=== PATIENT | female | born 1945 | race Caucasian/White ===

== ENCOUNTER 2016-10-21 15:24 | Inpatient (IN) | payer MEDICARE, OTHER ==
[2016-10-21] VITALS (8 sets, daily range): BP systolic 132–158; BP diastolic 58–76; PULSE 69–78; RESP 14–20; TEMP 98.4; O2SAT 96–100
[~2016-10-21] VITALS: Ht 160 cm; Wt 77.3 kg
[~2016-10-21 15:24] MED LIST: ASPI81TA82 PO; ATEN-100 PO; CENTTAB9 PO; CITA20TA4 PO; HYDR-2768 PO; HYDR-3533 PO; LACT20SO4 PO; LEVO50TA4 PO; OMEP20TA39 PO; ROPI.25 PO
--- NOTE | 2016-10-21 15:55 | PD ---
HPI Chief Complaint: Chest Pain Time Seen by Provider: 15:49 Travel History International Travel<30 days: No Contact w/Intl Traveler<30days: No Traveled to known affect area: No History of Present Illness HPI This 71-year-old female is complaining of abdominal pain and vomiting. She says that she felt well yesterday. She went out to dinner and had prime rib. She thought it might have been bad. She went home early not feeling well and then started vomiting around 4:00 this morning. The last few times she vomited a lot of yellow material. She has had a hysterectomy and appendectomy in the past. She has been diagnosed with cirrhosis in the past he still drinks. The pain she is having is primarily in the epigastric area. She is not aware of any history of gallbladder disease. He sees Dr. Rodney. She has not had pain like this before. She says the pain is quite severe. She feels like her abdomen is distended. She has had a small amount of diarrhea PFSH Past Medical History Depression: Yes Cancer: No Cardiovascular Problems: Yes Diabetes: No Diminished Hearing: No Endocrine: No GERD: Yes Hepatitis: No Hiatal Hernia: No Hypertension: Yes Immune Disorder: No Musculoskeletal: No Neurologic: No Psychiatric: No Reproductive: No Respiratory: Yes (HX ASTHMA, COPD, SLEEP APNEA) Thyroid Disease: Yes Past Surgical History Abdominal Surgery: Yes (APPY) AICD: No Cardiac Surgery: No Ear Surgery: No Endocrine Surgery: No Eye Surgery: Yes (CATARACT) Genitourinary Surgery: No Gynecologic Surgery: Yes (HYSTERECTOMY) Joint Replacement: No Oral Surgery: No Pacemaker: No Thoracic Surgery: No Other Surgery: Yes (TONSILLECTOMY; APPY) Social History Alcohol Use: Yes (couple drinks daily) Tobacco Use: No Substance Use: No Allergies-Medications (Allergen,Severity, Reaction): Coded Allergies: No Known Allergies (Unverified , 10/21/16) Reported Meds & Prescriptions Reported Meds & Active Scripts Active Lortab 5 mg/325 mg (Hydrocodone/Acetaminophen 5 mg/325 mg) 1 Tab 1-2 Tab PO Q6H PRN Reported Centrum (Multivitamins) Tab 1 Tab PO DAILY Aspir-81 (Aspirin) 81 Mg Tab 81 Mg PO DAILY Hm Omeprazole (Omeprazole) 20 Mg Tab 40 Mg PO DAILY Citalopram Hydrobromide 20 Mg Tab 20 Mg PO DAILY Atenolol 25 Mg Tab 25 Mg PO DAILY Hctz (Hydrochlorothiazide) 25 Mg Tab 25 Mg PO DAILY Levothyroxine 50 mcg (Levothyroxine Sodium) 50 Mcg Tab 50 Mcg PO DAILY Requip (Ropinirole HCl) 0.25 Mg Tab 0.25 Mg PO DAILY Lactulose 30 Ml Syrp 15 Ml PO TID Review of Systems General / Constitutional: No: Fever, Chills Eyes: No: Diploplia, Blurred Vision HENT: No: Headaches, Vertigo Cardiovascular: No: Chest Pain or Discomfort Respiratory: No: Shortness of Breath Gastrointestinal: Positive: Nausea, Vomiting, Diarrhea, Abdominal Pain Genitourinary: No: Urgency Physical Exam Narrative GENERAL: Well-developed female SKIN: Warm and dry. HEAD: Atraumatic. Normocephalic. EYES: Pupils equal and round. No scleral icterus. No injection or drainage. ENT: No nasal bleeding or discharge. Mucous membranes pink and moist. NECK: Trachea midline. No JVD. CARDIOVASCULAR: Regular rate and rhythm. No murmur appreciated. RESPIRATORY: No accessory muscle use. Clear to auscultation. Breath sounds equal bilaterally. GASTROINTESTINAL: Abdomen soft, there is epigastric tenderness without guarding or rigidity. The abdomen does appear distended. Hepatic and splenic margins not palpable. MUSCULOSKELETAL: No obvious deformities. No clubbing. No cyanosis. No edema. NEUROLOGICAL: Awake and alert. No obvious cranial nerve deficits. Motor grossly within normal limits. Normal speech. PSYCHIATRIC: Appropriate mood and affect; insight and judgment normal. Data Data Last Documented VS Vital Signs Date Time Temp Pulse Resp B/P Pulse Ox O2 Delivery O2 Flow Rate FiO2 10/21/16 15:29 98.4 78 20 134/58 100 Orders Complete Blood Count With Diff (10/21/16 15:49) Comprehensive Metabolic Panel (10/21/16 15:49) Lipase (10/21/16 15:49) Lactic Acid (10/21/16 15:49) Prothrombin Time / Inr (Pt) (10/21/16 15:49) Act Partial Throm Time (Ptt) (10/21/16 15:49) Urinalysis - C+S If Indicated (10/21/16 15:49) Ct Abd/Pel W Iv Contrast(Rout) (10/21/16 15:49) Iv Access Insert/Monitor (10/21/16 15:49) Ecg Monitoring (10/21/16 15:49) Oximetry (10/21/16 15:49) Ondansetron Inj (Zofran Inj) (10/21/16 16:00) Sodium Chlor 0.9% 1000 Ml Inj (Ns 1000 M (10/21/16 15:49) Sodium Chloride 0.9% Flush (Ns Flush) (10/21/16 16:00) Electrocardiogram (10/21/16 15:49) Hydromorphone Pf Inj (Dilaudid Pf Inj) (10/21/16 16:00) MDM Medical Decision Making Medical Screen Exam Complete: Yes Emergency Medical Condition: Yes Medical Record Reviewed: Yes Differential Diagnosis Differential includes bowel obstruction, cholecystitis, gastroenteritis Narrative Course IV fluids have been initiated. Lab work and CT scan of the abdomen and pelvis have been ordered. Diagnosis Primary Impression: Abdominal pain Jc Hui MD Oct 21, 2016 15:55
[2016-10-21] MEDS ORDERED: HYDROmorphone HCL PF 1 MG/ML VIAL IV PUSH ONE (16:00)
[2016-10-21] MEDS ORDERED: SODIUM CHLORIDE 0.9% FLUSH 5 ML FLUSH IVF PRN (16:00)
[2016-10-21] MEDS ORDERED: ONDANSETRON HCL 4 MG/2 ML VIAL IVP ONE (16:00)
[2016-10-21] MEDS: SODIUM CHLOR 0.9% 1000 ML INJ 1,000 ML IV SCH ×2 (16:07→21:00)
[2016-10-21 16:17] LABS: AUTOMATED NEUTROPHIL # 10.3 TH/MM3 (1.8-7.7); BASOPHIL # 0.3 TH/MM3 (0-0.2); CHLORIDE 100 MEQ/L (98-107); EOSINOPHIL % 0.3 % (0.0-4.0); HEMATOCRIT 35.8 % (35.0-46.0); LYMPH % 11.8 % (9.0-44.0); LYMPHOCYTE # 1.5 TH/MM3 (1.0-4.8); MEAN CELL VOLUME 96.9 FL (80.0-100.0); MEAN CORPUSCULAR HEMOGLOBIN 32.7 PG (27.0-34.0); MEAN CORPUSCULAR HGB CONC 33.8 % (32.0-36.0); MONO % 6.7 % (0.0-8.0); NEUT % 79.2 % (16.0-70.0); PLATELET COUNT 215 TH/MM3 (150-450); POTASSIUM 3.6 MEQ/L (3.5-5.1); RED CELL DISTRIBUTION WIDTH 15.4 % (11.6-17.2); SODIUM (NA) 138 MEQ/L (136-145)
[2016-10-21 16:18] LABS: HEMO FLAGS DIFF FINAL
[2016-10-21 16:21] LABS: ANION GAP 11 MEQ/L (5-15); BICARBONATE 27.2 MEQ/L (21.0-32.0); BLOOD UREA NITROGEN 7 MG/DL (7-18)
[2016-10-21 16:23] LABS: APTT (PATIENT) 29.1 SEC (24.3-30.1); INTERNATIONAL NORMALIZED RATIO 1.2 RATIO; PROTHROMBIN TIME - PATIENT 13.1 SEC (9.8-11.6)
[2016-10-21 16:24] LABS: ALT (GPT) 35 U/L (10-53); AST (GOT) 119 U/L (15-37); GLOMERULAR FILTRATION RATE 90 ML/MIN (>89)
[2016-10-21 16:26] LABS: TOTAL BILIRUBIN ADULT 4.1 MG/DL (0.2-1.0)
[2016-10-21 16:27] LABS: ALKALINE PHOSPHATASE 253 U/L (45-117)
[2016-10-21 16:28] LABS: CREATINE KINASE 86 U/L (26-192)
[2016-10-21] MEDS ORDERED: LEVO50TA4 PO (16:35)
[2016-10-21] MEDS ORDERED: ASPI1TAB69 PO (16:35)
[2016-10-21] MEDS ORDERED: ROPI0.25 PO (16:35)
[2016-10-21] MEDS ORDERED: SPIR50TA PO (16:35)
[2016-10-21] MEDS ORDERED: OMEP20TA PO (16:35)
[2016-10-21] MEDS ORDERED: MULT-6 PO (16:35)
[2016-10-21] MEDS ORDERED: CITA20TA4 PO (16:35)
[2016-10-21] MEDS ORDERED: LACT10SO PO (16:35)
[2016-10-21] MEDS ORDERED: FURO20TA PO (16:35)
[2016-10-21] MEDS ORDERED: VITA500T49 PO (16:35)
[2016-10-21] MEDS ORDERED: XIFA550T4 PO (16:35)
[2016-10-21] MEDS ORDERED: IOHEXOL 350 MG/ML 10 ML VIAL (for RAD DIAG) IV ONE (17:05)
--- NOTE | 2016-10-21 17:11 | RADHPO ---
EXAM DATE/TIME: 10/21/2016 16:32 [facility] COMPARISON: No previous studies available for comparison. INDICATIONS : Abdominal pain. MEDICAL HISTORY : None. SURGICAL HISTORY : Hysterectomy. Appendectomy. ENCOUNTER: Initial ACUITY: 1 day PAIN SCORE: 7/10 LOCATION: Bilateral abdomen. FINDINGS: Supine and upright views of the abdomen were performed. The abdominal bowel gas pattern is normal. No air fluid levels are seen. No abnormal masses, calcifications, or organomegaly is seen. The visu alized lower lungs are clear. No evidence of free intraperitoneal gas. The osseous structures are u nremarkable. CONCLUSION: Nonobstructive bowel gas pattern. No free air seen. Fidel Perez MD on October 21, 2016 at 17:10 Board Certified Radiologist. This report was verified electronically.
--- NOTE | 2016-10-21 17:20 | RADHPO ---
EXAM DATE/TIME: 10/21/2016 16:52 [facility] COMPARISON: No previous studies available for comparison. INDICATIONS : Epigastric pain. IV CONTRAST: 95 cc Omnipaque 350 (iohexol) IV ORAL CONTRAST: No oral contrast ingested. RADIATION DOSE: 16.92 CTDIvol (mGy) MEDICAL HISTORY : Hypertension. Chronic obstructive pulmonary disease. Gastroesophageal reflux disease. SURGICAL HISTORY : Appendectomy. Hysterectomy. ENCOUNTER: Initial ACUITY: 1 day PAIN SCALE: 3/10 LOCATION: upper quadrant TECHNIQUE: Volumetric scanning of the abdomen and pelvis was performed. Using automated exposure control and ad justment of the mA and/or kV according to patient size, radiation dose was kept as low as reasonably achievable to obtain optimal diagnostic quality images. FINDINGS: Liver is smaller than before and now appears frankly nodular. Innumerable 5 mm or less low density sp aces are seen scattered throughout the liver. A vague low attenuation area of the anterior segment of the right hepatic lobe measuring 2.7 x 4.3 cm as seen on series 2 image 29. There is small moderate ascites, new. Mild splenomegaly again seen, measures about 13.3 cm craniocaudal. No significant diste ntion seen in the portal vein. Portal vein appears patent. Pancreas, adrenal glands and kidneys are within normal limits. No obstruction or acute inflammatory c hanges are seen of the gastrointestinal tract. There is mild sigmoid colon diverticulosis without div erticulitis. Moderate hiatal hernia is seen, larger than before. CONCLUSION: 1. Liver now appears frankly cirrhotic. There is a area of tiny low density lesions versus cystic spa ramiro scattered throughout the liver, etiology uncertain potentially related to cirrhosis and/or haley us regenerating nodules. Superimposed acute hepatocellular disease would be conceivable. Diffuse met astatic disease not excludable. Study also suggests potential vague, more dominant lesion of the righ t hepatic lobe. Nonemergent liver MRI with dynamic postcontrast imaging recommended for attempted fur ther characterization. 2. Small to moderate ascites has developed. 3. Mild splenomegaly is not significantly changed. 4. Increased size of a moderate hiatal hernia. 5. No obstruction or focal inflammatory changes are demonstrated. Fidel ePrez MD on October 21, 2016 at 17:12 Board Certified Radiologist. This report was verified electronically.
--- NOTE | 2016-10-21 17:37 | PD ---
Data Data Last Documented VS Vital Signs Date Time Temp Pulse Resp B/P Pulse Ox O2 Delivery O2 Flow Rate FiO2 10/21/16 17:16 77 16 147/61 99 Room Air 10/21/16 15:29 98.4 Orders Complete Blood Count With Diff (10/21/16 15:49) Comprehensive Metabolic Panel (10/21/16 15:49) Lipase (10/21/16 15:49) Lactic Acid (10/21/16 15:49) Prothrombin Time / Inr (Pt) (10/21/16 15:49) Act Partial Throm Time (Ptt) (10/21/16 15:49) Urinalysis - C+S If Indicated (10/21/16 15:49) Ct Abd/Pel W Iv Contrast(Rout) (10/21/16 15:49) Iv Access Insert/Monitor (10/21/16 15:49) Ecg Monitoring (10/21/16 15:49) Oximetry (10/21/16 15:49) Ondansetron Inj (Zofran Inj) (10/21/16 16:00) Sodium Chlor 0.9% 1000 Ml Inj (Ns 1000 M (10/21/16 15:49) Sodium Chloride 0.9% Flush (Ns Flush) (10/21/16 16:00) Electrocardiogram (10/21/16 15:49) Hydromorphone Pf Inj (Dilaudid Pf Inj) (10/21/16 16:00) Abdomen, Flat & Upright (10/21/16 ) Ckmb (Isoenzyme) Profile (10/21/16 15:43) Troponin I (10/21/16 15:43) Iohexol 350 Inj (Omnipaque 350 Inj) (10/21/16 17:05) Aspirin Chew (Aspirin Chew) (10/21/16 17:45) Labs Laboratory Tests Test 10/21/16 15:43 White Blood Count 13.0 TH/MM3 Red Blood Count 3.70 MIL/MM3 Hemoglobin 12.1 GM/DL Hematocrit 35.8 % Mean Corpuscular Volume 96.9 FL Mean Corpuscular Hemoglobin 32.7 PG Mean Corpuscular Hemoglobin 33.8 % Concent Red Cell Distribution Width 15.4 % Platelet Count 215 TH/MM3 Mean Platelet Volume 9.0 FL Neutrophils (%) (Auto) 79.2 % Lymphocytes (%) (Auto) 11.8 % Monocytes (%) (Auto) 6.7 % Eosinophils (%) (Auto) 0.3 % Basophils (%) (Auto) 2.0 % Neutrophils # (Auto) 10.3 TH/MM3 Lymphocytes # (Auto) 1.5 TH/MM3 Monocytes # (Auto) 0.9 TH/MM3 Eosinophils # (Auto) 0.0 TH/MM3 Basophils # (Auto) 0.3 TH/MM3 CBC Comment DIFF FINAL Differential Comment Prothrombin Time 13.1 SEC Prothromb Time International 1.2 RATIO Ratio Activated Partial 29.1 SEC Thromboplast Time Sodium Level 138 MEQ/L Potassium Level 3.6 MEQ/L Chloride Level 100 MEQ/L Carbon Dioxide Level 27.2 MEQ/L Anion Gap 11 MEQ/L Blood Urea Nitrogen 7 MG/DL Creatinine 0.65 MG/DL Estimat Glomerular Filtration 90 ML/MIN Rate Random Glucose 140 MG/DL Lactic Acid Level 2.5 mmol/L Calcium Level 9.0 MG/DL Total Bilirubin 4.1 MG/DL Aspartate Amino Transf 119 U/L (AST/SGOT) Alanine Aminotransferase 35 U/L (ALT/SGPT) Alkaline Phosphatase 253 U/L Total Creatine Kinase 86 U/L Troponin I LESS THAN 0.02 NG/ML Total Protein 7.6 GM/DL Albumin 2.6 GM/DL Lipase 211 U/L [facility] Supervised Visit with KATHY: No Narrative Course The patient was initially evaluated by the previous provider and signed out to me at the beginning of my shift pending labs, CT abdomen pelvis, and disposition. See his note for further details. Briefly this is a 71-year-old female with history of cirrhosis secondary to alcohol abuse, hysterectomy, here for evaluation of epigastric abdominal pain, abdominal distention, nausea, and vomiting. Symptoms started today. Patient also complained of substernal heaviness. Her EKG shows no signs of ischemia. Vital signs show heart rate 78, blood pressure 134/58, pulse ox 100% on room air , oral temp of 98.4F. CBC is remarkable for WBC 13 with 79% neutrophils. CMP is remarkable for TB bili 4.1, AST 119, alkaline phosphatase 253. Lactic acid is 2.5. Cardiac enzymes are negative. Lipase is 211. CT abdomen pelvis: CONCLUSION: 1. Liver now appears frankly cirrhotic. There is a area of tiny low density lesions versus cystic spaces scattered throughout the liver, etiology uncertain potentially related to cirrhosis and/or numerous regenerating nodules. Superimposed acute hepatocellular disease would be conceivable. Diffuse metastatic disease not excludable. Study also suggests potential vague, more dominant lesion of the right hepatic lobe. Nonemergent liver MRI with dynamic postcontrast imaging recommended for attempted further characterization. 2. Small to moderate ascites has developed. 3. Mild splenomegaly is not significantly changed. 4. Increased size of a moderate hiatal hernia. 5. No obstruction or focal inflammatory changes are demonstrated. Upon my assessment of the patient, the patient reports improvement in pain after receiving pain medication, however she states the pain seems to be returning. She has mild tenderness in her abdomen. No rebound or guarding. The ascites seen on CAT scan is very small and I do not believe that paracentesis could be performed safely given the small amount of fluid present. SBP is a possibility, however I think this is less likely in this patient. Patient reports that she was having some substernal chest pressure earlier today. She will be admitted for further treatment and evaluation of the intractable abdominal pain, chest pain, hyperbilirubinemia. Case discussed with hospitalist Dr. Cortez who will admit the patient to his service. Diagnosis Primary Impression: Chest pain Qualified Code: R07.9 - Chest pain, unspecified type Additional Impressions: Abdominal pain Qualified Code: R10.13 - Epigastric pain Hyperbilirubinemia Admitting Information Admitting Physician Requests: Isael Banuelos MD Oct 21, 2016 17:37
[2016-10-21 17:39] LABS: BLOOD, URINE TRACE (NEG); GLUCOSE,URINE NEG (NEG); KETONE, URINE NEG (NEG); NITRITE,URINE NEG (NEG); PH, URINE 8.5 (5.0-8.5)
[2016-10-21] MEDS ORDERED: NALOXONE HCL 0.4 MG/ML AMP IV PRN (17:45)
[2016-10-21] MEDS ORDERED: ACETAMINOPHEN/HYDROcodone 325 MG/5 MG TAB PO PRN (17:45)
[2016-10-21] MEDS ORDERED: SODIUM CHLORIDE 0.9% FLUSH 5 ML FLUSH FLUSH PRN (17:45)
[2016-10-21] MEDS ORDERED: ONDANSETRON HCL 4 MG/2 ML VIAL IVP PRN (17:45)
[2016-10-21] MEDS ORDERED: ACETAMINOPHEN/HYDROcodone 325 MG/7.5 MG TAB PO PRN (17:45)
[2016-10-21] MEDS ORDERED: ASPIRIN 81 MG CHEW TAB PO ONE (17:45)
[2016-10-21] MEDS ORDERED: MAGNESIUM HYDROXIDE SUSP 30 ML CUP PO PRN (17:45)
[2016-10-21] MEDS ORDERED: ACETAMINOPHEN 325 MG TAB PO PRN ×2 (17:45)
[2016-10-21 17:49] LABS: COMMENT (UR) CULT NOT INDICATED; CULTURE IF INDICATED CULT NOT INDICATED; METHOD OF COLLECTION CLEAN CATCH; SQUAMOUS EPITHELIAL CELL URINE 0-5 /hpf (0-5); URINE COLOR YELLOW (YELLW/STRAW)
--- NOTE | 2016-10-21 18:53 | PD.CONS ---
GI Consult GI Consult please also see GI consultation dictated today ([id number]) ASSESSMENT/PLAN: 1. Diffuse abdominal pain associated with nausea, vomiting and diarrhea-? foodborne process ? viral gastroenteritis ?SBP 2. alcohol-induced cirrhosis. 3. gallstones 4. increased LFTs 5. ascites 6. abnormal CT scan? liver lesion-see report PLAN: 1. stool pathogens including enterohemorrhagic Escherichia coli 2. bowel rest 3. Cipro and Flagyl 4. alpha-fetoprotein 5. MRI of abdomen It was a pleasure seeing Brenda Smiley . Thank you for this consult. Entered by: Slava Beckham MD Oct 21, 2016 18:53
[2016-10-21] MEDS: metroNIDAZOLE 500 MG INJ 100 ML IV SCH (19:52)
[2016-10-21] MEDS: SODIUM CHLORIDE 0.9% FLUSH 5 ML FLUSH FLUSH SCH (21:00)
[2016-10-21] MEDS: CIPROFLOXACIN 400 MG PREMIX 200 ML IV SCH (21:00)
[2016-10-21 23:00] LABS: CREATINE KINASE 93 U/L (26-192)
[2016-10-22] VITALS (12 sets, daily range): BP systolic 121–146; BP diastolic 49–78; PULSE 72–85; RESP 16–20; TEMP 98.5–101.2; O2SAT 92–100
[2016-10-22] MEDS: metroNIDAZOLE 500 MG INJ 100 ML IV SCH ×3 (04:02→21:24)
[2016-10-22 05:33] LABS: CREATINE KINASE 50 U/L (26-192)
[2016-10-22 06:03] LABS: AUTOMATED NEUTROPHIL # 17.2 TH/MM3 (1.8-7.7); BASOPHIL # 0.9 TH/MM3 (0-0.2); BASOPHIL % 4.3 % (0.0-2.0); EOSINOPHIL # 0.1 TH/MM3 (0-0.4); EOSINOPHIL % 0.6 % (0.0-4.0); HEMATOCRIT 31.2 % (35.0-46.0); LYMPH % 9.3 % (9.0-44.0); MEAN CELL VOLUME 97.5 FL (80.0-100.0); MEAN CORPUSCULAR HEMOGLOBIN 32.9 PG (27.0-34.0); MEAN CORPUSCULAR HGB CONC 33.7 % (32.0-36.0); NEUT % 77.8 % (16.0-70.0); PLATELET COUNT 192 TH/MM3 (150-450)
[2016-10-22 06:05] LABS: HEMO FLAGS AUTO DIFF
[2016-10-22 06:14] LABS: CHLORIDE 103 MEQ/L (98-107); POTASSIUM 3.4 MEQ/L (3.5-5.1); SODIUM (NA) 139 MEQ/L (136-145)
[2016-10-22 06:42] LABS: ALKALINE PHOSPHATASE 166 U/L (45-117); ALT (GPT) 24 U/L (10-53); ANION GAP 10 MEQ/L (5-15); AST (GOT) 87 U/L (15-37); BICARBONATE 26.5 MEQ/L (21.0-32.0); BLOOD UREA NITROGEN 9 MG/DL (7-18); GLOMERULAR FILTRATION RATE 96 ML/MIN (>89); TOTAL BILIRUBIN ADULT 5.2 MG/DL (0.2-1.0)
[2016-10-22 06:56] LABS: SCAN/DIFF AUTO DIFF CONFIRMED
--- NOTE | 2016-10-22 08:16 | MB ---
cc: HERRERA MENDIETA M.D., MATTHEW DATE OF CONSULTATION: 10/21/2016 DATE OF : 1945 REASON FOR CONSULTATION I have been asked to see the patient by Dr. Cortez for evaluation of nausea, vomiting, abdominal pain and diarrhea. HISTORY OF PRESENT ILLNESS The patient is a pleasant 71-year-old white female with a history of alcohol-induced cirrhosis. She also has a history of ascites and small gallstones seen on ultrasound done earlier this year. She has had previous paracentesis. Apparently she went out to eat with her at the [facility] home last night and she thought the prime rib was not cooked appropriately and looked kind of rare. She put it in her mouth and swallowed and it did not taste very good and she stopped eating. She also had three vodkas. About a half hour later she started having diffuse abdominal pain, colicky and sharp without any provocative or palliative features and non-radiating. She went home and the pain continued and about 4 o'clock this morning she woke up with multiple episodes of vomiting, basically what she ate and bile, but no blood. She did vomit quite forcefully and had some blood from her nose but this stopped. She also had a couple episodes of loose to watery stools which also resolved without any blood (no melena or hematochezia). The patient has not been on any recent antibiotics, nor has she taken any NSAIDs. She does take aspirin. No one else has been ill and she denies any fever or chills, dysphagia or odynophagia. She does have heartburn at times. No melena or hematochezia. No unexplained weight loss. In the emergency room a CAT scan was done which did not show any etiology of the situation, although it showed a lot of chronic changes (? liver lesion). She was given antiemetics and pain medication and improved somewhat, but pain is coming back again. She is currently being admitted. ALLERGIES No known drug allergies. MEDICATIONS Outpatient medications are: 1. Lortab. 2. Aspirin. 3. Omeprazole. 4. Citalopram. 5. Atenolol 6. Hydrochlorothiazide. 7. Levothyroxine. 8. Requip. 9. Lactulose. Medications as an inpatient current are: 1. Tylenol. 2. Zofran. 3. Milk of Magnesia. 4. Calypso. 5. Narcan. PAST MEDICAL HISTORY 1. Cirrhosis related to alcohol. 2. Depression. 3. GERD. 4. Hypertension. 5. Sleep apnea. 6. COPD. 7. Possible asthma. 8. She also has gallstones. 9. Ascites which has been tapped in the past. 10. Hypothyroidism. 11. History of hepatic encephalopathy, but is doing well with lactulose. At one time she was on rifaximin but she says she is not taking it now. PAST SURGICAL HISTORY 1. Appendectomy. 2. Cataract. 3. Hysterectomy. 4. Tonsillectomy. 5. Upper endoscopy in April 2015 which revealed portal hypertension and gastropathy, no varices. SOCIAL HISTORY She drinks alcohol several times a day; last night she had three. She does not smoke. FAMILY HISTORY Noncontributory for this admission. REVIEW OF SYSTEMS CONSTITUTIONAL: No weight loss, fever or chills. CARDIOPULMONARY: No palpitations or wheezing. She reportedly had chest pain but denied it to me. GASTROINTESTINAL: Please see above. Otherwise an unremarkable 10-point review of systems. Her last labs on 04/20/2016 revealed total bilirubin of 2.2, alkaline phosphatase 204, SGOT 37, SGPT 110. PHYSICAL EXAMINATION VITAL SIGNS: Blood pressure is 147/61, pulse 72, respirations 16, temperature 98.4. GENERAL: She is an overweight female, mildly uncomfortable with abdominal pain. She is no acute GI distress. HEENT: Pupils equal, round and reactive to light. There is a touch of scleral icterus. Oropharyngeal cavity has dental caries. No tongue deviation or candidal lesion. Hearing is intact. NECK: Supple. No thyromegaly or lymphadenopathy. LUNGS: Clear to auscultation and percussion. HEART: Regular rate and rhythm. No obvious murmurs are heard. ABDOMEN: Soft. She has diffuse tenderness throughout the abdomen but no rebound tenderness, organomegaly or masses. I really could not tell if she had any ascites clinically. Bowel sounds are positive in all four quadrants. EXTREMITIES: No clubbing, cyanosis or edema. NEUROLOGIC: Cranial nerves II through XII are grossly intact. I did not assess her gait. RECTAL: Exam was not done. SKIN: Warm and moist. LABORATORY DATA BUN 7, creatinine 0.65, potassium 3.6, sodium 138. Total bilirubin 4.1, elevated; SGOT 119, SGPT 35 normal; alkaline phos 253; albumin low at 2.6; total protein normal at 7.4; lipase normal at 211. Troponins have been negative so far. CPK 86, which is normal. Prothrombin time 13.1--elevated; INR 1.2 normal; PTT 29.1 normal. Hemoglobin 12.1, hematocrit 35.8, MCV 96.9, platelet count 215,000, white blood cell count elevated at 13,400. Urinalysis was unremarkable. IMAGING DATA Flat and upright abdomen was unremarkable. CT scan of the abdomen and pelvis done with contrast showed cirrhosis of the liver. There appears to be tiny low density lesions versus cystic spaces throughout the liver, thought to be regenerative nodules. They could not exclude diffuse metastatic disease. Appears to also be a dominant lesion in the right hepatic lobe. They suggest MRI in the future. There was also mild to moderate ascites and mild splenomegaly. There was a mild hiatal hernia. No obstruction or focal inflammatory changes seen. IMPRESSION 1. Diffuse abdominal pain associated with nausea, vomiting and diarrhea. This occurred several hours after eating poorly cooked red meat. She understands this could be a food borne process, could also be a viral gastroenteritis. Whether it is related to spontaneous bacterial peritonitis is unclear. Her gallstones are small and I do not think the gallbladder is playing a role in this situation as the pain is too diffuse. The CAT scan did not show any obstructing lesions or any other inflammatory process. 2. Alcohol-induced cirrhosis. 3. Gallstones. 4. Increased LFTs; appear to be slightly worse than before but not inconsistent with her LFTs in the office. 5. Ascites. Again, whether this is related to spontaneous bacterial peritonitis is unclear. 6. Abnormal CAT scan. There is a possibility of a vague lesion in the liver, significance unclear. However, in the face of cirrhosis we need to evaluate this in more detail. RECOMMENDATIONS 1. Stool pathogens including work-up for enterohemorrhagic E. Coli. 2. Bowel rest 3. Empiric Cipro and Flagyl to cover for any type of bacterial pathogens as well as spontaneous bacterial peritonitis. 4. Alpha-fetoprotein. 5. MRI of the abdomen to further evaluate this lesion in the liver for any malignancy. 6. Further recommendations depending on how she does. MD PETER Wheat /6:57 PM /7:25 AM [email or web address]
[2016-10-22] MEDS: CIPROFLOXACIN 400 MG PREMIX 200 ML IV SCH ×2 (09:25→22:57)
[2016-10-22] MEDS: SODIUM CHLORIDE 0.9% FLUSH 5 ML FLUSH FLUSH SCH ×2 (09:25→21:00)
[2016-10-22] MEDS ORDERED: IBUPROFEN 400 MG TAB PO PRN (10:00)
[2016-10-22] MEDS ORDERED: NALOXONE HCL 0.4 MG/ML AMP IV PRN (10:00)
[2016-10-22] MEDS ORDERED: traMADol HCL 50 MG TAB PO PRN (10:00)
[2016-10-22] MEDS ORDERED: LORazepam 1 MG TAB PO PRN (11:00)
[2016-10-22] MEDS ORDERED: LORazepam 2 MG/ML VIAL IV PUSH PRN ×4 (11:00)
[2016-10-22] MEDS ORDERED: HALOPERIDOL LACTATE 5 MG/ML AMP IM PRN (11:00)
[2016-10-22] MEDS ORDERED: LORazepam 2 MG TAB PO PRN (11:00)
[2016-10-22] MEDS: NS + KCL 20 MEQ INJ 1,000 ML IV SCH (11:33)
[2016-10-22 13:39] LABS: LACTIC ACID GHOST NOT REPORTABLE
--- NOTE | 2016-10-22 15:26 | HHI.GIFU ---
GI Follow-up Note Consult Follow-up Subjective: Patient laying in bed comfortably. She states her nausea is better and vomiting has resolved. able to eat today. abd pain better. no diarrhea today Objective: PHYSICAL EXAMINATION: 146/61-83-20 100.3 HEENT: + jaundice. Throat is clear. NECK: Neck is supple, no JVD, no lymphadenopathy. CHEST: Chest is clear to auscultation and percussion. CARDIAC: Regular rate and rhythm with no murmur gallop or rubs. ABDOMEN: minimal distension but soft. mildly tender; no hepatosplenomegaly; bowel sounds are present in all four quadrants.no rebound EXTREMITIES: No clubbing, cyanosis, or edema. SAMPLE SELECTOR: alert and oriented times three. Available Data (labs, X- Rays, Procedues) : WBC 22,000. Hbg 10.5. Total bili 5.2. other LFT elevated also but better ASSESSMENT/PLAN: 1. Diffuse abdominal pain associated with nausea, vomiting and diarrhea-? foodborne process ? viral gastroenteritis ?SBP--pt has improved 2. alcohol-induced cirrhosis. 3. gallstones-no Mcbride's sign 4. increased LFTs--bili worse but other LFT improving. 5. ascites 6. abnormal CT scan? liver lesion-see report-MRI pending PLAN: 1. awaiting stool pathogens including enterohemorrhagic Escherichia coli 2. Pt tolerating diet 3. Cont Cipro and Flagyl especially with elevated WBC 4. [id number] 5. MRI of abdomen It was a pleasure seeing Brenda Smiley. Thank you for this consult. Entered by: Slava Beckham MD Oct 22, 2016 15:25
--- NOTE | 2016-10-22 17:50 | EKG ---
Date Performed: 10/21/2016 Time Performed: 15:31:28 PTAGE: 71 years EKG: Sinus rhythm . Septal T wave changes are nonspecific Since previous tracing, no significant change noted Borderlin e ECG PREVIOUS TRACING : 12/31/2015 19.21 DOCTOR: Ruby Kitchen Interpretating Date/Time 10/22/2016 17:49:55
--- NOTE | 2016-10-22 17:52 | EKG ---
Date Performed: 10/21/2016 Time Performed: 22:00:28 PTAGE: 71 years EKG: Sinus rhythm . Poor R wave progression - probable normal variant Inferior and anterior T wave changes are nonspeci fic Since previous tracing, no significant change noted Borderline ECG PREVIOUS TRACING : 10/21/2016 15.31.28 DOCTOR: Ruby Kitchen Interpretating Date/Time 10/22/2016 17:50:31
--- NOTE | 2016-10-22 17:53 | EKG ---
Date Performed: 10/22/2016 Time Performed: 03:40:04 PTAGE: 71 years EKG: Sinus rhythm Since previous tracing, no significant change noted Normal ECG PREVIOUS TRACING : 10/21/2016 22.00 DOCTOR: Ruby Kitchen Interpretating Date/Time 10/22/2016 17:50:44
--- NOTE | 2016-10-22 18:23 | HHI.HP ---
[facility] Service [facility] Primary Care Physician Parmjit Davidson MD Admission Diagnosis chest pain, abdominal pain, hyperbilirubinemia Diagnoses: Travel History International Travel<30 Days: No Contact w/Intl Traveler <30 Da: No Traveled to Known Affected Are: No History of Present Illness This is a pleasant 71-year-old female with past medical history of alcoholic cirrhosis of the liver who yesterday went out to dinner and had prime rib. Yesterday afternoon she started to develop generalized abdominal pain associated with vomiting in the afternoon. She also had a small amount of diarrhea. The pain was quite severe. She presented to the emergency department. Abdominal CT showed a cirrhotic liver with low density lesions scattered throughout the liver and small to moderate ascites however there was no obstruction or focal inflammatory changes seen. Overnight the patient has tolerated a regular diet. She's had no further nausea or vomiting. She did have several more loose stools yesterday as well as one today. The patient does not have any further abdominal pain. The patient has been seen by GI who has ordered an MRI and stool studies for further evaluation. Review of Systems Constitutional: COMPLAINS OF: Fever, Chills Ears, nose, mouth, throat: DENIES: Throat pain, Hoarseness Cardiovascular: DENIES: Chest pain, Palpitations Gastrointestinal: COMPLAINS OF: Abdominal pain, Diarrhea, Nausea, Vomiting Genitourinary: DENIES: Urinary frequency, Dysuria Musculoskeletal: DENIES: Stiffness, Neck pain Integumentary: DENIES: Pruritus, Rash Hematologic/lymphatic: DENIES: Lymphadenopathy Neurologic: DENIES: Abnormal gait, Headache Psychiatric: DENIES: Anxiety, Confusion Past Family Social History Past Medical History Cirrhosis Hypertension Hypothyroidism GERD Depression Allergies: Coded Allergies: No Known Allergies (Unverified , 10/21/16) Family History Reviewed and noncontributory Social History Does have a history of heavy alcohol use. Physical Exam Vital Signs Vital Signs Date Time Temp Pulse Resp B/P Pulse Ox O2 Delivery O2 Flow Rate FiO2 10/22/16 16:00 101.2 85 18 124/57 94 10/22/16 12:00 100.3 83 20 146/61 95 10/22/16 09:33 85 10/22/16 08:00 100.0 84 18 132/58 94 10/22/16 07:15 95 Nasal Cannula 2.00 10/22/16 06:13 77 16 130/49 99 Nasal Cannula 2 10/22/16 04:05 72 16 134/56 100 Nasal Cannula 2 10/22/16 02:54 78 18 136/78 Room Air 10/22/16 01:59 77 16 135/56 98 2 10/21/16 22:46 74 16 132/76 98 10/21/16 20:45 77 16 138/72 98 Nasal Cannula 2 10/21/16 20:00 98 Nasal Cannula 2.00 10/21/16 19:30 18 Physical Exam GENERAL: Well-nourished, well-developed patient. SKIN: Warm and dry. HEAD: Normocephalic. EYES: No scleral icterus. No injection or drainage. NECK: Supple, trachea midline. No JVD or lymphadenopathy. CARDIOVASCULAR: Regular rate and rhythm without murmurs, gallops, or rubs. RESPIRATORY: Breath sounds equal bilaterally. No accessory muscle use. GASTROINTESTINAL: Abdomen soft, non-tender, nondistended. EXTREMITIES: No cyanosis, or edema. NEUROLOGICAL: Awake, alert, and oriented x 3. Non-focal. Laboratory Laboratory Tests Test 10/21/16 10/22/16 10/22/16 10/22/16 22:10 03:45 05:50 11:25 Total Creatine Kinase 93 50 Troponin I LESS THAN 0.02 LESS THAN 0.02 White Blood Count 22.0 Red Blood Count 3.20 Hemoglobin 10.5 Hematocrit 31.2 Mean Corpuscular Volume 97.5 Mean Corpuscular Hemoglobin 32.9 Mean Corpuscular Hemoglobin 33.7 Concent Red Cell Distribution Width 16.0 Platelet Count 192 Mean Platelet Volume 8.6 Neutrophils (%) (Auto) 77.8 Lymphocytes (%) (Auto) 9.3 Monocytes (%) (Auto) 8.0 Eosinophils (%) (Auto) 0.6 Basophils (%) (Auto) 4.3 Neutrophils # (Auto) 17.2 Lymphocytes # (Auto) 2.0 Monocytes # (Auto) 1.8 Eosinophils # (Auto) 0.1 Basophils # (Auto) 0.9 CBC Comment AUTO DIFF Differential Comment AUTO DIFF CONFIRMED Sodium Level 139 Potassium Level 3.4 Chloride Level 103 Carbon Dioxide Level 26.5 Anion Gap 10 Blood Urea Nitrogen 9 Creatinine 0.61 Estimat Glomerular Filtration 96 Rate Random Glucose 114 Calcium Level 7.9 Total Bilirubin 5.2 Aspartate Amino Transf 87 (AST/SGOT) Alanine Aminotransferase 24 (ALT/SGPT) Alkaline Phosphatase 166 Total Protein 5.9 Albumin 2.1 Lactic Acid Level 3.1 Test 10/22/16 10/22/16 13:43 13:52 Tumor Marker Alpha Fetoprotein 6.3 Lactic Acid Level 2.0 Date/Time Procedure Status Source Growth 10/22/16 11:32 Aerobic Blood Culture Received Blood Peripheral Pending 10/22/16 11:32 Anaerobic Blood Culture Received Blood Peripheral Pending Result Diagram: 10/22/16 0550 10/22/16 0550 Imaging Last Impressions Abdomen/Pelvis CT 10/21/16 1549 Signed Impressions: Service Date/Time: Friday, October 21, 2016 16:52 - CONCLUSION: 1. Liver now appears frankly cirrhotic. There is a area of tiny low density lesions versus cystic spaces scattered throughout the liver, etiology uncertain potentially related to cirrhosis and/or numerous regenerating nodules. Superimposed acute hepatocellular disease would be conceivable. Diffuse metastatic disease not excludable. Study also suggests potential vague, more dominant lesion of the right hepatic lobe. Nonemergent liver MRI with dynamic postcontrast imaging recommended for attempted further characterization. 2. Small to moderate ascites has developed. 3. Mild splenomegaly is not significantly changed. 4. Increased size of a moderate hiatal hernia. 5. No obstruction or focal inflammatory changes are demonstrated. Fidel Perez MD Abdomen X-Ray 10/21/16 0000 Signed Impressions: Service Date/Time: Friday, October 21, 2016 16:32 - CONCLUSION: Nonobstructive bowel gas pattern. No free air seen. Fidel Perez MD Assessment and Plan Assessment and Plan -Abdominal pain, nausea vomiting, diarrhea with leukocytosis. Rule out gastroenteritis, rule out C. difficile colitis. Enteric pathogen stool cultures have been sent as well. Continue Flagyl and Cipro especially with her rising leukocytosis today and fever. Spontaneous bacterial peritonitis could be an additional possibility. -Multiple liver low density lesions rule out metastatic disease. Alpha- fetoprotein level is pending. MRI is been ordered by gastroenterology. -Cirrhosis of the liver. Continue rifaximin, spironolactone Lasix and lactulose. -Depression. Continue Celexa. -History of coronary artery disease. Continue aspirin. -Hypothyroidism. Continue Synthroid. -DVT prophylaxis with SCDs. Barb Carrington MD Oct 22, 2016 18:23
[2016-10-23] VITALS: BP 100/48; PULSE 84; RESP 16; TEMP 97.9; O2SAT 93
[2016-10-23] MEDS: NS + KCL 20 MEQ INJ 1,000 ML IV SCH (00:51)
[2016-10-23] MEDS: metroNIDAZOLE 500 MG INJ 100 ML IV SCH ×2 (03:47→12:00)
[2016-10-23 04:00] VITALS: BP 124/48; PULSE 83; RESP 16; TEMP 98.6; O2SAT 90
[2016-10-23 06:17] LABS: AUTOMATED NEUTROPHIL # 13.4 TH/MM3 (1.8-7.7); BASOPHIL # 0.1 TH/MM3 (0-0.2); BASOPHIL % 0.8 % (0.0-2.0); EOSINOPHIL # 0.3 TH/MM3 (0-0.4); EOSINOPHIL % 1.8 % (0.0-4.0); HEMATOCRIT 29.6 % (35.0-46.0); LYMPH % 12.2 % (9.0-44.0); LYMPHOCYTE # 2.1 TH/MM3 (1.0-4.8); MEAN CELL VOLUME 97.9 FL (80.0-100.0); MEAN CORPUSCULAR HEMOGLOBIN 31.5 PG (27.0-34.0); MEAN CORPUSCULAR HGB CONC 32.1 % (32.0-36.0); MONO % 8.1 % (0.0-8.0); NEUT % 77.1 % (16.0-70.0); PLATELET COUNT 193 TH/MM3 (150-450); RED BLOOD COUNT 3.03 MIL/MM3 (4.00-5.30); RED CELL DISTRIBUTION WIDTH 14.9 % (11.6-17.2); WHITE BLOOD COUNT 17.3 TH/MM3 (4.0-11.0)
[2016-10-23 06:20] LABS: HEMO FLAGS DIFF FINAL
[2016-10-23 06:26] LABS: CHLORIDE 105 MEQ/L (98-107); POTASSIUM 3.8 MEQ/L (3.5-5.1); SODIUM (NA) 141 MEQ/L (136-145)
[2016-10-23 06:30] LABS: ANION GAP 8 MEQ/L (5-15); BICARBONATE 28.4 MEQ/L (21.0-32.0); BLOOD UREA NITROGEN 10 MG/DL (7-18)
[2016-10-23 06:33] LABS: ALT (GPT) 22 U/L (10-53); AST (GOT) 60 U/L (15-37); GLOMERULAR FILTRATION RATE 95 ML/MIN (>89)
[2016-10-23 06:35] LABS: TOTAL BILIRUBIN ADULT 5.2 MG/DL (0.2-1.0)
[2016-10-23 06:36] LABS: ALKALINE PHOSPHATASE 144 U/L (45-117)
[2016-10-23 08:00] VITALS: BP 119/63; PULSE 86; RESP 20; TEMP 99.1; O2SAT 92
[2016-10-23 08:14] VITALS: O2SAT 92
[2016-10-23] MEDS: SODIUM CHLORIDE 0.9% FLUSH 5 ML FLUSH FLUSH SCH (09:23)
[2016-10-23] MEDS: CIPROFLOXACIN 400 MG PREMIX 200 ML IV SCH (09:23)
[2016-10-23] MEDS ORDERED: INFLUENZA VIRUS VACCINE (QUADRIVALENT) 0.5 ML SYR IM ONE (10:00)
[2016-10-23 11:56] VITALS: BP 123/61; PULSE 78; RESP 19; TEMP 99.1; O2SAT 93
[2016-10-23] MEDS ORDERED: GADODIAMIDE PF 287 MG/ML 5 ML VIAL (for RAD MRI) IV ONE (12:35)
[2016-10-23] MEDS ORDERED: CIPR500T2 PO (14:35)
[2016-10-23] MEDS ORDERED: METR-1 PO (14:35)
--- NOTE | 2016-10-23 14:36 | HHI.DS ---
Discharge Summary Admission Date Oct 22, 2016 at 11:14 Discharge Date: Oct 23, 2016 Admitting Diagnosis chest pain, abdominal pain, hyperbilirubinemia (1) Chest pain ICD Code: R07.9 (2) Abdominal pain ICD Code: R10.9 (3) Hyperbilirubinemia ICD Code: E80.6 (4) Ascites ICD Code: R18.8 (5) Fever ICD Code: R50.9 (6) Gastroenteritis ICD Code: K52.9 (7) Alcoholic cirrhosis of liver ICD Code: K70.30 (8) Liver mass, right lobe ICD Code: R16.0 Procedures None Brief History - From Admission This is a pleasant 71-year-old female with past medical history of alcoholic cirrhosis of the liver who yesterday went out to dinner and had prime rib. Yesterday afternoon she started to develop generalized abdominal pain associated with vomiting in the afternoon. She also had a small amount of diarrhea. The pain was quite severe. She presented to the emergency department. Abdominal CT showed a cirrhotic liver with low density lesions scattered throughout the liver and small to moderate ascites however there was no obstruction or focal inflammatory changes seen. Overnight the patient has tolerated a regular diet. She's had no further nausea or vomiting. She did have several more loose stools yesterday as well as one today. The patient does not have any further abdominal pain. The patient has been seen by GI who has ordered an MRI and stool studies for further evaluation. CBC/BMP: 10/23/16 0533 10/23/16 0533 Significant Findings Laboratory Tests Test 10/21/16 10/21/16 10/21/16 10/22/16 15:43 17:20 22:10 03:45 White Blood Count 13.0 TH/MM3 (4.0-11.0) Red Blood Count 3.70 MIL/MM3 (4.00-5.30) Neutrophils (%) (Auto) 79.2 % (16.0-70.0) Neutrophils # (Auto) 10.3 TH/MM3 (1.8-7.7) Basophils # (Auto) 0.3 TH/MM3 (0-0.2) Prothrombin Time 13.1 SEC (9.8-11.6) Random Glucose 140 MG/DL (74-106) Lactic Acid Level 2.5 mmol/L (0.4-2.0) Total Bilirubin 4.1 MG/DL (0.2-1.0) Aspartate Amino Transf 119 U/L (15-37) (AST/SGOT) Alkaline Phosphatase 253 U/L (45-117) Troponin I LESS THAN 0.02 LESS THAN 0.02 LESS THAN 0.02 NG/ML NG/ML NG/ML (0.02-0.05) (0.02-0.05) (0.02-0.05) Albumin 2.6 GM/DL (3.4-5.0) Urine Occult Blood TRACE (NEG) Test 10/22/16 10/22/16 10/23/16 05:50 11:25 05:33 White Blood Count 22.0 TH/MM3 17.3 TH/MM3 (4.0-11.0) (4.0-11.0) Red Blood Count 3.20 MIL/MM3 3.03 MIL/MM3 (4.00-5.30) (4.00-5.30) Hemoglobin 10.5 GM/DL 9.5 GM/DL (11.6-15.3) (11.6-15.3) Hematocrit 31.2 % 29.6 % (35.0-46.0) (35.0-46.0) Neutrophils (%) (Auto) 77.8 % 77.1 % (16.0-70.0) (16.0-70.0) Basophils (%) (Auto) 4.3 % (0.0-2.0) Neutrophils # (Auto) 17.2 TH/MM3 13.4 TH/MM3 (1.8-7.7) (1.8-7.7) Monocytes # (Auto) 1.8 TH/MM3 1.4 TH/MM3 (0-0.9) (0-0.9) Basophils # (Auto) 0.9 TH/MM3 (0-0.2) Potassium Level 3.4 MEQ/L (3.5-5.1) Random Glucose 114 MG/DL (74-106) Calcium Level 7.9 MG/DL 8.0 MG/DL (8.5-10.1) (8.5-10.1) Total Bilirubin 5.2 MG/DL 5.2 MG/DL (0.2-1.0) (0.2-1.0) Aspartate Amino Transf 87 U/L (15-37) 60 U/L (15-37) (AST/SGOT) Alkaline Phosphatase 166 U/L 144 U/L (45-117) (45-117) Total Protein 5.9 GM/DL 5.8 GM/DL (6.4-8.2) (6.4-8.2) Albumin 2.1 GM/DL 2.0 GM/DL (3.4-5.0) (3.4-5.0) Lactic Acid Level 3.1 mmol/L (0.4-2.0) Monocytes (%) (Auto) 8.1 % (0.0-8.0) Imaging Last Impressions Abdomen MRI 10/23/16 0000 Signed Impressions: Service Date/Time: Sunday, October 23, 2016 12:16 - CONCLUSION: 1. Subtle 3.5 cm heterogeneous area peripheral aspect right lobe of liver, possibly an early hepatic neoplasm. Recommend further evaluation with PET/CT. Biopsy recommendation should be based on PET CT findings. There is diffuse liver cirrhosis. Borderline splenomegaly. Vikas Davis MD Abdomen/Pelvis CT 10/21/16 1549 Signed Impressions: Service Date/Time: Friday, October 21, 2016 16:52 - CONCLUSION: 1. Liver now appears frankly cirrhotic. There is a area of tiny low density lesions versus cystic spaces scattered throughout the liver, etiology uncertain potentially related to cirrhosis and/or numerous regenerating nodules. Superimposed acute hepatocellular disease would be conceivable. Diffuse metastatic disease not excludable. Study also suggests potential vague, more dominant lesion of the right hepatic lobe. Nonemergent liver MRI with dynamic postcontrast imaging recommended for attempted further characterization. 2. Small to moderate ascites has developed. 3. Mild splenomegaly is not significantly changed. 4. Increased size of a moderate hiatal hernia. 5. No obstruction or focal inflammatory changes are demonstrated. Fidel Perez MD Abdomen X-Ray 10/21/16 0000 Signed Impressions: Service Date/Time: Friday, October 21, 2016 16:32 - CONCLUSION: Nonobstructive bowel gas pattern. No free air seen. Fidel Perez MD PE at Discharge GENERAL: Well-nourished, well-developed female patient. SKIN: Warm and dry. HEAD: Normocephalic. EYES: No scleral icterus. No injection or drainage. NECK: Supple, trachea midline. No JVD or lymphadenopathy. CARDIOVASCULAR: Regular rate and rhythm without murmurs, gallops, or rubs. RESPIRATORY: Breath sounds equal bilaterally. No accessory muscle use. GASTROINTESTINAL: Abdomen soft, non-tender, nondistended. EXTREMITIES: No cyanosis, or edema. NEUROLOGICAL: Awake, alert, and oriented x 3. Non-focal. Hospital Course The patient was admitted to the hospital and treated with Cipro and Flagyl IV. Her symptoms resolved as above. However she then developed fevers next day and her white blood cell count increase. Blood cultures however were negative. Her symptoms have completely resolved and she is tolerating her diet. She's not had a bowel movement since coming into the hospital so we cannot collect stool samples at this time. I think it is most likely that she had a vital gastroenteritis. MRI of the abdomen does show a 3.5 cm heterogenic mass in the right lobe of the liver and an outpatient PET scan is recommended. The patient will follow-up with Dr. Doe for this. Alpha-fetoprotein marker is not elevated which is reassuring. As the patient's symptoms have completely resolved she'll be discharged home today on by mouth Flagyl and Cipro. She understands to return to the ER should the abdominal pain nausea vomiting return. She agrees to follow-up with Dr. Rodney next week. Discharge plans were discussed in detail with the patient and her as well as patient's nurse. Pt Condition on Discharge: Stable Discharge Disposition: Discharge Home Discharge Time: > 30 minutes Discharge Instructions DIET: Follow Instructions for: As Tolerated, No Restrictions Activities you can perform: Regular-No Restrictions Follow up Referrals: Gastroenterology - 1 Week with Steven Doe MD New Medications: Ciprofloxacin (Ciprofloxacin) 500 Mg Tab 500 MG PO BID Infection #14 Ref 0 TAB Metronidazole (Flagyl) 500 Mg Tab 500 MG PO TID Infection #21 Ref 0 TAB Continued Medications: Aspirin (Aspirin) 81 Mg Tabdr 81 MG PO DAILY TAB Citalopram (Citalopram) 20 Mg Tab 0.5 TAB PO DAILY Control Depression #30 Ref 0 TAB Cyanocobalamin (Vitamin B12) 500 Mcg Tab Unknown Dose PO DAILY #1 BOTTLE Furosemide (Furosemide) 20 Mg Tab 20 MG PO BID #60 Ref 0 TAB Lactulose Liq (Lactulose Liq) 10 Gm/15 Ml Soln 30 ML PO TID Ref 0 ML Levothyroxine (Levothyroxine) 50 Mcg Tab 50 MCG PO DAILY Thyroid #30 Ref 0 TAB Multiple Vitamins W/ Minerals (Centrum) 1 Tab 1 TAB PO DAILY Nutritional Supplement Ref 0 TAB Omeprazole (Omeprazole) 20 Mg Tab 20 MG PO BID #30 Ref 0 TAB Rifaximin (Xifaxan) 550 Mg Tab 550 MG PO BID Hepatic encephalopathy #60 Ref 0 TAB Ropinirole (Ropinirole) 0.25 Mg Tab 0.25 MG PO DAILY #1 Ref 0 TAB Spironolactone (Spironolactone) 50 Mg Tab 50 MG PO BIDPC #60 Ref 0 TAB Barb Carrington MD Oct 23, 2016 14:36
[2016-10-23 16:00] VITALS: BP 112/52; PULSE 85; RESP 18; TEMP 99.9; O2SAT 95
--- NOTE | 2016-10-23 16:02 | RADHPO ---
EXAM DATE/TIME: 10/23/2016 12:16 [facility] COMPARISON: No previous studies available for comparison. INDICATIONS : Abnormal CT scan. Abdominal pain. CONTRAST: 15 cc Omniscan (gadodiamide) IV MEDICAL HISTORY : Hypertension. Chronic obstructive pulmonary disease. Cirrhosis. Ascites. SURGICAL HISTORY : Tonsillectomy. Appendectomy. Hysterectomy. Left shoulder. ENCOUNTER: Subsequent ACUITY: 2 day PAIN SCORE: 0/10 LOCATION: abdomen. TECHNIQUE: Multiplanar, multisequence magnetic resonance imaging of the abdomen was performed without and with i ntravenous contrast. FINDINGS: The liver is diffusely cirrhotic. There is a subtle masslike area measuring about 3.5 cm in the perip heral aspect of the right lobe. Differential diagnosis includes regenerating nodule or early hepatic neoplasm. Would recommend further evaluation with outpatient PET CT to assess for metabolic activity. If PET CT is positive would recommend biopsy otherwise followup recommended in next 3-6 months. There is mild ascites. No adenopathy. Spleen upper limits normal for size. No acute findings in the r emainder of the upper abdomen. CONCLUSION: 1. Subtle 3.5 cm heterogeneous area peripheral aspect right lobe of liver, possibly an early hepatic neoplasm. Recommend further evaluation with PET/CT. Biopsy recommendation should be based on PET CT f indings. There is diffuse liver cirrhosis. Borderline splenomegaly. Vikas Davis MD on October 23, 2016 at 15:57 Board Certified Radiologist. This report was verified electronically.
== END 2016-10-23 17:10 | disposition home or self-care (01) | DRG 392 ==
LOC: PHED 15:24 → PHEDA 17:40 → PHEDH 20:39 → PH3A 10-22 07:29 → OBSVTOIN 10-22 11:14
PROVIDERS: ADMIT Family Medicine; ATTEND Family Medicine
DX: R10.9 Unspecified abdominal pain (principal); K70.31 Alcoholic cirrhosis of liver with ascites; K76.6 Portal hypertension; J44.9 Chronic obstructive pulmonary disease, unspecified; R16.0 Hepatomegaly, not elsewhere classified; R50.9 Fever, unspecified; E80.6 Other disorders of bilirubin metabolism; R07.9 Chest pain, unspecified; E03.9 Hypothyroidism, unspecified; G47.30 Sleep apnea, unspecified; I10 Essential (primary) hypertension; I25.10 Atherosclerotic heart disease of native coronary artery without angina pectoris; J45.909 Unspecified asthma, uncomplicated; K21.9 Gastro-esophageal reflux disease without esophagitis; K44.9 Diaphragmatic hernia without obstruction or gangrene; K80.20 Calculus of gallbladder without cholecystitis without obstruction; F32.9 Major depressive disorder, single episode, unspecified
CPT/HCPCS: 74020; 74177; 74183; 80053; 81001; 82105; 82550; 82948; 83605; 83690; 84484; 85025; 85610; 85730; 87040; 90471; 90686; 93005; 96361; 96374; 96375; A9579; G0008; G0378; J0744; J1170; J2405; J3480; J7030; Q2038; Q9967

== ENCOUNTER 2016-11-08 16:55 | Emergency (ER) | payer MEDICARE, OTHER ==
[~2016-11-08] VITALS: Ht 162.6 cm; Wt 74.0 kg
[~2016-11-08 16:55] MED LIST changes: +ASPI1TAB69 PO; -ASPI81TA82 PO; -ATEN-100 PO; -CENTTAB9 PO; +CIPR500T2 PO; +FURO20TA PO; -HYDR-2768 PO; -HYDR-3533 PO; +LACT10SO PO; -LACT20SO4 PO; +METR-1 PO; +MULT-6 PO; +OMEP20TA PO; -OMEP20TA39 PO; -ROPI.25 PO; +ROPI0.25 PO; +SPIR50TA PO; +VITA500T49 PO; +XIFA550T4 PO
[2016-11-08 17:30] VITALS: BP 104/44; PULSE 66; RESP 16; TEMP 98.3; O2SAT 98
[2016-11-08 18:10] VITALS: BP 121/56; PULSE 56; RESP 16; O2SAT 97
--- NOTE | 2016-11-08 18:29 | PD ---
HPI Chief Complaint: Abnormal Results Time Seen by Provider: 18:20 Travel History International Travel<30 days: No Contact w/Intl Traveler<30days: No Traveled to known affect area: No History of Present Illness HPI 71-year-old female is complaining of abdominal distention. SHe was recently diagnosed with ascites. It is thought to be secondary to alcoholic cirrhosis of the liver. She also had an abnormal MRI of the liver concerning for possible neoplasm. She says her last alcohol was 4 days ago. She had paracentesis done in July 05, 2016. She has had increasing abdominal girth. She has not had fever or chills. PFSH Past Medical History Hx Anticoagulant Therapy: Yes (ASA) Asthma: Yes Anxiety: Yes Depression: Yes (Manic depression) Cancer: No Cardiovascular Problems: Yes Chest Pain: Yes Cirrhosis: Yes COPD: Yes Diabetes: Yes (Borderline ) Patient Takes Glucophage: No Diminished Hearing: No Endocrine: Yes GERD: Yes Genitourinary: No Hepatitis: No Hiatal Hernia: No Hypertension: Yes Immune Disorder: No Musculoskeletal: Yes Neurologic: Yes Psychiatric: Yes Reproductive: No Respiratory: Yes Immunizations Current: Yes Sleep Apnea: Yes Thyroid Disease: Yes (Hypo-) Tetanus Vaccination: Unknown Influenza Vaccination: Yes ?: Not Menopausal: Yes Past Surgical History Abdominal Surgery: Yes (APPY) AICD: No Appendectomy: Yes Cardiac Surgery: No Ear Surgery: No Endocrine Surgery: No Eye Surgery: Yes (CATARACT BOTH EYES) Genitourinary Surgery: No Gynecologic Surgery: Yes (HYSTERECTOMY) Hysterectomy: Yes Joint Replacement: No Oral Surgery: Yes (TONSILLECTOMY) Pacemaker: No Thoracic Surgery: No Tonsillectomy: Yes Other Surgery: Yes (BX throat, breast, neck ) Social History Alcohol Use: Yes (Hasn't drank in 3-4 days ) Tobacco Use: No Substance Use: No Allergies-Medications (Allergen,Severity, Reaction): Coded Allergies: No Known Allergies (Unverified , 11/08/16) Reported Meds & Prescriptions Reported Meds & Active Scripts Active Reported Xifaxan (Rifaximin) 550 Mg Tab 550 Mg PO BID Spironolactone 50 Mg Tab 50 Mg PO BIDPC Furosemide 20 Mg Tab 20 Mg PO BID Ropinirole 0.25 Mg Tab 0.25 Mg PO DAILY Citalopram (Citalopram Hydrobromide) 20 Mg Tab 0.5 Tab PO DAILY Omeprazole 20 Mg Tab 20 Mg PO BID Levothyroxine (Levothyroxine Sodium) 50 Mcg Tab 50 Mcg PO DAILY Lactulose Liq (Lactulose) 10 Gm/15 Ml Soln 30 Ml PO TID Aspirin 81 Mg Tabdr 81 Mg PO DAILY Review of Systems General / Constitutional: No: Fever, Chills Eyes: No: Diploplia HENT: No: Headaches, Vertigo Cardiovascular: No: Chest Pain or Discomfort Respiratory: Positive: Shortness of Breath, No: Cough Gastrointestinal: Positive: Abdominal Pain Genitourinary: No: Frequency Musculoskeletal: No: Myalgias Skin: No Rash Neurologic: No: Weakness Physical Exam Narrative GENERAL: Well-developed female SKIN: Warm and dry. HEAD: Atraumatic. Normocephalic. EYES: Pupils equal and round. No scleral icterus. No injection or drainage. ENT: No nasal bleeding or discharge. Mucous membranes pink and moist. NECK: Trachea midline. No JVD. CARDIOVASCULAR: Regular rate and rhythm. No murmur appreciated. RESPIRATORY: No accessory muscle use. Clear to auscultation. Breath sounds equal bilaterally. GASTROINTESTINAL: Abdomen distended with ascites. MUSCULOSKELETAL: No obvious deformities. No clubbing. No cyanosis. No edema. NEUROLOGICAL: Awake and alert. No obvious cranial nerve deficits. Motor grossly within normal limits. Normal speech. PSYCHIATRIC: Appropriate mood and affect; insight and judgment normal. Data Data Last Documented VS Vital Signs Date Time Temp Pulse Resp B/P Pulse Ox O2 Delivery O2 Flow Rate FiO2 11/08/16 18:10 56 16 121/56 97 Room Air 11/08/16 17:30 98.3 Orders Complete Blood Count With Diff (11/08/16 18:26) Comprehensive Metabolic Panel (11/08/16 18:26) Prothrombin Time / Inr (Pt) (11/08/16 18:26) Act Partial Throm Time (Ptt) (11/08/16 18:26) Lipase (11/08/16 18:26) Urinalysis - C+S If Indicated (11/08/16 18:26) Magnesium (Mg) (11/08/16 18:26) Chest, Pa & Lat (11/08/16 18:26) Ammonia (11/08/16 18:30) Labs Laboratory Tests Test 11/08/16 19:00 White Blood Count 16.1 TH/MM3 Red Blood Count 2.60 MIL/MM3 Hemoglobin 9.1 GM/DL Hematocrit 26.5 % Mean Corpuscular Volume 101.9 FL Mean Corpuscular Hemoglobin 35.0 PG Mean Corpuscular Hemoglobin 34.3 % Concent Red Cell Distribution Width 16.9 % Platelet Count 324 TH/MM3 Mean Platelet Volume 9.0 FL Neutrophils (%) (Auto) % Lymphocytes (%) (Auto) % Monocytes (%) (Auto) % Eosinophils (%) (Auto) % Basophils (%) (Auto) % Neutrophils # (Auto) TH/MM3 Lymphocytes # (Auto) TH/MM3 Monocytes # (Auto) TH/MM3 Eosinophils # (Auto) TH/MM3 Basophils # (Auto) TH/MM3 CBC Comment AUTO DIFF Differential Total Cells 100 Counted Neutrophils % (Manual) 75 % Band Neutrophils % 1 % Lymphocytes % 20 % Monocytes % 4 % Neutrophils # (Manual) 12.2 TH/MM3 Differential Comment FINAL DIFF MANUAL Platelet Estimate NORMAL Platelet Morphology Comment NORMAL Target Cells 1+ Prothrombin Time 15.4 SEC Prothromb Time International 1.4 RATIO Ratio Activated Partial 32.7 SEC Thromboplast Time Urine Color PAULETTE Urine Turbidity CLEAR Urine pH 5.5 Urine Specific [place] 1.015 Urine Protein NEG mg/dL Urine Glucose (UA) NEG mg/dL Urine Ketones NEG mg/dL Urine Occult Blood TRACE Urine Nitrite NEG Urine Bilirubin SMALL Urine Leukocyte Esterase NEG Urine RBC 0-3 /hpf Urine WBC 0-2 /hpf Urine Squamous Epithelial 6-8 /hpf Cells Urine Bacteria NONE /hpf Microscopic Urinalysis Comment CULT NOT INDICATED Sodium Level 140 MEQ/L Potassium Level 3.6 MEQ/L Chloride Level 100 MEQ/L Carbon Dioxide Level 31.6 MEQ/L Anion Gap 8 MEQ/L Blood Urea Nitrogen 12 MG/DL Creatinine 0.84 MG/DL Estimat Glomerular Filtration 67 ML/MIN Rate Random Glucose 94 MG/DL Calcium Level 8.3 MG/DL Magnesium Level 1.8 MG/DL Total Bilirubin 4.8 MG/DL Aspartate Amino Transf 125 U/L (AST/SGOT) Alanine Aminotransferase 28 U/L (ALT/SGPT) Alkaline Phosphatase 172 U/L Ammonia 29 MCMOL/L Total Protein 6.6 GM/DL Albumin 2.0 GM/DL Lipase 283 U/L [facility] Medical Decision Making Medical Screen Exam Complete: Yes Emergency Medical Condition: Yes Medical Record Reviewed: Yes Differential Diagnosis Differential includes ascites Narrative Course Lab work was done and is similar to previous values. Patient is symptomatic from her abdominal distention. She is not in acute distress at this time. I think she does need therapeutic paracentesis. I have made arrangements for her to go to [facility] in the morning for therapeutic paracentesis Diagnosis Primary Impression: Ascites Additional Instructions: CALL [phone] AT 8 AM TO SCHEDULE PARACENTESIS Disposition: 01 DISCHARGE HOME Condition: Stable Jc Hui MD Nov 08, 2016 18:29
--- NOTE | 2016-11-08 19:06 | RADHPO ---
EXAM DATE/TIME: 11/08/2016 18:46 [facility] COMPARISON: No previous studies available for comparison. INDICATIONS : Shortness of breath. MEDICAL HISTORY : Hypertension. Chronic obstructive pulmonary disease. Gastroesophageal reflux disease. SURGICAL HISTORY : Hysterectomy. Appendectomy. ENCOUNTER: Initial ACUITY: 1 week PAIN SCORE: 0/10 LOCATION: Bilateral chest FINDINGS: PA and lateral views of the chest demonstrate the lungs to be symmetrically aerated without evidence of mass, infiltrate or effusion. The cardiomediastinal contours are unremarkable. Osseous structure s are intact. CONCLUSION: No evidence of acute cardiopulmonary disease. Fidel Perez MD on November 08, 2016 at 19:05 Board Certified Radiologist. This report was verified electronically.
[2016-11-08 19:11] LABS: BLOOD, URINE TRACE (NEG); GLUCOSE,URINE NEG (NEG); KETONE, URINE NEG (NEG); NITRITE,URINE NEG (NEG); PH, URINE 5.5 (5.0-8.5)
[2016-11-08 19:17] LABS: HEMATOCRIT 26.5 % (35.0-46.0); MEAN CELL VOLUME 101.9 FL (80.0-100.0); MEAN CORPUSCULAR HGB CONC 34.3 % (32.0-36.0); PLATELET COUNT 324 TH/MM3 (150-450); RED CELL DISTRIBUTION WIDTH 16.9 % (11.6-17.2); WHITE BLOOD COUNT 16.1 TH/MM3 (4.0-11.0)
[2016-11-08 19:19] LABS: HEMO FLAGS AUTO DIFF
[2016-11-08 19:22] LABS: URINE COLOR AMBER (YELLW/STRAW)
[2016-11-08 19:24] LABS: COMMENT (UR) CULT NOT INDICATED; CULTURE IF INDICATED CULT NOT INDICATED; RBC, URINE 0-3 /hpf (0-3); WBC, URINE 0-2 /hpf (0-5)
[2016-11-08 19:27] LABS: CHLORIDE 100 MEQ/L (98-107); POTASSIUM 3.6 MEQ/L (3.5-5.1); SODIUM (NA) 140 MEQ/L (136-145)
[2016-11-08 19:32] LABS: ANION GAP 8 MEQ/L (5-15); APTT (PATIENT) 32.7 SEC (24.3-30.1); BANDS 1 % (0-6); BICARBONATE 31.6 MEQ/L (21.0-32.0); INTERNATIONAL NORMALIZED RATIO 1.4 RATIO; MAGNESIUM 1.8 MG/DL (1.5-2.5); NEUTROPHIL # MANUAL DIFF 12.2 TH/MM3 (1.8-7.7); POLYS (SEG NEUTROPHILS) 75 % (16-70); PROTHROMBIN TIME - PATIENT 15.4 SEC (9.8-11.6); WBC DIFF SAMPLE 100
[2016-11-08 19:33] LABS: BLOOD UREA NITROGEN 12 MG/DL (7-18); PLATELET ESTIMATE SMEAR NORMAL (NORMAL); PLATELET MORPHOLOGY NORMAL (NORMAL); SCAN/DIFF FINAL DIFF MANUAL; TARGET CELLS 1+ (NORMAL)
[2016-11-08 19:35] LABS: ALT (GPT) 28 U/L (10-53); AST (GOT) 125 U/L (15-37); GLOMERULAR FILTRATION RATE 67 ML/MIN (>89)
[2016-11-08 19:37] LABS: TOTAL BILIRUBIN ADULT 4.8 MG/DL (0.2-1.0)
[2016-11-08 19:38] LABS: ALKALINE PHOSPHATASE 172 U/L (45-117)
[2016-11-08 20:35] VITALS: BP 114/54; PULSE 66; RESP 18; O2SAT 94; O2SAT 95
== END 2016-11-08 20:40 | disposition home or self-care (01) ==
LOC: PHED 16:55
DX: R18.8 Other ascites (principal); J45.909 Unspecified asthma, uncomplicated; I10 Essential (primary) hypertension; J44.9 Chronic obstructive pulmonary disease, unspecified; Z79.01 Long term (current) use of anticoagulants
CPT/HCPCS: 71020; 80053; 81001; 82140; 83690; 83735; 85007; 85027; 85610; 85730; 99284

== ENCOUNTER 2016-11-14 07:57 | Day surgery (SDC) | payer MEDICARE, OTHER ==
[~2016-11-14 07:57] MED LIST changes: -CIPR500T2 PO; -METR-1 PO; -MULT-6 PO; -VITA500T49 PO
[2016-11-14 08:37] VITALS: BP 123/55; PULSE 77; RESP 14; TEMP 97.5; O2SAT 100
[2016-11-14 09:29] VITALS: BP 106/49; PULSE 80; RESP 18; O2SAT 97
[2016-11-14 09:40] VITALS: BP 109/54; PULSE 84; RESP 18; O2SAT 97
--- NOTE | 2016-11-14 12:03 | RADRPT ---
EXAM DATE/TIME: 11/14/2016 08:14 [facility] COMPARISON: EXTERNAL COMPARISON: US GUIDED ABD PARACENTESIS, July 05, 2016, 15:20. [facility], PET/CT TUMOR COMPLETE, Ja n 2016, [facility], US ABDOMEN LIVER, May 11, 2016, CT ABDOMEN W/CONTRAST, May 03, 2015 . INDICATIONS : Ascites. MEDICAL HISTORY : Cirrhosis. Chronic obstructive pulmonary disease. Hypertension. Hepatic encephalopathy. Asthma. Thyro id disease. GERD. SURGICAL HISTORY : Hysterectomy. Appendectomy. Tonsillectomy. Right shoulder and elbow surgery. Paracentesis. ENCOUNTER: Subsequent ACUITY: 4 - 6 months PAIN SCORE: 6/10 LOCATION: Left lower quadrant FLUID: Total volume of 3,900 cc of clear, yellow fluid was removed. Fluid was discarded. Paracentesis was therapeutic only. Post procedure scanning reveals no hematoma or other complication. TECHNIQUE: 1. Ultrasound guidance for abdominal paracentesis. 2. Paracentesis. The risks, benefits, and alternatives to ultrasound guided paracentesis were explained to the patient in detail including the risk of bleeding and infection. Written and verbal informed consent was obt ained. With the patient on the ultrasound table, ultrasound imaging was used to select the most appropriate approach for paracentesis. Overlying skin was prepped and draped in the usual sterile fashion and wi th a local anesthetic, a dermatotomy was made with an 11 blade scalpel. A 6 [place] Kje-I-msmxpnjy ca theter was introduced into the peritoneal cavity and fluid was collected. The patient tolerated the procedure well and left the ultrasound suite in stable condition. CONCLUSION: Uncomplicated ultrasound guided paracentesis. Huan Tompkins MD FACR on November 14, 2016 at 12:01 Board Certified Radiologist. This report was verified electronically.
== END 2016-11-14 09:55 | disposition home or self-care (01) ==
LOC: HRAD 07:57 → HRIP 07:57 → HRAD 09:55
DX: R18.8 Other ascites (principal); I10 Essential (primary) hypertension; J44.9 Chronic obstructive pulmonary disease, unspecified; J45.909 Unspecified asthma, uncomplicated; E07.9 Disorder of thyroid, unspecified; K21.9 Gastro-esophageal reflux disease without esophagitis
CPT/HCPCS: 49083; C1729

== ENCOUNTER → 2017-05-28 | Outpatient (CLI) | payer MEDICARE, OTHER ==
[2017-05-28 11:08] LABS: INTERNATIONAL NORMALIZED RATIO 1.1 RATIO; PROTHROMBIN TIME - PATIENT 12.2 SEC (9.8-11.6)
[2017-05-28 12:34] LABS: AUTOMATED NEUTROPHIL # 3.9 TH/MM3 (1.8-7.7); BASOPHIL # 0.1 TH/MM3 (0-0.2); EOSINOPHIL # 0.2 TH/MM3 (0-0.4); EOSINOPHIL % 2.8 % (0.0-4.0); HEMATOCRIT 35.3 % (35.0-46.0); HEMO FLAGS DIFF FINAL; LYMPH % 23.6 % (9.0-44.0); LYMPHOCYTE # 1.4 TH/MM3 (1.0-4.8); MEAN CELL VOLUME 99.8 FL (80.0-100.0); MEAN CORPUSCULAR HEMOGLOBIN 33.6 PG (27.0-34.0); MEAN CORPUSCULAR HGB CONC 33.7 % (32.0-36.0); MONO % 7.9 % (0.0-8.0); NEUT % 64.7 % (16.0-70.0); PLATELET COUNT 134 TH/MM3 (150-450); RED BLOOD COUNT 3.54 MIL/MM3 (4.00-5.30); RED CELL DISTRIBUTION WIDTH 16.4 % (11.6-17.2)
[2017-05-28 13:05] LABS: ANION GAP 9 MEQ/L (5-15); AST (GOT) 47 U/L (15-37); BICARBONATE 30.8 MEQ/L (21.0-32.0); BLOOD UREA NITROGEN 10 MG/DL (7-18); CHLORIDE 100 MEQ/L (98-107); GLOMERULAR FILTRATION RATE 70 ML/MIN (>89); GLUCOSE,FASTING 85 MG/DL (74-99); POTASSIUM 3.9 MEQ/L (3.5-5.1); SODIUM (NA) 140 MEQ/L (136-145)
[2017-05-28 13:28] LABS: ALKALINE PHOSPHATASE 180 U/L (45-117); ALT (GPT) 28 U/L (10-53); TOTAL BILIRUBIN ADULT 1.7 MG/DL (0.2-1.0)
[2017-05-28 16:40] LABS: HEMOGLOBIN A1a 0.8 %; HEMOGLOBIN A1b 0.6 %; HEMOGLOBIN Ao 88.1 %; HEMOGLOBIN F 0.7 %; HEMOGLOBIN LA1C 1.7 %; HEMOGLOBIN P3 3.1 %
== END ==
LOC: PLAB 09:01
DX: E03.9 Hypothyroidism, unspecified (principal); I10 Essential (primary) hypertension; K74.60 Unspecified cirrhosis of liver; E66.9 Obesity, unspecified
CPT/HCPCS: 36415; 80053; 82140; 83036; 84443; 85025; 85610

== ENCOUNTER 2017-08-15 22:46 | Emergency (ER) | payer MEDICARE, OTHER ==
[~2017-08-15 22:46] MED LIST changes: -OMEP20TA PO; +OMEP20TA93 PO
[2017-08-15 22:55] VITALS: BP 114/64; PULSE 63; RESP 20; TEMP 98.5
--- NOTE | 2017-08-15 23:42 | PD ---
HPI Chief Complaint: Laceration/Skin Injury Time Seen by Provider: 00:14 Travel History International Travel<30 days: No Contact w/Intl Traveler<30days: No Traveled to known affect area: No History of Present Illness HPI 72-year-old female presents to the emergency department by private transportation for evaluation of laceration to the right forehead. Patient had a non-syncopal slip and fall on a wet floor in her home in the kitchen just prior to arrival to the emergency department. Patient states the floor was wet and front of her refrigerator and on the tile she lost her balance and fell forward. Patient sustained a laceration over the right eyebrow. Patient complains of headache and facial pain and neck pain. Patient has chronic neck pain. Patient denies any upper extremity or lower extremity numbness tingling or weakness. Patient also complains of right-sided rib pain. Patient takes aspirin daily but no other blood thinning agents. Patient does have chronic liver disease with ascites. The patient rates her overall pain 8/10 in intensity. PFSH Past Medical History Hx Anticoagulant Therapy: Yes (ASA) Asthma: Yes Anxiety: Yes Depression: Yes (Manic depression) Cancer: No Cardiovascular Problems: Yes Chest Pain: Yes Cirrhosis: Yes COPD: Yes Diabetes: Yes (Borderline ) Diminished Hearing: No Endocrine: Yes GERD: Yes Genitourinary: No Hepatitis: No Hiatal Hernia: No Hypertension: Yes Immune Disorder: No Musculoskeletal: Yes Neurologic: Yes Psychiatric: Yes Reproductive: No Respiratory: Yes Immunizations Current: Yes Sleep Apnea: Yes Thyroid Disease: Yes (Hypo-) Menopausal: Yes Past Surgical History Abdominal Surgery: Yes (APPY) AICD: No Appendectomy: Yes Cardiac Surgery: No Ear Surgery: No Endocrine Surgery: No Eye Surgery: Yes (CATARACT BOTH EYES) Genitourinary Surgery: No Gynecologic Surgery: Yes (HYSTERECTOMY) Hysterectomy: Yes Joint Replacement: No Oral Surgery: Yes (TONSILLECTOMY) Pacemaker: No Thoracic Surgery: No Tonsillectomy: Yes Other Surgery: Yes (BX throat, breast, neck ) Social History Alcohol Use: Yes (Hasn't drank in 3-4 days ) Tobacco Use: No Substance Use: No Allergies-Medications (Allergen,Severity, Reaction): Coded Allergies: No Known Allergies (Unverified , 08/16/17) Reported Meds & Prescriptions Reported Meds & Active Scripts Active Reported Multiple Vitamin 1 Tab 1 Tab PO DAILY Xifaxan (Rifaximin) 550 Mg Tab 550 Mg PO BID Spironolactone 50 Mg Tab 50 Mg PO BIDPC Furosemide 20 Mg Tab 20 Mg PO BID Ropinirole 0.25 Mg Tab 0.25 Mg PO DAILY Citalopram (Citalopram Hydrobromide) 20 Mg Tab 0.5 Tab PO DAILY Omeprazole 20 Mg Tab 20 Mg PO BID Levothyroxine (Levothyroxine Sodium) 50 Mcg Tab 50 Mcg PO DAILY Lactulose Liq (Lactulose) 10 Gm/15 Ml Soln 30 Ml PO TID Aspirin 81 Mg Tabdr 81 Mg PO DAILY Physical Exam Narrative GENERAL: Well-developed well-nourished female in no acute distress no respiratory distress; GCS 15 SKIN: Warm and dry. HEAD: Atraumatic. Normocephalic. Scalp no scalp soft tissue swelling point tenderness bony step-off abrasion or laceration EYES: Pupils equal and round reactive to light. Extra ocular muscles intact. No scleral icterus. No injection or drainage. Periorbital rim on the left no tenderness to bony step-off on the right soft tissue swelling over the right eyebrow and right eyelid. No infraorbital ecchymosis or bony step-off. ENT: No nasal bleeding or discharge. Mucous membranes pink and moist. Airway is patent. NECK: Trachea midline. No JVD. No bony step-off to direct palpation along the cervical spine. Cervical collar applied CARDIOVASCULAR: Regular rate and rhythm. Chest wall: No ecchymosis no abrasion no laceration rib tenderness to palpation along the right lower anterior mid axillary ribs with no bony step-off. RESPIRATORY: No accessory muscle use. Clear to auscultation. Breath sounds equal bilaterally. GASTROINTESTINAL: Abdomen soft, non-tender, nondistended. Hepatic and splenic margins not palpable. No ecchymosis no abrasion no abdominal tenderness no guarding or rebound. MUSCULOSKELETAL: Extremities without clubbing, cyanosis, or edema. No obvious deformities. NEUROLOGICAL: Awake and alert. No obvious cranial nerve deficits. Motor grossly within normal limits. Five out of 5 muscle strength in the arms and legs. Normal speech. PSYCHIATRIC: Appropriate mood and affect; insight and judgment normal. Data Data Last Documented VS Vital Signs Date Time Temp Pulse Resp B/P (MAP) Pulse Ox O2 Delivery O2 Flow Rate FiO2 08/16/17 01:35 81 20 125/57 (79) 93 08/15/17 22:55 98.5 Orders Orders Apply Cervical Collar (08/15/17 23:37) Ct Brain W/O Iv Contrast(Rout) (08/15/17 ) Ct Facial Bones W/O Iv Cont (08/15/17 ) Ct Cerv Spine W/O Contrast (08/15/17 ) Ribs, Uni (W/Exp Cxr-Min 3vw) (08/15/17 ) Lidocaine Pf 1% Inj (Xylocaine-Mpf 1% In (08/15/17 23:45) ^ Saline Lock (08/15/17 23:42) Ammonia (08/15/17 23:42) Alcohol (Ethanol) (08/15/17 23:42) Complete Blood Count With Diff (08/15/17 23:42) Basic Metabolic Panel (Bmp) (08/15/17 23:42) Urinalysis - C+S If Indicated (08/15/17 23:42) Ice/Cold Pack (08/15/17 23:42) Tetanus/Diphtheria Tox Adult (Tetanus/Di (08/16/17 00:15) Wound Care (08/16/17 01:35) Lactulose Liq (Lactulose Liq) (08/16/17 01:45) Ondansetron Inj (Zofran Inj) (08/16/17 02:00) Morphine Inj (Morphine Inj) (08/16/17 02:00) Ed Discharge Order (08/16/17 02:22) Labs Laboratory Tests Test 08/16/17 00:35 08/16/17 02:09 White Blood Count 11.1 TH/MM3 Red Blood Count 3.61 MIL/MM3 Hemoglobin 13.0 GM/DL Hematocrit 37.3 % Mean Corpuscular Volume 103.2 FL Mean Corpuscular Hemoglobin 36.0 PG Mean Corpuscular Hemoglobin Concent 34.9 % Red Cell Distribution Width 14.4 % Platelet Count 118 TH/MM3 Mean Platelet Volume 9.0 FL Neutrophils (%) (Auto) 73.2 % Lymphocytes (%) (Auto) 13.5 % Monocytes (%) (Auto) 7.6 % Eosinophils (%) (Auto) 2.4 % Basophils (%) (Auto) 3.3 % Neutrophils # (Auto) 8.1 TH/MM3 Lymphocytes # (Auto) 1.5 TH/MM3 Monocytes # (Auto) 0.8 TH/MM3 Eosinophils # (Auto) 0.3 TH/MM3 Basophils # (Auto) 0.4 TH/MM3 CBC Comment DIFF FINAL Differential Comment Blood Urea Nitrogen 12 MG/DL Creatinine 0.78 MG/DL Random Glucose 130 MG/DL Calcium Level 8.1 MG/DL Sodium Level 135 MEQ/L Potassium Level 3.8 MEQ/L Chloride Level 100 MEQ/L Carbon Dioxide Level 26.1 MEQ/L Anion Gap 9 MEQ/L Estimat Glomerular Filtration Rate 72 ML/MIN Ammonia 49 MCMOL/L Ethyl Alcohol Level 17 MG/DL Urine Color YELLOW Urine Turbidity CLEAR Urine pH 5.5 Urine Specific [place] 1.016 Urine Protein NEG mg/dL Urine Glucose (UA) NEG mg/dL Urine Ketones TRACE mg/dL Urine Occult Blood NEG Urine Nitrite NEG Urine Bilirubin NEG Urine Leukocyte Esterase NEG Urine RBC 0-2 /hpf Urine WBC 0-2 /hpf Urine Squamous Epithelial Cells 0-5 /hpf Urine Bacteria NONE /hpf Microscopic Urinalysis Comment CULT NOT INDICATED MDM Medical Decision Making Medical Screen Exam Complete: Yes Emergency Medical Condition: Yes Medical Record Reviewed: Yes Interpretation(s) Last Impressions Ribs X-Ray 08/15/17 0000 Signed Impressions: Service Date/Time: Wednesday, August 16, 2017 00:09 - CONCLUSION: No perceptible rib fracture. No pneumothorax or other acute cardiopulmonary disease demonstrated. Fidel Perez MD Maxillofacial CT 08/15/17 0000 Signed Impressions: Service Date/Time: Wednesday, August 16, 2017 00:17 - CONCLUSION: 1. Intact facial bones. 2. Right periorbital preseptal soft tissue contusion. 3. 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 Fidel Perez MD Cervical Spine CT 08/15/17 0000 Signed Impressions: Service Date/Time: Wednesday, August 16, 2017 00:17 - CONCLUSION: Intact cervical spine. Degenerative changes as above. Fidel Perez MD Vital Signs Date Time Temp Pulse Resp B/P (MAP) Pulse Ox O2 Delivery O2 Flow Rate FiO2 08/16/17 01:35 81 20 125/57 (79) 93 08/16/17 00:09 20 08/15/17 22:55 98.5 63 20 114/64 (81) alcohol: 17, elevated ammonia: 49, elevated; hasn't taken PM lactulose CT BRAIN W/O: FINDINGS: CEREBRUM: The ventricles are normal for age. No evidence of midline shift, mass lesion, hemorrhage or acute infarction. No extra-axial fluid collections are seen. POSTERIOR FOSSA: The cerebellum and brainstem are intact. The 4th ventricle is midline. The cerebellopontine angle is unremarkable. EXTRACRANIAL: The visualized portion of the orbits is intact. SKULL: The calvaria is intact. No evidence of skull fracture. CONCLUSION: No bleed or other acute intracranial abnormality. Fidel Perez MD on August 16, 2017 at 0:35 Board Certified Radiologist. This report was verified electronically. Differential Diagnosis Minor closed head injury, ICH, skull fracture, laceration, periorbital fracture , tripod fracture, rib fracture, rib contusion, pneumothorax, alcohol intoxication Narrative Course Cervical collar applied to patient upon arrival to the exam room; imaging CT brain noncontrast CT facial bones noncontrast CT cervical spine noncontrast imaging studies ordered as well as right-sided rib series to evaluate for rib fracture and pneumothorax in view of marked tenderness of ribs to palpation without ecchymosis or abrasion. IV access obtained specimens collected and sent for resulting; laceration repaired. Tetanus status updated. Right rib x-rays revealed no obvious displaced rib fracture effusion or pneumothorax CT brain noncontrast no acute inter cranial process bleed or skull fracture per reading radiologist CT facial bones no facial fracture or arthritis of the right TMJ per reading radiologist soft tissue swelling is noted CT cervical spine reveals no fracture or malalignment performed CBC is automated differential values grossly within normal range except for thrombocytopenia 118,000; again basic metabolic panel remarkable for random glucose of 130. @ 1:30 AM c-collar removed by me; lactulose x 1 dose administered for serum ammonia 49; serum alcohol elevated 17. Patient able to ambulate to bathroom Urinalysis no blood no RBCs Patient stable for outpatient management and follow-up with her primary care provider and encouraged to return to the emergency department for any concerns or change in condition. Procedures Procedure Narrative LACERATION LOCATION: Right forehead LENGTH: 2.5 cm NUMBER OF STITCHES/EDGAR: 5 REPAIR: The area of the laceration was prepped with Betadine and sterilely draped. The laceration was infiltrated with 1% lidocaine plain. The wound was copiously irrigated and explored without evidence of foreign body, tendon injury or neurovascular injury. The wound was closed using 5-0 nylon. This was a single layer repair. A sterile dressing was applied. The patient was advised to keep the dressing clean and dry. Patient tolerated the procedure well. Tetanus status updated. Diagnosis Primary Impression: Minor closed head injury Additional Impressions: Facial contusion Qualified Codes: S00.83XA - Contusion of other part of head, initial encounter Laceration of eyebrow and forehead Qualified Codes: S01.81XA - Laceration without foreign body of other part of head, initial encounter; S01.111A - Laceration without foreign body of right eyelid and periocular area, initial encounter Thrombocytopenia Hyperammonemia Alcoholic cirrhosis of liver Qualified Codes: K70.31 - Alcoholic cirrhosis of liver with ascites Alcohol use Referrals: Primary Care Physician 1 day Patient Instructions: General Instructions Additional Instructions: Follow head injury precautions 24 hours Apply ice intermittently to areas of soft tissue swelling return immediately to the emergency department for increased pain or shortness of breath after forceful cough sneeze or movement Wound check for laceration at 2 days suture removal at 5-7 days Follow wound care instructions Increase fluid hydration Do not drink alcoholic beverages Take chronic medications as chronically prescribed Disposition: 01 DISCHARGE HOME Condition: Stable Stefanie Joel MD Aug 15, 2017 23:42
[2017-08-15] MEDS ORDERED: LIDOCAINE HCL 1% PF 30 ML VIAL INFIL ONE (23:45)
[2017-08-15] MEDS ORDERED: MULTTAB67 PO (23:46)
[2017-08-16] MEDS ORDERED: TETANUS/DIPHTHERIA TOXOID ADULT 0.5 ML VIAL IM ONE (00:15)
--- NOTE | 2017-08-16 00:31 | RADRPT ---
EXAM DATE/TIME: 08/16/2017 00:09 [facility] COMPARISON: CHEST PA & LAT, November 08, 2016, 18:46. INDICATIONS : Right anterior rib pain post fall today MEDICAL HISTORY : None. SURGICAL HISTORY : None. ENCOUNTER: Initial ACUITY: 1 day PAIN SCORE: 8/10 LOCATION: Right anterior ribs FINDINGS: Multiple views of the right ribs were performed. There is no evidence of displaced fracture. No cherry tructive lesions or areas of periosteal thickening are seen. Expiratory view of the chest is negativ e for pneumothorax. The mediastinal structures are midline. CONCLUSION: No perceptible rib fracture. No pneumothorax or other acute cardiopulmonary disease demonstrated. Fidel Perez MD on August 16, 2017 at 0:30 Board Certified Radiologist. This report was verified electronically.
--- NOTE | 2017-08-16 00:37 | RADRPT ---
EXAM DATE/TIME: 08/16/2017 00:17 [facility] COMPARISON: No previous studies available for comparison. INDICATIONS : Trauma, fall. Laceration to right forehead. Head, neck and facial pain. RADIATION DOSE: 60.7 CTDIvol (mGy) MEDICAL HISTORY : Hypothyroidism. Hypertension. Chronic obstructive pulmonary disease. SURGICAL HISTORY : Tonsillectomy. Hysterectomy. ENCOUNTER: Initial ACUITY: 1 day PAIN SCALE: 8/10 LOCATION: Bilateral head TECHNIQUE: Multiple contiguous axial images were obtained of the head. Using automated exposure control and adj ustment of the mA and/or kV according to patient size, radiation dose was kept as low as reasonably a chievable to obtain optimal diagnostic quality images. DICOM format image data is available electro nically for review and comparison. FINDINGS: CEREBRUM: The ventricles are normal for age. No evidence of midline shift, mass lesion, hemorrhage or acute in farction. No extra-axial fluid collections are seen. POSTERIOR FOSSA: The cerebellum and brainstem are intact. The 4th ventricle is midline. The cerebellopontine angle i s unremarkable. EXTRACRANIAL: The visualized portion of the orbits is intact. SKULL: The calvaria is intact. No evidence of skull fracture. CONCLUSION: No bleed or other acute intracranial abnormality. Fidel Perez MD on August 16, 2017 at 0:35 Board Certified Radiologist. This report was verified electronically.
--- NOTE | 2017-08-16 00:49 | RADRPT ---
EXAM DATE/TIME: 08/16/2017 00:17 [facility] COMPARISON: No previous studies available for comparison. INDICATIONS : Trauma, fall. Laceration to right forehead. Head, neck and facial pain. RADIATION DOSE: 25.93 CTDIvol (mGy) MEDICAL HISTORY : Hypertension. Hypothyroidism. Chronic obstructive pulmonary disease. SURGICAL HISTORY : Hysterectomy. Tonsillectomy. ENCOUNTER: Initial ACUITY: 1 day PAIN SCALE: 8/10 LOCATION: Bilateral neck TECHNIQUE: Volumetric scanning of the cervical spine was performed. Multiplanar reconstructions in the sagittal, coronal and oblique axial planes were performed. Using automated exposure control and adjustment o f the mA and/or kV according to patient size, radiation dose was kept as low as reasonably achievable to obtain optimal diagnostic quality images. DICOM format image data is available electronically f or review and comparison. FINDINGS: Cervical spine alignment is normal. No cortical break or trabecular destruction. Vertebral bodies hav e normal height. Congenital appearing disc space narrowing seen at C2/C3 without foraminal or spinal stenosis. There is disc space narrowing with uncovertebral and facet osteoarthritis and a small, broad/diffuse disc osteophyte complex at C6-C7. Associated mild foraminal stenosis, mostly on the left. There is facet osteoarthritis at C7/T1, mild on the right and moderate on the left. Prevertebral soft tissues are within normal limits. CONCLUSION: Intact cervical spine. Degenerative changes as above. Fidel Perez MD on August 16, 2017 at 0:45 Board Certified Radiologist. This report was verified electronically.
--- NOTE | 2017-08-16 00:51 | RADRPT ---
EXAM DATE/TIME: 08/16/2017 00:17 [facility] COMPARISON: No previous studies available for comparison. INDICATIONS : Trauma, fall. Laceration to right forehead. Head, neck and facial pain. RADIATION DOSE: 25.38 CTDIvol (mGy) MEDICAL HISTORY : Hypertension. Hypothyroidism. Chronic obstructive pulmonary disease. SURGICAL HISTORY : Tonsillectomy. Hysterectomy. ENCOUNTER: Initial ACUITY: 1 day PAIN SCORE: 8/10 LOCATION: Bilateral face TECHNIQUE: Volumetric scanning of the facial bones was performed. Using automated exposure control and adjustme nt of the mA and/or kV according to patient size, radiation dose was kept as low as reasonably achiev able to obtain optimal diagnostic quality images. DICOM format image data is available electronicSaatchi Art y for review and comparison. FINDINGS: ORBITS: The orbital and infraorbital osseous structures are intact. The retroconal structures have a normal configuration. No radiopaque foreign bodies are seen. NASAL BONE: The nasal bone and maxillary spine are intact ZYGOMATIC ARCHES: Symmetric without evidence of fracture. SINUSES: The maxillary, ethmoid and frontal sinuses are intact. No air-fluid levels seen. NASAL CAVITY: The nasal septum is intact and midline. The lacrimal ducts are intact. SOFT TISSUES: There is pre-septal periorbital soft tissue swelling/contusion on the right. The globe is grossly int act. Postseptal soft tissues are normal. INTRACRANIAL: No intracranial air seen. CRIBIFORM PLATE: Grossly intact. Incidentally seen severe osteoarthritis of the right temporomandibular joint. CONCLUSION: 1. Intact facial bones. 2. Right periorbital preseptal soft tissue contusion. 3. 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 Fidel Perez MD on August 16, 2017 at 0:48 Board Certified Radiologist. This report was verified electronically.
[2017-08-16 00:58] LABS: AUTOMATED NEUTROPHIL # 8.1 TH/MM3 (1.8-7.7); BASOPHIL # 0.4 TH/MM3 (0-0.2); BASOPHIL % 3.3 % (0.0-2.0); EOSINOPHIL # 0.3 TH/MM3 (0-0.4); EOSINOPHIL % 2.4 % (0.0-4.0); HEMATOCRIT 37.3 % (35.0-46.0); LYMPH % 13.5 % (9.0-44.0); LYMPHOCYTE # 1.5 TH/MM3 (1.0-4.8); MEAN CELL VOLUME 103.2 FL (80.0-100.0); MEAN CORPUSCULAR HGB CONC 34.9 % (32.0-36.0); MONO % 7.6 % (0.0-8.0); MONOCYTE # 0.8 TH/MM3 (0-0.9); NEUT % 73.2 % (16.0-70.0); PLATELET COUNT 118 TH/MM3 (150-450); RED BLOOD COUNT 3.61 MIL/MM3 (4.00-5.30); RED CELL DISTRIBUTION WIDTH 14.4 % (11.6-17.2); WHITE BLOOD COUNT 11.1 TH/MM3 (4.0-11.0)
[2017-08-16 01:06] LABS: CALCIUM 8.1 MG/DL (8.5-10.1)
[2017-08-16 01:07] LABS: BICARBONATE 26.1 MEQ/L (21.0-32.0)
[2017-08-16 01:10] LABS: CREATININE 0.78 MG/DL (0.50-1.00)
[2017-08-16 01:35] VITALS: BP 125/57; PULSE 81; RESP 20; O2SAT 93
[2017-08-16] MEDS ORDERED: LACTULOSE SYRUP 20 GM/30 ML CUP PO ONE (01:45)
[2017-08-16] MEDS ORDERED: ONDANSETRON HCL 4 MG/2 ML VIAL IV PUSH ONE (02:00)
[2017-08-16] MEDS ORDERED: MORPHINE SULFATE 2 MG/ML INJ IV PUSH ONE (02:00)
[2017-08-16 02:16] LABS: BILIRUBIN, URINE NEG (NEG); BLOOD, URINE NEG (NEG); GLUCOSE,URINE NEG (NEG); KETONE, URINE TRACE mg/dL (NEG); NITRITE,URINE NEG (NEG); PH, URINE 5.5 (5.0-8.5); URINE LEUKOCYTE ESTERASE NEG (NEG)
[2017-08-16 02:17] LABS: URINE COLOR YELLOW (YELLW/STRAW)
[2017-08-16 02:21] LABS: RBC, URINE 0-2 /hpf (0-3); SQUAMOUS EPITHELIAL CELL URINE 0-5 /hpf (0-5); WBC, URINE 0-2 /hpf (0-5)
[2017-08-16 02:44] VITALS: RESP 20
[2017-08-16 02:54] VITALS: BP 104/50
== END 2017-08-16 03:04 | disposition home or self-care (01) ==
LOC: PHED 22:46
DX: S01.81XA Laceration without foreign body of other part of head, initial encounter (principal); S01.111A Laceration without foreign body of right eyelid and periocular area, initial encounter; D69.6 Thrombocytopenia, unspecified; E72.20 Disorder of urea cycle metabolism, unspecified; K70.31 Alcoholic cirrhosis of liver with ascites; I10 Essential (primary) hypertension; W01.0XXA Fall on same level from slipping, tripping and stumbling without subsequent striking against object, initial encounter; Y92.000 Kitchen of unspecified non-institutional (private) residence as the place of occurrence of the external cause; Z23 Encounter for immunization; Z79.899 Other long term (current) drug therapy
CPT/HCPCS: 12011; 70450; 70486; 71101; 72125; 80048; 80307; 81001; 82140; 85025; 90471; 90714; 96374; 96375; 99285; J2270; J2405

== ENCOUNTER 2017-10-09 09:49 | Day surgery (SDC) | payer MEDICARE, OTHER ==
[~2017-10-09 09:49] MED LIST changes: +MULTTAB67 PO
--- NOTE | 2017-10-09 13:23 | RADRPT ---
EXAM DATE/TIME: 10/09/2017 10:29 [facility] COMPARISON: No previous studies available for comparison. EXTERNAL COMPARISON : [facility], PET/CT TUMOR COMPLETE, November 13, 2016, [facility], US ABDOMEN LIVER, J wendy 2015, CT ABDOMEN W/CONTRAST, May 03, 2015. INDICATIONS : Ascites. MEDICAL HISTORY : Cirrhosis. Chronic obstructive pulmonary disease. Hypertension. Head trauma. Chest pain. Hepatic ence phalopathy. Asthma. Thyroid disease. GERD. Sleep apnea. Borderline diabetes. Ascites. Anticoagulant t herapy, Aspirin. SURGICAL HISTORY : Hysterectomy. Appendectomy. Tonsillectomy. Right shoulder and elbow surgery. Throat/neck biopsy. [address] biopsy. Paracentesis. ENCOUNTER: Subsequent ACUITY: 4-6 months PAIN SCORE: 2/10 LOCATION: Abdomen. AREA EVALUATED: Abdominal quadrants. FINDINGS: Imaging of the abdomen and pelvis was performed to evaluate for ascites for possible paracentesis. Th ere is only a very small amount of ascites fluid. CONCLUSION: 1. Very small ascites with insufficient volume for therapeutic paracentesis. Leo Piper MD on October 09, 2017 at 13:18 Board Certified Radiologist. This report was verified electronically.
== END 2017-10-09 11:00 | disposition home or self-care (01) ==
LOC: HROP 09:49 → HRAD 09:49 → HROP 09:50 → HRAD 09:50 → HRIP 09:50 → HROP 11:00 → HRIP 12:12
DX: R18.8 Other ascites (principal); K74.60 Unspecified cirrhosis of liver; J44.9 Chronic obstructive pulmonary disease, unspecified; I10 Essential (primary) hypertension; E07.9 Disorder of thyroid, unspecified
CPT/HCPCS: 76705

== ENCOUNTER 2017-11-11 07:46 | Day surgery (SDC) | payer MEDICARE, OTHER ==
[2017-11-11 08:20] VITALS: BP 146/57; PULSE 61; RESP 14; TEMP 97.6; O2SAT 95
[2017-11-11 09:20] VITALS: BP 119/65; PULSE 66; RESP 20; TEMP 98.1; O2SAT 97
[2017-11-11] MEDS ORDERED: LIDOCAINE HCL 1% 20 ML VIAL ONE (09:33)
[2017-11-11 09:35] VITALS: BP 115/49; PULSE 68; RESP 20; O2SAT 98
--- NOTE | 2017-11-11 10:29 | RADRPT ---
EXAM DATE/TIME: 11/11/2017 08:17 [facility] COMPARISON: EXTERNAL COMPARISON: US GUIDED ABD PARACENTESIS, November 14, 2016, 8:14. [facility], US ABDOMEN LIVER , Oct 04 017, May 11, 2016, MR ABDOMEN W/ & W/O CONTRAST, April 24, 2017, CT ABDOMEN W/CONTRAST, May 03, 2015 , [facility], PET/CT TUMOR COMPLETE, November 13, 2016. INDICATIONS : Ascites. MEDICAL HISTORY : Cirrhosis. Chronic obstructive pulmonary disease. Hypertension. Head trauma. Chest pain. Hepatic ence phalopathy. Asthma. Thyroid disease. GERD. Sleep apnea. Borderline diabetes. Ascites. Anticoagulant t herapy, Aspirin. SURGICAL HISTORY : Hysterectomy. Appendectomy. Tonsillectomy. Right shoulder and elbow surgery. Throat/neck biopsy. [place] st biopsy. Paracentesis. ENCOUNTER: Subsequent ACUITY: > 1 yr PAIN SCORE: 2/10 LOCATION: Left lower quadrant FLUID: Total volume of 4,100 cc of clear, yellow fluid was removed. Fluid was discarded. Paracentesis was therapeutic only. Post procedure scanning reveals no hematoma or other complication. TECHNIQUE: 1. Ultrasound guidance for abdominal paracentesis. 2. Paracentesis. The risks, benefits, and alternatives to ultrasound guided paracentesis were explained to the patient in detail including the risk of bleeding and infection. Written and verbal informed consent was obt ained. With the patient on the ultrasound table, ultrasound imaging was used to select the most appropriate approach for paracentesis. Overlying skin was prepped and draped in the usual sterile fashion and wi th a local anesthetic, a dermatotomy was made with an 11 blade scalpel. A 6 [place] Wns-S-ucvswcel ca theter was introduced into the peritoneal cavity and fluid was collected. The patient tolerated the procedure well and left the ultrasound suite in stable condition. CONCLUSION: Uncomplicated ultrasound guided paracentesis. Bassem Bañuelos Jr., MD on November 11, 2017 at 10:26 Board Certified Radiologist. This report was verified electronically.
== END 2017-11-11 09:40 | disposition home or self-care (01) ==
LOC: HRAD 07:46 → HRIP 07:50 → HRAD 09:40
DX: K70.31 Alcoholic cirrhosis of liver with ascites (principal); I10 Essential (primary) hypertension; K72.90 Hepatic failure, unspecified without coma; J44.9 Chronic obstructive pulmonary disease, unspecified; E07.9 Disorder of thyroid, unspecified; G47.30 Sleep apnea, unspecified; K21.9 Gastro-esophageal reflux disease without esophagitis; R73.03 Prediabetes
CPT/HCPCS: 49083; C1729

== ENCOUNTER 2017-11-29 08:05 | Day surgery (SDC) | payer MEDICARE, OTHER ==
[2017-11-29 08:45] VITALS: BP 124/61; PULSE 57; RESP 14; TEMP 97.1; O2SAT 99
[2017-11-29] MEDS ORDERED: ALBUMIN 25% INJ 0 ML IV ONE (09:45)
[2017-11-29 09:50] VITALS: BP 126/56; PULSE 61; RESP 18; TEMP 98; O2SAT 94
[2017-11-29 10:05] VITALS: BP_SYST 117; BP_SYST 123; BP_DIAS 51; BP_DIAS 52; PULSE 60; RESP 14; RESP 18; TEMP 98; O2SAT 94; O2SAT 99
[2017-11-29] MEDS ORDERED: LIDOCAINE HCL 1% 20 ML VIAL ONE (10:11)
[2017-11-29 10:20] VITALS: BP_SYST 117; BP_SYST 123; BP_DIAS 51; BP_DIAS 52; PULSE 60; PULSE 61; RESP 16; RESP 18; O2SAT 94; O2SAT 97
--- NOTE | 2017-11-29 12:47 | RADRPT ---
EXAM DATE/TIME: 11/29/2017 08:29 [facility] COMPARISON: EXTERNAL COMPARISON: US GUIDED ABD PARACENTESIS, November 11, 2017, 8:17. [facility], US ABDOMEN LIVER, Oct 04, May 11, 2016, MR ABDOMEN W/ & W/O CONTRAST, April 24, 2017, CT ABDOMEN W/CONTRAST, May 03, 2015, [facility], PET/CT TUMOR COMPLETE, November 13, 2016. INDICATIONS : Ascites. MEDICAL HISTORY : Cirrhosis. Chronic obstructive pulmonary disease. Hypertension. Chest pain. Head trauma. Hepatic ence phalopathy. Asthma. Thyroid disease. GERD. Sleep apnea. Borderline diabetes. Ascites. Anticoagulant t herapy, Aspirin. SURGICAL HISTORY : Hysterectomy. Appendectomy. Tonsillectomy. Right shoulder and elbow surgery. Throat/neck biopsy. [address] st biopsy. Paracentesis. ENCOUNTER: Subsequent ACUITY: 2 weeks PAIN SCORE: 3/10 LOCATION: Left lower quadrant FLUID: Total volume of 3,600 cc of clear, yellow fluid was removed. Fluid was discarded. Paracentesis was therapeutic only. Post procedure scanning reveals no hematoma or other complication. TECHNIQUE: 1. Ultrasound guidance for abdominal paracentesis. 2. Paracentesis. The risks, benefits, and alternatives to ultrasound guided paracentesis were explained to the patient in detail including the risk of bleeding and infection. Written and verbal informed consent was obt ained. With the patient on the ultrasound table, ultrasound imaging was used to select the most appropriate approach for paracentesis. Overlying skin was prepped and draped in the usual sterile fashion and wi th a local anesthetic, a dermatotomy was made with an 11 blade scalpel. A 6 Ukrainian [id number] ca theter was introduced into the peritoneal cavity and fluid was collected. The patient tolerated the procedure well and left the ultrasound suite in stable condition. CONCLUSION: Uncomplicated ultrasound guided paracentesis. Amos Skelton MD on November 29, 2017 at 12:44 Board Certified Radiologist. This report was verified electronically.
== END 2017-11-29 10:20 | disposition home or self-care (01) ==
LOC: HRAD 08:05 → HRIP 08:09 → HRAD 10:20
PROVIDERS: ATTEND Physician Assistant Medical
DX: R18.8 Other ascites (principal); J44.9 Chronic obstructive pulmonary disease, unspecified; K74.60 Unspecified cirrhosis of liver; I10 Essential (primary) hypertension; E07.9 Disorder of thyroid, unspecified; K21.9 Gastro-esophageal reflux disease without esophagitis; G47.30 Sleep apnea, unspecified; R73.03 Prediabetes; Z79.82 Long term (current) use of aspirin
CPT/HCPCS: 49083; C1729

== ENCOUNTER 2017-12-19 08:03 | Day surgery (SDC) | payer MEDICARE, OTHER ==
[2017-12-19 08:35] VITALS: BP 121/55; PULSE 55; RESP 14; TEMP 97.1; O2SAT 96
[2017-12-19 09:50] VITALS: BP 117/49; PULSE 55; RESP 20; TEMP 97.4; O2SAT 98
[2017-12-19] MEDS ORDERED: ALBUMIN HUMAN 25% 25GM-W/12.5GM FOR 37.5GM IV ONE (10:00)
[2017-12-19] MEDS ORDERED: ALBUMIN HUMAN 25% 12.5GM-W/25GM FOR 37.5GM IV ONE (10:00)
[2017-12-19 10:05] VITALS: BP 114/48; PULSE 60; RESP 20; O2SAT 98
[2017-12-19] MEDS ORDERED: LIDOCAINE HCL 1% 20 ML VIAL ONE (11:24)
--- NOTE | 2017-12-19 16:30 | RADRPT ---
EXAM DATE/TIME: 12/19/2017 08:36 [facility] COMPARISON: No previous studies available for comparison. INDICATIONS : Ascites. MEDICAL HISTORY : Cirrhosis. Chronic obstructive pulmonary disease. Hypertension. Chest pain. Head trauma. Hepatic ence phalopathy. Asthma. Thyroid disease. GERD. Sleep apnea. Borderline diabetes. Ascites. Anticoagulant t herapy, Aspirin. SURGICAL HISTORY : Hysterectomy. Appendectomy. Tonsillectomy. Right shoulder and elbow surgery. Throat/neck biopsy. [place] biopsy. Paracentesis. ENCOUNTER: Initial ACUITY: 3 weeks PAIN SCORE: 0/10 LOCATION: Left lower quadrant FLUID: Total volume of 5,800 cc of clear, yellow fluid was removed. Fluid was discarded. Paracentesis was therapeutic only. Post procedure scanning reveals no hematoma or other complication. TECHNIQUE: 1. Ultrasound guidance for abdominal paracentesis. 2. Paracentesis. The risks, benefits, and alternatives to ultrasound guided paracentesis were explained to the patient in detail including the risk of bleeding and infection. Written and verbal informed consent was obt ained. With the patient on the ultrasound table, ultrasound imaging was used to select the most appropriate approach for paracentesis. Overlying skin was prepped and draped in the usual sterile fashion and wi th a local anesthetic, a dermatotomy was made with an 11 blade scalpel. A 6 Hungarian [id number] ca theter was introduced into the peritoneal cavity and fluid was collected. The patient tolerated the procedure well and left the ultrasound suite in stable condition. CONCLUSION: Uncomplicated ultrasound guided paracentesis. Simon Fernandez MD on December 19, 2017 at 16:29 Board Certified Radiologist. This report was verified electronically.
== END 2017-12-19 10:30 | disposition home or self-care (01) ==
LOC: HRAD 08:03 → HRIP 08:06 → HRAD 10:30
PROVIDERS: ATTEND Physician Assistant Medical
DX: K70.31 Alcoholic cirrhosis of liver with ascites (principal)
CPT/HCPCS: 49083; 96365; C1729

== ENCOUNTER 2017-12-28 17:09 | Inpatient (IN) | payer MEDICARE, OTHER ==
[2017-12-28] VITALS (8 sets, daily range): BP systolic 112–132; BP diastolic 52–68; PULSE 69–86; RESP 16–20; TEMP 98.4–98.9; O2SAT 96–100
[~2017-12-28] VITALS: Ht 162.6 cm; Wt 72.3 kg
--- NOTE | 2017-12-28 18:28 | PD ---
HPI Chief Complaint: GI Complaint Time Seen by Provider: 18:11 Travel History International Travel<30 days: No Contact w/Intl Traveler<30days: No Traveled to known affect area: No History of Present Illness HPI 72-year-old female with history of cirrhosis, ascites, followed by GI Dr. Doe , here for evaluation of black stools as well as bright red blood per rectum. Patient reports having black stools about 3 weeks ago and reports that she underwent upper endoscopy by Dr. Doe at that time. Lastly not only was she having black stools, which she also noted blood in her stool. Last paracentesis was about 3 weeks ago. She does have some shortness of breath. No fevers. She has occasional abdominal cramping. No rectal pain. No hematemesis. PFSH Past Medical History Hx Anticoagulant Therapy: Yes (ASA) Asthma: Yes Anxiety: Yes Depression: Yes (BIPOLAR) Cancer: No Cardiovascular Problems: Yes Chest Pain: Yes Cirrhosis: Yes COPD: Yes Diabetes: Yes (Borderline ) Diminished Hearing: No Endocrine: Yes Gastrointestinal Disorders: Yes GERD: Yes Genitourinary: No Hepatitis: No Hiatal Hernia: No Hypertension: Yes Immune Disorder: No Musculoskeletal: Yes Neurologic: Yes Psychiatric: Yes Reproductive: No Respiratory: Yes Immunizations Current: Yes Sleep Apnea: Yes Thyroid Disease: Yes Menopausal: Yes Past Surgical History Abdominal Surgery: Yes AICD: No Appendectomy: Yes Cardiac Surgery: No Ear Surgery: No Endocrine Surgery: No Eye Surgery: Yes Genitourinary Surgery: No Gynecologic Surgery: Yes Hysterectomy: Yes Joint Replacement: No Oral Surgery: Yes (TONSILLECTOMY) Pacemaker: No Thoracic Surgery: No Tonsillectomy: Yes Other Surgery: Yes (BX THOAT, NECK, BREAST) Social History Alcohol Use: Yes (SOCIALLY) Tobacco Use: No Substance Use: No Allergies-Medications (Allergen,Severity, Reaction): Coded Allergies: No Known Allergies (Unverified Allergy, Unknown, 12/28/17) Reported Meds & Prescriptions Reported Meds & Active Scripts Active Reported Vitamin B-6 (Pyridoxine HCl) 100 Mg Tab 100 Mg PO DAILY Vitamin C (Ascorbic Acid) 250 Mg Chew 250 Mg CHEW BID Aspirin EC (Aspirin) 81 Mg Tabdr 81 Mg PO EVERY OTHER DAY K-Tab (Potassium Chloride) 20 Meq Tab 20 Meq PO DAILY Multiple Vitamin 1 Tab 1 Tab PO DAILY Xifaxan (Rifaximin) 550 Mg Tab 550 Mg PO BID Spironolactone 50 Mg Tab 50 Mg PO BIDPC Furosemide 20 Mg Tab 20 Mg PO BID Ropinirole 0.25 Mg Tab 0.25 Mg PO DAILY Citalopram (Citalopram Hydrobromide) 20 Mg Tab 0.5 Tab PO DAILY Omeprazole 20 Mg Tab 20 Mg PO BID Levothyroxine (Levothyroxine Sodium) 50 Mcg Tab 50 Mcg PO DAILY Lactulose Liq (Lactulose) 10 Gm/15 Ml Soln 30 Ml PO TID Review of Systems Except as stated in HPI: all other systems reviewed are Neg Physical Exam Narrative GENERAL: Well-developed, protuberant abdomen, comfortable, no apparent distress. SKIN: Focused skin assessment warm/dry. Diffuse jaundice. HEAD: Atraumatic. Normocephalic. EYES: Pupils equal and round. Scleral icterus. No injection or drainage. ENT: No nasal bleeding or discharge. Mucous membranes pink and moist. NECK: Trachea midline. No JVD. CARDIOVASCULAR: Regular rate and rhythm. RESPIRATORY: No accessory muscle use. Clear to auscultation. Breath sounds equal bilaterally. GASTROINTESTINAL: Protuberant abdomen without peritoneal signs or tenderness. Positive fluid wave. RECTUM: Exam performed in the presence of a female nurse. No masses, no fissures, no hemorrhoids, heme positive black stool. MUSCULOSKELETAL: No obvious deformities. No clubbing. No cyanosis. No edema. NEUROLOGICAL: Awake and alert. No obvious cranial nerve deficits. Motor grossly within normal limits. Normal speech. PSYCHIATRIC: Appropriate mood and affect; insight and judgment normal. Data Data Last Documented VS Vital Signs Date Time Temp Pulse Resp B/P (MAP) Pulse Ox O2 Delivery O2 Flow Rate FiO2 12/28/17 18:50 69 16 112/58 (76) 100 Room Air 12/28/17 17:15 98.4 Orders Orders Complete Blood Count With Diff (12/28/17 18:24) Comprehensive Metabolic Panel (12/28/17 18:24) Prothrombin Time / Inr (Pt) (12/28/17 18:24) Act Partial Throm Time (Ptt) (12/28/17 18:24) Urinalysis - C+S If Indicated (12/28/17 18:24) Iv Access Insert/Monitor (12/28/17 18:24) Ecg Monitoring (12/28/17 18:24) Oximetry (12/28/17 18:24) Sodium Chloride 0.9% Flush (Ns Flush) (12/28/17 18:30) Type And Screen (12/28/17 18:24) Ropinirole Hcl (Requip) (12/28/17 19:45) Phytonadione (Mephyton) (12/28/17 19:45) Ropinirole Hcl (Requip) (12/28/17 20:00) Place In Observation (12/28/17 ) Vital Signs (Adult) Q4H (12/28/17 19:51) Activity Oob With Assistance (12/28/17 19:51) Intake + Output PAWEL.QSHIFT (12/28/17 19:51) Diet Heart Healthy (12/29/17 Breakfast) Sodium Chloride 0.9% Flush (Ns Flush) (12/28/17 20:00) Sodium Chloride 0.9% Flush (Ns Flush) (12/28/17 21:00) Ondansetron Inj (Zofran Inj) (12/28/17 20:00) Comprehensive Metabolic Panel (12/29/17 06:00) Complete Blood Count With Diff (12/29/17 06:00) Pharmacologic Contraindication (12/28/17 19:51) Acetaminophen (Tylenol) (12/28/17 20:00) Oxycodone (Roxicodone) (12/28/17 20:00) Oxycodone (Roxicodone) (12/28/17 20:00) Docusate Sodium-Senna (Amrita-Colace) (12/28/17 21:00) Magnesium Hydroxide Liq (Milk Of Magnesi (12/28/17 20:00) Sennosides (Senokot) (12/28/17 20:00) Bisacodyl Supp (Dulcolax Supp) (12/28/17 20:00) Lactulose Liq (Lactulose Liq) (12/28/17 20:00) Hgb & Hct (12/29/17 00:00) Labs Laboratory Tests Test 12/28/17 18:35 White Blood Count 15.7 TH/MM3 Red Blood Count 2.48 MIL/MM3 Hemoglobin 9.1 GM/DL Hematocrit 26.4 % Mean Corpuscular Volume 106.1 FL Mean Corpuscular Hemoglobin 36.7 PG Mean Corpuscular Hemoglobin Concent 34.6 % Red Cell Distribution Width 14.1 % Platelet Count 210 TH/MM3 Mean Platelet Volume 8.1 FL Neutrophils (%) (Auto) 68.1 % Lymphocytes (%) (Auto) 17.5 % Monocytes (%) (Auto) 9.6 % Eosinophils (%) (Auto) 2.8 % Basophils (%) (Auto) 2.0 % Neutrophils # (Auto) 10.8 TH/MM3 Lymphocytes # (Auto) 2.7 TH/MM3 Monocytes # (Auto) 1.5 TH/MM3 Eosinophils # (Auto) 0.4 TH/MM3 Basophils # (Auto) 0.3 TH/MM3 CBC Comment DIFF FINAL Differential Comment Prothrombin Time 14.0 SEC Prothromb Time International Ratio 1.4 RATIO Activated Partial Thromboplast Time 28.7 SEC Blood Urea Nitrogen 22 MG/DL Creatinine 0.90 MG/DL Random Glucose 117 MG/DL Total Protein 5.7 GM/DL Albumin 2.4 GM/DL Calcium Level 8.2 MG/DL Alkaline Phosphatase 140 U/L Aspartate Amino Transf (AST/SGOT) 41 U/L Alanine Aminotransferase (ALT/SGPT) 20 U/L Total Bilirubin 3.4 MG/DL Sodium Level 137 MEQ/L Potassium Level 4.0 MEQ/L Chloride Level 100 MEQ/L Carbon Dioxide Level 29.8 MEQ/L Anion Gap 7 MEQ/L Estimat Glomerular Filtration Rate 61 ML/MIN MDM Medical Decision Making Medical Screen Exam Complete: Yes Emergency Medical Condition: Yes Medical Record Reviewed: Yes Differential Diagnosis GI bleed, variceal bleed, coagulopathy, end-stage liver disease Narrative Course Initial vital signs show heart rate 83, blood pressure 121/54, pulse ox 96% on room air, oral temperature 98.4F. CBC: WBC 15.7, hemoglobin 9.1, hematocrit 26.4, platelets 210. CMP is remarkable for T bili 3.4, albumin 2.4, total protein 5.7. INR is 1.4. Patient has heme positive and black stool and reports having bright red blood per rectum today. Her hemoglobin in July 2017 was 13. There is no abdominal tenderness on exam or clinical exam findings to suggest SBP, however she does have pretty large ascites. Patient is not in any respiratory distress. She does not require emergent paracentesis. The patient will be admitted for further treatment and evaluation of GI bleed, anemia. She was given a dose of vitamin K orally here in the emergency department. Case discussed with hospitalist Dr. Lott who will admit the patient to the hospitalist service. Diagnosis Primary Impression: GI bleed Qualified Codes: K92.2 - Gastrointestinal hemorrhage, unspecified Additional Impression: Anemia Qualified Codes: D64.9 - Anemia, unspecified Admitting Information Admitting Physician Requests: Isael Banuelos MD Dec 28, 2017 18:27
[2017-12-28] MEDS ORDERED: SODIUM CHLORIDE 0.9% FLUSH 10 ML FLUSH IV FLUSH PRN ×2 (18:30→20:00)
[2017-12-28 19:13] LABS: CHLORIDE 100 MEQ/L (98-107); SODIUM (NA) 137 MEQ/L (136-145)
[2017-12-28 19:16] LABS: ALBUMIN 2.4 GM/DL (3.4-5.0); BICARBONATE 29.8 MEQ/L (21.0-32.0); CALCIUM 8.2 MG/DL (8.5-10.1); GLUCOSE,RANDOM 117 MG/DL (74-106)
[2017-12-28 19:17] LABS: BLOOD UREA NITROGEN 22 MG/DL (7-18)
[2017-12-28] MEDS ORDERED: VITA250C3 CHEW (19:18)
[2017-12-28] MEDS ORDERED: ASPI81TA23 PO (19:18)
[2017-12-28] MEDS ORDERED: POTA1TAB4 PO (19:18)
[2017-12-28] MEDS ORDERED: PYRI100T PO (19:18)
[2017-12-28 19:19] LABS: ALT (GPT) 20 U/L (10-53)
[2017-12-28 19:20] LABS: AST (GOT) 41 U/L (15-37); GLOMERULAR FILTRATION RATE 61 ML/MIN (>89)
[2017-12-28 19:21] LABS: INTERNATIONAL NORMALIZED RATIO 1.4 RATIO; TOTAL BILIRUBIN ADULT 3.4 MG/DL (0.2-1.0); TOTAL PROTEIN 5.7 GM/DL (6.4-8.2)
[2017-12-28 19:22] LABS: ALKALINE PHOSPHATASE 140 U/L (45-117)
[2017-12-28 19:23] LABS: AUTOMATED NEUTROPHIL # 10.8 TH/MM3 (1.8-7.7); BASOPHIL # 0.3 TH/MM3 (0-0.2); EOSINOPHIL # 0.4 TH/MM3 (0-0.4); EOSINOPHIL % 2.8 % (0.0-4.0); HEMATOCRIT 26.4 % (35.0-46.0); HEMOGLOBIN 9.1 GM/DL (11.6-15.3); LYMPH % 17.5 % (9.0-44.0); LYMPHOCYTE # 2.7 TH/MM3 (1.0-4.8); MEAN CELL VOLUME 106.1 FL (80.0-100.0); MEAN CORPUSCULAR HEMOGLOBIN 36.7 PG (27.0-34.0); MEAN CORPUSCULAR HGB CONC 34.6 % (32.0-36.0); MEAN PLATELET VOLUME 8.1 FL (7.0-11.0); MONO % 9.6 % (0.0-8.0); MONOCYTE # 1.5 TH/MM3 (0-0.9); NEUT % 68.1 % (16.0-70.0); PLATELET COUNT 210 TH/MM3 (150-450); RED BLOOD COUNT 2.48 MIL/MM3 (4.00-5.30); RED CELL DISTRIBUTION WIDTH 14.1 % (11.6-17.2); WHITE BLOOD COUNT 15.7 TH/MM3 (4.0-11.0)
[2017-12-28] MEDS ORDERED: PHYTONADIONE 5 MG TAB PO ONE (19:45)
[2017-12-28] MEDS ORDERED: LACTULOSE SYRUP 20 GM/30 ML CUP PO PRN (20:00)
[2017-12-28] MEDS ORDERED: ONDANSETRON HCL 4 MG/2 ML VIAL IVP PRN (20:00)
[2017-12-28] MEDS ORDERED: SENNOSIDES 8.6 MG TAB PO PRN (20:00)
[2017-12-28] MEDS ORDERED: BISACODYL 10 MG SUPP RECTAL PRN (20:00)
[2017-12-28] MEDS ORDERED: MAGNESIUM HYDROXIDE SUSP 30 ML CUP PO PRN (20:00)
[2017-12-28] MEDS ORDERED: ACETAMINOPHEN 325 MG TAB PO PRN (20:00)
[2017-12-28] MEDS ORDERED: PILL SPLITTER OTHER PRN (20:15)
[2017-12-28] MEDS: FUROSEMIDE 20 MG TAB PO SCH (20:28)
[2017-12-28] MEDS: RIFAXIMIN 550 MG TAB PO SCH (20:53)
[2017-12-28] MEDS: SODIUM CHLORIDE 0.9% FLUSH 10 ML FLUSH IV FLUSH SCH (21:00)
[2017-12-28] MEDS: DOCUSATE SODIUM 50 MG/SENNA 8.6 MG TAB PO SCH (21:00)
[2017-12-28] MEDS ORDERED: FLUMAZENIL 0.5 MG/5 ML VIAL IV PUSH PRN (22:45)
[2017-12-28] MEDS ORDERED: LORazepam 2 MG TAB PO PRN (22:45)
[2017-12-28] MEDS ORDERED: LORazepam 2 MG/ML VIAL IV PUSH PRN ×4 (22:45)
[2017-12-29] VITALS (8 sets, daily range): BP systolic 97–185; BP diastolic 45–95; PULSE 69–89; RESP 16–20; TEMP 95.6–98.8; O2SAT 95–98
[2017-12-29 04:53] LABS: AUTOMATED NEUTROPHIL # 9.9 TH/MM3 (1.8-7.7); BASOPHIL # 0.3 TH/MM3 (0-0.2); BASOPHIL % 2.5 % (0.0-2.0); EOSINOPHIL # 0.4 TH/MM3 (0-0.4); EOSINOPHIL % 2.7 % (0.0-4.0); HEMATOCRIT 23.3 % (35.0-46.0); HEMOGLOBIN 8.2 GM/DL (11.6-15.3); LYMPH % 15.5 % (9.0-44.0); LYMPHOCYTE # 2.1 TH/MM3 (1.0-4.8); MEAN CORPUSCULAR HEMOGLOBIN 37.3 PG (27.0-34.0); MEAN CORPUSCULAR HGB CONC 35.2 % (32.0-36.0); MEAN PLATELET VOLUME 7.9 FL (7.0-11.0); MONO % 8.2 % (0.0-8.0); MONOCYTE # 1.1 TH/MM3 (0-0.9); NEUT % 71.1 % (16.0-70.0); PLATELET COUNT 178 TH/MM3 (150-450); RED CELL DISTRIBUTION WIDTH 14.8 % (11.6-17.2); WHITE BLOOD COUNT 13.8 TH/MM3 (4.0-11.0)
[2017-12-29 05:05] LABS: CHLORIDE 98 MEQ/L (98-107); SODIUM (NA) 136 MEQ/L (136-145)
[2017-12-29 05:08] LABS: CALCIUM 7.9 MG/DL (8.5-10.1)
[2017-12-29 05:09] LABS: ALBUMIN 2.2 GM/DL (3.4-5.0); BICARBONATE 30.4 MEQ/L (21.0-32.0); BLOOD UREA NITROGEN 22 MG/DL (7-18); GLUCOSE,RANDOM 112 MG/DL (74-106)
[2017-12-29 05:12] LABS: ALT (GPT) 18 U/L (10-53); AST (GOT) 44 U/L (15-37); CREATININE 0.79 MG/DL (0.50-1.00); GLOMERULAR FILTRATION RATE 71 ML/MIN (>89)
[2017-12-29 05:14] LABS: TOTAL BILIRUBIN ADULT 4.2 MG/DL (0.2-1.0); TOTAL PROTEIN 5.2 GM/DL (6.4-8.2)
[2017-12-29 05:15] LABS: ALKALINE PHOSPHATASE 117 U/L (45-117)
[2017-12-29] MEDS: LEVOTHYROXINE SODIUM 50 MCG TAB PO SCH (05:26)
[2017-12-29] MEDS: LACTULOSE SYRUP 20 GM/30 ML CUP PO SCH ×3 (08:29→17:33)
[2017-12-29] MEDS: CITALOPRAM HYDROBROMIDE 20 MG TAB PO SCH (08:30)
[2017-12-29] MEDS: RIFAXIMIN 550 MG TAB PO SCH ×2 (08:30→21:02)
[2017-12-29] MEDS: SPIRONOLACTONE 50 MG TAB PO SCH ×2 (08:30→17:33)
[2017-12-29] MEDS: DOCUSATE SODIUM 50 MG/SENNA 8.6 MG TAB PO SCH ×2 (08:30→20:44)
[2017-12-29] MEDS: PANTOPRAZOLE SOD 40 MG DELAYED RELEASE TAB PO SCH (08:30)
[2017-12-29] MEDS: MULTIVITAMIN TAB PO SCH (08:30)
[2017-12-29] MEDS: PHENAZOPYRIDINE HCL 100 MG TAB PO SCH (09:26)
[2017-12-29] MEDS: FUROSEMIDE 20 MG TAB PO SCH (09:26)
[2017-12-29] MEDS: SODIUM CHLORIDE 0.9% FLUSH 10 ML FLUSH IV FLUSH SCH ×2 (09:27→20:44)
[2017-12-29] MEDS: LORazepam 1 MG TAB PO PRN ×2 (12:59→22:53)
[2017-12-29] MEDS ORDERED: DEXTROSE 50% IN WATER 50 ML VIAL(D50) IV PUSH PRN (17:00)
[2017-12-29] MEDS ORDERED: GLUCAGON 1 MG/ML VIAL OTHER PRN (17:00)
--- NOTE | 2017-12-29 17:04 | HHI.HP ---
[facility] Service [place] [facility] Primary Care Physician Non-Staff Admission Diagnosis GI bleed, anemia Diagnoses: Travel History International Travel<30 Days: No Contact w/Intl Traveler <30 Da: No Traveled to Known Affected Are: No History of Present Illness Mrs. Smiley is a 72 year old female. She came in secondary to GI bleeding. She says he's been having dark stools and bright red blood in bowel movements off and on over the past 3 weeks to recently has been having episodes again. She has cirrhosis and ascites at baseline and also reports that her abdomen has become distended again. Her last paracentesis was 3 weeks ago. No fevers. CBC in the ER show she is anemic. Through time this anemia has progressed since she's been in our hospital. No other complaints are present. She has no chest pain. Review of Systems Constitutional: DENIES: Fever, Chills, Night Sweats Eyes: DENIES: Diplopia, Eye inflammation Ears, nose, mouth, throat: DENIES: Hearing loss, Vertigo, Nasal discharge Respiratory: DENIES: Cough, Wheezing, Shortness of breath Cardiovascular: DENIES: Chest pain, Palpitations, Syncope Gastrointestinal: COMPLAINS OF: Black stools, Bloody stools, DENIES: Abdominal pain Musculoskeletal: DENIES: Joint pain, Muscle aches, Stiffness, Joint Swelling Integumentary: DENIES: Abnormal pigmentation, Pruritus, Rash, Nail changes Hematologic/lymphatic: DENIES: Bruising, Lymphadenopathy Immunologic/allergic: DENIES: Eczema, Urticaria Neurologic: DENIES: Abnormal gait, Headache, Paresthesias Psychiatric: DENIES: Anxiety, Confusion, Hallucinations Past Family Social History Past Medical History Asthma Gen. anxiety disorder Bipolar depression Coronary artery disease Angina Cirrhosis COPD Diabetes mellitus type 2 Hypertension Gastroesophageal reflux disease Sleep apnea Hypothyroidism Past Surgical History Appendectomy Hysterectomy Tonsillectomy Reported Medications Reported Meds & Active Scripts Active Reported Vitamin B-6 (Pyridoxine HCl) 100 Mg Tab 100 Mg PO DAILY Vitamin C (Ascorbic Acid) 250 Mg Chew 250 Mg CHEW BID Aspirin EC (Aspirin) 81 Mg Tabdr 81 Mg PO EVERY OTHER DAY K-Tab (Potassium Chloride) 20 Meq Tab 20 Meq PO DAILY Multiple Vitamin 1 Tab 1 Tab PO DAILY Xifaxan (Rifaximin) 550 Mg Tab 550 Mg PO BID Spironolactone 50 Mg Tab 50 Mg PO BIDPC Furosemide 20 Mg Tab 20 Mg PO BID Ropinirole 0.25 Mg Tab 0.25 Mg PO DAILY Citalopram (Citalopram Hydrobromide) 20 Mg Tab 0.5 Tab PO DAILY Omeprazole 20 Mg Tab 20 Mg PO BID Levothyroxine (Levothyroxine Sodium) 50 Mcg Tab 50 Mcg PO DAILY Lactulose Liq (Lactulose) 10 Gm/15 Ml Soln 30 Ml PO TID Allergies: Coded Allergies: No Known Allergies (Unverified Allergy, Unknown, 12/28/17) Active Ordered Medications Administered Medications Medications (Trade) Dose Ordered Sig/Sarah Route PRN Reason Start Time Stop Time Status Last Admin Dose Admin Sodium Chloride (NS Flush) 2 ml BID IV FLUSH 12/28/17 21:00 12/29/17 09:27 Ondansetron HCl (Zofran Inj) 4 mg Q6H PRN IVP NAUSEA OR VOMITING 12/28/17 20:00 12/29/17 12:56 Oxycodone HCl (Roxicodone) 5 mg Q4H PRN PO PAIN SCALE 3 TO 5 12/28/17 20:00 12/28/17 20:21 Senna/Docusate Sodium (Amrita-Colace) 1 tab BID PO 12/28/17 21:00 12/29/17 08:30 Citalopram Hydrobromide (CeleXA) 10 mg DAILY PO 12/29/17 09:00 12/29/17 08:30 Furosemide (Lasix) 20 mg DAILY@0900,1800 PO 12/28/17 20:15 12/29/17 09:26 Lactulose (Lactulose Liq) 30 ml TID PO 12/29/17 09:00 12/29/17 12:07 Levothyroxine Sodium (Synthroid) 50 mcg DAILY@0600 PO 12/29/17 06:00 12/29/17 05:26 Phenazopyridine HCl (Pyridium) 100 mg DAILY PO 12/29/17 09:00 12/29/17 09:26 Rifaximin (Xifaxan) 550 mg BID PO 3/10/18 21:00 12/29/17 08:30 Ropinirole HCl (Requip) 0.25 mg DAILY PO 12/29/17 09:00 12/29/17 08:29 Spironolactone (Aldactone) 50 mg BIDPC PO 12/29/17 09:00 12/29/17 08:30 Multivitamins (Theragran) 1 tab DAILY PO 12/29/17 09:00 12/29/17 08:30 Pantoprazole Sodium (Protonix) 40 mg DAILY PO 12/29/17 09:00 12/29/17 08:30 Lorazepam (Ativan) 1 mg Q4H PRN PO CIWA 8-10 12/28/17 22:45 12/29/17 12:59 Family History Cancer and coronary artery disease in both parents Social History Social drinking, patient denies abuse No smoking No illicit drug abuse Physical Exam Vital Signs Vital Signs Date Time Temp Pulse Resp B/P (MAP) Pulse Ox O2 Delivery O2 Flow Rate FiO2 12/29/17 15:00 75 12/29/17 12:00 95.6 72 16 97/45 (62) 98 12/29/17 08:00 80 12/29/17 08:00 97.5 69 118/52 (74) 96 12/29/17 05:15 98.2 75 18 112/53 (72) 96 12/29/17 00:16 98.8 82 20 128/89 (102) 98 12/28/17 22:52 78 12/28/17 22:08 98.9 86 18 132/68 (89) 99 12/28/17 21:35 84 20 129/62 (84) 98 12/28/17 21:30 20 12/28/17 20:32 81 20 126/60 (82) 98 12/28/17 20:32 20 12/28/17 19:00 82 20 116/52 (73) 12/28/17 18:50 69 16 112/58 (76) 100 Room Air 12/28/17 18:00 97 Room Air 12/28/17 17:15 98.4 83 16 121/54 (76) 96 Physical Exam GENERAL: NAD, A&Ox3 HEAD: Normocephalic. NECK: Supple, trachea midline. No lymphadenopathy. EYES: No scleral icterus. No injection or drainage. CARDIOVASCULAR: Regular rate and rhythm without murmurs, gallops, or rubs. RESPIRATORY: Breath sounds equal bilaterally. No accessory muscle use. GASTROINTESTINAL: Abdomen soft, non-tender, distended abdomen MUSCULOSKELETAL: No cyanosis, or edema. SKIN: Warm and dry. NEURO: No focal neurological deficitis. Laboratory Laboratory Tests Test 12/28/17 18:35 12/29/17 04:39 12/29/17 14:30 White Blood Count 15.7 13.8 Red Blood Count 2.48 2.20 Hemoglobin 9.1 8.2 Hematocrit 26.4 23.3 Mean Corpuscular Volume 106.1 106.0 Mean Corpuscular Hemoglobin 36.7 37.3 Mean Corpuscular Hemoglobin Concent 34.6 35.2 Red Cell Distribution Width 14.1 14.8 Platelet Count 210 178 Mean Platelet Volume 8.1 7.9 Neutrophils (%) (Auto) 68.1 71.1 Lymphocytes (%) (Auto) 17.5 15.5 Monocytes (%) (Auto) 9.6 8.2 Eosinophils (%) (Auto) 2.8 2.7 Basophils (%) (Auto) 2.0 2.5 Neutrophils # (Auto) 10.8 9.9 Lymphocytes # (Auto) 2.7 2.1 Monocytes # (Auto) 1.5 1.1 Eosinophils # (Auto) 0.4 0.4 Basophils # (Auto) 0.3 0.3 CBC Comment DIFF FINAL DIFF FINAL Differential Comment Prothrombin Time 14.0 Prothromb Time International Ratio 1.4 Activated Partial Thromboplast Time 28.7 Blood Urea Nitrogen 22 22 Creatinine 0.90 0.79 Random Glucose 117 112 Total Protein 5.7 5.2 Albumin 2.4 2.2 Calcium Level 8.2 7.9 Alkaline Phosphatase 140 117 Aspartate Amino Transf (AST/SGOT) 41 44 Alanine Aminotransferase (ALT/SGPT) 20 18 Total Bilirubin 3.4 4.2 Sodium Level 137 136 Potassium Level 4.0 4.2 Chloride Level 100 98 Carbon Dioxide Level 29.8 30.4 Anion Gap 7 8 Estimat Glomerular Filtration Rate 61 71 Result Diagram: 12/29/1743812/29/17438 Caprini VTE Risk Assessment Caprini VTE Risk Assessment: No/Low Risk (score <= 1) Caprini Risk Assessment Model Point Value = 1 Point Value = 2 Point Value = 3 Point Value = 5 Age 41-60 Minor surgery BMI > 25 kg/m2 Swollen legs Varicose veins or History of unexplained or recurrent spontaneous Oral contraceptives or hormone replacement Sepsis (< 1 month) Serious lung disease, including pneumonia (< 1 month) Abnormal pulmonary function Acute myocardial infarction Congestive heart failure (< 1 month) History of inflammatory bowel disease Medical patient at bed rest Age 61-74 Arthroscopic surgery Major open surgery (> 45 min) Laparoscopic surgery (> 45 min) Malignancy Confined to bed (> 72 hours) Immobilizing plaster cast Central venous access Age >= 75 History of VTE Family history of VTE Factor V Leiden Prothrombin [id number] Lupus anticoagulant Anticardiolipin antibodies Elevated serum homocysteine Heparin-induced thrombocytopenia Other congenital or acquired thrombophilia Stroke (< 1 month) Elective arthroplasty Hip, pelvis, or leg fracture Acute spinal cord injury (< 1 month) Prophylaxis Regimen Total Risk Factor Score Risk Level Prophylaxis Regimen 0-1 Low Early ambulation 2 Moderate Order ONE of the following: *Sequential Compression Device (SCD) *Heparin 5000 units SQ BID 3-4 Higher Order ONE of the following medications: *Heparin 5000 units SQ TID *Enoxaparin/Lovenox 40 mg SQ daily (WT < 150 kg, CrCl > 30 mL/min) *Enoxaparin/Lovenox 30 mg SQ daily (WT < 150 kg, CrCl > 10-29 mL/min) *Enoxaparin/Lovenox 30 mg SQ BID (WT < 150 kg, CrCl > 30 mL/min) AND/OR *Sequential Compression Device (SCD) 5 or more Highest Order ONE of the following medications: *Heparin 5000 units SQ TID (Preferred with Epidurals) *Enoxaparin/Lovenox 40 mg SQ daily (WT < 150 kg, CrCl > 30 mL/min) *Enoxaparin/Lovenox 30 mg SQ daily (WT < 150 kg, CrCl > 10-29 mL/min) *Enoxaparin/Lovenox 30 mg SQ BID (WT < 150 kg, CrCl > 30 mL/min) AND *Sequential Compression Device (SCD) Assessment and Plan Problem List: (1) GI bleed ICD Code: K92.2 - Gastrointestinal hemorrhage, unspecified Status: Acute (2) Anemia ICD Code: D64.9 - Anemia, unspecified Status: Acute (3) Alcoholic cirrhosis of liver ICD Code: K70.30 - Alcoholic cirrhosis of liver without ascites Status: Acute (4) Ascites ICD Code: R18.8 - Other ascites Status: Acute Assessment and Plan 72-year-old female admitted secondary to GI bleed, anemia, and ascites GI bleed Follow CBC GI consulted May be related to ascites/cirrhosis Transfuse if needed Ascites Therapeutic paracentesis ordered Follow clinically Follow electrolytes Gen. anxiety disorder Bipolar depression No decompensation Continue baseline treatments Coronary artery disease Angina Currently asymptomatic Follow clinically No change to baseline treatment Asthma COPD No exacerbation Continue baseline treatments Follow clinically Diabetes mellitus type 2 Follow blood sugars Insulin sliding scale Diabetic diet Hypertension Continue baseline treatment Follow blood pressures Adjust treatments as needed Hypothyroidism Continue home treatment Follows in outpatient DVT Prophylaxis SCDs Avoid blood thinners given active bleed Problem Qualifiers (1) GI bleed: Qualified Codes: K92.2 - Gastrointestinal hemorrhage, unspecified (2) Anemia: Qualified Codes: D64.9 - Anemia, unspecified Colin Hamilton MD Dec 29, 2017 17:04
[2017-12-29] MEDS ORDERED: PHYTONADIONE 10 MG/ML VIAL SQ ONE ×2 (17:30→18:00)
--- NOTE | 2017-12-29 17:45 | MB ---
cc: Joaquin Reyes MD DATE OF CONSULT: REASON FOR CONSULTATION: Evaluation of ascites, rectal bleeding, history of cirrhosis. HISTORY OF PRESENT ILLNESS: This is a 72-year-old female known to our practice, [facility]. She is followed by Dr. Doe. She carries a diagnosis of alcohol-related cirrhosis. The patient, unfortunately, continues to consume alcohol despite recommendations to stop drinking. She has a history of chronic recurrent ascites with several paracentesis procedures being performed. The last one was approximately 3 or 4 weeks ago. She reports that she has been having increasing abdominal girth and discomfort and tense ascites. She is scheduled for paracentesis in the morning. In addition, she complains of black stools. She has had this complaint of black stools ever since October, according to the office records. She has been on oral iron supplements. In addition, she has noted some bright red blood per rectum. Her last colonoscopy, according to the records, was approximately 2012. She states the bright red blood is new over the last 3 weeks. Her hemoglobin is 8.2 at this time, down from 9.5. Earlier today, she did have some emesis of food, but no blood. She had recent endoscopy about a month ago by Dr. Doe, and this did not reveal any esophageal varices. She did have portal gastropathy changes. It was recommended that the patient be placed on beta-tricia therapy. She is not taking that at this time. She also has a prior history of encephalopathy. She is on lactulose and Xifaxan. She does have moments of forgetfulness. She had mildly elevated liver enzymes in the past with an elevated bilirubin in the 5 range. Her current bilirubin is 4.2. Her transaminases are minimally elevated. Once again, she does continue to consume alcohol daily, several cocktails per day. I was asked to evaluate her further. PAST MEDICAL HISTORY: She has had no prior history of hepatitis. She has a history of anxiety, asthma, bipolar disorder. She has history of COPD, early diabetes, sleep apnea and thyroid disease. PAST SURGICAL HISTORY: She has had a breast biopsy in the past. SOCIAL HISTORY: Alcohol use, she does continue to consume alcohol daily. She denies tobacco or other substance abuse. ALLERGIES: NO VERIFIED ALLERGIES ARE KNOWN. FAMILY HISTORY: Negative from a GI standpoint. No history of colon cancer. No history of cirrhosis. MEDICATIONS: Include potassium, Xifaxan, spironolactone, Lasix, ropinirole, citalopram, omeprazole, levothyroxine, lactulose, baby aspirin, vitamin C and B6. REVIEW OF SYSTEMS: Once again, 12-point review of systems as stated in the HPI. PHYSICAL EXAMINATION: GENERAL: Well-developed female, who is alert, oriented x 2, in no acute distress. She does have some abdominal cramping. VITAL SIGNS: Currently stable. Blood pressure is 110/58. She is afebrile. HEENT: Normocephalic. Sclerae are slightly icteric. Oral mucosa dry. NECK: Supple. CARDIAC: S1, S2, regular rhythm, no murmurs. CHEST: Decreased inspiratory effort, otherwise clear. ABDOMEN: Protuberant. Tense ascites is noted. There is no rebound tenderness. Bowel sounds are present. It is difficult to appreciate any organomegaly. RECTAL: She was heme-positive with black stools. NEUROLOGIC: She appears to be intact. She has very minimal tremor. LABORATORY DATA: Mentioned above. White count is 15,000, MCV 106, platelet count was 175. PT/INR 14/1.4. Creatinine is 0.9, albumin 2.4. IMPRESSION: 1. Alcohol-related cirrhosis. Patient continues to consume alcohol. 2. Recurrent ascites. 3. History of hepatic encephalopathy. 4. History of portal gastropathy without esophageal varices with recent endoscopy on 11/28. 5. Hyperbilirubinemia with slightly elevated liver enzymes secondary to noncompliance with continued alcohol use. 7. Patient has a slight tremor, ? early withdrawal symptoms. 8. Rectal bleeding. PLAN: Would agree with paracentesis as soon as possible, large volume, to allow for relief of discomfort and also, if we anticipate any endoscopic procedures, would be beneficial to perform paracentesis beforehand. The patient has had rectal bleeding, which apparently is new. I discussed with the patient the possibility of performing colonoscopy after her paracentesis has been completed. I discussed with her the need for preparation. Will discuss with Dr. Doe since he knows the patient quite well. He did perform upper endoscopy recently. I would continue to monitor H and H closely. We could consider octreotide, but it does not appear the patient has upper GI bleeding at this time, although she does have portal gastropathy changes noted on her endoscopy recently. I will be glad to follow the patient with you. Thank you kindly for this consultation. Continue IV diuretics for now. Continue supportive therapy MD KESHA Gaytan/PEPE , 05:14 PM , 05:44 PM
[2017-12-29] MEDS ORDERED: OCTREOTIDE INJ 100 MCG/ML VIAL IV ONE (18:00)
[2017-12-29] MEDS: INSULIN ASPART SUPPLEMENTAL SCALE SQ SCH ×2 (18:00→21:08)
[2017-12-29 18:36] LABS: BILIRUBIN, URINE NEG (NEG); BLOOD, URINE TRACE (NEG); GLUCOSE,URINE NEG (NEG); KETONE, URINE NEG (NEG); NITRITE,URINE NEG (NEG); PH, URINE 5.5 (5.0-8.5); URINE COLOR YELLOW (YELLW/STRAW); URINE LEUKOCYTE ESTERASE NEG (NEG)
[2017-12-29] MEDS: OCTREOTIDE INJ 500 MCG in SODIUM CHLORID 0.9% 500 ML INJ 499.5 ML IV SCH (18:48)
[2017-12-29 18:58] LABS: MUCUS URINE FEW /lpf (OCC); SQUAMOUS EPITHELIAL CELL URINE 0-5 /hpf (0-5); WBC, URINE 0-2 /hpf (0-5)
[2017-12-29 18:59] LABS: AMORPHOUS SEDIMENT, URINE SMALL
[2017-12-30] VITALS (13 sets, daily range): BP systolic 104–141; BP diastolic 44–80; PULSE 71–92; RESP 16–20; TEMP 96.1–98; O2SAT 93–97
[2017-12-30] MEDS: OCTREOTIDE INJ 500 MCG in SODIUM CHLORID 0.9% 500 ML INJ 499.5 ML IV SCH ×3 (04:00→20:50)
[2017-12-30] MEDS: LEVOTHYROXINE SODIUM 50 MCG TAB PO SCH (05:51)
[2017-12-30] MEDS ORDERED: FUROSEMIDE 40 MG/4 ML VIAL IV PUSH SCH (09:00)
[2017-12-30] MEDS: INSULIN ASPART SUPPLEMENTAL SCALE SQ SCH ×4 (10:54→21:00)
[2017-12-30] MEDS: RIFAXIMIN 550 MG TAB PO SCH ×2 (11:10→20:49)
[2017-12-30] MEDS: PANTOPRAZOLE SOD 40 MG DELAYED RELEASE TAB PO SCH (11:10)
[2017-12-30] MEDS: MULTIVITAMIN TAB PO SCH (11:10)
[2017-12-30] MEDS: FUROSEMIDE 40 MG/4 ML VIAL IV PUSH SCH (11:10)
[2017-12-30] MEDS: SPIRONOLACTONE 50 MG TAB PO SCH ×2 (11:10→19:52)
[2017-12-30] MEDS: CITALOPRAM HYDROBROMIDE 20 MG TAB PO SCH (11:11)
[2017-12-30] MEDS: LACTULOSE SYRUP 20 GM/30 ML CUP PO SCH ×3 (11:11→19:53)
[2017-12-30] MEDS: DOCUSATE SODIUM 50 MG/SENNA 8.6 MG TAB PO SCH ×2 (11:11→20:49)
[2017-12-30] MEDS: PHENAZOPYRIDINE HCL 100 MG TAB PO SCH (11:24)
[2017-12-30 11:28] LABS: AUTOMATED NEUTROPHIL # 10.8 TH/MM3 (1.8-7.7); BASOPHIL # 0.1 TH/MM3 (0-0.2); BASOPHIL % 0.5 % (0.0-2.0); EOSINOPHIL # 0.5 TH/MM3 (0-0.4); EOSINOPHIL % 3.4 % (0.0-4.0); LYMPH % 10.3 % (9.0-44.0); LYMPHOCYTE # 1.4 TH/MM3 (1.0-4.8); MEAN CELL VOLUME 108.1 FL (80.0-100.0); MEAN CORPUSCULAR HEMOGLOBIN 36.8 PG (27.0-34.0); MEAN CORPUSCULAR HGB CONC 34.1 % (32.0-36.0); MONO % 7.5 % (0.0-8.0); NEUT % 78.3 % (16.0-70.0); PLATELET COUNT 170 TH/MM3 (150-450); RED BLOOD COUNT 1.87 MIL/MM3 (4.00-5.30); RED CELL DISTRIBUTION WIDTH 14.6 % (11.6-17.2); WHITE BLOOD COUNT 13.8 TH/MM3 (4.0-11.0)
[2017-12-30 11:33] LABS: HEMOGLOBIN 6.9 GM/DL (11.6-15.3)
[2017-12-30 11:34] LABS: HEMATOCRIT 20.2 % (35.0-46.0)
[2017-12-30] MEDS ORDERED: PEG (High)/E-LYTE SOLN 4000 ML BTL PO ONE (14:00)
--- NOTE | 2017-12-30 14:28 | RADRPT ---
EXAM DATE/TIME: 12/29/2017 15:41 [place] COMPARISON: US GUIDED ABD PARACENTESIS, December 19, 2017, 8:36. INDICATIONS : Ascites. MEDICAL HISTORY : Cirrhosis. Chronic obstructive pulmonary disease. Hypertension. Chest pain.Head trauma. Hepatic encep halopathy. Asthma. Thyroid disease. GERD. Sleep apnea.Borderline diabetes. Ascites. Anticoagulant the rapy, Aspirin. SURGICAL HISTORY : Hysterectomy. Appendectomy. Tonsillectomy. Right shoulder and elbow surgery. Throat/neck biopsy. Shilpi st biopsy. Paracentesis. ENCOUNTER: Sequela ACUITY: 2 weeks PAIN SCORE: 0/10 LOCATION: Left lower quadrant FLUID: Total volume of 3,600 cc of clear, yellow fluid was removed. Fluid was discarded. Paracentesis was therapeutic only. Post procedure scanning reveals no hematoma or other complication. TECHNIQUE: 1. Ultrasound guidance for abdominal paracentesis. 2. Paracentesis. The risks, benefits, and alternatives to ultrasound guided paracentesis were explained to the patient in detail including the risk of bleeding and infection. Written and verbal informed consent was obt ained. With the patient on the ultrasound table, ultrasound imaging was used to select the most appropriate approach for paracentesis. Overlying skin was prepped and draped in the usual sterile fashion and wi th a local anesthetic, a dermatotomy was made with an 11 blade scalpel. A 6 Romansh [id number] ca theter was introduced into the peritoneal cavity and fluid was collected. The patient tolerated the procedure well and left the ultrasound suite in stable condition. CONCLUSION: Uncomplicated ultrasound guided paracentesis. Fidel Aldana MD on December 30, 2017 at 14:26 Board Certified Radiologist. This report was verified electronically.
[2017-12-30] MEDS ORDERED: SODIUM CHLOR 0.9% 250 ML INJ 250 ML IV ONE (14:30)
--- NOTE | 2017-12-30 14:30 | HHI.PR ---
Subjective Remarks No new complaints today. Abdomen still distended. Plan for paracentesis today. After paracentesis patient will have a bowel prep for possible colonoscopy tomorrow. Hemoglobin has trended downward. Plan for blood transfusion today. Objective Vital Signs Date Time Temp Pulse Resp B/P (MAP) Pulse Ox O2 Delivery O2 Flow Rate FiO2 12/30/17 12:00 97.7 92 18 118/54 (75) 93 12/30/17 08:00 96.8 84 18 141/80 (100) 93 12/30/17 04:48 97.6 83 16 117/52 (73) 97 12/30/17 00:08 98.0 88 18 125/55 (78) 93 12/30/17 00:00 71 12/29/17 20:23 98.7 83 16 126/75 (92) 95 12/29/17 16:00 97.0 81 18 116/67 (83) 97 12/29/17 15:00 75 I/O 12/29/17 12/29/17 12/29/17 12/30/17 12/30/17 12/30/17 07:00 15:00 23:00 07:00 15:00 23:00 Intake Total 120 ml Balance 120 ml Intake Oral 120 ml # Voids 2 1 2 4 2 # Bowel Movements 2 2 4 Result Diagram: 12/30/17 1100 12/29/17 0439 Objective Remarks GENERAL: NAD, A&Ox3 HEAD: Normocephalic. NECK: Supple, trachea midline. No lymphadenopathy. EYES: No scleral icterus. No injection or drainage. CARDIOVASCULAR: Regular rate and rhythm without murmurs, gallops, or rubs. RESPIRATORY: Breath sounds equal bilaterally. No accessory muscle use. GASTROINTESTINAL: Abdomen soft, non-tender, abdomen distended. MUSCULOSKELETAL: No cyanosis, or edema. SKIN: Warm and dry. Jaundice present. NEURO: No focal neurological deficitis. A/P Problem List: (1) Alcoholic cirrhosis of liver ICD Code: K70.30 - Alcoholic cirrhosis of liver without ascites Status: Acute (2) Ascites ICD Code: R18.8 - Other ascites Status: Acute (3) GI bleed ICD Code: K92.2 - Gastrointestinal hemorrhage, unspecified Status: Acute (4) Anemia ICD Code: D64.9 - Anemia, unspecified Status: Acute Assessment and Plan 72-year-old female admitted secondary to GI bleed, anemia, and ascites Labs reviewed. Downward trend and CBC. Continue to monitor labs. Labs ordered for further monitoring. 2 units packed red blood cells transfused today GI bleed Bleeding continues Follow CBC GI consulted May be related to ascites/cirrhosis Transfuse if needed Acute blood loss anemia Transfuse 2 units packed red blood cells on 12/30/17 Follow CBC Plan for GI procedure 12/31/17 Ascites Therapeutic paracentesis on 12/30/17 Follow clinically Follow electrolytes Gen. anxiety disorder Bipolar depression No decompensation Continue baseline treatments Coronary artery disease Angina Currently asymptomatic Follow clinically No change to baseline treatment Asthma COPD No exacerbation Continue baseline treatments Follow clinically Diabetes mellitus type 2 Follow blood sugars Insulin sliding scale Diabetic diet Hypertension Continue baseline treatment Follow blood pressures Adjust treatments as needed Hypothyroidism Continue home treatment Follows in outpatient DVT Prophylaxis SCDs Avoid blood thinners given active bleed Problem Qualifiers (1) GI bleed: Qualified Codes: K92.2 - Gastrointestinal hemorrhage, unspecified (2) Anemia: Qualified Codes: D64.9 - Anemia, unspecified Colin Hamilton MD Dec 30, 2017 14:30
[2017-12-30] MEDS: SODIUM CHLORIDE 0.9% FLUSH 10 ML FLUSH IV FLUSH SCH ×2 (15:50→20:49)
[2017-12-30] MEDS ORDERED: cefTRIAXone 1,000 MG/NS 100 ML IV ONE ×2 (21:00)
[2017-12-31] VITALS: BP 130/66; PULSE 68; RESP 20; TEMP 98.4; O2SAT 96
[2017-12-31 04:00] VITALS: BP 108/58; PULSE 77; RESP 20; TEMP 97.3; O2SAT 96
[2017-12-31] MEDS: LEVOTHYROXINE SODIUM 50 MCG TAB PO SCH (06:01)
[2017-12-31 06:54] LABS: AUTOMATED NEUTROPHIL # 8.8 TH/MM3 (1.8-7.7); BASOPHIL # 0.1 TH/MM3 (0-0.2); BASOPHIL % 0.5 % (0.0-2.0); EOSINOPHIL # 0.6 TH/MM3 (0-0.4); EOSINOPHIL % 4.8 % (0.0-4.0); HEMATOCRIT 28.6 % (35.0-46.0); HEMOGLOBIN 9.7 GM/DL (11.6-15.3); LYMPH % 14.3 % (9.0-44.0); LYMPHOCYTE # 1.8 TH/MM3 (1.0-4.8); MEAN CELL VOLUME 101.2 FL (80.0-100.0); MEAN CORPUSCULAR HEMOGLOBIN 34.3 PG (27.0-34.0); MEAN CORPUSCULAR HGB CONC 33.9 % (32.0-36.0); MEAN PLATELET VOLUME 7.9 FL (7.0-11.0); MONO % 8.5 % (0.0-8.0); NEUT % 71.9 % (16.0-70.0); PLATELET COUNT 152 TH/MM3 (150-450); RED BLOOD COUNT 2.83 MIL/MM3 (4.00-5.30); RED CELL DISTRIBUTION WIDTH 20.3 % (11.6-17.2); WHITE BLOOD COUNT 12.3 TH/MM3 (4.0-11.0)
[2017-12-31 07:01] LABS: CHLORIDE 99 MEQ/L (98-107); SODIUM (NA) 137 MEQ/L (136-145)
[2017-12-31 07:12] LABS: ALBUMIN 2.1 GM/DL (3.4-5.0); BICARBONATE 30.5 MEQ/L (21.0-32.0); CALCIUM 7.6 MG/DL (8.5-10.1)
[2017-12-31 07:13] LABS: BLOOD UREA NITROGEN 15 MG/DL (7-18); GLUCOSE,RANDOM 114 MG/DL (74-106)
[2017-12-31 07:16] LABS: ALT (GPT) 21 U/L (10-53); CREATININE 0.81 MG/DL (0.50-1.00); GLOMERULAR FILTRATION RATE 69 ML/MIN (>89)
[2017-12-31 07:17] LABS: TOTAL BILIRUBIN ADULT 5.9 MG/DL (0.2-1.0); TOTAL PROTEIN 4.9 GM/DL (6.4-8.2)
[2017-12-31 07:18] LABS: AST (GOT) 55 U/L (15-37)
[2017-12-31 07:19] LABS: ALKALINE PHOSPHATASE 100 U/L (45-117)
[2017-12-31 08:00] VITALS: BP 120/54; PULSE 80; RESP 18; TEMP 97.9; O2SAT 92
[2017-12-31] MEDS: INSULIN ASPART SUPPLEMENTAL SCALE SQ SCH ×4 (08:00→20:32)
[2017-12-31] MEDS: DOCUSATE SODIUM 50 MG/SENNA 8.6 MG TAB PO SCH ×2 (08:24→19:35)
[2017-12-31] MEDS: CITALOPRAM HYDROBROMIDE 20 MG TAB PO SCH (08:24)
[2017-12-31] MEDS: SPIRONOLACTONE 50 MG TAB PO SCH ×2 (08:24→17:36)
[2017-12-31] MEDS: FUROSEMIDE 40 MG/4 ML VIAL IV PUSH SCH (08:24)
[2017-12-31] MEDS: PANTOPRAZOLE SOD 40 MG DELAYED RELEASE TAB PO SCH (08:25)
[2017-12-31 08:46] LABS: ROULEAUX PRESENT (NORMAL)
[2017-12-31] MEDS: MULTIVITAMIN TAB PO SCH (09:00)
[2017-12-31] MEDS: RIFAXIMIN 550 MG TAB PO SCH ×2 (09:00→20:23)
[2017-12-31] MEDS: LACTULOSE SYRUP 20 GM/30 ML CUP PO SCH ×3 (09:00→17:36)
[2017-12-31] MEDS: OCTREOTIDE INJ 500 MCG in SODIUM CHLORID 0.9% 500 ML INJ 499.5 ML IV SCH (10:00)
[2017-12-31 12:19] VITALS: BP 122/60; PULSE 74; RESP 18; TEMP 97.6; O2SAT 90
[2017-12-31] MEDS ORDERED: SODIUM CHLORID 0.9% 500 ML IV PRN (15:00)
[2017-12-31] MEDS ORDERED: POVIDONE IODINE 5% (ANTISEPSIS KIT) 4 APPLICATIONS EACH NARE PRN (15:00)
[2017-12-31] MEDS ORDERED: LACTATED RINGER'S 1000 ML IV PRN (15:00)
[2017-12-31] MEDS ORDERED: CHLORHEXIDINE GLUCONATE 2 % 1 PACK (2 CLOTHS) TOPICAL PRN (15:00)
[2017-12-31] MEDS ORDERED: METOPROLOL TARTRATE 25 MG TAB PO PRN (15:00)
--- NOTE | 2017-12-31 15:52 | MR ---
cc: Joaquin Reyes MD 12/31/2017 PROCEDURE: Upper endoscopy and colonoscopy. INDICATION FOR PROCEDURE: Evaluation of anemia, drop in hemoglobin, heme-positive stools, blood per rectum. The patient is known cirrhotic with liver disease. Endoscopic workup is being performed to rule out acute GI bleeding source. Photographs were taken. PREMEDICATION: Administered by Anesthesiology. MONITORING: Accomplished with pulse oximetry, EKG and blood pressure monitor. PROCEDURE NOTE: After informed consent was obtained and procedure, risks and benefits were explained including the risks of bleeding, sepsis, perforation and risks of anesthesia, the patient was placed in the left lateral position. The video endoscope was inserted per the oral route into the esophagus. The esophagus was carefully inspected. No varices were seen. The EG junction was patent. The stomach was entered. Large gastric folds were noted but no gastric varices were seen. In the retroflex view the fundus appeared to be unremarkable. Small gastric polyps were scattered and noted, left intact. The scope was brought to the distal body. Mild portal gastropathy changes were noted. In the antrum there were multiple raised nodular areas with superficial ulcerations at the tip of these lesions. This may present as a possible GI bleeding source. Two of the smallest lesions were biopsied for sampling. There was a small amount of oozing of blood but this stopped spontaneously. The pylorus was patent. The duodenal bulb was unremarkable. The first, second and third portions of the duodenum were unremarkable. Two antral biopsies were taken as well for baseline evaluation. The scope was then gradually withdrawn. The patient was repositioned and colonoscopy was performed. The colonoscope was inserted in the rectum, passed in the cecum with moderate difficulty. There was residual thick, tenacious stool scattered throughout the colon especially in the ascending colon and cecum. Lavage of these areas was difficult. When visualizing the mucosa, it appeared to be normal except mostly in the ascending colon there were some scattered areas of erythema, most likely nonspecific. I did note some erosions in the ascending colon as well. One biopsy was taken of one of these areas. Care was then taken not to obtain multiple biopsies as the patient had the tendency to ooze post-biopsy. The cecum did contain residual stool and it was difficult to evaluate the cecum completely but when visualized the cecum did appear to be unremarkable. Smaller lesions could be missed. The scope was gradually withdrawn. There was occasional erythema scattered in the transverse colon as well. This was less of a degree than the ascending colon. The descending colon, the sigmoid colon and rectal area were unremarkable for any bleeding source. The patient tolerated these procedures well. No immediate complication was noted. IMPRESSION: 1. Upper endoscopy failed to reveal any gastric or esophageal varices. 2. Large gastric folds were noted in the proximal to mid-gastric body. 3. Multiple inflammatory nodules localized in the antrum, most likely benign with superficial ulcerations on most of these lesions. Two of the smaller lesions were biopsied for sampling. The pylorus was unremarkable. The duodenal bulb and small bowel were unremarkable as well. Colonoscopy failed to reveal any active GI bleeding source. The prep was not optimum as visualization was limited because of the thick, tenacious stool as mentioned above. There was some nonspecific erythema noted in the ascending-transverse colon region. Infrequent erosions were also noted. One biopsy was taken of the erosions. PLAN: We will add Carafate therapy to her regimen. Follow-up biopsies taken today. We will discontinue octreotide for now. Follow up the H and H's closely. Continue present therapy for her liver disease and ascites. Incidentally, the patient did receive Rocephin late yesterday for prophylaxis in lieu of her ascites and the procedure being performed today. MD KESHA Gaytan/PEPE , 03:26 PM , 03:51 PM
[2017-12-31 16:00] VITALS: BP 109/58; PULSE 69; RESP 18; TEMP 97.2; O2SAT 93
[2017-12-31] MEDS: SUCRALFATE 1 GM/10 ML CUP PO SCH ×2 (17:36→20:23)
[2017-12-31] MEDS: SODIUM CHLORIDE 0.9% FLUSH 10 ML FLUSH IV FLUSH SCH ×2 (17:39→20:23)
[2017-12-31] MEDS: PHENAZOPYRIDINE HCL 100 MG TAB PO SCH (17:41)
[2017-12-31] MEDS ORDERED: ALPRAZolam 0.25 MG TAB PO PRN (19:15)
[2017-12-31] MEDS ORDERED: ALPRAZolam 0.5 MG TAB PO PRN (19:15)
--- NOTE | 2017-12-31 19:15 | HHI.PR ---
Subjective Remarks Status post paracentesis and EGD at this point. EGD reveals gastritis with inflammatory nodules. 3.6 L removed with paracentesis. Objective Vital Signs Date Time Temp Pulse Resp B/P (MAP) Pulse Ox O2 Delivery O2 Flow Rate FiO2 12/31/17 16:00 97.2 69 18 109/58 (75) 93 12/31/17 15:38 97.8 65 16 100/46 (64) 100 12/31/17 15:23 97.8 68 16 99/46 (63) 100 12/31/17 13:56 97.6 71 18 122/60 (80) 98 12/31/17 13:56 12/31/17 13:56 Nasal Cannula 2 12/31/17 12:19 97.6 74 18 122/60 (80) 90 12/31/17 08:00 97.9 80 18 120/54 (76) 92 12/31/17 08:00 80 12/31/17 04:00 97.3 77 20 108/58 (75) 96 12/31/17 00:00 98.4 68 20 130/66 (87) 96 12/30/17 21:35 96.1 72 20 133/63 96 12/30/17 21:15 97.1 85 20 134/62 94 12/30/17 20:15 71 12/30/17 20:00 97.1 85 20 134/62 (86) 94 I/O 12/30/17 12/30/17 12/30/17 12/31/17 12/31/17 12/31/17 07:00 15:00 23:00 07:00 15:00 23:00 Intake Total 525 ml 1925 ml 0 ml Balance 525 ml 1925 ml 0 ml Intake Oral 1000 ml 0 ml IV Total 100 ml 515 ml Packed Cells 400 ml 400 ml Blood Product IV Normal Saline Flush 25 ml 10 ml # Voids 4 3 3 4 # Bowel Movements 4 2 1 Result Diagram: 12/31/17 0555 12/31/17 05 Objective Remarks GENERAL: NAD, A&Ox3 HEAD: Normocephalic. NECK: Supple, trachea midline. No lymphadenopathy. EYES: No scleral icterus. No injection or drainage. CARDIOVASCULAR: Regular rate and rhythm without murmurs, gallops, or rubs. RESPIRATORY: Breath sounds equal bilaterally. No accessory muscle use. GASTROINTESTINAL: Abdomen soft, non-tender, abdomen distended. MUSCULOSKELETAL: No cyanosis, or edema. SKIN: Warm and dry. Jaundice present. NEURO: No focal neurological deficitis. A/P Problem List: (1) Alcoholic cirrhosis of liver ICD Code: K70.30 - Alcoholic cirrhosis of liver without ascites Status: Acute (2) Ascites ICD Code: R18.8 - Other ascites Status: Acute (3) GI bleed ICD Code: K92.2 - Gastrointestinal hemorrhage, unspecified Status: Acute (4) Anemia ICD Code: D64.9 - Anemia, unspecified Status: Acute Assessment and Plan 72-year-old female admitted secondary to GI bleed, anemia, and ascites Continue to monitor electrolytes and CBC. If patient shows stability through tomorrow we'll consider discharge. Recheck labs in am. GI bleed Bleeding appears to have stopped. Follow CBC GI consulted May be related to ascites/cirrhosis Transfuse if needed Acute blood loss anemia Transfuse 2 units packed red blood cells on 12/30/17 Follow CBC Plan for GI procedure 12/31/17 Ascites Therapeutic paracentesis on 12/30/17 Follow clinically Follow electrolytes Gen. anxiety disorder Bipolar depression No decompensation Continue baseline treatments Coronary artery disease Angina Currently asymptomatic Follow clinically No change to baseline treatment Asthma COPD No exacerbation Continue baseline treatments Follow clinically Diabetes mellitus type 2 Follow blood sugars Insulin sliding scale Diabetic diet Hypertension Continue baseline treatment Follow blood pressures Adjust treatments as needed Hypothyroidism Continue home treatment Follows in outpatient DVT Prophylaxis SCDs Avoid blood thinners given active bleed Problem Qualifiers (1) GI bleed: Qualified Codes: K92.2 - Gastrointestinal hemorrhage, unspecified (2) Anemia: Qualified Codes: D64.9 - Anemia, unspecified Colin Hamilton MD Dec 31, 2017 19:15
--- NOTE | 2017-12-31 19:25 | EKG ---
Date Performed: 12/31/2017 Time Performed: 03:29:05 PTAGE: 72 years EKG: Sinus rhythm LOW QRS VOLTAGE IN PRECORDIAL LEADS NONSPECIFIC ST & T-WAVE ABNORMALITY BORDERLINE ECG PREVIOUS TRACING : 10/22/2016 03.40 Since the previous tracing NS ST-T changes present DOCTOR: Jossy Mcintyre Interpretating Date/Time 12/31/2017 19:23:47
[2017-12-31 20:00] VITALS: BP 124/62; PULSE 64; RESP 18; TEMP 97.8; O2SAT 94
[2018-01-01 00:05] VITALS: BP 107/51; PULSE 73; RESP 16; TEMP 97.3; O2SAT 96
[2018-01-01] MEDS: LEVOTHYROXINE SODIUM 50 MCG TAB PO SCH (06:38)
[2018-01-01 06:54] LABS: AUTOMATED NEUTROPHIL # 10.4 TH/MM3 (1.8-7.7); BASOPHIL # 0.1 TH/MM3 (0-0.2); BASOPHIL % 0.5 % (0.0-2.0); EOSINOPHIL # 0.7 TH/MM3 (0-0.4); EOSINOPHIL % 4.8 % (0.0-4.0); HEMATOCRIT 30.9 % (35.0-46.0); HEMOGLOBIN 10.9 GM/DL (11.6-15.3); LYMPH % 13.9 % (9.0-44.0); LYMPHOCYTE # 1.9 TH/MM3 (1.0-4.8); MEAN CELL VOLUME 103.4 FL (80.0-100.0); MEAN CORPUSCULAR HEMOGLOBIN 36.4 PG (27.0-34.0); MEAN CORPUSCULAR HGB CONC 35.2 % (32.0-36.0); MEAN PLATELET VOLUME 7.8 FL (7.0-11.0); MONO % 6.7 % (0.0-8.0); MONOCYTE # 0.9 TH/MM3 (0-0.9); NEUT % 74.1 % (16.0-70.0); PLATELET COUNT 161 TH/MM3 (150-450); RED BLOOD COUNT 2.99 MIL/MM3 (4.00-5.30); RED CELL DISTRIBUTION WIDTH 20.8 % (11.6-17.2)
[2018-01-01 07:04] LABS: CHLORIDE 98 MEQ/L (98-107); SODIUM (NA) 137 MEQ/L (136-145)
[2018-01-01 07:11] LABS: ALBUMIN 2.3 GM/DL (3.4-5.0)
[2018-01-01 07:12] LABS: BICARBONATE 30.6 MEQ/L (21.0-32.0); BLOOD UREA NITROGEN 11 MG/DL (7-18); GLUCOSE,RANDOM 82 MG/DL (74-106)
[2018-01-01 07:14] LABS: ALT (GPT) 30 U/L (10-53)
[2018-01-01 07:15] LABS: AST (GOT) 73 U/L (15-37); CREATININE 0.83 MG/DL (0.50-1.00); GLOMERULAR FILTRATION RATE 67 ML/MIN (>89)
[2018-01-01 07:16] LABS: TOTAL PROTEIN 5.5 GM/DL (6.4-8.2)
[2018-01-01 07:17] LABS: ALKALINE PHOSPHATASE 115 U/L (45-117)
[2018-01-01 07:50] VITALS: BP 125/62; PULSE 70; RESP 20; TEMP 96.6; O2SAT 96
[2018-01-01] MEDS: INSULIN ASPART SUPPLEMENTAL SCALE SQ SCH ×2 (08:00→12:00)
[2018-01-01 08:05] LABS: ROULEAUX PRESENT (NORMAL)
[2018-01-01] MEDS: SUCRALFATE 1 GM/10 ML CUP PO SCH ×2 (08:52→12:17)
[2018-01-01] MEDS: FUROSEMIDE 40 MG/4 ML VIAL IV PUSH SCH (08:52)
[2018-01-01] MEDS: RIFAXIMIN 550 MG TAB PO SCH (08:53)
[2018-01-01] MEDS: CITALOPRAM HYDROBROMIDE 20 MG TAB PO SCH (08:53)
[2018-01-01] MEDS: PHENAZOPYRIDINE HCL 100 MG TAB PO SCH (08:53)
[2018-01-01] MEDS: PANTOPRAZOLE SOD 40 MG DELAYED RELEASE TAB PO SCH (08:53)
[2018-01-01] MEDS: MULTIVITAMIN TAB PO SCH (08:53)
[2018-01-01] MEDS: LACTULOSE SYRUP 20 GM/30 ML CUP PO SCH ×2 (08:53→12:17)
[2018-01-01] MEDS: DOCUSATE SODIUM 50 MG/SENNA 8.6 MG TAB PO SCH (08:53)
[2018-01-01] MEDS: SPIRONOLACTONE 50 MG TAB PO SCH (08:53)
[2018-01-01] MEDS: SODIUM CHLORIDE 0.9% FLUSH 10 ML FLUSH IV FLUSH SCH (09:00)
[2018-01-01] MEDS ORDERED: BATH/SHOWER SEA1 MIS (11:27)
--- NOTE | 2018-01-01 11:29 | HHI.DS ---
Discharge Summary Admission Date Dec 31, 2017 at 10:42 Discharge Date: Jan 01, 2018 Admitting Diagnosis GI bleed, anemia (1) GI bleed ICD Code: K92.2 - Gastrointestinal hemorrhage, unspecified Diagnosis: Principal Status: Acute (2) Anemia ICD Code: D64.9 - Anemia, unspecified Diagnosis: Principal Status: Acute (3) Alcoholic cirrhosis of liver ICD Code: K70.30 - Alcoholic cirrhosis of liver without ascites Diagnosis: Principal Status: Acute (4) Ascites ICD Code: R18.8 - Other ascites Diagnosis: Principal Status: Acute Procedures Paracentesis Brief History - From Admission Mrs. Smiley is a 72 year old female. She came in secondary to GI bleeding. She says he's been having dark stools and bright red blood in bowel movements off and on over the past 3 weeks to recently has been having episodes again. She has cirrhosis and ascites at baseline and also reports that her abdomen has become distended again. Her last paracentesis was 3 weeks ago. No fevers. CBC in the ER show she is anemic. Through time this anemia has progressed since she's been in our hospital. No other complaints are present. She has no chest pain. CBC/BMP: 01/01/18 0610 01/01/18 0610 Significant Findings Laboratory Tests Test 12/29/17 14:30 12/29/17 18:23 12/30/17 11:00 12/31/17 05:55 Urine Mucus FEW /lpf (OCC) White Blood Count 13.8 TH/MM3 (4.0-11.0) 12.3 TH/MM3 (4.0-11.0) Red Blood Count 1.87 MIL/MM3 (4.00-5.30) 2.83 MIL/MM3 (4.00-5.30) Hemoglobin 6.9 GM/DL (11.6-15.3) 9.7 GM/DL (11.6-15.3) Hematocrit 20.2 % (35.0-46.0) 28.6 % (35.0-46.0) Mean Corpuscular Volume 108.1 FL (80.0-100.0) 101.2 FL (80.0-100.0) Mean Corpuscular Hemoglobin 36.8 PG (27.0-34.0) 34.3 PG (27.0-34.0) Neutrophils (%) (Auto) 78.3 % (16.0-70.0) 71.9 % (16.0-70.0) Neutrophils # (Auto) 10.8 TH/MM3 (1.8-7.7) 8.8 TH/MM3 (1.8-7.7) Monocytes # (Auto) 1.0 TH/MM3 (0-0.9) 1.0 TH/MM3 (0-0.9) Eosinophils # (Auto) 0.5 TH/MM3 (0-0.4) 0.6 TH/MM3 (0-0.4) Red Cell Distribution Width 20.3 % (11.6-17.2) Monocytes (%) (Auto) 8.5 % (0.0-8.0) Eosinophils (%) (Auto) 4.8 % (0.0-4.0) Polychromasia 2.0 % (0.0-1.9) Basophilic Stippling FAINT (NORMAL) Rouleau PRESENT (NORMAL) Random Glucose 114 MG/DL (74-106) Total Protein 4.9 GM/DL (6.4-8.2) Albumin 2.1 GM/DL (3.4-5.0) Calcium Level 7.6 MG/DL (8.5-10.1) Aspartate Amino Transf (AST/SGOT) 55 U/L (15-37) Total Bilirubin 5.9 MG/DL (0.2-1.0) Estimat Glomerular Filtration Rate 69 ML/MIN (>89) Test 01/01/18 06:10 White Blood Count 14.0 TH/MM3 (4.0-11.0) Red Blood Count 2.99 MIL/MM3 (4.00-5.30) Hemoglobin 10.9 GM/DL (11.6-15.3) Hematocrit 30.9 % (35.0-46.0) Mean Corpuscular Volume 103.4 FL (80.0-100.0) Mean Corpuscular Hemoglobin 36.4 PG (27.0-34.0) Red Cell Distribution Width 20.8 % (11.6-17.2) Neutrophils (%) (Auto) 74.1 % (16.0-70.0) Eosinophils (%) (Auto) 4.8 % (0.0-4.0) Neutrophils # (Auto) 10.4 TH/MM3 (1.8-7.7) Eosinophils # (Auto) 0.7 TH/MM3 (0-0.4) Basophilic Stippling FAINT (NORMAL) Rouleau PRESENT (NORMAL) Total Protein 5.5 GM/DL (6.4-8.2) Albumin 2.3 GM/DL (3.4-5.0) Calcium Level 8.0 MG/DL (8.5-10.1) Aspartate Amino Transf (AST/SGOT) 73 U/L (15-37) Total Bilirubin 5.0 MG/DL (0.2-1.0) Estimat Glomerular Filtration Rate 67 ML/MIN (>89) Hospital Course Mrs. Smiley 72-year-old female. She has problems with alcohol abuse baseline. Recently she has cirrhosis with ascites. She came in secondary to abdominal distention and GI bleed. Therapeutic paracentesis was performed and this resolved patient's ascites. She also appears to have had resolution of her GI bleed related to this. Imaging with gastroenterology showed no focus of bleed. Patient's hemoglobin has stabilized. Her hemoglobin is now spontaneously climbing. Medically stable for discharge to home. Aspirin is on hold at discharge. Other medications are resumed. Shower chair added to patient's home equipment. Discharge home today. Pt Condition on Discharge: Stable Discharge Disposition: Disch w/ Home Health Serv Discharge Time: <= 30 minutes Discharge Instructions DIET: Follow Instructions for: As Tolerated, No Restrictions Activities you can perform: Regular-No Restrictions Follow up Referrals: Gastroenterology - 2 Weeks PCP Follow-up - 2 Weeks New Medications: Bath/Shower Seat/Adjustab (Bath/Shower Seat/Adjustab) 1 Mis Mis EA .XX DIRECTED for Weakness, #1 Continued Medications: Ascorbic Acid (Vitamin C) 250 Mg Chew 250 MG CHEW BID for Nutritional Supplement, #60 TAB 0 Refills Citalopram (Citalopram) 20 Mg Tab 0.5 TAB PO DAILY for Control Depression, #30 TAB 0 Refills Furosemide (Furosemide) 20 Mg Tab 20 MG PO BID, #60 TAB 0 Refills Lactulose Liq (Lactulose Liq) 10 Gm/15 Ml Soln 30 ML PO TID, ML 0 Refills Levothyroxine (Levothyroxine) 50 Mcg Tab 50 MCG PO DAILY for Thyroid, #30 TAB 0 Refills Multiple Vitamin (Multiple Vitamin) 1 Tab 1 TAB PO DAILY for Nutritional Supplement, TAB 0 Refills Omeprazole (Omeprazole) 20 Mg Tab 20 MG PO BID, #30 TAB 0 Refills Potassium Chloride ER (K-Tab) 20 Meq Tab 20 MEQ PO DAILY for Electrolyte Replacement, #30 TAB 0 Refills Pyridoxine (Vitamin B-6) 100 Mg Tab 100 MG PO DAILY for Nutritional Supplement, #30 TAB 0 Refills Rifaximin (Xifaxan) 550 Mg Tab 550 MG PO BID for Hepatic encephalopathy, #60 TAB 0 Refills Ropinirole (Ropinirole) 0.25 Mg Tab 0.25 MG PO DAILY, #1 TAB 0 Refills Spironolactone (Spironolactone) 50 Mg Tab 50 MG PO BIDPC, #60 TAB 0 Refills Discontinued Medications: Aspirin DR (Aspirin EC) 81 Mg Tabdr 81 MG PO EVERY OTHER DAY, TAB 0 Refills Colin Hamilton MD Jan 01, 2018 11:29
[2018-01-01 11:50] VITALS: BP 120/58; PULSE 70; RESP 20; TEMP 96.7; O2SAT 92
[2018-01-01] MEDS ORDERED: ADJUSTABLE COMM1 MIS (13:34)
--- NOTE | 2018-01-01 13:36 | HHI.FF ---
Face to Face Verification Diagnosis: (1) Ascites (2) Alcoholic cirrhosis of liver Physical Therapy Order: Evaluate and Treat, Improve ambulation, Strength and gait training I have seen patient Brenda Smiley on 01/01/18. My clinical findings support the need for the requested home health care services because: Ltd mobility - disease progression Patient has SOB Deconditioned w/ increased weakness Limited ability to care for self High risk of falls I certify that my clinical findings support that this patient is homebound because: Unsteady gait/balance Unsafe to leave home unassisted Unable to use public transportation Colin Hamilton MD Jan 01, 2018 13:36
--- NOTE | 2018-01-01 14:10 | HHI.FF ---
Face to Face Verification Diagnosis: (1) Alcoholic cirrhosis of liver (2) Ascites Physical Therapy Order: Evaluate and Treat Occupational Therapy Order: Evaluate and Treat Home Health Nursing Order: Signs/symptoms of disease process Nursing assessment with vital signs I have seen patient Brenda Smiley on 01/01/18. My clinical findings support the need for the requested home health care services because: Ltd mobility - disease progression Patient has SOB Deconditioned w/ increased weakness Limited ability to care for self High risk of falls I certify that my clinical findings support that this patient is homebound because: Unsteady gait/balance Unsafe to leave home unassisted Unable to use public transportation Colin Hamilton MD Jan 01, 2018 14:10
[2018-01-01] MEDS ORDERED: PROPOFOL 200 MG/20 ML AMP IV PUSH ONE (14:16)
[2018-01-01] MEDS ORDERED: LIDOCAINE HCL 1% PF 5 ML SYRINGE INFIL ONE (14:16)
== END 2018-01-01 14:46 | disposition home health service (06) | DRG 378 ==
LOC: PHED 17:09 → PHEDA 19:58 → PH3B 21:46 → OBSVTOIN 12-31 10:42
PROVIDERS: ADMIT Hospitalist; ATTEND Hospitalist
PROC: 0W9G3ZZ Drainage of Peritoneal Cavity, Percutaneous Approach (ICD-10-PCS; principal; 2017-12-29)
PROC: 30233N1 Transfusion of Nonautologous Red Blood Cells into Peripheral Vein, Percutaneous Approach (ICD-10-PCS; 2017-12-30)
PROC: 0DBK8ZX Excision of Ascending Colon, Via Natural or Artificial Opening Endoscopic, Diagnostic (ICD-10-PCS; 2017-12-31)
PROC: 0D9E8ZX Drainage of Large Intestine, Via Natural or Artificial Opening Endoscopic, Diagnostic (ICD-10-PCS; 2017-12-31)
PROC: 0DB78ZX Excision of Stomach, Pylorus, Via Natural or Artificial Opening Endoscopic, Diagnostic (ICD-10-PCS; 2017-12-31 14:35)
DX: K25.4 Chronic or unspecified gastric ulcer with hemorrhage (principal); D62 Acute posthemorrhagic anemia; K63.3 Ulcer of intestine; K70.31 Alcoholic cirrhosis of liver with ascites; J44.9 Chronic obstructive pulmonary disease, unspecified; K21.9 Gastro-esophageal reflux disease without esophagitis; I10 Essential (primary) hypertension; E03.9 Hypothyroidism, unspecified; K31.89 Other diseases of stomach and duodenum; I25.10 Atherosclerotic heart disease of native coronary artery without angina pectoris; G47.30 Sleep apnea, unspecified; E11.9 Type 2 diabetes mellitus without complications; F10.10 Alcohol abuse, uncomplicated; F31.9 Bipolar disorder, unspecified; F41.9 Anxiety disorder, unspecified; Z91.19 Patient's noncompliance with other medical treatment and regimen
CPT/HCPCS: 36430; 49083; 80053; 81001; 82948; 85025; 85610; 85730; 86850; 86900; 86901; 86920; 87493; 88305; 88312; 93005; 96365; 96372; 96375; 99285; C1729; G0378; J0696; J1815; J1940; J2354; J2405; J3430; J7040; P9016

== ENCOUNTER 2018-01-16 17:11 | Emergency (ER) | payer MEDICARE, OTHER ==
[~2018-01-16] VITALS: Ht 162.6 cm; Wt 76.3 kg
[~2018-01-16 17:11] MED LIST changes: +ADJUSTABLE COMM1 MIS; -ASPI1TAB69 PO; +POTA1TAB4 PO; +PYRI100T PO; +VITA250C3 CHEW
[2018-01-16 17:14] VITALS: BP 110/54; PULSE 65; RESP 20; O2SAT 97
[2018-01-16] MEDS ORDERED: ATEN25TA PO (17:32)
[2018-01-16] MEDS ORDERED: ASPI81CH6 CHEW (17:32)
[2018-01-16] MEDS ORDERED: MELA1TAB18 PO (17:32)
--- NOTE | 2018-01-16 17:33 | PD ---
HPI Chief Complaint: Complaint Time Seen by Provider: 17:19 Travel History International Travel<30 days: No Contact w/Intl Traveler<30days: No Traveled to known affect area: No History of Present Illness HPI 72-year-old female complains of urinary retention. Patient states that she has not been able to urinate since yesterday. Patient states that she had a few drop in urine this morning. Patient denies any headache. Patient denies any chest pain shortness of breath. Patient has a history of liver cirrhosis with ascites. Patient denies any back pain. Patient denies any fever chills. Patient denies any nausea vomiting diarrhea. Patient was admitted to [facility] and discharged about 2 weeks ago for GI bleed, anemia, alcoholic liver cirrhosis and ascites. Therapeutic paracentesis was done at that time. Patient has been seen by Dr. Doe, home and school visitor as outpatient. Therapeutic paracentesis was scheduled soon. PFSH Past Medical History Hx Anticoagulant Therapy: Yes (ASA) Asthma: Yes Anxiety: Yes Depression: Yes (BIPOLAR) Cancer: No Cardiovascular Problems: Yes Chest Pain: Yes Cirrhosis: Yes COPD: Yes Diabetes: Yes (Borderline ) Patient Takes Glucophage: No Diminished Hearing: No Endocrine: Yes Gastrointestinal Disorders: Yes GERD: Yes Genitourinary: No Hepatitis: No Hiatal Hernia: No Hypertension: Yes Immune Disorder: No Musculoskeletal: Yes Neurologic: Yes Psychiatric: Yes Reproductive: No Respiratory: Yes Immunizations Current: Yes Sleep Apnea: Yes Thyroid Disease: Yes Influenza Vaccination: Yes ?: Not Menopausal: Yes Past Surgical History Abdominal Surgery: Yes AICD: No Appendectomy: Yes Cardiac Surgery: No Ear Surgery: No Endocrine Surgery: No Eye Surgery: Yes Genitourinary Surgery: No Gynecologic Surgery: Yes (HYSTERECOMY) Hysterectomy: Yes Joint Replacement: No Oral Surgery: Yes (TONSILLECTOMY) Pacemaker: No Thoracic Surgery: No Tonsillectomy: Yes Other Surgery: Yes (BX THOAT, NECK, BREAST) Social History Alcohol Use: No (FORMER) Tobacco Use: No Substance Use: No Allergies-Medications (Allergen,Severity, Reaction): Coded Allergies: No Known Allergies (Unverified Allergy, Unknown, 01/16/18) Reported Meds & Prescriptions Reported Meds & Active Scripts Active Adjustable Commode 3-in-1 (Device) 1 Mis Mis Ea .XX DIRECTED Reported Atenolol 25 Mg Tab 25 Mg PO DAILY Melatonin 10 Mg-1 Mg Tab 10 Mg PO HS PRN Aspirin Low Dose (Aspirin) 81 Mg Chew 81 Mg CHEW DAILY Vitamin C (Ascorbic Acid) 250 Mg Chew 250 Mg CHEW BID K-Tab (Potassium Chloride) 20 Meq Tab 20 Meq PO DAILY Multiple Vitamin 1 Tab 1 Tab PO DAILY Xifaxan (Rifaximin) 550 Mg Tab 550 Mg PO BID Spironolactone 50 Mg Tab 50 Mg PO BIDPC Furosemide 20 Mg Tab 20 Mg PO BID Ropinirole 0.25 Mg Tab 0.25 Mg PO DAILY Citalopram (Citalopram Hydrobromide) 20 Mg Tab 0.5 Tab PO DAILY Omeprazole 20 Mg Tab 20 Mg PO BID Levothyroxine (Levothyroxine Sodium) 50 Mcg Tab 50 Mcg PO DAILY Lactulose Liq (Lactulose) 10 Gm/15 Ml Soln 30 Ml PO TID Review of Systems General / Constitutional: No: Fever Eyes: No: Visual changes HENT: No: Headaches Cardiovascular: No: Chest Pain or Discomfort Respiratory: No: Shortness of Breath Gastrointestinal: No: Abdominal Pain Genitourinary: Positive: Decreased Urinary Output, No: Dysuria Musculoskeletal: No: Pain Skin: No Rash Neurologic: No: Weakness Psychiatric: No: Depression Endocrine: No: Polydipsia Hematologic/Lymphatic: No: Easy Bruising Physical Exam Narrative GENERAL: Well-nourished, well-developed patient. SKIN: Focused skin assessment warm/dry. HEAD: Normocephalic. EYES: No scleral icterus. No injection or drainage. NECK: Supple, trachea midline. No JVD or lymphadenopathy. CARDIOVASCULAR: Regular rate and rhythm without murmurs, gallops, or rubs. RESPIRATORY: Breath sounds equal bilaterally. No accessory muscle use. GASTROINTESTINAL: Abdomen distended. Nontender palpation abdomen. MUSCULOSKELETAL: No cyanosis, or edema. BACK: Nontender without obvious deformity. No CVA tenderness. Neurologic exam normal. Data Data Last Documented VS Vital Signs Date Time Temp Pulse Resp B/P (MAP) Pulse Ox O2 Delivery O2 Flow Rate FiO2 01/16/18 17:14 65 20 110/54 (72) 97 Orders Orders Urinary Catheter Insert/Apply (01/16/18 17:27) Urinalysis - C+S If Indicated (01/16/18 17:29) Lidocaine 2% Jelly (Xylocaine 2% Jelly) (01/16/18 18:00) Labs Laboratory Tests Test 01/16/18 18:38 Urine Color YELLOW Urine Turbidity CLEAR Urine pH 6.0 Urine Specific [place] 1.010 Urine Protein NEG mg/dL Urine Glucose (UA) NEG mg/dL Urine Ketones NEG mg/dL Urine Occult Blood NEG Urine Nitrite NEG Urine Bilirubin NEG Urine Urobilinogen 0.2 MG/DL Urine Leukocyte Esterase NEG Urine RBC 0-3 /hpf Urine WBC 0-2 /hpf Urine Squamous Epithelial Cells 0-5 /hpf Urine Amorphous Sediment FEW Urine Hyaline Casts 25-49 /lpf Microscopic Urinalysis Comment CATH-CULT NOT IND MDM Medical Decision Making Medical Screen Exam Complete: Yes Emergency Medical Condition: Yes Interpretation(s) 1904 p.m. UA is negative. Differential Diagnosis Differential diagnosis including urinary retention, UTI. Narrative Course 72-year-old female with urinary retention. History of liver cirrhosis with ascites. Alejandre cath inserted. Multiple attempts for Alejandre cath placement. Patient with urethral stricture. Size 10 [place]ian Alejandre cath successfully inserted. Patient produced about 500 cc of clear yellow urine. Alejandre cath was left in place. Diagnosis Primary Impression: Urinary retention Additional Impression: History of ascites Patient Instructions: General Instructions Additional Instructions: Follow-up with urologist. Med/Other Pt SpecificInfo: No Change to Meds Disposition: 01 DISCHARGE HOME Condition: Stable Madhav Newman MD Jan 16, 2018 17:33
[2018-01-16] MEDS ORDERED: LIDOCAINE 2% JELLY 30 ML TUBE TOPICAL ONE (18:00)
[2018-01-16 18:44] LABS: BILIRUBIN, URINE NEG (NEG); BLOOD, URINE NEG (NEG); GLUCOSE,URINE NEG (NEG); KETONE, URINE NEG (NEG); NITRITE,URINE NEG (NEG); URINE COLOR YELLOW (YELLW/STRAW); URINE LEUKOCYTE ESTERASE NEG (NEG)
[2018-01-16 18:51] LABS: AMORPHOUS SEDIMENT, URINE FEW; RBC, URINE 0-3 /hpf (0-3); SQUAMOUS EPITHELIAL CELL URINE 0-5 /hpf (0-5); WBC, URINE 0-2 /hpf (0-5)
[2018-01-16 20:00] VITALS: BP 122/64
== END 2018-01-17 00:54 | disposition home or self-care (01) ==
LOC: PHED 17:11
DX: R33.9 Retention of urine, unspecified (principal); E07.9 Disorder of thyroid, unspecified; I10 Essential (primary) hypertension
CPT/HCPCS: 51702; 81001

== ENCOUNTER 2018-01-21 09:49 | Day surgery (SDC) | payer MEDICARE, OTHER ==
[~2018-01-21 09:49] MED LIST changes: +ASPI81CH6 CHEW; +ATEN25TA PO; +MELA1TAB18 PO
[2018-01-21 10:10] VITALS: BP 109/63; PULSE 58; RESP 16; TEMP 98.5; O2SAT 96
[2018-01-21 11:50] VITALS: BP 106/51; PULSE 58; RESP 18; TEMP 98; O2SAT 95
[2018-01-21] MEDS ORDERED: LIDOCAINE HCL 1% PF 10 ML VIAL ONE (12:01)
[2018-01-21 12:05] VITALS: BP 107/53; PULSE 58; RESP 18; O2SAT 96
[2018-01-21] MEDS ORDERED: ALBUMIN HUMAN 25% 12.5GM-W/25GM FOR 37.5GM IV ONE (13:15)
[2018-01-21] MEDS ORDERED: ALBUMIN HUMAN 25% 25GM-W/12.5GM FOR 37.5GM IV ONE (13:15)
--- NOTE | 2018-01-21 16:56 | RADRPT ---
EXAM DATE/TIME: 01/21/2018 10:02 [facility] COMPARISON: US GUIDED ABD PARACENTESIS, December 29, 2017, 15:41. INDICATIONS : Ascites. MEDICAL HISTORY : Cirrhosis. Chronic obstructive pulmonary disease. Gastroesophageal reflux disease. Hypertension. Diab etes. SURGICAL HISTORY : Hysterectomy. Tonsillectomy. Appendectomy. Elbow/shoulder surgery. Throat/neck and breast biopsies. ENCOUNTER: [facility] ACUITY: 3 weeks PAIN SCORE: 6/10 LOCATION: Right lower quadrant FLUID: Total volume of 5900 cc of clear, yellow fluid was removed. Fluid was discarded. Paracentesis was therapeutic only. Post procedure scanning reveals no hematoma or other complication. TECHNIQUE: 1. Ultrasound guidance for abdominal paracentesis. 2. Paracentesis. The risks, benefits, and alternatives to ultrasound guided paracentesis were explained to the patient in detail including the risk of bleeding and infection. Written and verbal informed consent was obt ained. With the patient on the ultrasound table, ultrasound imaging was used to select the most appropriate approach for paracentesis. Overlying skin was prepped and draped in the usual sterile fashion and wi th a local anesthetic, a dermatotomy was made with an 11 blade scalpel. A 6 [place] [id number] ca theter was introduced into the peritoneal cavity and fluid was collected. The patient tolerated the procedure well and left the ultrasound suite in stable condition. CONCLUSION: Uncomplicated ultrasound guided paracentesis. Leo Piper MD on January 21, 2018 at 16:53 Board Certified Radiologist. This report was verified electronically.
== END 2018-01-21 14:20 | disposition home or self-care (01) ==
LOC: HRAD 09:49 → HRIP 09:52 → HRAD 14:20
DX: K70.31 Alcoholic cirrhosis of liver with ascites (principal); I10 Essential (primary) hypertension; J44.9 Chronic obstructive pulmonary disease, unspecified; K21.9 Gastro-esophageal reflux disease without esophagitis; E11.9 Type 2 diabetes mellitus without complications
CPT/HCPCS: 49083; 96365; C1729; P9047

== ENCOUNTER 2018-02-07 09:40 | Day surgery (SDC) | payer MEDICARE, OTHER ==
[~2018-02-07 09:40] MED LIST changes: -PYRI100T PO
[2018-02-07 10:09] VITALS: BP 113/49; PULSE 53; RESP 16; TEMP 97.3; O2SAT 99
[2018-02-07] MEDS ORDERED: LIDOCAINE HCL 1% 20 ML VIAL ONE (11:02)
[2018-02-07 11:43] VITALS: BP 121/51; PULSE 54; RESP 16; TEMP 97.8; O2SAT 99
[2018-02-07 11:58] VITALS: BP 121/51; PULSE 52; RESP 16; O2SAT 96
[2018-02-07] MEDS ORDERED: ALBUMIN 25% INJ 100 ML IV ONE (12:02)
[2018-02-07] MEDS ORDERED: ALBUMIN 25% INJ 50 ML IV ONE (12:02)
[2018-02-07 12:52] VITALS: BP 103/52; PULSE 55; RESP 16; O2SAT 98
--- NOTE | 2018-02-07 14:57 | RADRPT ---
EXAM DATE/TIME: 02/07/2018 10:10 [facility] COMPARISON: EXTERNAL COMPARISON: US GUIDED ABD PARACENTESIS, January 21, 2018, 10:02. [facility], MR ABDOMEN W/ & W/O , Apr 24 2017, US ABDOMEN LIVER, May 11, 2016, November 24, 2015, CT ABDOMEN W/CONTRAST, May 03, 2015, [facility], PET/CT TUMOR, November 13, 2016. INDICATIONS : Ascites. MEDICAL HISTORY : Cirrhosis. Chronic obstructive pulmonary disease. Gastroesophageal reflux disease. HTN. Diabetes. Asc ites. SURGICAL HISTORY : Hysterectomy. Tonsillectomy. Appendectomy. Elbow/shoulder surgery. Throat/neck and breast biopsies. P aracentesis. ENCOUNTER: [facility] ACUITY: 2 weeks PAIN SCORE: 5/10 LOCATION: Left lower quadrant FLUID: Total volume of 6,800 cc of clear, yellow fluid was removed. Fluid was discarded. Paracentesis was therapeutic only. Post procedure scanning reveals no hematoma or other complication. TECHNIQUE: 1. Ultrasound guidance for abdominal paracentesis. 2. Paracentesis. The risks, benefits, and alternatives to ultrasound guided paracentesis were explained to the patient in detail including the risk of bleeding and infection. Written and verbal informed consent was obt ained. With the patient on the ultrasound table, ultrasound imaging was used to select the most appropriate approach for paracentesis. Overlying skin was prepped and draped in the usual sterile fashion and wi th a local anesthetic, a dermatotomy was made with an 11 blade scalpel. A 6 [place] [id number] ca theter was introduced into the peritoneal cavity and fluid was collected. The patient tolerated the procedure well and left the ultrasound suite in stable condition. CONCLUSION: Uncomplicated ultrasound guided paracentesis. Simon Fernandez MD on February 07, 2018 at 14:55 Board Certified Radiologist. This report was verified electronically.
== END 2018-02-07 12:52 | disposition home or self-care (01) ==
LOC: HRAD 09:40 → HRIP 09:40 → HRAD 12:52
DX: R18.8 Other ascites (principal); J44.9 Chronic obstructive pulmonary disease, unspecified; K21.9 Gastro-esophageal reflux disease without esophagitis; I10 Essential (primary) hypertension; E11.9 Type 2 diabetes mellitus without complications; K74.60 Unspecified cirrhosis of liver
CPT/HCPCS: 49083; 96365; 96366; C1729; P9047

== ENCOUNTER 2018-02-17 14:06 | Inpatient (IN) | payer MEDICARE, OTHER ==
[~2018-02-17] VITALS: Ht 162.6 cm; Wt 68.4 kg
[2018-02-17] VITALS (7 sets, daily range): BP systolic 118–167; BP diastolic 56–69; PULSE 69–77; RESP 18–20; TEMP 97.6–98.1; O2SAT 93–98
[2018-02-17] MEDS ORDERED: IOHEXOL 350 MG/ML 10 ML VIAL (for RAD DIAG) IVCONTRAST ONE (14:07)
[2018-02-17] MEDS ORDERED: SODIUM CHLORIDE 0.9% FLUSH 10 ML FLUSH IV FLUSH PRN ×2 (14:30→18:15)
[2018-02-17] MEDS ORDERED: MORPHINE SULFATE 8 MG/ML INJ IV PUSH ONE (14:30)
--- NOTE | 2018-02-17 14:51 | PD ---
HPI Chief Complaint: Respiratory Symptoms Time Seen by Provider: 14:12 Travel History International Travel<30 days: No Contact w/Intl Traveler<30days: No Traveled to known affect area: No History of Present Illness HPI The patient 72. She has liver cirrhosis. Typically she undergoes paracentesis once every 3 weeks. Last paracentesis was 10 days ago. She reports severe abdominal fullness and generalized pain associated with shortness of breath. The pain radiates into the back. She has had no fever and no vomiting. She does report black diarrhea for the past few days. Location gastrointestinal. Severity severe. PFSH Past Medical History Hx Anticoagulant Therapy: Yes (ASA) Asthma: Yes Anxiety: Yes Depression: Yes (BIPOLAR) Cancer: No Cardiovascular Problems: Yes Chest Pain: Yes Cirrhosis: Yes COPD: Yes Diabetes: Yes (Borderline ) Patient Takes Glucophage: No Diminished Hearing: No Endocrine: Yes Gastrointestinal Disorders: Yes GERD: Yes Genitourinary: No Hepatitis: No Hiatal Hernia: No Hypertension: Yes Immune Disorder: No Musculoskeletal: Yes Neurologic: Yes Psychiatric: Yes Reproductive: No Respiratory: Yes Immunizations Current: Yes Sleep Apnea: Yes Thyroid Disease: Yes ?: Not Menopausal: Yes Past Surgical History Abdominal Surgery: Yes AICD: No Appendectomy: Yes Cardiac Surgery: No Ear Surgery: No Endocrine Surgery: No Eye Surgery: Yes Genitourinary Surgery: No Gynecologic Surgery: Yes (HYSTERECOMY) Hysterectomy: Yes Joint Replacement: No Oral Surgery: Yes (TONSILLECTOMY) Pacemaker: No Thoracic Surgery: No Tonsillectomy: Yes Other Surgery: Yes (BX THOAT, NECK, BREAST) Social History Alcohol Use: No (FORMER) Tobacco Use: No Substance Use: No Allergies-Medications (Allergen,Severity, Reaction): Coded Allergies: No Known Allergies (Verified Allergy, Unknown, 02/17/18) Reported Meds & Prescriptions Reported Meds & Active Scripts Active Reported Atenolol 25 Mg Tab 25 Mg PO DAILY Melatonin 10 Mg-1 Mg Tab 10 Mg PO HS PRN Vitamin C (Ascorbic Acid) 250 Mg Chew 250 Mg CHEW BID K-Tab (Potassium Chloride) 20 Meq Tab 20 Meq PO DAILY Multiple Vitamin 1 Tab 1 Tab PO DAILY Xifaxan (Rifaximin) 550 Mg Tab 550 Mg PO BID Spironolactone 50 Mg Tab 50 Mg PO BIDPC Furosemide 20 Mg Tab 20 Mg PO BID Ropinirole 0.25 Mg Tab 0.25 Mg PO DAILY Citalopram (Citalopram Hydrobromide) 20 Mg Tab 0.5 Tab PO DAILY Omeprazole 20 Mg Tab 20 Mg PO BID Levothyroxine (Levothyroxine Sodium) 50 Mcg Tab 50 Mcg PO DAILY Lactulose Liq (Lactulose) 10 Gm/15 Ml Soln 30 Ml PO TID Review of Systems Except as stated in HPI: all other systems reviewed are Neg General / Constitutional: No: Fever Physical Exam Narrative GENERAL: 72-year-old female pleasant well-nourished well-developed moderate distress secondary to pain Vital Signs Date Time Temp Pulse Resp B/P (MAP) Pulse Ox O2 Delivery O2 Flow Rate FiO2 02/17/18 14:32 20 97 Nasal Cannula 2.00 02/17/18 14:15 66 20 96 Nasal Cannula 2.00 02/17/18 14:13 98.1 69 20 118/56 (76) 95 RECTAL: There is black guaiac positive stool. SKIN: Warm and dry. HEAD: Atraumatic. Normocephalic. EYES: Pupils equal and round. No scleral icterus. No injection or drainage. ENT: No nasal bleeding or discharge. Mucous membranes pink and moist. NECK: Trachea midline. No JVD. CARDIOVASCULAR: Regular rate and rhythm. RESPIRATORY: No accessory muscle use. Clear to auscultation. Breath sounds equal bilaterally. GASTROINTESTINAL: Abdomen is distended. There is generalized tenderness. MUSCULOSKELETAL: Extremities without clubbing, cyanosis, or edema. No obvious deformities. NEUROLOGICAL: Awake and alert. No obvious cranial nerve deficits. Motor grossly within normal limits. Five out of 5 muscle strength in the arms and legs. Normal speech. PSYCHIATRIC: Appropriate mood and affect; insight and judgment normal. Data Data Last Documented VS Vital Signs Date Time Temp Pulse Resp B/P (MAP) Pulse Ox O2 Delivery O2 Flow Rate FiO2 02/17/18 17:29 97.9 71 20 142/63 (89) 97 Nasal Cannula 2.00 Orders Orders Complete Blood Count With Diff (02/17/18 14:30) Comprehensive Metabolic Panel (02/17/18 14:30) Lipase (02/17/18 14:30) Urinalysis - C+S If Indicated (02/17/18 14:30) Iv Access Insert/Monitor (02/17/18 14:30) Ecg Monitoring (02/17/18 14:30) Oximetry (02/17/18 14:30) Sodium Chloride 0.9% Flush (Ns Flush) (02/17/18 14:30) Chest, Single Ap (02/17/18 14:30) Morphine Inj (Morphine Inj) (02/17/18 14:30) Ct Abd/Pel W Iv Contrast(Rout) (02/17/18 14:38) Act Partial Throm Time (Ptt) (02/17/18 14:51) Prothrombin Time / Inr (Pt) (02/17/18 14:51) Iohexol 350 Inj (Omnipaque 350 Inj) (02/17/18 14:07) Us Guided Thoracentesis (02/17/18 ) Admit Order (Ed Use Only) (02/17/18 17:55) Labs Laboratory Tests Test 02/17/18 14:40 White Blood Count 10.3 TH/MM3 Red Blood Count 3.11 MIL/MM3 Hemoglobin 10.6 GM/DL Hematocrit 30.4 % Mean Corpuscular Volume 97.8 FL Mean Corpuscular Hemoglobin 33.9 PG Mean Corpuscular Hemoglobin Concent 34.7 % Red Cell Distribution Width 17.8 % Platelet Count 161 TH/MM3 Mean Platelet Volume 8.6 FL Neutrophils (%) (Auto) 66.0 % Lymphocytes (%) (Auto) 19.3 % Monocytes (%) (Auto) 10.2 % Eosinophils (%) (Auto) 3.6 % Basophils (%) (Auto) 0.9 % Neutrophils # (Auto) 6.8 TH/MM3 Lymphocytes # (Auto) 2.0 TH/MM3 Monocytes # (Auto) 1.1 TH/MM3 Eosinophils # (Auto) 0.4 TH/MM3 Basophils # (Auto) 0.1 TH/MM3 CBC Comment DIFF FINAL Differential Comment Prothrombin Time 13.5 SEC Prothromb Time International Ratio 1.3 RATIO Activated Partial Thromboplast Time 29.6 SEC Blood Urea Nitrogen 13 MG/DL Creatinine 1.13 MG/DL Random Glucose 85 MG/DL Total Protein 5.8 GM/DL Albumin 2.4 GM/DL Calcium Level 8.2 MG/DL Alkaline Phosphatase 131 U/L Aspartate Amino Transf (AST/SGOT) 34 U/L Alanine Aminotransferase (ALT/SGPT) 18 U/L Total Bilirubin 4.3 MG/DL Sodium Level 137 MEQ/L Potassium Level 3.3 MEQ/L Chloride Level 102 MEQ/L Carbon Dioxide Level 26.2 MEQ/L Anion Gap 9 MEQ/L Estimat Glomerular Filtration Rate 47 ML/MIN Lipase 152 U/L MDM Medical Decision Making Medical Screen Exam Complete: Yes Emergency Medical Condition: Yes Medical Record Reviewed: Yes Differential Diagnosis Constipation, Gastritis, Acute Cholecystitis, Biliary Colic, Pancreatitis, TRAN , Hepatitis, Bowel Obstruction, Cystitis, Mesenteric Ischemia, AAA, Appendicitis , Renal Stone/Hydronephrosis, GERD, perforated viscous Narrative Course CBC & BMP Diagram 02/17/18 14:40 Total Protein 5.8 L, Albumin 2.4 L, Calcium Level 8.2 L, Alkaline Phosphatase 131 H, Aspartate Amino Transf (AST/SGOT) 34, Alanine Aminotransferase (ALT/SGPT ) 18, Total Bilirubin 4.3 H Last 24 hours Impressions Abdomen/Pelvis CT 02/17/18 1438 Signed Impressions: Service Date/Time: Saturday, February 17, 2018 16:23 - CONCLUSION: 1. Significant increase in the amount of abdominal pelvic ascites when compared to October 2016. 2. Significant increase in size of right pleural effusion when compared to October 2016. The right pleural effusion does cause mediastinal shift towards the left. 3. Stable appearance to cirrhotic liver. No focal lesions. Bassem Hoffman MD Chest X-Ray 02/17/18 1430 Signed Impressions: Service Date/Time: Saturday, February 17, 2018 14:32 - CONCLUSION: Large right pleural effusion with associated compressive atelectasis of the right lung. Fidel Hathaway MD Chest X-Ray 02/17/18 0000 Signed Impressions: Service Date/Time: Saturday, February 17, 2018 18:27 - CONCLUSION: 1. Status post right-sided thoracentesis with right pneumothorax and about 2.2 cm of pleural separation. There is some residual pleural fluid on the right. Vikas Davis MD Case discussed with Dr. Wiley invasive radiology. He will perform ultrasound- guided thoracentesis. Case discussed with Dr. Martines for the hospitalist service and he will admit the patient. Diagnosis Primary Impression: Ascites Qualified Codes: K70.31 - Alcoholic cirrhosis of liver with ascites Additional Impressions: Alcoholic cirrhosis of liver Qualified Codes: K70.31 - Alcoholic cirrhosis of liver with ascites Abdominal pain Qualified Codes: R10.9 - Unspecified abdominal pain Hydrothorax Chest pain Qualified Codes: R07.9 - Chest pain, unspecified Admitting Information Admitting Physician Requests: Admit Colin Rosas MD Feb 17, 2018 14:51
--- NOTE | 2018-02-17 14:53 | RADRPT ---
EXAM DATE/TIME: 02/17/2018 14:32 [facility] COMPARISON: RIBS RIGHT(W PA CXR MIN 3VWS), August 16, 2017, 0:09. CHEST PA & LAT, November 08, 2016, 18:46. INDICATIONS : Shortness of breath. MEDICAL HISTORY : Cirrhosis. Chronic obstructive pulmonary disease. Hypertension. Hepatic encephalopathy. Asthma. T hyroid disease. GERD. Sleep apnea SURGICAL HISTORY : Appendectomy. Hysterectomy. Tonsillectomy. Throat/neck biopsy. Breast biopsy. Paracentesis ENCOUNTER: Initial ACUITY: 1 day PAIN SCORE: 10/10 LOCATION: Bilateral chest FINDINGS: Portable AP view of the chest demonstrates a normal-sized cardiac silhouette. Patient is rotated and underinflated. There is a large right pleural based opacity with associated compressive atelectasis o f the right lung. Left lung is clear with no pneumothorax. Bones demonstrate no acute finding. CONCLUSION: Large right pleural effusion with associated compressive atelectasis of the right lung. Fidel Hathaway MD on February 17, 2018 at 14:48 Board Certified Radiologist. This report was verified electronically.
[2018-02-17 15:11] LABS: AUTOMATED NEUTROPHIL # 6.8 TH/MM3 (1.8-7.7); BASOPHIL # 0.1 TH/MM3 (0-0.2); BASOPHIL % 0.9 % (0.0-2.0); EOSINOPHIL # 0.4 TH/MM3 (0-0.4); EOSINOPHIL % 3.6 % (0.0-4.0); HEMATOCRIT 30.4 % (35.0-46.0); HEMOGLOBIN 10.6 GM/DL (11.6-15.3); LYMPH % 19.3 % (9.0-44.0); MEAN CELL VOLUME 97.8 FL (80.0-100.0); MEAN CORPUSCULAR HEMOGLOBIN 33.9 PG (27.0-34.0); MEAN CORPUSCULAR HGB CONC 34.7 % (32.0-36.0); MEAN PLATELET VOLUME 8.6 FL (7.0-11.0); MONO % 10.2 % (0.0-8.0); MONOCYTE # 1.1 TH/MM3 (0-0.9); PLATELET COUNT 161 TH/MM3 (150-450); RED BLOOD COUNT 3.11 MIL/MM3 (4.00-5.30); RED CELL DISTRIBUTION WIDTH 17.8 % (11.6-17.2); WHITE BLOOD COUNT 10.3 TH/MM3 (4.0-11.0)
[2018-02-17 15:41] LABS: ALBUMIN 2.4 GM/DL (3.4-5.0); ALT (GPT) 18 U/L (10-53); AST (GOT) 34 U/L (15-37); BICARBONATE 26.2 MEQ/L (21.0-32.0); BLOOD UREA NITROGEN 13 MG/DL (7-18); CALCIUM 8.2 MG/DL (8.5-10.1); CHLORIDE 102 MEQ/L (98-107); CREATININE 1.13 MG/DL (0.50-1.00); GLOMERULAR FILTRATION RATE 47 ML/MIN (>89); GLUCOSE,RANDOM 85 MG/DL (74-106); SODIUM (NA) 137 MEQ/L (136-145)
[2018-02-17 15:42] LABS: ALKALINE PHOSPHATASE 131 U/L (45-117); TOTAL BILIRUBIN ADULT 4.3 MG/DL (0.2-1.0); TOTAL PROTEIN 5.8 GM/DL (6.4-8.2)
[2018-02-17 16:28] LABS: INTERNATIONAL NORMALIZED RATIO 1.3 RATIO; PROTHROMBIN TIME - PATIENT 13.5 SEC (9.8-11.6)
--- NOTE | 2018-02-17 17:35 | RADRPT ---
EXAM DATE/TIME: 02/17/2018 16:23 [facility] COMPARISON: CT ABDOMEN & PELVIS W CONTRAST, October 21, 2016, 16:52. INDICATIONS : Upper back pain,abdomen distention,dark stools. IV CONTRAST: 75 cc Omnipaque 350 (iohexol) IV ORAL CONTRAST: No oral contrast ingested. RADIATION DOSE: 8.97 CTDIvol (mGy) MEDICAL HISTORY : Cardiovascular disease. Chronic obstructive pulmonary disease. Cirrhosis.Hypertension SURGICAL HISTORY : Appendectomy. Hysterectomy. ENCOUNTER: Subsequent ACUITY: 1 day PAIN SCALE: 8/10 LOCATION: Abdomen TECHNIQUE: Volumetric scanning of the abdomen and pelvis was performed. Using automated exposure control and ad justment of the mA and/or kV according to patient size, radiation dose was kept as low as reasonably achievable to obtain optimal diagnostic quality images. DICOM format image data is available electro nically for review and comparison. FINDINGS: LOWER LUNGS: Interval development of a very large right pleural effusion and collapse of the right lower lung. Th ere is evidence of mediastinal shift towards the left. LIVER: Significant increase in the amount of ascites when compared to prior CT in October 2016. The ascites about the liver measures up to 4.7 cm (previously measured 1.4 cm. Atrophy of the right lobe of the liver and irregular contour margin characteristic of cirrhosis. No focal lesions within the liver. No calcified gallstones. Prominence of the common bile duct measuring up to 10 mm, stable from prio r. SPLEEN: Normal size without lesion. PANCREAS: Within normal limits. KIDNEYS: Normal in size and shape. There is no mass, stone or hydronephrosis. ADRENAL GLANDS: Within normal limits. VASCULAR: There is no aortic aneurysm. BOWEL/MESENTERY: No dilated loops of small or large bowel. ABDOMINAL WALL: Within normal limits. RETROPERITONEUM: There is no lymphadenopathy. BLADDER: No wall thickening or mass. REPRODUCTIVE: Within normal limits. INGUINAL: There is no lymphadenopathy or hernia. MUSCULOSKELETAL: Within normal limits for patient age. CONCLUSION: 1. Significant increase in the amount of abdominal pelvic ascites when compared to October 2016. 2. Significant increase in size of right pleural effusion when compared to October 2016. The right p leural effusion does cause mediastinal shift towards the left. 3. Stable appearance to cirrhotic liver. No focal lesions. Bassem Hoffman MD on February 17, 2018 at 17:29 Board Certified Radiologist. This report was verified electronically.
[2018-02-17] MEDS ORDERED: ACETAMINOPHEN 325 MG TAB PO PRN ×2 (18:15)
[2018-02-17] MEDS ORDERED: SENNOSIDES 8.6 MG TAB PO PRN (18:15)
[2018-02-17] MEDS ORDERED: MAGNESIUM HYDROXIDE SUSP 30 ML CUP PO PRN (18:15)
[2018-02-17] MEDS ORDERED: NALOXONE HCL 0.4 MG/ML AMP IV PUSH PRN (18:15)
[2018-02-17] MEDS ORDERED: POTASSIUM CHLORIDE 10 MEQ CONTROLLED RELEASE TAB PO ONE (18:15)
[2018-02-17] MEDS ORDERED: LACTULOSE SYRUP 20 GM/30 ML CUP PO PRN (18:15)
[2018-02-17] MEDS ORDERED: MORPHINE SULFATE 2 MG/ML SYRINGE IV PUSH PRN (18:15)
[2018-02-17] MEDS ORDERED: BISACODYL 10 MG SUPP RECTAL PRN (18:15)
--- NOTE | 2018-02-17 18:50 | RADRPT ---
EXAM DATE/TIME: 02/17/2018 18:27 [facility] COMPARISON: No previous studies available for comparison. INDICATIONS : Post thoracentesis on right side. MEDICAL HISTORY : Cirrhosis. Chronic obstructive pulmonary disease. Hypertension. Hepatic encephalopathy. Asthma. Thyro id disease. GERD. Sleep apnea SURGICAL HISTORY : Appendectomy. Hysterectomy. Tonsillectomy. Throat/neck biopsy. Breast biopsy. Paracentesis ENCOUNTER: Subsequent ACUITY: 1 day PAIN SCORE: 0/10 LOCATION: Bilateral chest FINDINGS: There is a right-sided pneumothorax with about 2.2 cm of pleural separation superiorly. Right effusio n and improved from earlier exam with small to moderate residual pleural fluid remaining. There is al so some left basilar airspace disease and probable small left effusion. Cardiomegaly. CONCLUSION: 1. Status post right-sided thoracentesis with right pneumothorax and about 2.2 cm of pleural separati on. There is some residual pleural fluid on the right. Vikas Davis MD on February 17, 2018 at 18:44 Board Certified Radiologist. This report was verified electronically.
[2018-02-17] MEDS: SODIUM CHLORIDE 0.9% FLUSH 10 ML FLUSH IV FLUSH SCH (19:45)
[2018-02-17] MEDS: DOCUSATE SODIUM 50 MG/SENNA 8.6 MG TAB PO SCH (19:45)
[2018-02-17 21:30] LABS: TOTAL PROTEIN,PLEURAL FLUID 0.8 GM/DL
[2018-02-17 22:06] LABS: PLEURAL FLUID HISTIOCYTES 1 %; PLEURAL FLUID LYMPHS 28 %; PLEURAL FLUID MESOTHELIAL 1 %; PLEURAL FLUID MONOS 32 %; PLEURAL FLUID POLYS (SEGS) 38 %
--- NOTE | 2018-02-17 22:08 | HHI.HP ---
[facility] Phys[facility] Non-Staff Admission Diagnosis Hydrothorax, Ascites Diagnoses: Travel History International Travel<30 Days: No Contact w/Intl Traveler <30 Da: No Traveled to Known Affected Are: No History of Present Illness 72-year-old female with a past medical history significant for COPD, CAD, cirrhosis requiring paracentesis every 3 weeks, COPD, diabetes mellitus, hypertension, GERD and hypothyroidism presents to the emergency department for the evaluation of abdominal fullness, generalized pain and shortness of breath. The patient reports that the pain radiates into her back. She denies any fever/chills. She states her shortness of breath has been gradually worsening. Her last paracentesis was 02/07/18. The patient also complains of black diarrhea for the past 3 days. No chest pain. No nausea/vomiting. No lateralizing signs/symptoms. Review of Systems Except as stated in HPI: all other systems reviewed are Neg Past Family Social History Past Medical History (Obtained from medical records) Asthma Gen. anxiety disorder Bipolar depression Coronary artery disease Angina Cirrhosis COPD Diabetes mellitus type 2 Hypertension Gastroesophageal reflux disease Sleep apnea Hypothyroidism Past Surgical History Appendectomy Hysterectomy Tonsillectomy Reported Medications Reported Meds & Active Scripts Active Reported Atenolol 25 Mg Tab 25 Mg PO DAILY Melatonin 10 Mg-1 Mg Tab 10 Mg PO HS PRN Vitamin C (Ascorbic Acid) 250 Mg Chew 250 Mg CHEW BID K-Tab (Potassium Chloride) 20 Meq Tab 20 Meq PO DAILY Multiple Vitamin 1 Tab 1 Tab PO DAILY Xifaxan (Rifaximin) 550 Mg Tab 550 Mg PO BID Spironolactone 50 Mg Tab 50 Mg PO BIDPC Furosemide 20 Mg Tab 20 Mg PO BID Ropinirole 0.25 Mg Tab 0.25 Mg PO DAILY Citalopram (Citalopram Hydrobromide) 20 Mg Tab 0.5 Tab PO DAILY Omeprazole 20 Mg Tab 20 Mg PO BID Levothyroxine (Levothyroxine Sodium) 50 Mcg Tab 50 Mcg PO DAILY Lactulose Liq (Lactulose) 10 Gm/15 Ml Soln 30 Ml PO TID Allergies: Coded Allergies: No Known Allergies (Verified Allergy, Unknown, 02/17/18) Family History Cancer and coronary artery disease in both parents Social History Social drinking, patient denies abuse No smoking No illicit drug abuse Physical Exam Vital Signs Vital Signs Date Time Temp Pulse Resp B/P (MAP) Pulse Ox O2 Delivery O2 Flow Rate FiO2 02/17/18 21:31 20 02/17/18 19:50 97.6 70 18 167/69 (101) 93 02/17/18 18:55 97.8 74 16 118/67 (84) 99 02/17/18 18:20 97 Nasal Cannula 2.00 02/17/18 17:29 97.9 71 20 142/63 (89) 97 Nasal Cannula 2.00 02/17/18 15:30 97.8 77 18 118/67 (84) 98 Nasal Cannula 2.00 02/17/18 14:58 16 02/17/18 14:32 20 97 Nasal Cannula 2.00 02/17/18 14:15 66 20 96 Nasal Cannula 2.00 02/17/18 14:13 98.1 69 20 118/56 (76) 95 Physical Exam GENERAL: female lying in bed SKIN: No rashes, ecchymoses or lesions. Cool and dry. HEAD: Atraumatic. Normocephalic. No temporal or scalp tenderness. EYES: Pupils equal round and reactive. Extraocular motions intact. No scleral icterus. No injection or drainage. ENT: Nose without bleeding, purulent drainage or septal hematoma. Throat without erythema, tonsillar hypertrophy or exudate. Uvula midline. Airway patent. NECK: Trachea midline. No JVD or lymphadenopathy. Supple, nontender, no meningeal signs. CARDIOVASCULAR: Regular rate and rhythm without murmurs, gallops, or rubs. RESPIRATORY: Clear to auscultation. Breath sounds equal bilaterally. No wheezes , rales, or rhonchi. GASTROINTESTINAL: Abdomen soft, non-tender, + distended. No guarding. MUSCULOSKELETAL: Extremities without clubbing, cyanosis, or edema. No joint tenderness, effusion, or edema noted. No calf tenderness. NEUROLOGICAL: Awake and alert. Cranial nerves II through XII intact. Motor and sensory grossly within normal limits. Normal speech. Laboratory Laboratory Tests Test 02/17/18 14:40 02/17/18 18:05 White Blood Count 10.3 Red Blood Count 3.11 Hemoglobin 10.6 Hematocrit 30.4 Mean Corpuscular Volume 97.8 Mean Corpuscular Hemoglobin 33.9 Mean Corpuscular Hemoglobin Concent 34.7 Red Cell Distribution Width 17.8 Platelet Count 161 Mean Platelet Volume 8.6 Neutrophils (%) (Auto) 66.0 Lymphocytes (%) (Auto) 19.3 Monocytes (%) (Auto) 10.2 Eosinophils (%) (Auto) 3.6 Basophils (%) (Auto) 0.9 Neutrophils # (Auto) 6.8 Lymphocytes # (Auto) 2.0 Monocytes # (Auto) 1.1 Eosinophils # (Auto) 0.4 Basophils # (Auto) 0.1 CBC Comment DIFF FINAL Differential Comment Prothrombin Time 13.5 Prothromb Time International Ratio 1.3 Activated Partial Thromboplast Time 29.6 Blood Urea Nitrogen 13 Creatinine 1.13 Random Glucose 85 Total Protein 5.8 Albumin 2.4 Calcium Level 8.2 Alkaline Phosphatase 131 Aspartate Amino Transf (AST/SGOT) 34 Alanine Aminotransferase (ALT/SGPT) 18 Total Bilirubin 4.3 Sodium Level 137 Potassium Level 3.3 Chloride Level 102 Carbon Dioxide Level 26.2 Anion Gap 9 Estimat Glomerular Filtration Rate 47 Magnesium Level 1.9 Lipase 152 Pleural Fluid pH 7.5 Pleural Fluid Total Protein 0.8 Pleural Fluid LDH 38 Pleural Fluid Glucose 105 Date/Time Source Procedure Growth Status 02/17/18 18:05 Fluid Pleural Fluid Fungal Smear Pending Received 02/17/18 18:05 Fluid Pleural Fluid Fungal Culture Pending Received Result Diagram: 02/17/18 1440 02/17/18 1440 Caprini VTE Risk Assessment Caprini VTE Risk Assessment: Mod/High Risk (score >= 2) Caprini Risk Assessment Model Point Value = 1 Point Value = 2 Point Value = 3 Point Value = 5 Age 41-60 Minor surgery BMI > 25 kg/m2 Swollen legs Varicose veins or History of unexplained or recurrent spontaneous Oral contraceptives or hormone replacement Sepsis (< 1 month) Serious lung disease, including pneumonia (< 1 month) Abnormal pulmonary function Acute myocardial infarction Congestive heart failure (< 1 month) History of inflammatory bowel disease Medical patient at bed rest Age 61-74 Arthroscopic surgery Major open surgery (> 45 min) Laparoscopic surgery (> 45 min) Malignancy Confined to bed (> 72 hours) Immobilizing plaster cast Central venous access Age >= 75 History of VTE Family history of VTE Factor V Leiden Prothrombin [id number] Lupus anticoagulant Anticardiolipin antibodies Elevated serum homocysteine Heparin-induced thrombocytopenia Other congenital or acquired thrombophilia Stroke (< 1 month) Elective arthroplasty Hip, pelvis, or leg fracture Acute spinal cord injury (< 1 month) Prophylaxis Regimen Total Risk Factor Score Risk Level Prophylaxis Regimen 0-1 Low Early ambulation 2 Moderate Order ONE of the following: *Sequential Compression Device (SCD) *Heparin 5000 units SQ BID 3-4 Higher Order ONE of the following medications: *Heparin 5000 units SQ TID *Enoxaparin/Lovenox 40 mg SQ daily (WT < 150 kg, CrCl > 30 mL/min) *Enoxaparin/Lovenox 30 mg SQ daily (WT < 150 kg, CrCl > 10-29 mL/min) *Enoxaparin/Lovenox 30 mg SQ BID (WT < 150 kg, CrCl > 30 mL/min) AND/OR *Sequential Compression Device (SCD) 5 or more Highest Order ONE of the following medications: *Heparin 5000 units SQ TID (Preferred with Epidurals) *Enoxaparin/Lovenox 40 mg SQ daily (WT < 150 kg, CrCl > 30 mL/min) *Enoxaparin/Lovenox 30 mg SQ daily (WT < 150 kg, CrCl > 10-29 mL/min) *Enoxaparin/Lovenox 30 mg SQ BID (WT < 150 kg, CrCl > 30 mL/min) AND *Sequential Compression Device (SCD) Assessment and Plan Assessment and Plan Assessment/plan: 1. Shortness of breath Chest x-ray significant for large right pleural effusion with compressive atelectasis of the right lung, personally reviewed CT of the abdomen/pelvis shows a significant increase in right-sided pleural effusion causing mediastinal shift, personally reviewed Status post thoracentesis Fluid studies pending Patient reports mild improvement in her breathing since thoracentesis Will need accompanying paracentesis 2. Cirrhosis/ascites CT of the abdomen/pelvis shows a significant increase in the amount of abdominal and pelvic ascites Ultrasound-guided paracentesis pending Continue home rifaximin, spironolactone, Lasix 3. Type 2 diabetes mellitus Patient not on any home medications Sliding-scale insulin Monitor blood glucose 4. COPD Duo nebs Supplemental oxygen as needed 5. Anxiety/bipolar depression Continue home medications 6. GERD/hypothyroidism Continue home medications FEN N.p.o. Electrolytes: Monitor and replete as needed Holding pharmacologic anticoagulation for cirrhosis Anuja Mack MD Feb 17, 2018 22:08
[2018-02-17] MEDS ORDERED: GLUCAGON 1 MG/ML VIAL OTHER PRN (22:15)
[2018-02-17] MEDS ORDERED: PILL SPLITTER OTHER PRN (22:15)
[2018-02-17] MEDS ORDERED: DEXTROSE 50% IN WATER 50 ML VIAL(D50) IV PUSH PRN (22:15)
[2018-02-17 22:21] LABS: PLEURAL FLUID RBC 148 /MM3 (0-0); PLEURAL FLUID WBC 114 /MM3 (0-10)
[2018-02-17] MEDS ORDERED: LIDOCAINE HCL 1% 20 ML VIAL ONE (23:40)
[2018-02-18] VITALS (9 sets, daily range): BP systolic 99–146; BP diastolic 50–68; PULSE 67–96; RESP 16–22; TEMP 97.8–99.8; O2SAT 90–96
[2018-02-18 05:17] LABS: AUTOMATED NEUTROPHIL # 14.4 TH/MM3 (1.8-7.7); BASOPHIL # 0.1 TH/MM3 (0-0.2); BASOPHIL % 0.5 % (0.0-2.0); EOSINOPHIL # 0.2 TH/MM3 (0-0.4); EOSINOPHIL % 0.9 % (0.0-4.0); HEMATOCRIT 33.8 % (35.0-46.0); HEMOGLOBIN 11.5 GM/DL (11.6-15.3); LYMPH % 10.7 % (9.0-44.0); MEAN CELL VOLUME 98.4 FL (80.0-100.0); MEAN CORPUSCULAR HEMOGLOBIN 33.6 PG (27.0-34.0); MEAN CORPUSCULAR HGB CONC 34.2 % (32.0-36.0); MONO % 8.7 % (0.0-8.0); MONOCYTE # 1.6 TH/MM3 (0-0.9); NEUT % 79.2 % (16.0-70.0); PLATELET COUNT 229 TH/MM3 (150-450); RED BLOOD COUNT 3.43 MIL/MM3 (4.00-5.30); RED CELL DISTRIBUTION WIDTH 17.6 % (11.6-17.2); WHITE BLOOD COUNT 18.2 TH/MM3 (4.0-11.0)
[2018-02-18] MEDS: LEVOTHYROXINE SODIUM 50 MCG TAB PO SCH (05:30)
[2018-02-18 05:55] LABS: BICARBONATE 25.6 MEQ/L (21.0-32.0); CALCIUM 8.7 MG/DL (8.5-10.1); CREATININE 1.28 MG/DL (0.50-1.00)
[2018-02-18 07:56] LABS: ACANTHOCYTES OCC (NORMAL)
[2018-02-18] MEDS: INSULIN ASPART SUPPLEMENTAL SCALE SQ SCH ×4 (08:00→21:00)
[2018-02-18] MEDS: DOCUSATE SODIUM 50 MG/SENNA 8.6 MG TAB PO SCH ×2 (09:00→21:46)
[2018-02-18] MEDS: LACTULOSE SYRUP 20 GM/30 ML CUP PO SCH ×3 (09:19→18:40)
[2018-02-18] MEDS: PANTOPRAZOLE SOD 20 MG DELAYED RELEASE TAB PO SCH ×2 (09:19→21:48)
[2018-02-18] MEDS: SPIRONOLACTONE 50 MG TAB PO SCH ×2 (09:19→18:40)
[2018-02-18] MEDS: POTASSIUM CHLORIDE 20 MEQ CONTROLLED RELEASE TAB PO SCH (09:19)
[2018-02-18] MEDS: RIFAXIMIN 550 MG TAB PO SCH ×2 (09:19→21:46)
[2018-02-18] MEDS: FUROSEMIDE 20 MG TAB PO SCH ×2 (09:20→21:46)
[2018-02-18] MEDS: SODIUM CHLORIDE 0.9% FLUSH 10 ML FLUSH IV FLUSH SCH ×2 (09:22→21:46)
[2018-02-18] MEDS: CITALOPRAM HYDROBROMIDE 20 MG TAB PO SCH (09:24)
[2018-02-18] MEDS: ATENOLOL 25 MG TAB PO SCH (09:49)
[2018-02-18] MEDS: ONDANSETRON HCL 4 MG/2 ML VIAL IVP PRN (09:59)
--- NOTE | 2018-02-18 11:35 | RADRPT ---
EXAM DATE/TIME: 02/18/2018 11:07 [facility] COMPARISON: US ABDOMEN - LOWER LIMITED, October 09, 2017, 10:29. INDICATIONS : Ascites. MEDICAL HISTORY : Cirrhosis. Chronic obstructive pulmonary disease. Gastroesophageal reflux disease. HTN. Diabetes. Asc ites. Pleural effusion. SURGICAL HISTORY : Tonsillectomy. Hysterectomy. Appendectomy. Elbow/shoulder surgery. Throat/neck and breast biopsies. P aracentesis. Thoracentesis. ENCOUNTER: Sequela ACUITY: 2 weeks PAIN SCORE: 7/10 LOCATION: Abdomen. AREA EVALUATED: Abdominal quadrants. FINDINGS: Imaging of the abdomen and pelvis was performed to evaluate for ascites for possible paracentesis. Th ere is only trace free fluid identified within each quadrant of the abdomen and pelvis. There is not enough fluid present for safe paracentesis. CONCLUSION: There is only a trace volume of free fluid in the abdomen and pelvis, not enough for safe paracentesi andria Hathaway MD on February 18, 2018 at 11:33 Board Certified Radiologist. This report was verified electronically.
--- NOTE | 2018-02-18 11:54 | RADRPT ---
EXAM DATE/TIME: 02/18/2018 11:31 [facility] COMPARISON: CHEST EXPIRATION ONLY, February 17, 2018, 18:27. INDICATIONS : Evaluate pneumothorax. MEDICAL HISTORY : Hypertension. Cirrhosis. Chronic obstructive pulmonary disease. SURGICAL HISTORY : thoracentesis, paracentesis, throat, neck and breast biopsies ENCOUNTER: Initial ACUITY: 2 days PAIN SCORE: 8/10 LOCATION: Bilateral chest FINDINGS: Persistent right hydropneumothorax with separation of the visceral parietal pleura measuring 1.9 cm a t the apex stop probable meniscal opacity in the mid and lower right chest is more prominent than on prior examination suggesting enlarging right pleural effusion. No evidence of mediastinal shift. St able patchy infiltrates at the left lung base. CONCLUSION: Stable size to the apical pneumothorax and increasing size of the right pleural effusion. Bassem Hoffman MD on February 18, 2018 at 11:50 Board Certified Radiologist. This report was verified electronically.
--- NOTE | 2018-02-18 11:55 | RADRPT ---
EXAM DATE/TIME: 02/17/2018 17:56 [facility] COMPARISON: CHEST SINGLE AP, February 17, 2018, 14:32. CT ABDOMEN & PELVIS W CONTRAST, February 17, 2018, 16:23. CHES T EXPIRATION ONLY, February 17, 2018, 18:27. CHEST EXPIRATION ONLY, February 18, 2018, 11:31. INDICATIONS : Right Pleural Effusion. MEDICAL HISTORY : Cirrhosis. Chronic obstructive pulmonary disease. Gastroesophageal reflux disease. HTN. Diabetes. Asc ites. SURGICAL HISTORY : ysterectomy. Tonsillectomy. Appendectomy. Elbow/shoulder surgery. Throat/neck and breast biopsies. Pa racentesis. ENCOUNTER: Initial ACUITY: 2 days PAIN SCORE: 2/10 LOCATION: Right chest FLUID: Total volume of 2,000 cc of clear, yellow fluid was removed. Fluid was sent to lab for ordered studies. Post procedure scanning reveals no hematoma or other complication. TECHNIQUE: 1. Ultrasound guidance for thoracentesis. 2. Thoracentesis. The risks, benefits, and alternatives to ultrasound guided thoracentesis were explained to the patien t in lay simple terms, including the risk of bleeding and infection. Written and verbal informed con sent was obtained. Appropriate area for thoracentesis was marked under ultrasound guidance with the patient in the uprig ht position. Overlying skin was prepped and draped in the usual sterile fashion and with local anest hetic, a dermatotomy was made with an 11 blade scalpel. A 6 Malay thoracentesis catheter was placed in the pleural space and fluid was removed. Catheter was then removed and a sterile dressing applie d. There were no immediate complications. The patient tolerated the procedure well and the left the ultrasound suite in stable condition. Chest radiograph is to be obtained. CONCLUSION: Uncomplicated ultrasound guided thoracentesis. Leo Piper MD on February 18, 2018 at 11:50 Board Certified Radiologist. This report was verified electronically.
[2018-02-18] MEDS: MORPHINE SULFATE 4 MG/ML INJ IV PUSH PRN (14:15)
--- NOTE | 2018-02-18 23:14 | HHI.PR ---
Subjective Remarks Patient says that shortness breath slightly improved after thoracentesis, however continues. Denies any nausea or vomiting. Objective Vital Signs Date Time Temp Pulse Resp B/P (MAP) Pulse Ox O2 Delivery O2 Flow Rate FiO2 02/18/18 20:00 98.3 72 16 113/59 (77) 92 02/18/18 19:42 Nasal Cannula 2.00 02/18/18 18:41 115/58 (77) 02/18/18 16:00 98.5 67 18 104/52 (69) 92 02/18/18 12:00 98.3 77 20 124/60 (81) 92 02/18/18 08:02 92 Nasal Cannula 3.00 02/18/18 08:00 98.3 85 22 123/60 (81) 91 02/18/18 06:47 91 02/18/18 04:00 97.9 89 19 136/60 (85) 90 02/18/18 00:00 99.8 96 19 146/68 (94) 90 02/18/18 00:00 97.8 68 18 99/50 (66) 96 I/O 02/18/18 02/18/18 02/18/18 02/19/18 02/19/18 02/19/18 07:00 15:00 23:00 07:00 15:00 23:00 Intake Total 360 ml Output Total 200 ml 450 ml Balance -200 ml -90 ml Intake Oral 360 ml Output Urine Total 200 ml 450 ml # Voids 2 # Bowel Movements 1 Result Diagram: 02/18/18 0355 02/18/18 0355 Objective Remarks GENERAL: shortness of breath with talking long sentences.otherwise comfortable. SKIN: Warm and dry. HEAD: Normocephalic. EYES: No scleral icterus. No injection or drainage. NECK: Supple, trachea midline. No JVD. CARDIOVASCULAR: Regular rate and rhythm without murmurs, gallops, or rubs. RESPIRATORY: Breath sounds diminished on the right.No accessory muscle use. GASTROINTESTINAL: Abdomen soft, non-tender, nondistended. MUSCULOSKELETAL: No cyanosis, or edema. BACK: Nontender without obvious deformity. No CVA tenderness. A/P Assessment and Plan \1. Shortness of breath Chest x-ray significant for large right pleural effusion with compressive atelectasis of the right lung, personally reviewed CT of the abdomen/pelvis shows a significant increase in right-sided pleural effusion causing mediastinal shift, personally reviewed Status post thoracentesis Fluid studies pending Patient reports mild improvement in her breathing since thoracentesis Will need accompanying paracentesis = 02/18 Paracentesis unable to be done, chest x-ray not improved with persistent pleural effusion, shortness of breath. We'll consult pulmonology. May need cardiothoracic consult. 2. Cirrhosis/ascites CT of the abdomen/pelvis shows a significant increase in the amount of abdominal and pelvic ascites Ultrasound-guided paracentesis pending Continue home rifaximin, spironolactone, Lasix = 02/18. Paracentesis unable to be performed secondary to minimal fluid. 3. Type 2 diabetes mellitus Patient not on any home medications Sliding-scale insulin Monitor blood glucose 4. COPD Duo nebs Supplemental oxygen as needed 5. Anxiety/bipolar depression Continue home medications 6. GERD/hypothyroidism Continue home medications FEN N.p.o. Electrolytes: Monitor and replete as needed Holding pharmacologic anticoagulation for cirrhosis Discharge Planning pending improvement in respiratory status. Aubrey Kwan MD February 18, 2018 23:14
[2018-02-19] VITALS (9 sets, daily range): BP systolic 98–119; BP diastolic 50–62; PULSE 68–80; RESP 16–23; TEMP 97.6–98.8; O2SAT 88–96
[2018-02-19] MEDS: LEVOTHYROXINE SODIUM 50 MCG TAB PO SCH (06:00)
[2018-02-19] MEDS: INSULIN ASPART SUPPLEMENTAL SCALE SQ SCH ×4 (08:00→21:00)
[2018-02-19 08:57] LABS: AUTOMATED NEUTROPHIL # 16.1 TH/MM3 (1.8-7.7); BASOPHIL # 0.1 TH/MM3 (0-0.2); BASOPHIL % 0.3 % (0.0-2.0); EOSINOPHIL # 0.3 TH/MM3 (0-0.4); EOSINOPHIL % 1.4 % (0.0-4.0); HEMATOCRIT 30.6 % (35.0-46.0); HEMOGLOBIN 10.2 GM/DL (11.6-15.3); LYMPH % 9.3 % (9.0-44.0); LYMPHOCYTE # 1.9 TH/MM3 (1.0-4.8); MEAN CELL VOLUME 98.5 FL (80.0-100.0); MEAN CORPUSCULAR HEMOGLOBIN 32.9 PG (27.0-34.0); MEAN CORPUSCULAR HGB CONC 33.4 % (32.0-36.0); MEAN PLATELET VOLUME 8.1 FL (7.0-11.0); MONO % 10.8 % (0.0-8.0); MONOCYTE # 2.2 TH/MM3 (0-0.9); NEUT % 78.2 % (16.0-70.0); PLATELET COUNT 183 TH/MM3 (150-450); RED CELL DISTRIBUTION WIDTH 17.8 % (11.6-17.2); WHITE BLOOD COUNT 20.6 TH/MM3 (4.0-11.0)
[2018-02-19 09:16] LABS: ALBUMIN 2.5 GM/DL (3.4-5.0); BICARBONATE 25.1 MEQ/L (21.0-32.0); CALCIUM 8.9 MG/DL (8.5-10.1); CREATININE 1.89 MG/DL (0.50-1.00); MAGNESIUM 2.1 MG/DL (1.5-2.5); PHOSPHORUS 4.5 MG/DL (2.5-4.9)
[2018-02-19] MEDS: ATENOLOL 25 MG TAB PO SCH (09:50)
[2018-02-19] MEDS: DOCUSATE SODIUM 50 MG/SENNA 8.6 MG TAB PO SCH ×2 (09:50→21:08)
[2018-02-19] MEDS: POTASSIUM CHLORIDE 20 MEQ CONTROLLED RELEASE TAB PO SCH (09:50)
[2018-02-19] MEDS: SPIRONOLACTONE 50 MG TAB PO SCH (09:50)
[2018-02-19] MEDS: PANTOPRAZOLE SOD 20 MG DELAYED RELEASE TAB PO SCH ×2 (09:50→21:08)
[2018-02-19] MEDS: CITALOPRAM HYDROBROMIDE 20 MG TAB PO SCH (09:50)
[2018-02-19] MEDS: FUROSEMIDE 20 MG TAB PO SCH (09:50)
[2018-02-19] MEDS: LACTULOSE SYRUP 20 GM/30 ML CUP PO SCH ×3 (09:50→17:50)
[2018-02-19] MEDS: RIFAXIMIN 550 MG TAB PO SCH ×2 (09:50→21:08)
[2018-02-19] MEDS: SODIUM CHLORIDE 0.9% FLUSH 10 ML FLUSH IV FLUSH SCH ×2 (09:53→21:00)
[2018-02-19 10:06] LABS: OVALOCYTES 1+ (NORMAL)
--- NOTE | 2018-02-19 11:44 | RADRPT ---
EXAM DATE/TIME: 02/19/2018 10:25 [facility] COMPARISON: CT ABDOMEN & PELVIS W CONTRAST, February 17, 2018, 16:23. INDICATIONS : Increased BUN/Creatinine. MEDICAL HISTORY : Cirrhosis. Chronic obstructive pulmonary disease. Gastroesophageal reflux disease. HTN. Diabetes. Asc ites. SURGICAL HISTORY : Hysterectomy. Tonsillectomy. Appendectomy. Elbow/shoulder surgery. Throat/neck and breast biopsies. P aracentesis. ENCOUNTER: Initial ACUITY: 1 day PAIN SCORE: 7/10 LOCATION: Bilateral flank MEASUREMENTS: RIGHT KIDNEY: 9.7 x 4.7 x 4.9 cm LEFT KIDNEY: 11.1 x 4.3 x 5.1 cm FINDINGS: RIGHT KIDNEY: Renal cortex is normal in thickness and echotexture. No hydronephrosis, stone, or mass. LEFT KIDNEY: Renal cortex is normal in thickness and echotexture. No hydronephrosis, stone, or mass. BLADDER: Urinary bladder is nondistended. Some mild thickening of the urinary bladder wall 1.5 cm.. CONCLUSION: 1. No evidence of hydronephrosis. 2. Limited visualization of the urinary bladder. Lyndon Goodson MD on February 19, 2018 at 11:41 Board Certified Radiologist. This report was verified electronically.
[2018-02-19 13:09] LABS: AMYLASE BODY FLUID 6 U/L; AMYLASE BODY FLUID TYPE PLEURAL
[2018-02-19] MEDS: SODIUM CHLOR 0.9% 1000 ML INJ 1,000 ML IV SCH (13:34)
--- NOTE | 2018-02-19 14:58 | PD.CONS ---
[facility] Service Nephrology Consult Requested By Dr. Kwan Reason for Consult Acute Renal Failure Primary Care Physician Non-Staff History of Present Illness This is a 72 y/o female who requires repeat paracentesis due to cirrhosis from ETOH abuse. Her last was on 02/07. She came to ER for abdominal fullness and shortness of breath. Imaging revealed pleural effusion for which she underwent a thoracentesis on 02/17. She was to have paracentesis but there was not enough fluid to remove. It is rescheduled for tomorrow. Her baseline creatinine is 0.83. On arrival it was 1.13, increased as is 1.89 today. She is oliguric but does not have a olivas catheter. Imaging does not suggest obstruction. She came to ER one month ago for urinary retention, had a catheter placed and was to follow up with urology. We were consulted to assist with management. (Oma Bernard) Review of Systems Constitutional: COMPLAINS OF: Fatigue, Weight gain Respiratory: COMPLAINS OF: Shortness of breath Cardiovascular: DENIES: Lower Extremity Edema Gastrointestinal: DENIES: Abdominal pain, Anorexia (Oma Bernard) Past Family Social History Allergies: Coded Allergies: No Known Allergies (Verified Allergy, Unknown, 02/17/18) Past Medical History Asthma Gen. anxiety disorder Bipolar depression Coronary artery disease Angina Cirrhosis COPD Diabetes mellitus type 2 Hypertension Gastroesophageal reflux disease Sleep apnea Hypothyroidism Past Surgical History Appendectomy Hysterectomy Tonsillectomy Reported Medications Atenolol 25 Mg Tab 25 Mg PO DAILY Melatonin 10 Mg-1 Mg Tab 10 Mg PO HS PRN Vitamin C (Ascorbic Acid) 250 Mg Chew 250 Mg CHEW BID K-Tab (Potassium Chloride) 20 Meq Tab 20 Meq PO DAILY Multiple Vitamin 1 Tab 1 Tab PO DAILY Xifaxan (Rifaximin) 550 Mg Tab 550 Mg PO BID Spironolactone 50 Mg Tab 50 Mg PO BIDPC Furosemide 20 Mg Tab 20 Mg PO BID Ropinirole 0.25 Mg Tab 0.25 Mg PO DAILY Citalopram (Citalopram Hydrobromide) 20 Mg Tab 0.5 Tab PO DAILY Omeprazole 20 Mg Tab 20 Mg PO BID Levothyroxine (Levothyroxine Sodium) 50 Mcg Tab 50 Mcg PO DAILY Lactulose Liq (Lactulose) 10 Gm/15 Ml Soln 30 Ml PO TID Active Ordered Medications Current Medications Medications (Trade) Dose Ordered Sig/Sarah Route Start Time Stop Time Status Last Admin (NS Flush) 2 ml UNSCH PRN IV FLUSH 02/17/18 14:30 02/17/18 14:53 (NS Flush) 2 ml UNSCH PRN IV FLUSH 02/17/18 18:15 (NS Flush) 2 ml BID IV FLUSH 02/17/18 21:00 02/19/18 09:53 (Tylenol) 650 mg Q4H PRN PO 02/17/18 18:15 (Zofran Inj) 4 mg Q6H PRN IVP 02/17/18 18:15 02/18/18 09:59 (Tylenol) 650 mg Q6H PRN PO 02/17/18 18:15 (Roxicodone) 10 mg Q4H PRN PO 02/17/18 18:15 02/19/18 10:01 (Roxicodone) 5 mg Q4H PRN PO 02/17/18 18:15 02/18/18 09:29 (Narcan Inj) 0.4 mg UNSCH PRN IV PUSH 02/17/18 18:15 (Amrita-Colace) 1 tab BID PO 02/17/18 21:00 02/19/18 09:50 (Milk Of Magnesia Liq) 30 ml Q12H PRN PO 02/17/18 18:15 (Senokot) 17.2 mg Q12H PRN PO 02/17/18 18:15 (Dulcolax Supp) 10 mg DAILY PRN RECTAL 02/17/18 18:15 (Lactulose Liq) 30 ml DAILY PRN PO 02/17/18 18:15 (Morphine Inj) 1 mg Q3H PRN IV PUSH 02/17/18 21:00 02/18/18 14:15 (Tenormin) 25 mg DAILY PO 02/18/18 09:00 02/19/18 09:50 (CeleXA) 10 mg DAILY PO 02/18/18 09:00 02/19/18 09:50 (Lasix) 20 mg BID PO 02/18/18 09:00 Future Hold 02/19/18 09:50 (Lactulose Liq) 30 ml TID PO 02/18/18 09:00 02/19/18 13:32 (Synthroid) 50 mcg DAILY@0600 PO 02/18/18 06:00 02/19/18 06:00 (KCl) 20 meq DAILY PO 02/18/18 09:00 02/19/18 09:50 (Xifaxan) 550 mg BID PO 02/18/18 09:00 02/19/18 09:50 (Requip) 0.25 mg DAILY PO 02/18/18 09:00 02/19/18 09:50 (Aldactone) 50 mg BIDPC PO 02/18/18 09:00 Future Hold 02/19/18 09:50 (Protonix) 20 mg BID PO 02/18/18 09:00 02/19/18 09:50 (D50w (Vial) Inj) 50 ml UNSCH PRN IV PUSH 02/17/18 22:15 (Glucagon Inj) 1 mg UNSCH PRN OTHER 02/17/18 22:15 (NovoLOG SUPPLEMENTAL SCALE) 1 ACHS SLIDING SCALE SQ 02/18/18 08:00 (Pill Splitter) 1 ea UNSCH PRN OTHER 02/17/18 22:15 Sodium Chloride 1,000 ml @ 100 mls/hr Q10H IV 02/19/18 10:15 02/19/18 13:34 Family History Non contributory Social History Ambulatory Former ETOH Former smoker Full code (Oma Bernard) Physical Exam Vital Signs Vital Signs Date Time Temp Pulse Resp B/P (MAP) Pulse Ox O2 Delivery O2 Flow Rate FiO2 02/19/18 13:29 93 Nasal Cannula 3.00 02/19/18 12:00 98.8 76 17 114/56 (75) 90 02/19/18 11:00 20 02/19/18 08:00 98.6 71 16 109/55 (73) 90 02/19/18 04:00 98.0 80 16 110/55 (73) 91 02/19/18 00:00 97.6 68 16 108/62 (77) 93 02/18/18 20:00 98.3 72 16 113/59 (77) 92 02/18/18 19:42 Nasal Cannula 2.00 02/18/18 18:41 115/58 (77) 02/18/18 16:00 98.5 67 18 104/52 (69) 92 Physical Exam GENERAL: female lying in bed, not in distress SKIN: liver lesion anterior chest, ecchymoses or lesions. Cool and dry. HEAD: Atraumatic. Normocephalic. No temporal or scalp tenderness. EYES: Pupils equal round and reactive. Extraocular motions intact. No scleral icterus. No injection or drainage. ENT: Nose without bleeding, purulent drainage or septal hematoma. Throat without erythema, tonsillar hypertrophy or exudate. Uvula midline. Airway patent. NECK: Trachea midline. No JVD or lymphadenopathy. Supple, nontender, no meningeal signs. CARDIOVASCULAR: Regular rate and rhythm without murmurs, gallops, or rubs. RESPIRATORY: muffled in bases. no wheezing. GASTROINTESTINAL: Abdomen soft, non-tender, + distended. No guarding. MUSCULOSKELETAL: Extremities without clubbing, cyanosis, or edema. No joint tenderness, effusion, or edema noted. No calf tenderness. NEUROLOGICAL: Awake and alert. Cranial nerves II through XII intact. Motor and sensory grossly within normal limits. Normal speech. Laboratory Laboratory Tests Test 02/19/18 06:15 White Blood Count 20.6 Red Blood Count 3.10 Hemoglobin 10.2 Hematocrit 30.6 Mean Corpuscular Volume 98.5 Mean Corpuscular Hemoglobin 32.9 Mean Corpuscular Hemoglobin Concent 33.4 Red Cell Distribution Width 17.8 Platelet Count 183 Mean Platelet Volume 8.1 Neutrophils (%) (Auto) 78.2 Lymphocytes (%) (Auto) 9.3 Monocytes (%) (Auto) 10.8 Eosinophils (%) (Auto) 1.4 Basophils (%) (Auto) 0.3 Neutrophils # (Auto) 16.1 Lymphocytes # (Auto) 1.9 Monocytes # (Auto) 2.2 Eosinophils # (Auto) 0.3 Basophils # (Auto) 0.1 CBC Comment AUTO DIFF Differential Comment AUTO DIFF CONFIRMED Ovalocytes 1+ Blood Urea Nitrogen 26 Creatinine 1.89 Random Glucose 85 Albumin 2.5 Calcium Level 8.9 Phosphorus Level 4.5 Magnesium Level 2.1 Sodium Level 136 Potassium Level 4.4 Chloride Level 101 Carbon Dioxide Level 25.1 Anion Gap 10 Estimat Glomerular Filtration Rate 26 Date/Time Source Procedure Growth Status 02/17/18 18:05 Fluid Pleural Fluid Fungal Smear - Final NO FUNGAL ELEMENTS SEEN. Resulted 02/17/18 18:05 Fluid Pleural Fluid Fungal Culture Pending Resulted (Oma Bernard) Result Diagram: 02/19/18 0615 02/19/18 0615 Imaging Last 72 hours Impressions Renal Ultrasound 02/19/18 0000 Signed Impressions: Service Date/Time: Monday, February 19, 2018 10:25 - CONCLUSION: 1. No evidence of hydronephrosis. 2. Limited visualization of the urinary bladder. Lyndon Goodson MD Chest X-Ray 02/18/18 0000 Signed Impressions: Service Date/Time: Sunday, February 18, 2018 11:31 - CONCLUSION: Stable size to the apical pneumothorax and increasing size of the right pleural effusion. Bassem Hoffman MD Abdomen Ultrasound 02/18/18 0000 Signed Impressions: Service Date/Time: Sunday, February 18, 2018 11:07 - CONCLUSION: There is only a trace volume of free fluid in the abdomen and pelvis, not enough for safe paracentesis. Fidel Hathaway MD Abdomen/Pelvis CT 02/17/18 1438 Signed Impressions: Service Date/Time: Saturday, February 17, 2018 16:23 - CONCLUSION: 1. Significant increase in the amount of abdominal pelvic ascites when compared to October 2016. 2. Significant increase in size of right pleural effusion when compared to October 2016. The right pleural effusion does cause mediastinal shift towards the left. 3. Stable appearance to cirrhotic liver. No focal lesions. Bassem Hoffman MD Chest X-Ray 02/17/18 1430 Signed Impressions: Service Date/Time: Saturday, February 17, 2018 14:32 - CONCLUSION: Large right pleural effusion with associated compressive atelectasis of the right lung. Fidel Hathaway MD Thoracentesis Ultrasound 02/17/18 0000 Signed Impressions: Service Date/Time: Saturday, February 17, 2018 17:56 - CONCLUSION: Uncomplicated ultrasound guided thoracentesis. Leo Piper MD Chest X-Ray 02/17/18 0000 Signed Impressions: Service Date/Time: Saturday, February 17, 2018 18:27 - CONCLUSION: 1. Status post right-sided thoracentesis with right pneumothorax and about 2.2 cm of pleural separation. There is some residual pleural fluid on the right. Vikas Davis MD (Oma Bernard) Assessment and Plan Problem List: (1) MAT (acute kidney injury) ICD Codes: N17.9 - Acute kidney failure, unspecified Plan: Normal renal function at baseline Etiology of renal failure is not completely clear Obtain bladder scan as she has a recent hx of urinary retention Relative hypotension yesterday, may have suffered hypoperfusion injury; also may be due to overdiuresis and resulting prerenal azotemia Obtain UA for analysis, obtain urine electrolytes Hold Lasix Reduce IVF to 50 cc/hr Give albumin 25 g x 8 doses Repeat labs Avoid nephrotoxic agents If no improvement, need to consider the possibility of hepatorenal syndrome. However that is a diagnosis of exclusion. (2) Alcoholic cirrhosis of liver ICD Codes: K70.30 - Alcoholic cirrhosis of liver without ascites Status: Acute Plan: Continue current management with albumin, lactulose, Xifaxan (3) Ascites ICD Codes: R18.8 - Other ascites Status: Acute Plan: Paracentesis as needed. (Oma Bernard) Assessment and Plan patient was seen and examined. Above note reviewed, agree with above assessment and plan. Withdraw diuretics, and start crystalloid as well as albumin. Obtain urine electrolytes. Avoid nephrotoxic agents. (Kip Cash MD) Problem Qualifiers (1) Alcoholic cirrhosis of liver: Qualified Codes: K70.31 - Alcoholic cirrhosis of liver with ascites (2) Ascites: Qualified Codes: K70.31 - Alcoholic cirrhosis of liver with ascites Oma Bernard February 19, 2018 14:58 Kip Cash MD February 19, 2018 21:43
--- NOTE | 2018-02-19 15:37 | RADRPT ---
EXAM DATE/TIME: 02/19/2018 14:47 [facility] COMPARISON: CHEST EXPIRATION ONLY, February 18, 2018, 11:31. CHEST SINGLE AP, February 17, 2018, 14:32. INDICATIONS : Evaluate diaphragm. MEDICAL HISTORY : None. Cirrhosis. Chronic obstructive pulmonary disease. Gastroesophageal reflux disease. HTN. D iabetes. Ascites. SURGICAL HISTORY : Hysterectomy. Tonsillectomy. Appendectomy. Elbow/shoulder surgery. Throat/neck and breast biopsies. P aracentesis. ENCOUNTER: Subsequent ACUITY: 4 - 6 days PAIN SCORE: 10/10 LOCATION: Bilateral chest FINDINGS: There continues be a large right-sided pleural effusion with a small apical pneumothorax measuring 8 mm. This is improved compared to the prior study. There is motion artifact on the image. There is pro bable infiltrate in the left lung base. The heart size is stable. The bony structures are stable. CONCLUSION: 1. Small right apical pneumothorax measuring 8 mm. This is improved compared to the prior study. 2. There continues to be a large right-sided pleural effusion. 3. Mild infiltrate in the left lung base. Lyndon Goodson MD on February 19, 2018 at 15:33 Board Certified Radiologist. This report was verified electronically.
[2018-02-19] MEDS: ALBUMIN 25% INJ 100 ML IV SCH (17:50)
--- NOTE | 2018-02-19 18:36 | MB ---
cc: Gerber Mayes MD DATE: 02/19/2018 REASON FOR CONSULTATION: COPD, pleural effusion. HISTORY OF PRESENT ILLNESS: The patient is a 72-year-old female who has known history of liver cirrhosis and anasarca, including ascites and right pleural effusion. The patient has known history of COPD, coronary artery disease for which she receives paracentesis every 3 weeks or so. She has history of diabetes, hypertension, acid reflux and hypothyroidism, admitted with increasing shortness of breath, a large left pleural effusion. The right thoracentesis was done, with a small residual right apical pneumothorax. Her last paracentesis was 02/07/2018. The patient's shortness of breath is somewhat improved. She is lying comfortably flat in bed. No cough, no expectoration, fever, chills or hemoptysis. PAST MEDICAL HISTORY: That of COPD, liver cirrhosis, anasarca, coronary artery disease, hypertension, diabetes mellitus, acid reflux, obstructive sleep apnea, hypothyroidism, bipolar disorder. PAST SURGICAL HISTORY: Previous appendectomy, hysterectomy and T and A. FAMILY HISTORY: Positive for coronary artery disease and malignancy. ALLERGIES: NONE KNOWN TO MEDICATION. SOCIAL HISTORY: Does not smoke or drink at present. History of alcohol abuse. REVIEW OF SYSTEMS: A 12-point review of systems is as per HPI and past history, otherwise negative. PHYSICAL EXAMINATION: GENERAL: The patient is alert. VITAL SIGNS: Temperature 98, pulse 70, respiration 20, blood pressure 160/70, O2 saturation 97% on 2 liters oxygen nasal cannula. HEENT: Unremarkable. Eyes without icterus. NECK: Without adenopathy, thyroid enlargement. CHEST: Decreased breath sound, right hemithorax. CARDIAC: PMI not appreciated. S1, S2 audible, 1/6 ejection systolic murmur, left sternal border. ABDOMEN: Ascites present. EXTREMITIES: No clubbing, cyanosis or edema. LABORATORY DATA: White count 10,000, hemoglobin 10, hematocrit 30, platelets 161,000. Sodium 137, potassium 3.3, BUN 13, creatinine 1.1, glucose 85. IMAGING: Chest x-ray upon presentation, large right pleural effusion. Followup chest x-ray post-thoracentesis, small right apical pneumothorax. CT of abdomen and pelvis with enlarging ascites and abdomen and pelvis. IMPRESSION: 1. Right pleural effusion post-thoracentesis. 2. Chronic obstructive pulmonary disease. 3. Liver cirrhosis. 4. Ascites. 5. Diabetes mellitus. 6. Hypertension. 7. Acid reflux disease. 8. Bipolar disorder. PLAN: The patient will be maintained on oxygen therapy as needed. Thoracentesis has been done with some improvement. I believe taking care of the ascites and appropriate drainage should lessen the recurrence of her right pleural effusion. Repeat thoracentesis will be undertaken if needed. Bronchodilator therapy for underlying COPD would be appropriate as well. I do thank you for asking me to partake in Ms. Smiley's care. MD BACILIO Cotter/ , 06:16 PM , 06:34 PM
--- NOTE | 2018-02-19 18:54 | HHI.PR ---
Subjective Remarks Patient states that shortness of breath is about the same as yesterday. she is more somnolent today however. Denies any nausea or vomiting. She has had several bowel movements, had constipation which is resolved now. Objective Vital Signs Date Time Temp Pulse Resp B/P (MAP) Pulse Ox O2 Delivery O2 Flow Rate FiO2 02/19/18 17:48 76 94 02/19/18 16:00 98.8 77 18 98/50 (66) 88 02/19/18 13:29 93 Nasal Cannula 3.00 02/19/18 12:00 98.8 76 17 114/56 (75) 90 02/19/18 11:00 20 02/19/18 08:00 98.6 71 16 109/55 (73) 90 02/19/18 04:00 98.0 80 16 110/55 (73) 91 02/19/18 00:00 97.6 68 16 108/62 (77) 93 02/18/18 20:00 98.3 72 16 113/59 (77) 92 02/18/18 19:42 Nasal Cannula 2.00 I/O 02/18/18 02/18/18 02/18/18 02/19/18 02/19/18 02/19/18 06:59 14:59 22:59 06:59 14:59 22:59 Intake Total 360 ml Output Total 200 ml 450 ml Balance -200 ml -90 ml Intake Oral 360 ml Output Urine Total 200 ml 450 ml # Voids 2 # Bowel Movements 1 Result Diagram: 02/19/18 0615 02/19/18 0615 Objective Remarks GENERAL: shortness of breath with talking long sentences.otherwise comfortable. SKIN: Warm and dry. HEAD: Normocephalic. EYES: No scleral icterus. No injection or drainage. NECK: Supple, trachea midline. No JVD. CARDIOVASCULAR: Regular rate and rhythm without murmurs, gallops, or rubs. RESPIRATORY: Breath sounds diminished on the right.No accessory muscle use. GASTROINTESTINAL: Abdomen soft, non-tender, nondistended. MUSCULOSKELETAL: No cyanosis, or edema. BACK: Nontender without obvious deformity. No CVA tenderness. A/P Assessment and Plan //Shortness of breath //Large right-sided pleural effusion Chest x-ray significant for large right pleural effusion with compressive atelectasis of the right lung, personally reviewed CT of the abdomen/pelvis shows a significant increase in right-sided pleural effusion causing mediastinal shift, personally reviewed Status post thoracentesis Fluid studies pending Patient reports mild improvement in her breathing since thoracentesis Will need accompanying paracentesis = 02/18 Paracentesis unable to be done, chest x-ray not improved with persistent pleural effusion, shortness of breath. We'll consult pulmonology. May need cardiothoracic consult. = 02/19. Shortness of breath continues. Large right-sided pleural effusion. Likely needs repeat thoracentesis appreciate pulmonology assistance. //Leukocytosis. -Patient was brought in by ambulance. She says she was given some medications. Suspect that steroids were given. No fevers. No bands. Continue to monitor. //Acute kidney injury. Creatinine 1.89, worsened from 1.28 yesterday. Patient with known cirrhosis. Could be hepatorenal syndrome. Patient started on albumin and fluids. Nephrology consulted. Appreciate nephrology assistance. Continue to monitor renal function. ///Cirrhosis/ascites CT of the abdomen/pelvis shows a significant increase in the amount of abdominal and pelvic ascites Ultrasound-guided paracentesis pending Continue home rifaximin, spironolactone, Lasix = 02/18. Paracentesis unable to be performed secondary to minimal fluid. //somnolence. check ABG and ammonia level. Discontinue narcotics. //Type 2 diabetes mellitus Patient not on any home medications Sliding-scale insulin Monitor blood glucose //Patient reports diarrhea. It is likely secondary to laxatives. Given white count, will check C. difficile. // COPD Duo nebs Supplemental oxygen as needed =start duo nebs and Levaquin. // Anxiety/bipolar depression Continue home medications //GERD/hypothyroidism Continue home medications Discharge Planning pending improvement in respiratory status. Aubrey Kwan MD February 19, 2018 18:54
[2018-02-19] MEDS ORDERED: LEVOFLOXACIN 750 MG TAB PO ONE (20:00)
[2018-02-19] MEDS ORDERED: LACTULOSE SYRUP 20 GM/30 ML CUP PO SCH (21:00)
--- NOTE | 2018-02-19 21:20 | RADRPT ---
EXAM DATE/TIME: 02/19/2018 20:50 [facility] COMPARISON: CHEST SINGLE AP, February 19, 2018, 14:47. INDICATIONS : Difficulty breathing. Evaluate for pneumothorax. MEDICAL HISTORY : Cirrhosis. Chronic obstructive pulmonary disease. Gastroesophageal reflux disease. HTN. Diabetes. Asc ites. SURGICAL HISTORY : Hysterectomy. Tonsillectomy. Appendectomy. Elbow/shoulder surgery. Throat/neck and breast biopsies. P aracentesis. ENCOUNTER: Subsequent ACUITY: 1 day PAIN SCORE: 0/10 LOCATION: Bilateral chest FINDINGS: A single view of the chest demonstrates cardiomegaly with right basilar density. Slight interstitial prominence. Osseous structures are intact. CONCLUSION: 1. Cardiomegaly with right basilar density. Simon Fernandez MD on February 19, 2018 at 21:18 Board Certified Radiologist. This report was verified electronically.
[2018-02-19] MEDS ORDERED: RESP: ALBUTEROL 2.5 MG/IPRATROPIUM 0.5 MG NEB (SCH) NEB ONE (22:30)
[2018-02-19] MEDS ORDERED: RESP: ALBUTEROL 2.5 MG/IPRATROPIUM 0.5 MG NEB (PRN) NEB (22:30)
[2018-02-19] MEDS: RESP: ALBUTEROL 2.5 MG/IPRATROPIUM 0.5 MG NEB (SCH) NEB (23:25)
--- NOTE | 2018-02-19 23:42 | PD.CONS ---
HPI Service Critical Care Medicine Consult Requested By Primary Care Physician Non-Staff History of Present Illness 72-year-old female with a past medical history of liver cirrhosis and anasarca, including ascites and right pleural effusion, COPD, coronary artery disease, and ascites for which she receives paracentesis every 3 weeks. She has history of diabetes, hypertension, acid reflux and hypothyroidism. She has been admitted with increasing shortness of breath, a large pleural effusion. The right thoracentesis was done, with a small residual right apical pneumothorax. Her last paracentesis was 02/07/2018. The patient's shortness of breath was somewhat improving however later tonight it became worse again requiring nonrebreather ventilation mask and transferred to ICU. She denies cough, no expectoration, fever, chills or hemoptysis. Review of Systems Constitutional: DENIES: Diaphoretic episodes, Fatigue, Fever, Weight gain, Weight loss, Chills, Dizziness, Change in appetite, Night Sweats Endocrine: DENIES: Abnorml menstrual pattern, Heat/cold intolerance, Polydipsia , Polyuria, Polyphagia Eyes: DENIES: Blurred vision, Diplopia, Eye inflammation, Eye pain, Vision loss , Photosensitivity, Double Vision Ears, nose, mouth, throat: DENIES: Tinnitus, Hearing loss, Vertigo, Nasal discharge, Oral lesions, Throat pain, Hoarseness, Ear Pain, Running Nose, Epistaxis, Sinus Pain, Toothache, Odynophagia Respiratory: COMPLAINS OF: Shortness of breath, DENIES: Apneas, Cough, Snoring , Wheezing, Hemoptysis, Sputum production Cardiovascular: DENIES: Chest pain, Palpitations, Syncope, Dyspnea on Exertion , PND, Lower Extremity Edema, Orthopnea, Claudication Gastrointestinal: DENIES: Abdominal pain, Black stools, Bloody stools, Constipation, Diarrhea, Nausea, Vomiting, Difficulty Swallowing, Anorexia Genitourinary: DENIES: Abnormal vaginal bleeding, Dysmenorrhea, Dyspareunia, Sexual dysfunction, Urinary frequency, Urinary incontinence, Urgency, Hematuria , Dysuria, Nocturia, Vaginal discharge Musculoskeletal: DENIES: Joint pain, Muscle aches, Stiffness, Joint Swelling, Back pain, Neck pain Integumentary: DENIES: Abnormal pigmentation, Pruritus, Rash, Nail changes, Breast masses, Breast skin changes, Nipple discharge Hematologic/lymphatic: DENIES: Bruising, Lymphadenopathy Immunologic/allergic: DENIES: Eczema, Urticaria Neurologic: DENIES: Abnormal gait, Headache, Localized weakness, Paresthesias, Seizures, Speech Problems, Tremor, Poor Balance Psychiatric: DENIES: Anxiety, Confusion, Mood changes, Depression, Hallucinations, Agitation, Suicidal Ideation, Homicidal Ideation, Delusions Past Family Social History Allergies: Coded Allergies: No Known Allergies (Verified Allergy, Unknown, 02/17/18) Past Medical History Asthma Gen. anxiety disorder Bipolar depression Coronary artery disease Angina Cirrhosis COPD Diabetes mellitus type 2 Hypertension Gastroesophageal reflux disease Sleep apnea Hypothyroidism Past Surgical History Appendectomy Hysterectomy Tonsillectomy Reported Medications Reported Meds & Active Scripts Active Reported Atenolol 25 Mg Tab 25 Mg PO DAILY Melatonin 10 Mg-1 Mg Tab 10 Mg PO HS PRN Vitamin C (Ascorbic Acid) 250 Mg Chew 250 Mg CHEW BID K-Tab (Potassium Chloride) 20 Meq Tab 20 Meq PO DAILY Multiple Vitamin 1 Tab 1 Tab PO DAILY Xifaxan (Rifaximin) 550 Mg Tab 550 Mg PO BID Spironolactone 50 Mg Tab 50 Mg PO BIDPC Furosemide 20 Mg Tab 20 Mg PO BID Ropinirole 0.25 Mg Tab 0.25 Mg PO DAILY Citalopram (Citalopram Hydrobromide) 20 Mg Tab 0.5 Tab PO DAILY Omeprazole 20 Mg Tab 20 Mg PO BID Levothyroxine (Levothyroxine Sodium) 50 Mcg Tab 50 Mcg PO DAILY Lactulose Liq (Lactulose) 10 Gm/15 Ml Soln 30 Ml PO TID Active Ordered Medications Current Medications Medications (Trade) Dose Ordered Sig/Sarah Route PRN Reason Start Time Stop Time Status Last Admin Dose Admin Sodium Chloride (NS Flush) 2 ml UNSCH PRN IV FLUSH FLUSH AFTER USING IV ACCESS 02/17/18 18:15 Sodium Chloride (NS Flush) 2 ml BID IV FLUSH 02/17/18 21:00 02/19/18 21:00 Acetaminophen (Tylenol) 650 mg Q4H PRN PO TEMP > 100.4 02/17/18 18:15 Ondansetron HCl (Zofran Inj) 4 mg Q6H PRN IVP NAUSEA OR VOMITING 02/17/18 18:15 02/18/18 09:59 Acetaminophen (Tylenol) 650 mg Q6H PRN PO PAIN SCALE 1 TO 2 02/17/18 18:15 Naloxone HCl (Narcan Inj) 0.4 mg UNSCH PRN IV PUSH SEE LABEL COMMENTS 02/17/18 18:15 Senna/Docusate Sodium (Amrita-Colace) 1 tab BID PO 02/17/18 21:00 02/19/18 21:08 Magnesium Hydroxide (Milk Of Magnesia Liq) 30 ml Q12H PRN PO Mild constipation 02/17/18 18:15 Sennosides (Senokot) 17.2 mg Q12H PRN PO Moderate constipation 02/17/18 18:15 Bisacodyl (Dulcolax Supp) 10 mg DAILY PRN RECTAL SEVERE CONSITIPATION 02/17/18 18:15 Lactulose (Lactulose Liq) 30 ml DAILY PRN PO SEVERE CONSITIPATION 02/17/18 18:15 Morphine Sulfate (Morphine Inj) 1 mg Q3H PRN IV PUSH BREAKTHROUGH PAIN 02/17/18 21:00 02/18/18 14:15 Atenolol (Tenormin) 25 mg DAILY PO 02/18/18 09:00 02/19/18 09:50 Citalopram Hydrobromide (CeleXA) 10 mg DAILY PO 02/18/18 09:00 02/19/18 09:50 Furosemide (Lasix) 20 mg BID PO 02/18/18 09:00 Future Hold 02/19/18 09:50 Levothyroxine Sodium (Synthroid) 50 mcg DAILY@0600 PO 02/18/18 06:00 02/19/18 06:00 Rifaximin (Xifaxan) 550 mg BID PO 02/18/18 09:00 02/19/18 21:08 Ropinirole HCl (Requip) 0.25 mg DAILY PO 02/18/18 09:00 02/19/18 09:50 Spironolactone (Aldactone) 50 mg BIDPC PO 02/18/18 09:00 Future Hold 02/19/18 09:50 Pantoprazole Sodium (Protonix) 20 mg BID PO 02/18/18 09:00 02/19/18 21:08 Dextrose (D50w (Vial) Inj) 50 ml UNSCH PRN IV PUSH HYPOGLYCEMIA-SEE COMMENTS 02/17/18 22:15 Glucagon (Glucagon Inj) 1 mg UNSCH PRN OTHER HYPOGLYCEMIA-SEE COMMENTS 02/17/18 22:15 Insulin Aspart (NovoLOG SUPPLEMENTAL SCALE) 1 ACHS SLIDING SCALE SQ 02/18/18 08:00 Miscellaneous (Pill Splitter) 1 ea UNSCH PRN OTHER SEE LABEL COMMENTS 02/17/18 22:15 Sodium Chloride 1,000 ml @ 50 mls/hr Q20H IV 02/19/18 10:15 02/19/18 13:34 Albumin Human 100 ml @ 60 mls/hr Q6HR IV 02/19/18 18:00 02/21/18 12:00 02/20/18 02:38 Albuterol/ Ipratropium (Duoneb Neb) 1 ampule Q6HR NEB NEB 02/19/18 18:45 02/20/18 02:49 Levofloxacin (Levaquin) 500 mg Q48H PO 02/21/18 20:00 Lactulose (Lactulose Liq) 30 ml Q6H PO 02/20/18 00:00 02/20/18 00:55 Albuterol/ Ipratropium (Duoneb Neb) 1 ampule Q4HR NEB PRN NEB SOB/WHEEZING 02/19/18 22:30 Family History Cancer and coronary artery disease in both parents Social History Social drinking, patient denies abuse No smoking No illicit drug abuse Physical Exam Vital Signs Vital Signs Date Time Temp Pulse Resp B/P (MAP) Pulse Ox O2 Delivery O2 Flow Rate FiO2 02/19/18 23:20 98.2 72 23 111/55 (73) 95 02/19/18 21:05 Nasal Cannula 6.00 02/19/18 20:00 97.8 76 17 119/52 (74) 90 02/19/18 17:48 76 94 02/19/18 16:00 98.8 77 18 98/50 (66) 88 02/19/18 13:29 93 Nasal Cannula 3.00 02/19/18 12:00 98.8 76 17 114/56 (75) 90 02/19/18 11:00 20 02/19/18 08:00 98.6 71 16 109/55 (73) 90 02/19/18 04:00 98.0 80 16 110/55 (73) 91 02/19/18 00:00 97.6 68 16 108/62 (77) 93 Physical Exam GENERAL: female lying in bed SKIN: No rashes, ecchymoses or lesions. Cool and dry. HEAD: Atraumatic. Normocephalic. No temporal or scalp tenderness. EYES: Pupils equal round and reactive. Extraocular motions intact. No scleral icterus. No injection or drainage. ENT: Nose without bleeding, purulent drainage or septal hematoma. Throat without erythema, tonsillar hypertrophy or exudate. Uvula midline. Airway patent. NECK: Trachea midline. No JVD or lymphadenopathy. Supple, nontender, no meningeal signs. CARDIOVASCULAR: Regular rate and rhythm without murmurs, gallops, or rubs. RESPIRATORY: Clear to auscultation. Breath sounds equal bilaterally. No wheezes , rales, or rhonchi. GASTROINTESTINAL: Abdomen soft, non-tender, + distended. No guarding. Moderate size ascites MUSCULOSKELETAL: Extremities without clubbing, cyanosis, or edema. No joint tenderness, effusion, or edema noted. No calf tenderness. NEUROLOGICAL: Awake and alert. Cranial nerves II through XII intact. Motor and sensory grossly within normal limits. Normal speech. Laboratory Laboratory Tests Test 02/19/18 06:15 02/19/18 19:30 02/19/18 20:34 02/19/18 21:44 White Blood Count 20.6 Red Blood Count 3.10 Hemoglobin 10.2 Hematocrit 30.6 Mean Corpuscular Volume 98.5 Mean Corpuscular Hemoglobin 32.9 Mean Corpuscular Hemoglobin Concent 33.4 Red Cell Distribution Width 17.8 Platelet Count 183 Mean Platelet Volume 8.1 Neutrophils (%) (Auto) 78.2 Lymphocytes (%) (Auto) 9.3 Monocytes (%) (Auto) 10.8 Eosinophils (%) (Auto) 1.4 Basophils (%) (Auto) 0.3 Neutrophils # (Auto) 16.1 Lymphocytes # (Auto) 1.9 Monocytes # (Auto) 2.2 Eosinophils # (Auto) 0.3 Basophils # (Auto) 0.1 CBC Comment AUTO DIFF Differential Comment AUTO DIFF CONFIRMED Ovalocytes 1+ Blood Urea Nitrogen 26 Creatinine 1.89 Random Glucose 85 Albumin 2.5 Calcium Level 8.9 Phosphorus Level 4.5 Magnesium Level 2.1 Sodium Level 136 Potassium Level 4.4 Chloride Level 101 Carbon Dioxide Level 25.1 Anion Gap 10 Estimat Glomerular Filtration Rate 26 Blood Gas Puncture Site RT RADIAL RT RADIAL Blood Gas Patient Temperature 98.6 98.6 Blood Gas HCO3 23 24 Blood Gas Base Excess -2.0 -1.9 Blood Gas Oxygen Saturation 82 83 Arterial Blood pH 7.31 7.30 Arterial Blood Partial Pressure CO2 48 49 Arterial Blood Partial Pressure O2 54 57 Arterial Blood Oxygen Content 10.9 11.4 Arterial Blood Carboxyhemoglobin 2.1 2.0 Arterial Blood Methemoglobin 1.0 1.0 Blood Gas Hemoglobin 9.4 9.7 Oxygen Delivery Device NASAL CANNULA Venti Mask Blood Gas Liter Flow 4 Blood Gas Inspired Oxygen 36 50 Ammonia 66 Date/Time Source Procedure Growth Status 02/17/18 18:05 Fluid Pleural Fluid Fungal Smear - Final NO FUNGAL ELEMENTS SEEN. Resulted 02/17/18 18:05 Fluid Pleural Fluid Fungal Culture Pending Resulted Result Diagram: 02/19/1861402/19/18 0615 Septic Shock Reassessment Septic shock perfusion: reassessment completed Assessment and Plan Assessment and Plan Right pleural effusion -Status post thoracentesis Pneumothorax -Postprocedure -Resolving Chronic obstructive pulmonary disease -DuoNeb scheduled and as needed -Levaquin -Followed by cartographic drafter Liver cirrhosis with Ascites -Thoracentesis per GI when indicated -Lactulose -Rifaximin -Spironolactone Diabetes mellitus -Insulin sliding scale Hypertension. -Atenolol -Lasix Acid reflux disease. -Pantoprazole Bipolar disorder -Citalopram Hypothyroidism -Levothyroxine DVT GI prophylaxis -Sergio's and SCDs -Subcu heparin -Pantoprazole Critical Care: The total critical care time was 35 minutes. Time to perform other separately billable procedures was not included in the critical care time. Lenin Maguire MD February 19, 2018 11:42 pm
[2018-02-20] VITALS (10 sets, daily range): BP systolic 101–117; BP diastolic 49–80; PULSE 64–88; RESP 16–33; TEMP 98–98.9; O2SAT 88–100
[2018-02-20] MEDS: LACTULOSE SYRUP 20 GM/30 ML CUP PO SCH ×4 (00:55→17:11)
[2018-02-20] MEDS: ALBUMIN 25% INJ 100 ML IV SCH ×4 (00:55→17:10)
[2018-02-20] MEDS: SODIUM CHLOR 0.9% 1000 ML INJ 1,000 ML IV SCH ×2 (01:30→23:08)
[2018-02-20] MEDS: RESP: ALBUTEROL 2.5 MG/IPRATROPIUM 0.5 MG NEB (SCH) NEB ×4 (02:49→21:34)
[2018-02-20] MEDS: LEVOTHYROXINE SODIUM 50 MCG TAB PO SCH (05:24)
[2018-02-20] MEDS: HEPARIN SODIUM - SQ 10,000 UNITS/ML VIAL SQ SCH ×3 (06:00→23:09)
[2018-02-20 06:17] LABS: AUTOMATED NEUTROPHIL # 20.7 TH/MM3 (1.8-7.7); BASOPHIL # 0.1 TH/MM3 (0-0.2); BASOPHIL % 0.4 % (0.0-2.0); EOSINOPHIL # 0.2 TH/MM3 (0-0.4); HEMATOCRIT 28.7 % (35.0-46.0); HEMOGLOBIN 9.6 GM/DL (11.6-15.3); LYMPH % 5.6 % (9.0-44.0); LYMPHOCYTE # 1.3 TH/MM3 (1.0-4.8); MEAN CELL VOLUME 100.7 FL (80.0-100.0); MEAN CORPUSCULAR HEMOGLOBIN 33.7 PG (27.0-34.0); MEAN CORPUSCULAR HGB CONC 33.5 % (32.0-36.0); MEAN PLATELET VOLUME 8.4 FL (7.0-11.0); MONO % 6.4 % (0.0-8.0); MONOCYTE # 1.5 TH/MM3 (0-0.9); NEUT % 86.6 % (16.0-70.0); PLATELET COUNT 140 TH/MM3 (150-450); RED BLOOD COUNT 2.85 MIL/MM3 (4.00-5.30); RED CELL DISTRIBUTION WIDTH 17.4 % (11.6-17.2); WHITE BLOOD COUNT 23.9 TH/MM3 (4.0-11.0)
[2018-02-20 06:50] LABS: ALBUMIN 3.1 GM/DL (3.4-5.0); BICARBONATE 21.9 MEQ/L (21.0-32.0); CALCIUM 8.7 MG/DL (8.5-10.1); CREATININE 2.46 MG/DL (0.50-1.00); MAGNESIUM 2.1 MG/DL (1.5-2.5); PHOSPHORUS 3.6 MG/DL (2.5-4.9)
[2018-02-20 07:39] LABS: BANDS 4 % (0-6); BASOPHILS 1 % (0-2); LYMPHOCYTES 5 % (9-44); MONOCYTES 10 % (0-8); NEUTROPHIL # MANUAL DIFF 19.8 TH/MM3 (1.8-7.7); POLYS (SEG NEUTROPHILS) 79 % (16-70)
[2018-02-20 07:40] LABS: ACANTHOCYTES OCC (NORMAL); BURR CELLS 1+ (NORMAL); TOXIC VACUOLATION PRESENT (NONE SEEN)
[2018-02-20] MEDS ORDERED: MORPHINE SULFATE 2 MG/ML SYRINGE ONE (07:51)
[2018-02-20] MEDS: INSULIN ASPART SUPPLEMENTAL SCALE SQ SCH ×4 (08:00→21:00)
--- NOTE | 2018-02-20 08:29 | HHI.CCPN ---
Subjective Remarks/Hospital Course 72-year-old female with a past medical history of liver cirrhosis and anasarca, including ascites and right pleural effusion, COPD, coronary artery disease, and ascites for which she receives paracentesis every 3 weeks. She has history of diabetes, hypertension, acid reflux and hypothyroidism. She has been admitted with increasing shortness of breath, a large pleural effusion. The right thoracentesis was done, with a small residual right apical pneumothorax. Her last paracentesis was 02/07/2018. The patient's shortness of breath was somewhat improving however later tonight it became worse again requiring nonrebreather ventilation mask and transferred to ICU. She denies cough, no expectoration, fever, chills or hemoptysis. 02/20/18: On my evaluation patient is in moderate respiratory distress oxygen saturation 88-90% on 100% nonrebreather. Chest x-ray showed large right pleural effusion and a small apical pneumothorax, most likely secondary to the thoracentesis done on 02/17/2018. I performed bedside paracentesis and removed 550 ml free flowing ascitic fluid. Bedside US showed large right pl effusion. Plan for pigtail chest tube, this may avoid intubation at this time Objective Vital Signs Date Time Temp Pulse Resp B/P (MAP) Pulse Ox O2 Delivery O2 Flow Rate FiO2 02/20/18 04:00 98.9 72 23 117/55 (75) 95 02/19/18 23:20 Non-Rebreather 15.00 100 Result Diagram: 02/20/18 0455 02/20/18 0455 Other Results Laboratory Tests Test 02/19/18 19:30 02/19/18 21:44 Blood Gas Puncture Site RT RADIAL RT RADIAL Blood Gas Patient Temperature 98.6 98.6 Blood Gas HCO3 23 mmol/L (22-26) 24 mmol/L (22-26) Blood Gas Base Excess -2.0 mmol/L (-2-2) -1.9 mmol/L (-2-2) Blood Gas Oxygen Saturation 82 % (90-100) 83 % (90-100) Arterial Blood pH 7.31 (7.380-7.420) 7.30 (7.380-7.420) Arterial Blood Partial Pressure CO2 48 mmHg (38-42) 49 mmHg (38-42) Arterial Blood Partial Pressure O2 54 mmHg (61-120) 57 mmHg (61-120) Arterial Blood Oxygen Content 10.9 Vol % (12.0-20.0) 11.4 Vol % (12.0-20.0) Arterial Blood Carboxyhemoglobin 2.1 % (0-4) 2.0 % (0-4) Arterial Blood Methemoglobin 1.0 % (0-2) 1.0 % (0-2) Blood Gas Hemoglobin 9.4 G/DL (12.0-16.0) 9.7 G/DL (12.0-16.0) Oxygen Delivery Device NASAL CANNULA Venti Mask Blood Gas Liter Flow 4 L/M Blood Gas Inspired Oxygen 36 % 50 % Objective Remarks GENERAL: female lying in bed, in moderate distress desaturating on 100 % nonrebreather SKIN: No rashes, ecchymoses or lesions. HEAD: Atraumatic. Normocephalic. No temporal or scalp tenderness. EYES: Pupils equal round and reactive. Extraocular motions intact. ENT: Nose without bleeding, purulent drainage or septal hematoma.Uvula midline. Airway patent. NECK: Trachea midline. No JVD or lymphadenopathy. CARDIOVASCULAR: Sinus tachycardia, normal rhythm without murmurs, gallops, or rubs. RESPIRATORY: Air entry diminished bilaterally with bilateral scattered expiratory wheezing. No rales, or rhonchi. Bedside ultrasound shows a large right-sided pleural effusion GASTROINTESTINAL: Abdomen soft, non-tender, + distended. No guarding. Mild Moderate size ascites on US MUSCULOSKELETAL: Extremities without clubbing, cyanosis, or edema. NEUROLOGICAL: Awake and alert. Motor and sensory grossly within normal limits. Normal speech. A/P Assessment and Plan Neuro: Hyperammonemia Hepatic encephalopathy -Continue lactulose and Xifaxan -Repeat ammonia level in a.m. Resp: Acute hypoxemic respiratory failure Large right hydropneumothorax COPD with exacerbation -Status post thoracentesis 02/17/18 by IR with residual pneumothorax -Placed pigtail catheter today at the bedside -Send fluid studies -Empiric antibiotics with Levaquin for COPD, probable SBP. Add cefepime renally dose -DuoNeb scheduled and as needed -Followed by veterinary receptionist -If not improving patient will need endotracheal intubation -Start IV Solu-Medrol, Symbicort CVS: Hypertension -Continue atenolol -Continue normal saline at 50 mL per GI: Liver cirrhosis with Ascites Hyperammonemia -S/p paracentesis at bedside today, fluid studies pending -Lactulose, Rifaximin -Hold Spironolactone, Lasix due to worsening renal failure -Continue Protonix : Acute kidney failure -Place Alejandre catheter for strict intake output -Renal ultrasound-essentially unremarkable, nephrology consult, check UA -Gentle hydration with 50 mL/h normal saline -Creatinine continues to worsen -Lasix and Aldactone placed on hold ID/HEME: Severe sepsis -Continue Levaquin and cefepime -Send blood culture, ascites fluid culture, pleural fluid culture -Send a UA with culture if indicated Endo: Hypothyroidism Type 2 diabetes -Levothyroxine -Sliding scale insulin DVT GI prophylaxis -Sergio's and SCDs -Subcu heparin-Hold for procedures -Pantoprazole Critical Care: The total critical care time was 45 minutes excluding procedures Patient is critically ill with acute hypoxemic respiratory failure and large right-sided hydropneumothorax. If respiratory status worsens patient will need intubation endotracheally and mechanical ventilation Leno Parra MD February 20, 2018 08:29
[2018-02-20] MEDS: MORPHINE SULFATE 4 MG/ML INJ IV PUSH PRN ×2 (08:30→16:17)
--- NOTE | 2018-02-20 08:37 | HHI.PR ---
Subjective Remarks ALERT HAS DIARRHEA NO DISTRESS Objective Vital Signs Date Time Temp Pulse Resp B/P (MAP) Pulse Ox O2 Delivery O2 Flow Rate FiO2 02/20/18 04:00 98.9 72 23 117/55 (75) 95 02/20/18 00:00 98.9 72 23 117/55 (75) 95 02/19/18 23:20 96 Non-Rebreather 15.00 100 02/19/18 23:20 98.2 72 23 111/55 (73) 95 02/19/18 21:05 Nasal Cannula 6.00 02/19/18 20:00 97.8 76 17 119/52 (74) 90 02/19/18 17:48 76 94 02/19/18 16:00 98.8 77 18 98/50 (66) 88 02/19/18 13:29 93 Nasal Cannula 3.00 02/19/18 12:00 98.8 76 17 114/56 (75) 90 02/19/18 11:00 20 I/O 02/19/18 02/19/18 02/19/18 02/20/18 02/20/18 02/20/18 06:59 14:59 22:59 06:59 14:59 22:59 Intake Total 700 ml Output Total 300 ml Balance 400 ml Intake Oral 600 ml IV Total 100 ml Output Urine Total 300 ml # Bowel Movements 1 Result Diagram: 02/20/18 0455 02/20/18 0455 Objective Remarks GENERAL: SKIN: Warm and dry. HEAD: Atraumatic. Normocephalic. EYES: Pupils equal and round. No scleral icterus. No injection or drainage. ENT: No nasal bleeding or discharge. Mucous membranes pink and moist. NECK: Trachea midline. No JVD. CARDIOVASCULAR: Regular rate and rhythm. RESPIRATORY: No accessory muscle use. decrease breath sounds on right. GASTROINTESTINAL: Abdomen soft, non-tender, nondistended. Hepatic and splenic margins not palpable. MUSCULOSKELETAL: Extremities without clubbing, cyanosis, or edema. No obvious deformities. NEUROLOGICAL: Awake and alert. No obvious cranial nerve deficits. Motor grossly within normal limits. Five out of 5 muscle strength in the arms and legs. Normal speech. PSYCHIATRIC: Appropriate mood and affect; insight and judgment normal. Assessment and Plan Assessment and Plan R PLEURAL EFFUSION COPD ANASARCA LIVER CIRRHOSIS PLAN O2 NEEDED BRONCHODILATOR THERAPY THORACENTESIS NEEDED Gerber Mayes MD February 20, 2018 08:37
[2018-02-20] MEDS: CITALOPRAM HYDROBROMIDE 20 MG TAB PO SCH (09:00)
[2018-02-20] MEDS: RIFAXIMIN 550 MG TAB PO SCH ×2 (09:00→20:44)
[2018-02-20] MEDS: PANTOPRAZOLE SOD 20 MG DELAYED RELEASE TAB PO SCH ×2 (09:00→20:44)
[2018-02-20] MEDS: DOCUSATE SODIUM 50 MG/SENNA 8.6 MG TAB PO SCH ×2 (09:00→20:44)
[2018-02-20] MEDS: ATENOLOL 25 MG TAB PO SCH (09:00)
[2018-02-20] MEDS: BUDESONIDE-FORMOTEROL 160/4.5 MCG INHALER INH SCH ×2 (09:00→19:36)
--- NOTE | 2018-02-20 09:17 | PD.PROCEDR ---
Procedure Note Procedure INDICATION: Diagnostic and therapeutic paracentesis, septic rule out SBP PROCEDURE ANIMAL CYTOLOGIST: Dr. Leno Parra MD Ultrasound used to suresh location CONSENT: Consent was obtained from patient prior to the procedure. Indications, risks, and benefits were explained at length. PROCEDURE SUMMARY: A time-out was performed. I wore a surgical cap, mask with protective eyewear, sterile gown and sterile gloves throughout the procedure. The area was cleansed and draped in usual sterile fashion using chlorhexidine scrub. Anesthesia was achieved with 1% lidocaine. The _ of the abdomen was prepped and draped in a sterile fashion using chlorhexidine scrub. 1% lidocaine was used to numb the skin, soft tissue and peritoneum at LLQ site marked with US. The paracentesis catheter was inserted and advanced with negative pressure until slightly biliary tinged fluid was aspirated. Approximately 60 mL of ascitic fluid was collected and sent for laboratory analysis. The catheter was then connected to the Vacutainer and additional 500 ml of additional ascitic fluid were drained. The catheter was removed and no leaking was noted. A bandaid was placed over the puncture wound. The patient tolerated the procedure well without any immediate complications. Estimated blood loss was <1ml. Leno Parra MD February 20, 2018 09:17
[2018-02-20 09:23] LABS: TOTAL PROTEIN,PERITONEAL FLUID 0.8 GM/DL
--- NOTE | 2018-02-20 09:26 | PD.PROCEDR ---
Procedure Note Procedure Procedure: Right pigtail chest tube placement, ultrasound-guided Indication: Large right effusion with pneumothorax Details of procedure: The patient was laid in left lateral decubitus position. The right posterior lateral chest wall was cleaned with ChloraPrep twice. Regional sterile drapes were applied and I used full sterile precautions including Cap mask sterile gown and gloves. 1% lidocaine with epinephrine was used for local anesthesia and injected into the subcutaneous and deep muscle tissues, after insertion location was identified with ultrasound. A 0.25 cm skin incision was made with a scalpel. 18G access needle was introduced into the pleural space and biliary tinged fluid was aspirated. A guidewire was placed and the needle was removed. After serial dilation, a 8F Bulgarian pigtail catheter was introduced using Seldinger technique over the guidewire and internal stiffener of the pigtail catheter was removed along with guidewire. The pigtail catheter was connected to the pleurovac at -20 suction. Initial output was 800mL of bile tinged pleural fluid. The pigtail catheter was secured with 1 silk suture and Stay fix dressing Estimated blood loss: <1 cc CXR pending Complications: None Leno Parra MD February 20, 2018 09:26
[2018-02-20 09:32] LABS: PERITONEAL POLYS(SEGS) 37 %; PERITONEAL RBC 565 /MM3 (0-0)
[2018-02-20 09:33] LABS: PERITONEAL EOS 1 %; PERITONEAL HISTIOCYTES 1 %; PERITONEAL LYMPHS 47 %; PERITONEAL MESOTHELIAL 1 %; PERITONEAL MONOS 12 %; PERITONEAL PLASMA CELLS 1 %
[2018-02-20] MEDS: CEFEPIME INJ 1,000 MG in SODIUM CHLORIDE 0.9% INJ 100 ML IV SCH ×2 (10:33→17:10)
--- NOTE | 2018-02-20 10:33 | RADRPT ---
EXAM DATE/TIME: 02/20/2018 09:29 [facility] COMPARISON: CHEST SINGLE AP, February 19, 2018, 20:50. INDICATIONS : Post chest tube placement. MEDICAL HISTORY : Hypertension. Chronic obstructive pulmonary disease. Diabetes mellitus type II. SURGICAL HISTORY : Appendectomy. Hysterectomy. Tonsillectomy. ENCOUNTER: Subsequent ACUITY: 4 - 6 days PAIN SCORE: Non-responsive. LOCATION: Bilateral chest FINDINGS: There is a small bore chest tube in Place at the right lung base. There is only minimal effusion vivian ining. This is significantly improved when compared to prior study of 02/19/18. There is diffuse parenchymal infiltrate throughout the left lung with consolidation. Study would sugg est diffuse pneumonia. The area of infiltrate on the left appears mildly worsen when compared to prev ious study of 02/19/18. CONCLUSION: 1. Interval placement of a right basilar chest tube with drainage of the patient's pleural effusion. 2. Diffuse infiltrate throughout the left lung concerning for pneumonia. Colin Tompkins MD on February 20, 2018 at 10:30 Board Certified Radiologist. This report was verified electronically.
[2018-02-20] MEDS: SODIUM CHLORIDE 0.9% FLUSH 10 ML FLUSH IV FLUSH SCH ×2 (10:34→20:44)
[2018-02-20] MEDS: methylPREDNISolone SOD SUCC 125 MG/2 ML VIAL IV PUSH SCH ×2 (10:34→23:07)
[2018-02-20 11:27] LABS: TOTAL PROTEIN,PLEURAL FLUID 1.2 GM/DL
--- NOTE | 2018-02-20 11:48 | HHI.NPPN ---
Subjective Renal Failure: Acute Interval History She was moved to [facility]. Is on non rebreather, lethargic. Had paracentesis today at bedside, approximately 500 ml drained. Abdomen is distended. (Oma Bernard) Review of Systems General General Remarks unable to obtain (Oma Bernard) Objective Data Data Vital Signs Date Time Temp Pulse Resp B/P (MAP) Pulse Ox O2 Delivery O2 Flow Rate FiO2 02/20/18 08:47 94 Non-Rebreather 15.00 02/20/18 04:00 98.9 72 23 117/55 (75) 95 02/20/18 00:00 98.9 72 23 117/55 (75) 95 02/19/18 23:20 96 Non-Rebreather 15.00 100 02/19/18 23:20 98.2 72 23 111/55 (73) 95 02/19/18 21:05 Nasal Cannula 6.00 02/19/18 20:00 97.8 76 17 119/52 (74) 90 02/19/18 17:48 76 94 02/19/18 16:00 98.8 77 18 98/50 (66) 88 02/19/18 13:29 93 Nasal Cannula 3.00 02/19/18 12:00 98.8 76 17 114/56 (75) 90 (Oma Bernard) -: 02/20/18 0455 02/20/18 0455 Microbiology 02/20/18 Fungal Smear, Received Pending 02/20/18 Fungal Culture, Received Pending 02/20/18 Acid Fast Stain, Received Pending 02/20/18 Mycobacterial Culture, Received Pending 02/20/18 Gram Stain, Received Pending 02/20/18 Body Fluid Culture, Received Pending 02/20/18 Gram Stain, Received Pending 02/20/18 Body Fluid Culture, Received Pending Imaging Last 72 hours Impressions Chest X-Ray 02/20/18 0000 Signed Impressions: Service Date/Time: February 09:29 - CONCLUSION: 1. Interval placement of a right basilar chest tube with drainage of the patient's pleural effusion. 2. Diffuse infiltrate throughout the left lung concerning for pneumonia. Colin Tompkins MD Renal Ultrasound 02/19/18 0000 Signed Impressions: Service Date/Time: Monday, February 19, 2018 10:25 - CONCLUSION: 1. No evidence of hydronephrosis. 2. Limited visualization of the urinary bladder. Lyndon Goodson MD Chest X-Ray 02/19/18 0000 Signed Impressions: Service Date/Time: Monday, February 19, 2018 20:50 - CONCLUSION: 1. Cardiomegaly with right basilar density. Simon Fernandez MD Chest X-Ray 02/19/18 0000 Signed Impressions: Service Date/Time: Monday, February 19, 2018 14:47 - CONCLUSION: 1. Small right apical pneumothorax measuring 8 mm. This is improved compared to the prior study. 2. There continues to be a large right-sided pleural effusion. 3. Mild infiltrate in the left lung base. Lyndon Goodson MD Chest X-Ray 02/18/18 0000 Signed Impressions: Service Date/Time: Sunday, February 18, 2018 11:31 - CONCLUSION: Stable size to the apical pneumothorax and increasing size of the right pleural effusion. Bassem Hoffman MD Abdomen Ultrasound 02/18/18 0000 Signed Impressions: Service Date/Time: Sunday, February 18, 2018 11:07 - CONCLUSION: There is only a trace volume of free fluid in the abdomen and pelvis, not enough for safe paracentesis. Fidel Hathaway MD Abdomen/Pelvis CT 02/17/18 1438 Signed Impressions: Service Date/Time: Saturday, February 17, 2018 16:23 - CONCLUSION: 1. Significant increase in the amount of abdominal pelvic ascites when compared to October 2016. 2. Significant increase in size of right pleural effusion when compared to October 2016. The right pleural effusion does cause mediastinal shift towards the left. 3. Stable appearance to cirrhotic liver. No focal lesions. Bassem Hoffman MD Chest X-Ray 02/17/18 1430 Signed Impressions: Service Date/Time: Saturday, February 17, 2018 14:32 - CONCLUSION: Large right pleural effusion with associated compressive atelectasis of the right lung. Fidel Hathaway MD Tubes & Lines: Alejandre Tubes & Lines Comment chest tube (Oma Bernard) Physical Exam General Appearance: Well Developed, Comfortable Appearance Remarks lethargic (Oma Bernard) Throat Throat Exam: Oral Mucosa [place] & Moist (Oma Bernard) Pulmonary Resp Exam: Breath Sounds Equal, No Distress, Decreased Bases (Oma Bernard) Cardiology CV Exam: Regular, Normal Sinus Rhythm (Oma Bernard) Gastrointestinal/Abdomen GI Exam: Positive Bowel Movement, Distended GI Remarks firm, distended (Oma Bernard) Musculoskeletal MS Exam: Joints Intact, Normal Tone (Oma Bernard) Integumentary Skin Exam: Warm, Dry, Intact (Oma Bernard) Extremeties Extremities Exam: No Edema, Pedal Pulses Palpable (Oma Bernard) Neurologic Neuro Exam: Obtunded (Oma Bernard) Assessment/Plan Discussed Condition With: Patient Discussed Condition Comment RN Problem List: (1) MAT (acute kidney injury) ICD Codes: N17.9 - Acute kidney failure, unspecified Plan: Normal renal function at baseline Etiology of renal failure is not completely clear, may have hepatorenal syndrome She is oliguric, renal function is worse Imaging negative for retention/obstruction Blood pressure is better, hypotensive yesterday Pending UA and urine electrolytes, D/W RN Holding Lasix, Continue crystalloid and colloid infusions, ordered NS@ 50 and IV Albumin x 8 doses Repeat labs daily, monitor urine output Avoid nephrotoxic agents Prognosis is guarded to poor. (2) Ascites ICD Codes: R18.8 - Other ascites Status: Acute Plan: Due to ETOH induced liver disease Paracentesis as needed. Had 560 ml today. Chest tube placed on right for recurrent pleural effusions. (3) Alcoholic cirrhosis of liver ICD Codes: K70.30 - Alcoholic cirrhosis of liver without ascites Status: Acute Plan: Continue current management with albumin, lactulose, Xifaxan See above (Oma Bernard) Plan Patient was seen and examined on 02/20/18. Agree with above assessment and plan. May have HRS? Continue Albumin and crystalloids. Add Octreotide. Discussed with the front end specialist. Later she got intubated. On Levophed, no need for midodrine due to being on Levophed. (Kip Cash MD) Problem Qualifiers (1) Ascites: Qualified Codes: K70.31 - Alcoholic cirrhosis of liver with ascites (2) Alcoholic cirrhosis of liver: Qualified Codes: K70.31 - Alcoholic cirrhosis of liver with ascites Oma Bernard February 20, 2018 11:48 Kip Cash MD February 21, 2018 15:31
[2018-02-20 11:53] LABS: PLEURAL FLUID EOS 2 %; PLEURAL FLUID HISTIOCYTES 7 %; PLEURAL FLUID LYMPHS 2 %; PLEURAL FLUID MESOTHELIAL 2 %; PLEURAL FLUID MONOS 6 %; PLEURAL FLUID POLYS (SEGS) 81 %
[2018-02-20 11:54] LABS: PLEURAL FLUID RBC 699 /MM3 (0-0); PLEURAL FLUID WBC 3243 /MM3 (0-10)
[2018-02-20] MEDS ORDERED: MORPHINE SULFATE 4 MG/ML INJ IV PUSH ONE (12:30)
[2018-02-20 13:15] LABS: BILIRUBIN, URINE NEG (NEG); BLOOD, URINE SMALL (NEG); GLUCOSE,URINE NEG (NEG); HYALINE CAST, URINE 75 /lpf (RARE); KETONE, URINE NEG (NEG); NITRITE,URINE NEG (NEG); SQUAMOUS EPITHELIAL CELL URINE 2 /hpf (0-5); URINE COLOR DARK-YELLOW (YELLW/STRAW); URINE LEUKOCYTE ESTERASE TRACE (NEG)
[2018-02-20 14:53] LABS: INTERNATIONAL NORMALIZED RATIO 1.7 RATIO; PROTHROMBIN TIME - PATIENT 17.5 SEC (9.8-11.6)
[2018-02-20] MEDS ORDERED: SODIUM CHLOR 0.9% 1000 ML INJ 1,000 ML IV ONE (15:15)
[2018-02-20] MEDS ORDERED: SODIUM BICARBONATE 8.4% INJ 50 MEQ/50 ML SYR ONE (17:13)
[2018-02-20] MEDS ORDERED: TERBUTALINE INJ 1 MG/ML AMP SQ PRN (17:30)
[2018-02-20] MEDS ORDERED: ETOMIDATE 40 MG/20 ML VIAL ONE (17:36)
[2018-02-20] MEDS ORDERED: MIDAZOLAM HCL 5 MG/ML VIAL (1 ML) ONE (17:36)
[2018-02-20] MEDS ORDERED: ROCURONIUM INJ 50 MG/5 ML VIAL IV ONE (17:45)
[2018-02-20] MEDS ORDERED: ETOMIDATE 20 MG/10 ML VIAL IV PUSH ONE (17:45)
[2018-02-20] MEDS ORDERED: MIDAZOLAM HCL 5 MG/5 ML VIAL IV PUSH ONE (17:45)
--- NOTE | 2018-02-20 18:03 | PD.PROCEDR ---
Procedure Note Procedure Indication: Acute hypoxemic respiratory failure, BiPAP Failure INTUBATION: The patient was put in optimal position for the procedure. Rapid sequence intubation was initiated by me using 15 milligrams of etomidate IV and 5 milligrams of Versed IV. 50 mg IV Rocuronium for NM Paralysis. DL with Mac 4 blade Grade 1 view. Patient was intubated with a 8 cuffed endotracheal tube. Tube placement was confirmed by visualization of the tube and balloon passing through the cords, capnometry and subsequent chest x-ray. Breath sounds were equal and well aerated bilaterally postintubation. No breath sounds over stomach. Patient tolerated procedure well. Leno Parra MD February 20, 2018 18:03
--- NOTE | 2018-02-20 18:05 | PD.PROCEDR ---
Central Line Procedure REASON FOR PROCEDURE Central venous access PROCEDURE PERFORMED Central line placement: R subclavian central line CONSENT Informed consent for procedure was obtained from patient verbally. The risks and benefits of the procedure were discussed to include but limited to bleeding , clot formation, infection, and even . ANESTHESIA Local injection of 1% Lidocaine DESCRIPTION OF THE PROCEDURE The patient was placed in supine, mild Trendelenburg position. The area was exposed and cleansed with ChloraPrep, times two. Large sterile drape was used to cover the patient, with the site exposed, under sterile conditions including cap, face mask, sterile gown, and sterile gloves. On single attempt, the introducer needle was inserted with negative pressure in syringe and venous flash was obtained. The guide wire was then advanced without any restriction and the needle was removed. The dilator was used without any complications. Using Seldinger technique the 20 cm 7F triple catheter was advanced over the guide wire to a depth of 16 centimeters. The guide wire was removed. All ports were aspirated with dark venous blood return and flushed easily with sterile saline. All ports were capped. Antibiotic disc was placed around central line at puncture site. The central line was secured to the skin with two interrupted 2.0 silk sutures. The area was bandaged with sterile see- through central line bandage. A StatLock was not used due to small body frame COMPLICATIONS: No apparent complications ESTIMATED BLOOD LOSS: Less than 1 cc. Leno Parra MD February 20, 2018 18:05
[2018-02-20] MEDS ORDERED: SODIUM BICARBONATE 8.4% SOLN 50 MEQ/50 ML VIAL IV ONE (18:15)
--- NOTE | 2018-02-20 18:17 | RADRPT ---
EXAM DATE/TIME: 02/20/2018 17:55 [facility] COMPARISON: No previous studies available for comparison. INDICATIONS : Central Line Placement MEDICAL HISTORY : Hypertension. Chronic obstructive pulmonary disease. Diabetes mellitus type SURGICAL HISTORY : Appendectomy. Hysterectomy. Tonsillectomy ENCOUNTER: Subsequent ACUITY: 1 week PAIN SCORE: Non-responsive. LOCATION: Bilateral chest FINDINGS: A single view of the chest demonstrates endotracheal tube in good position. Right central line in sup erior vena cava. Bilateral diffuse airspace disease with small caliber right-sided chest tube. CONCLUSION: 1. New right central line tip in superior vena cava without pneumothorax. Slight improvement in airsp debora disease since exam from earlier today. Small caliber right chest tube. Vikas Davis MD on February 20, 2018 at 18:14 Board Certified Radiologist. This report was verified electronically.
[2018-02-20] MEDS: NOREPINEPHRINE-DEXTROSE DRIP 250 ML IV PRN (19:00)
[2018-02-20] MEDS: OCTREOTIDE INJ 50 MCG/ML AMP SQ SCH (21:00)
[2018-02-20 21:35] LABS: GLUCOSE,RANDOM 145 MG/DL (74-106)
[2018-02-20 21:36] LABS: ALBUMIN 3.4 GM/DL (3.4-5.0); TOTAL PROTEIN 5.8 GM/DL (6.4-8.2)
[2018-02-20 21:37] LABS: ALKALINE PHOSPHATASE 75 U/L (45-117); ALT (GPT) 13 U/L (10-53); AST (GOT) 39 U/L (15-37); BICARBONATE 21.6 MEQ/L (21.0-32.0); CALCIUM 8.8 MG/DL (8.5-10.1); CHLORIDE 102 MEQ/L (98-107); SODIUM (NA) 136 MEQ/L (136-145); TOTAL BILIRUBIN ADULT 5.6 MG/DL (0.2-1.0)
[2018-02-20 21:38] LABS: CREATININE 2.59 MG/DL (0.50-1.00)
[2018-02-20 21:39] LABS: BLOOD UREA NITROGEN 40 MG/DL (7-18); GLOMERULAR FILTRATION RATE 18 ML/MIN (>89)
[2018-02-20] MEDS: PROPOFOL 1000 MG/100 ML IV PRN (22:00)
[2018-02-21] VITALS (14 sets, daily range): BP systolic 90–114; BP diastolic 45–53; PULSE 59–78; RESP 16–20; TEMP 97.6–98; O2SAT 93–100
[2018-02-21] MEDS: ALBUMIN 25% INJ 100 ML IV SCH ×3 (00:53→12:34)
[2018-02-21] MEDS: CEFEPIME INJ 1,000 MG in SODIUM CHLORIDE 0.9% INJ 100 ML IV SCH ×3 (00:53→17:01)
[2018-02-21] MEDS: RESP: ALBUTEROL 2.5 MG/IPRATROPIUM 0.5 MG NEB (SCH) NEB ×4 (03:47→20:01)
--- NOTE | 2018-02-21 04:16 | RADRPT ---
EXAM DATE/TIME: 02/21/2018 03:16 [facility] COMPARISON: CHEST SINGLE AP, February 20, 2018, 17:55. INDICATIONS : Respiratory disease. MEDICAL HISTORY : Hypertension. Chronic obstructive pulmonary disease. Diabetes mellitus typeII. SURGICAL HISTORY : Appendectomy. Hysterectomy. Tonsillectomy ENCOUNTER: Subsequent ACUITY: 1 week PAIN SCORE: Non-responsive. LOCATION: Bilateral chest FINDINGS: Endotracheal tube and right subclavian central line are stable. Right chest pigtail thoracostomy tube is again noted. Diffuse bilateral infiltrate is again noted, most confluent in the left lung base. C ardiac contours are largely obscured. CONCLUSION: Slight interval worsening in aeration Fidel Kelly MD on February 21, 2018 at 4:13 Board Certified Radiologist. This report was verified electronically.
[2018-02-21 05:23] LABS: AUTOMATED NEUTROPHIL # 14.7 TH/MM3 (1.8-7.7); BASOPHIL # 0.1 TH/MM3 (0-0.2); BASOPHIL % 0.5 % (0.0-2.0); HEMATOCRIT 23.6 % (35.0-46.0); HEMOGLOBIN 8.1 GM/DL (11.6-15.3); LYMPH % 2.5 % (9.0-44.0); LYMPHOCYTE # 0.4 TH/MM3 (1.0-4.8); MEAN CELL VOLUME 98.6 FL (80.0-100.0); MEAN CORPUSCULAR HEMOGLOBIN 33.7 PG (27.0-34.0); MEAN CORPUSCULAR HGB CONC 34.2 % (32.0-36.0); MEAN PLATELET VOLUME 8.5 FL (7.0-11.0); MONO % 2.2 % (0.0-8.0); MONOCYTE # 0.3 TH/MM3 (0-0.9); NEUT % 94.8 % (16.0-70.0); PLATELET COUNT 98 TH/MM3 (150-450); RED CELL DISTRIBUTION WIDTH 17.4 % (11.6-17.2); WHITE BLOOD COUNT 15.5 TH/MM3 (4.0-11.0)
[2018-02-21] MEDS: LACTULOSE SYRUP 20 GM/30 ML CUP PO SCH ×4 (05:41→17:01)
[2018-02-21] MEDS: LEVOTHYROXINE SODIUM 50 MCG TAB PO SCH (05:41)
[2018-02-21] MEDS: HEPARIN SODIUM - SQ 10,000 UNITS/ML VIAL SQ SCH ×3 (05:42→23:10)
[2018-02-21 05:46] LABS: ALBUMIN 3.4 GM/DL (3.4-5.0); ALKALINE PHOSPHATASE 58 U/L (45-117); ALT (GPT) 12 U/L (10-53); AST (GOT) 34 U/L (15-37); BICARBONATE 23.2 MEQ/L (21.0-32.0); BLOOD UREA NITROGEN 44 MG/DL (7-18); CALCIUM 8.5 MG/DL (8.5-10.1); CHLORIDE 102 MEQ/L (98-107); CREATININE 2.53 MG/DL (0.50-1.00); GLOMERULAR FILTRATION RATE 19 ML/MIN (>89); GLUCOSE,RANDOM 162 MG/DL (74-106); MAGNESIUM 2.1 MG/DL (1.5-2.5); SODIUM (NA) 138 MEQ/L (136-145); TOTAL PROTEIN 5.5 GM/DL (6.4-8.2)
[2018-02-21 07:55] LABS: ACANTHOCYTES 1+ (NORMAL); OVALOCYTES 1+ (NORMAL)
[2018-02-21] MEDS: INSULIN ASPART SUPPLEMENTAL SCALE SQ SCH ×4 (08:00→21:00)
[2018-02-21] MEDS: BUDESONIDE-FORMOTEROL 160/4.5 MCG INHALER INH SCH ×2 (08:21→21:00)
[2018-02-21] MEDS: PROPOFOL 1000 MG/100 ML IV PRN ×2 (08:22→16:19)
[2018-02-21] MEDS: SODIUM CHLOR 0.9% 1000 ML INJ 1,000 ML IV SCH (08:22)
[2018-02-21] MEDS: SODIUM CHLORIDE 0.9% FLUSH 10 ML FLUSH IV FLUSH SCH ×2 (08:22→22:39)
[2018-02-21] MEDS: methylPREDNISolone SOD SUCC 125 MG/2 ML VIAL IV PUSH SCH ×2 (08:33→22:39)
[2018-02-21] MEDS: OCTREOTIDE INJ 50 MCG/ML AMP SQ SCH ×2 (08:33→23:10)
[2018-02-21] MEDS: ATENOLOL 25 MG TAB PO SCH (08:34)
[2018-02-21] MEDS: RIFAXIMIN 550 MG TAB PO SCH ×2 (08:34→23:10)
[2018-02-21] MEDS: DOCUSATE SODIUM 50 MG/SENNA 8.6 MG TAB PO SCH ×2 (08:34→21:00)
[2018-02-21] MEDS: CITALOPRAM HYDROBROMIDE 20 MG TAB PO SCH (08:34)
[2018-02-21] MEDS: PANTOPRAZOLE SOD 20 MG DELAYED RELEASE TAB PO SCH ×2 (08:35→23:10)
--- NOTE | 2018-02-21 09:19 | HHI.PR ---
Subjective Remarks WORSENING SOB NOW IN ISC INTUBATED ON VENT SUPPORT RIGHT CHEST TUBE IN LACE Objective Vital Signs Date Time Temp Pulse Resp B/P (MAP) Pulse Ox O2 Delivery O2 Flow Rate FiO2 02/21/18 08:00 40 02/21/18 08:00 62 02/21/18 07:00 92 Mechanical Ventilator 40 02/21/18 04:04 94 45 02/21/18 04:00 97.7 59 16 90/45 (60) 100 02/21/18 04:00 45 02/21/18 03:45 59 90/45 02/21/18 00:47 94 45 02/21/18 00:00 45 02/21/18 00:00 93 Mechanical Ventilator 45 02/21/18 00:00 97.7 77 20 106/52 (70) 93 02/20/18 21:30 97 Mechanical Ventilator 50 02/20/18 21:30 100 50 02/20/18 20:00 98.0 64 26 113/54 (73) 100 02/20/18 20:00 70 02/20/18 19:00 63 106/55 02/20/18 19:00 100 Mechanical Ventilator 70 02/20/18 18:00 70 02/20/18 17:45 98 100 02/20/18 17:15 93 80 02/20/18 16:22 20 02/20/18 16:00 98.4 80 21 101/52 (68) 88 02/20/18 12:00 98.6 80 16 102/49 (66) 93 I/O 02/20/18 02/20/18 02/20/18 02/21/18 02/21/18 02/21/18 07:00 15:00 23:00 07:00 15:00 23:00 Intake Total 2220 ml 334.8 ml Output Total 3660 ml 350 ml Balance -1440 ml -15.2 ml Intake Oral 20 ml IV Total 2200 ml 334.8 ml Output Urine Total 500 ml 250 ml Chest Tube Drainage Total 3160 ml 100 ml # Bowel Movements 0 Result Diagram: 02/21/18 0510 02/21/18 0510 Objective Remarks GENERAL: SKIN: Warm and dry. HEAD: Atraumatic. Normocephalic. EYES: Pupils equal and round. No scleral icterus. No injection or drainage. ENT: No nasal bleeding or discharge. Mucous membranes pink and moist. NECK: Trachea midline. No JVD. CARDIOVASCULAR: Regular rate and rhythm. RESPIRATORY: No accessory muscle use. decrease breath sounds on right. GASTROINTESTINAL: Abdomen soft, non-tender, nondistended. Hepatic and splenic margins not palpable. MUSCULOSKELETAL: Extremities without clubbing, cyanosis, or edema. No obvious deformities. NEUROLOGICAL: Awake and alert. No obvious cranial nerve deficits. Motor grossly within normal limits. Five out of 5 muscle strength in the arms and legs. Normal speech. PSYCHIATRIC: Appropriate mood and affect; insight and judgment normal. Assessment and Plan Assessment and Plan RESPIRATORY FAILURE ACUTE RENAL FAILURE R PLEURAL EFFUSION COPD ANASARCA LIVER CIRRHOSIS PLAN VENT SUPPORT BRONCHODILATOR THERAPY NEPHROLOGY FOLLOWING OUTLOOK Gerber Sabillon MD February 21, 2018 09:19
[2018-02-21 10:12] LABS: BILIRUBIN, URINE NEG (NEG); BLOOD, URINE MOD (NEG); GLUCOSE,URINE NEG (NEG); KETONE, URINE NEG (NEG); NITRITE,URINE NEG (NEG); PH, URINE 5.5 (5.0-8.5); URINE COLOR YELLOW (YELLW/STRAW); URINE LEUKOCYTE ESTERASE MOD (NEG)
[2018-02-21 10:17] LABS: BACTERIA, URINE FEW /hpf; HYALINE CAST, URINE 73 /lpf (RARE); MUCUS URINE MOD /lpf (OCC); SQUAMOUS EPITHELIAL CELL URINE 3 /hpf (0-5)
--- NOTE | 2018-02-21 10:18 | HHI.CCPN ---
Subjective Remarks/Hospital Course 72-year-old female with a past medical history of liver cirrhosis and anasarca, including ascites and right pleural effusion, COPD, coronary artery disease, and ascites for which she receives paracentesis every 3 weeks. She has history of diabetes, hypertension, acid reflux and hypothyroidism. She has been admitted with increasing shortness of breath, a large pleural effusion. The right thoracentesis was done, with a small residual right apical pneumothorax. Her last paracentesis was 02/07/2018. The patient's shortness of breath was somewhat improving however later tonight it became worse again requiring nonrebreather ventilation mask and transferred to ICU. She denies cough, no expectoration, fever, chills or hemoptysis. 02/20/18: On my evaluation patient is in moderate respiratory distress oxygen saturation 88-90% on 100% nonrebreather. Chest x-ray showed large right pleural effusion and a small apical pneumothorax, most likely secondary to the thoracentesis done on 02/17/2018. I performed bedside paracentesis and removed 550 ml free flowing ascitic fluid. Bedside US showed large right pl effusion. Plan for pigtail chest tube, this may avoid intubation at this time 02/21: Worsening hypoxemic respiratory failure requiring intubation and mechanical ventilation yesterday evening. WBC count is slightly improved 15.5 today. BUN 44 creatinine 2.53. Urine output 750 mL in 24 hours. Right chest tube has put out 3.3 L since placement yesterday. Patient had been started on Levophed currently at 1 mcg/min, also subcu octreotide for possible hepatorenal syndrome. Remains very critical prognosis is guarded. Was not that pupils are unequal. Chest x-ray continues to show bilateral interstitial infiltrates Objective Vital Signs Date Time Temp Pulse Resp B/P (MAP) Pulse Ox O2 Delivery O2 Flow Rate FiO2 02/21/18 09:17 100 40 02/21/18 09:17 Ventilator 02/21/18 08:00 97.6 70 16 97/47 (64) 02/20/18 08:47 15.00 Intake and Output 02/21/18 02/21/18 02/22/18 08:00 16:00 00:00 Intake Total 334.8 ml Output Total 350 ml Balance -15.2 ml Result Diagram: 02/21/18 0510 02/21/18 0510 Other Results Laboratory Tests Test 02/20/18 10:58 02/20/18 16:39 02/20/18 17:20 02/20/18 19:01 Blood Gas Puncture Site RT RADIAL RT RADIAL RT RADIAL RT RADIAL Blood Gas Patient Temperature 98.6 98.6 98.6 98.6 Blood Gas HCO3 23 mmol/L (22-26) 21 mmol/L (22-26) 23 mmol/L (22-26) 20 mmol/L (22-26) Blood Gas Base Excess -2.6 mmol/L (-2-2) -5.1 mmol/L (-2-2) -2.5 mmol/L (-2-2) -3.2 mmol/L (-2-2) Blood Gas Oxygen Saturation 91 % (90-100) 87 % (90-100) 89 % (90-100) 97 % ( 90-100) Arterial Blood pH 7.30 (7.380-7.420) 7.25 (7.380-7.420) 7.28 (7.380-7.420) 7.43 (7.380-7.420) Arterial Blood Partial Pressure CO2 48 mmHg (38-42) 49 mmHg (38-42) 51 mmHg (38-42) 31 mmHg (38-42) Arterial Blood Partial Pressure O2 73 mmHg (61-120) 63 mmHg (61-120) 69 mmHg (61-120) 140 mmHg (61-120) Arterial Blood Oxygen Content 11.5 Vol % (12.0-20.0) 10.9 Vol % (12.0-20.0) 10.8 Vol % (12.0-20.0) 12.1 Vol % (12.0-20.0) Arterial Blood Carboxyhemoglobin 1.6 % (0-4) 1.4 % (0-4) 1.6 % (0-4) 1.7 % (0-4) Arterial Blood Methemoglobin 1.2 % (0-2) 0.9 % (0-2) 0.9 % (0-2) 0.8 % (0-2) Blood Gas Hemoglobin 8.9 G/DL (12.0-16.0) 8.9 G/DL (12.0-16.0) 8.5 G/DL (12.0-16.0) 8.7 G/DL (12.0-16.0) Oxygen Delivery Device PRB Non-Rebreathing Mask BiPAP VENTILATOR Blood Gas Liter Flow 15 L/M 15 L/M Blood Gas Inspired Oxygen 100 % 80 % 70 % Blood Gas Ventilator Setting [id number] [facility] Objective Remarks GENERAL: female lying in bed, intubated sedated with propofol SKIN: No rashes, ecchymoses or lesions. HEAD: Atraumatic. Normocephalic. No temporal or scalp tenderness. EYES: Pupils equal right pupil is 6 mm left is for both are reactive ENT: Orotracheally intubated NECK: Trachea midline. No JVD or lymphadenopathy. CARDIOVASCULAR: S1-S2 normal no murmurs. Hypotensive on Levophed at 1 mcg/min RESPIRATORY: Air entry diminished bilaterally with bilateral mild expiratory wheezing. No rales, or rhonchi. Right pig tail catheter in place with >3L output in 24 hrs GASTROINTESTINAL: Abdomen soft, non-tender, + distended. No guarding. Mild - Moderate size ascites on US, status post paracentesis MUSCULOSKELETAL: Extremities without clubbing, cyanosis, or edema. NEUROLOGICAL: Awake and alert. Pupils unequal as above. Wakes up easily follows commands, no focal deficits other than unequal pupils A/P Assessment and Plan Neuro: Hyperammonemia Hepatic encephalopathy Anisocoria -Continue lactulose and Xifaxan -Repeat ammonia level in a.m. -Propofol for sedation and ventilator synchrony -Daily sedation location -Anisocoria does not seem to be secondary to intracranial event Resp: Acute hypoxemic respiratory failure Large right hydropneumothorax COPD with exacerbation -Intubated and placed on mechanical ventilation 02/20/2018 -Status post thoracentesis 02/17/18 by IR with residual pneumothorax -s/p pigtail catheter 02/[address] Parra with 3.3L. Fluid studies concerning for parapneumonic effusion -Empiric antibiotics with Levaquin for COPD, and Cefepime -DuoNeb scheduled and as needed -If not improving patient will need endotracheal intubation -Continue IV Solu-Medrol for COPD exacerbation CVS: Hypotension History of hypertension -Levophed to keep map above 65 -Hold atenolol -Continue normal saline at 50 mL per GI: Liver cirrhosis with Ascites Hyperammonemia -S/p paracentesis at bedside today, fluid studies does not show SBP -Lactulose, Rifaximin -Hold Spironolactone, Lasix due to worsening renal failure -Continue Protonix : Acute kidney failure Probable hepatorenal syndrome -Alejandre catheter for strict intake output -Continue subcu octreotide and IV Levophed -Renal ultrasound-essentially unremarkable, nephrology consulted Dr. Cash -Gentle hydration with 50 mL/h normal saline -Creatinine continues to worsen -Lasix and Aldactone placed on hold ID/HEME: Severe sepsis/Shock -Continue Levaquin and cefepime. Give single dose of vancomycin -Chest CT ordered to better evaluate for effusion and infiltrate. Sputum culture, influenza swab -Send blood culture, ascites fluid culture, pleural fluid culture -Send a UA with culture if indicated Endo: Hypothyroidism Type 2 diabetes -Levothyroxine -Sliding scale insulin DVT GI prophylaxis -Sergio's and SCDs -Subcu heparin-Hold for procedures -Pantoprazole Critical Care: The total critical care time was 45 minutes excluding procedures Patient is critically ill with acute hypoxemic respiratory failure and large right-sided hydropneumothorax. Now with multiorgan failure hepatorenal syndrome and severe sepsis. Prognosis is guarded. I will discuss with family today Leno Parra MD February 21, 2018 10:18
--- NOTE | 2018-02-21 12:25 | HHI.NPPN ---
Subjective Renal Failure: Acute Interval History She was intubated overnight . Renal function is stable. She is non oliguric. FiO2 of 40%. Hypotensive on pressors. (Oma Bernard) Review of Systems General General Remarks unable to obtain (Oma Bernard) Objective Data Data 02/21/18 02/22/18 18:59 06:59 Intake Total 1047 ml Balance 1047 ml IV Total 1047 ml Vital Signs Date Time Temp Pulse Resp B/P (MAP) Pulse Ox O2 Delivery O2 Flow Rate FiO2 02/21/18 11:35 94 40 02/21/18 10:00 62 02/21/18 09:17 100 40 02/21/18 09:17 98 Ventilator 40 02/21/18 08:00 40 02/21/18 08:00 97.6 70 16 97/47 (64) 96 02/21/18 08:00 62 02/21/18 07:00 92 Mechanical Ventilator 40 02/21/18 04:04 94 45 02/21/18 04:00 97.7 59 16 90/45 (60) 100 02/21/18 04:00 45 02/21/18 03:45 59 90/45 02/21/18 00:47 94 45 02/21/18 00:00 45 02/21/18 00:00 93 Mechanical Ventilator 45 02/21/18 00:00 97.7 77 20 106/52 (70) 93 02/20/18 21:30 97 Mechanical Ventilator 50 02/20/18 21:30 100 50 02/20/18 20:00 98.0 64 26 113/54 (73) 100 02/20/18 20:00 70 02/20/18 19:00 63 106/55 02/20/18 19:00 100 Mechanical Ventilator 70 02/20/18 18:00 70 02/20/18 17:45 98 100 02/20/18 17:15 93 80 02/20/18 16:22 20 02/20/18 16:00 98.4 80 21 101/52 (68) 88 (Oma Bernard) -: 02/21/18 0510 02/21/18 0510 Microbiology 02/21/18 Gram Stain, Received Pending 02/21/18 Sputum Culture, Received Pending 02/21/18 Urine Culture, Received Pending 02/20/18 Urine Culture - Preliminary, Resulted NO GROWTH IN 24 HOURS. Imaging Last 72 hours Impressions Chest X-Ray 02/21/18 0600 Signed Impressions: Service Date/Time: Wednesday, February 21, 2018 03:16 - CONCLUSION: Slight interval worsening in aeration Fidel Kelly MD Chest X-Ray 02/20/18 0000 Signed Impressions: Service Date/Time: February 17:55 - CONCLUSION: 1. New right central line tip in superior vena cava without pneumothorax. Slight improvement in airspace disease since exam from earlier today. Small caliber right chest tube. Vikas Davis MD Chest X-Ray 02/20/18 0000 Signed Impressions: Service Date/Time: February 09:29 - CONCLUSION: 1. Interval placement of a right basilar chest tube with drainage of the patient's pleural effusion. 2. Diffuse infiltrate throughout the left lung concerning for pneumonia. Colin Tompkins MD Renal Ultrasound 02/19/18 0000 Signed Impressions: Service Date/Time: Monday, February 19, 2018 10:25 - CONCLUSION: 1. No evidence of hydronephrosis. 2. Limited visualization of the urinary bladder. Lyndon Goodson MD Chest X-Ray 02/19/18 0000 Signed Impressions: Service Date/Time: Monday, February 19, 2018 20:50 - CONCLUSION: 1. Cardiomegaly with right basilar density. Simon Fernandez MD Chest X-Ray 02/19/18 0000 Signed Impressions: Service Date/Time: Monday, February 19, 2018 14:47 - CONCLUSION: 1. Small right apical pneumothorax measuring 8 mm. This is improved compared to the prior study. 2. There continues to be a large right-sided pleural effusion. 3. Mild infiltrate in the left lung base. Lyndon Goodson MD Tubes & Lines: Alejandre Tubes & Lines Comment chest tube Drip Comment propofol, levophed, IVF (Oma Bernard) Physical Exam General Appearance: Well Developed, No Acute Distress, Comfortable Appearance Remarks intubated , sedated (Oma Bernard) Throat Throat Exam: Oral Mucosa [place] & Moist (Oma Bernard) Pulmonary Resp Exam: Breath Sounds Equal, No Distress, Decreased Bases (Oma BernardP) Cardiology CV Exam: Regular, Normal Sinus Rhythm (Oma Bernard) Gastrointestinal/Abdomen GI Exam: Positive Bowel Movement, Distended GI Remarks firm, distended, ascites (Oma Bernard BENEFITS TECHNICIAN) Musculoskeletal MS Exam: Joints Intact, Normal Tone (Oma Bernard) Integumentary Skin Exam: Warm, Dry, Intact (Oma Bernard) Extremeties Extremities Exam: No Edema, Pedal Pulses Palpable (Oma Bernard) Neurologic Neuro Exam: Unresponsive, Sedated (Oma Bernard) Assessment/Plan Discussed Condition With: Patient Problem List: (1) MAT (acute kidney injury) ICD Codes: N17.9 - Acute kidney failure, unspecified Plan: Normal renal function at baseline Etiology of renal failure is not completely clear; may have suffered hypoperfusion injury due to hypotension. Currently on pressors. Renal function is stable If no improvement or further decline, she may have hepatorenal syndrome. In which case dialysis will not change the outcome. Borderline hypotension. Holding Lasix. Continue crystalloid and colloid infusions, ordered NS@ 50 and IV Albumin x 8 doses Repeat labs daily, monitor urine output Avoid nephrotoxic agents Prognosis is guarded to poor. (2) Ascites ICD Codes: R18.8 - Other ascites Status: Acute Plan: Due to ETOH induced liver disease Paracentesis as needed. Had 560 ml 5/3 Chest tube placed on right for recurrent pleural effusions. (3) Alcoholic cirrhosis of liver ICD Codes: K70.30 - Alcoholic cirrhosis of liver without ascites Status: Acute Plan: Continue current management with albumin, lactulose, Xifaxan See above (Oma Bernard) Plan Patient was seen and examined. Agree with above assessment and plan. Urine output has improved, may not have HRS. Continue supportive care. Monitor urine output and renal function. (Kip Cash MD) Problem Qualifiers (1) Ascites: Qualified Codes: K70.31 - Alcoholic cirrhosis of liver with ascites (2) Alcoholic cirrhosis of liver: Qualified Codes: K70.31 - Alcoholic cirrhosis of liver with ascites Oma Bernard February 21, 2018 12:25 Kip Cash MD February 21, 2018 16:14
[2018-02-21 12:59] LABS: AMYLASE BODY FLUID 9 U/L; AMYLASE BODY FLUID TYPE PERITONEAL
[2018-02-21 13:34] LABS: AMYLASE BODY FLUID 14 U/L; AMYLASE BODY FLUID TYPE PLEURAL
[2018-02-21] MEDS: LEVOFLOXACIN 500 MG TAB PO SCH (20:51)
--- NOTE | 2018-02-21 21:43 | RADRPT ---
EXAM DATE/TIME: 02/21/2018 21:13 [facility] COMPARISON: No previous studies available for comparison. INDICATIONS : Altered mental status. RADIATION DOSE: 39.59 CTDIvol (mGy) MEDICAL HISTORY : Cardiovascular disease. Chronic obstructive pulmonary disease. Cirrhosis.Hypertension SURGICAL HISTORY : Appendectomy. Hysterectomy. ENCOUNTER: Initial ACUITY: 1 day PAIN SCALE: Non-responsive LOCATION: cranial TECHNIQUE: Multiple contiguous axial images were obtained of the head. Using automated exposure control and adj ustment of the mA and/or kV according to patient size, radiation dose was kept as low as reasonably a chievable to obtain optimal diagnostic quality images. DICOM format image data is available electro nically for review and comparison. FINDINGS: CEREBRUM: The ventricles are normal for age. No evidence of midline shift, mass lesion, hemorrhage or acute in farction. No extra-axial fluid collections are seen. POSTERIOR FOSSA: The cerebellum and brainstem are intact. The 4th ventricle is midline. The cerebellopontine angle i s unremarkable. EXTRACRANIAL: The visualized portion of the orbits is intact. SKULL: The calvaria is intact. No evidence of skull fracture. CONCLUSION: Normal examination for a patient of this age. No significant change has occurred. Vikas Davis MD on February 21, 2018 at 21:40 Board Certified Radiologist. This report was verified electronically.
--- NOTE | 2018-02-21 21:51 | RADRPT ---
EXAM DATE/TIME: 02/21/2018 21:16 [facility] COMPARISON: CT ABDOMEN & PELVIS W CONTRAST, February 17, 2018, 16:23. INDICATIONS : Respiratory failure. RADIATION DOSE: 12.03 CTDIvol (mGy) MEDICAL HISTORY : Cardiovascular disease. Chronic obstructive pulmonary disease. Cirrhosis. Hypertension SURGICAL HISTORY : Appendectomy. Hysterectomy. ENCOUNTER: Initial ACUITY: 1 day PAIN SCALE: Non-responsive LOCATION: Bilateral chest TECHNIQUE: Volumetric scanning of the chest was performed. Using automated exposure control and adjustment of t he mA and/or kV according to patient size, radiation dose was kept as low as reasonably achievable to obtain optimal diagnostic quality images. DICOM format image data is available electronically for r eview and comparison. Follow-up recommendations for detected pulmonary nodules are based at a minimum on nodule size and pa tient risk factors according to Fleischner Society Guidelines. FINDINGS: Endotracheal tube is in satisfactory position. NG is seen entering the stomach. There is bilateral di ffuse airspace consolidation, slightly worse on the left. Small bilateral pleural effusions. No media stinal adenopathy. The abdomen reveals liver cirrhosis with mild ascites. CONCLUSION: 1. Diffuse bilateral airspace disease of unknown etiology. Primary differential diagnosis is pneumoni a and aspiration. Endotracheal tube and nasogastric tube in good position. 2. Small bilateral pleural effusions. Vikas Davis MD on February 21, 2018 at 21:41 Board Certified Radiologist. This report was verified electronically.
[2018-02-22] VITALS (17 sets, daily range): BP systolic 103–119; BP diastolic 53–56; PULSE 58–74; RESP 15–26; TEMP 98–99.1; O2SAT 92–98
[2018-02-22] MEDS: CEFEPIME INJ 1,000 MG in SODIUM CHLORIDE 0.9% INJ 100 ML IV SCH ×3 (00:48→17:37)
[2018-02-22] MEDS: PROPOFOL 1000 MG/100 ML IV PRN (02:52)
[2018-02-22] MEDS: RESP: ALBUTEROL 2.5 MG/IPRATROPIUM 0.5 MG NEB (SCH) NEB ×4 (03:33→21:51)
--- NOTE | 2018-02-22 05:18 | RADRPT ---
EXAM DATE/TIME: 02/22/2018 03:09 [facility] COMPARISON: CHEST SINGLE AP, February 21, 2018, 3:16. INDICATIONS : Shortness of breath MEDICAL HISTORY : Hypertension. Chronic obstructive pulmonary disease. Diabetes mellitus type II SURGICAL HISTORY : Appendectomy. Hysterectomy. Tonsillectomy ENCOUNTER: Subsequent ACUITY: 1 week PAIN SCORE: Non-responsive. LOCATION: Bilateral chest FINDINGS: Endotracheal tube is in stable. Diffuse bilateral infiltrates persists, most confluent in the left davis ng base. Small caliber pigtail right thoracostomy tube is again noted. Visualized cardiac contours ar e grossly stable. CONCLUSION: No significant change Fidel Kelly MD on February 22, 2018 at 5:16 Board Certified Radiologist. This report was verified electronically.
[2018-02-22 05:52] LABS: AUTOMATED NEUTROPHIL # 21.1 TH/MM3 (1.8-7.7); BASOPHIL % 0.1 % (0.0-2.0); HEMATOCRIT 25.4 % (35.0-46.0); HEMOGLOBIN 8.7 GM/DL (11.6-15.3); LYMPH % 2.2 % (9.0-44.0); LYMPHOCYTE # 0.5 TH/MM3 (1.0-4.8); MEAN CELL VOLUME 97.9 FL (80.0-100.0); MEAN CORPUSCULAR HEMOGLOBIN 33.4 PG (27.0-34.0); MEAN CORPUSCULAR HGB CONC 34.1 % (32.0-36.0); MEAN PLATELET VOLUME 8.8 FL (7.0-11.0); MONO % 2.5 % (0.0-8.0); MONOCYTE # 0.6 TH/MM3 (0-0.9); NEUT % 95.2 % (16.0-70.0); PLATELET COUNT 150 TH/MM3 (150-450); RED BLOOD COUNT 2.59 MIL/MM3 (4.00-5.30); RED CELL DISTRIBUTION WIDTH 17.4 % (11.6-17.2); WHITE BLOOD COUNT 22.2 TH/MM3 (4.0-11.0)
[2018-02-22 06:16] LABS: ALBUMIN 3.4 GM/DL (3.4-5.0); AST (GOT) 38 U/L (15-37); BLOOD UREA NITROGEN 53 MG/DL (7-18); CALCIUM 9.1 MG/DL (8.5-10.1); CHLORIDE 103 MEQ/L (98-107); GLOMERULAR FILTRATION RATE 20 ML/MIN (>89); GLUCOSE,RANDOM 152 MG/DL (74-106); MAGNESIUM 2.2 MG/DL (1.5-2.5); SODIUM (NA) 136 MEQ/L (136-145)
[2018-02-22 06:17] LABS: ALT (GPT) 14 U/L (10-53)
[2018-02-22 06:20] LABS: ALKALINE PHOSPHATASE 58 U/L (45-117); TOTAL BILIRUBIN ADULT 3.8 MG/DL (0.2-1.0); TOTAL PROTEIN 5.7 GM/DL (6.4-8.2)
[2018-02-22] MEDS: SODIUM CHLOR 0.9% 1000 ML INJ 1,000 ML IV SCH (06:46)
[2018-02-22] MEDS: LACTULOSE SYRUP 20 GM/30 ML CUP PO SCH ×5 (06:56→23:24)
[2018-02-22] MEDS: LEVOTHYROXINE SODIUM 50 MCG TAB PO SCH (06:57)
[2018-02-22] MEDS: HEPARIN SODIUM - SQ 10,000 UNITS/ML VIAL SQ SCH ×3 (06:58→20:43)
[2018-02-22] MEDS ORDERED: FUROSEMIDE 40 MG/4 ML VIAL IV PUSH ONE (07:15)
--- NOTE | 2018-02-22 07:16 | HHI.CCPN ---
Subjective Remarks/Hospital Course 72-year-old female with a past medical history of liver cirrhosis and anasarca, including ascites and right pleural effusion, COPD, coronary artery disease, and ascites for which she receives paracentesis every 3 weeks. She has history of diabetes, hypertension, acid reflux and hypothyroidism. She has been admitted with increasing shortness of breath, a large pleural effusion. The right thoracentesis was done, with a small residual right apical pneumothorax. Her last paracentesis was 02/07/2018. The patient's shortness of breath was somewhat improving however later tonight it became worse again requiring nonrebreather ventilation mask and transferred to ICU. She denies cough, no expectoration, fever, chills or hemoptysis. 02/20/18: On my evaluation patient is in moderate respiratory distress oxygen saturation 88-90% on 100% nonrebreather. Chest x-ray showed large right pleural effusion and a small apical pneumothorax, most likely secondary to the thoracentesis done on 02/17/2018. I performed bedside paracentesis and removed 550 ml free flowing ascitic fluid. Bedside US showed large right pl effusion. Plan for pigtail chest tube, this may avoid intubation at this time 02/21: Worsening hypoxemic respiratory failure requiring intubation and mechanical ventilation yesterday evening. WBC count is slightly improved 15.5 today. BUN 44 creatinine 2.53. Urine output 750 mL in 24 hours. Right chest tube has put out 3.3 L since placement yesterday. Patient had been started on Levophed currently at 1 mcg/min, also subcu octreotide for possible hepatorenal syndrome. Remains very critical prognosis is guarded. Was not that pupils are unequal. Chest x-ray continues to show bilateral interstitial infiltrates 02/22: Remains intubated sedated critical, on Levophed 2 mcg/min. UO 650 ML, CT 2.l L. CXR/CT chest persistent diffuse bilateral interstitial infiltrate. WBC 22.2 BUN /cr 53/2.4. Will DC IVF, give IV Lasix 40 mg x1 to facilitate vent weaning. Hepatorenal less likely, probable ATN Objective Vital Signs Date Time Temp Pulse Resp B/P (MAP) Pulse Ox O2 Delivery O2 Flow Rate FiO2 02/22/18 06:00 58 02/22/18 04:00 98.2 16 103/53 (70) 98 02/22/18 04:00 40 5/4/18 19:00 Mechanical Ventilator 02/20/18 08:47 15.00 Intake and Output 02/22/18 02/22/18 02/23/18 08:00 16:00 00:00 Intake Total 1232.8 ml Output Total 845 ml Balance 387.8 ml Result Diagram: 02/22/18 0521 02/22/18 0521 Other Results Microbiology Date/Time Source Procedure Growth Status 02/21/18 15:32 Nasal Washing Influenza Types A,B Antigen (ALISSON) - Final NEGATIVE FOR FLU A AND B ANTIGEN.... Complete Objective Remarks GENERAL: female lying in bed, intubated sedated with propofol SKIN: No rashes, ecchymoses or lesions. HEAD: Atraumatic. Normocephalic. No temporal or scalp tenderness. EYES: Pupils unequal right pupil is 4 mm left is 3 both are reactive ENT: Orotracheally intubated NECK: Trachea midline. No JVD or lymphadenopathy. CARDIOVASCULAR: S1-S2 normal no murmurs. Hypotensive on Levophed at 2 mcg/min RESPIRATORY: Air entry diminished bilaterally with bilateral mild expiratory wheezing. No rales, or rhonchi. Right pig tail catheter in place with 2.1L output in 24 hrs GASTROINTESTINAL: Abdomen soft, non-tender, + distended. No guarding. Mild ascites on US, status post paracentesis MUSCULOSKELETAL: Extremities without clubbing, cyanosis, or edema. NEUROLOGICAL: Awake and alert. Pupils slightly unequal as above. Wakes up easily follows commands, no focal deficits other than unequal pupils A/P Assessment and Plan Neuro: Hyperammonemia Hepatic encephalopathy Anisocoria-resolved -Continue lactulose and Xifaxan -Repeat ammonia level 20 on 02/20 -Propofol for sedation and ventilator synchrony -Daily sedation location -CT head negative for acute findings Resp: Acute hypoxemic respiratory failure Severe bilateral interstitial infiltrates Large right hydropneumothorax COPD with exacerbation -Intubated and placed on mechanical ventilation 02/20/2018 -Status post thoracentesis 02/17/18 by IR with residual pneumothorax -s/p pigtail catheter 02/[address] Parra with 3.3L first 24 hours, now with 2.1L in 24 hours. Fluid studies concerning for parapneumonic effusion -Empiric antibiotics with Levaquin and Cefepime. Add Flagyl -DuoNeb scheduled and as needed -Continue IV Solu-Medrol for COPD exacerbation CVS: Bilateral infiltrates (cardiogenic vs noncardiogenic) Hypotension History of hypertension -Levophed to keep map above 65 -DC IVF. Lasix 40 mg IV x1 -Holding atenolol -Check 2d Echo GI: Liver cirrhosis with Ascites Hyperammonemia -S/p paracentesis at bedside, fluid studies does not show SBP -Lactulose, Rifaximin -Holding Spironolactone, worsening renal failure. lasix as above -Continue Protonix : Acute kidney failure Possible hepatorenal syndrome -Alejandre catheter for strict intake output -Continue subcu octreotide and IV Levophed, but HRS less likely -Renal ultrasound-essentially unremarkable, nephrology Dr. Cash -Creatinine slightly improved -Lasix 40 mg IV x1 today ID/HEME: Severe sepsis/Shock -Continue Levaquin and cefepime. Added Flagyl 5/5. s/p 1 dose of vancomycin -Fluid, blood sputum, urine influenza all neg to date. Check legionella and pneumococcal ag -Chest bilateral diffuse interstitial infiltrate Endo: Hypothyroidism Type 2 diabetes -Levothyroxine -Sliding scale insulin DVT GI prophylaxis -Sergio's and SCDs -Subcu heparin -Pantoprazole Critical Care: The total critical care time was 35 minutes excluding procedures Patient is critically ill with acute hypoxemic respiratory failure and large right-sided hydropneumothorax. Now with multiorgan failure hepatorenal syndrome and severe sepsis. Prognosis is guarded. I have discussed with family (son and ). patient's last drink was 3 months ago Leno Parra MD February 22, 2018 07:16
[2018-02-22] MEDS: INSULIN ASPART SUPPLEMENTAL SCALE SQ SCH ×4 (08:00→21:00)
[2018-02-22] MEDS: SODIUM CHLORIDE 0.9% FLUSH 10 ML FLUSH IV FLUSH SCH ×2 (09:00→20:43)
[2018-02-22] MEDS: methylPREDNISolone SOD SUCC 125 MG/2 ML VIAL IV PUSH SCH ×2 (09:38→20:43)
[2018-02-22] MEDS: DOCUSATE SODIUM 50 MG/SENNA 8.6 MG TAB PO SCH ×2 (09:40→20:42)
[2018-02-22] MEDS: metroNIDAZOLE 500 MG INJ 100 ML IV SCH ×3 (09:40→23:25)
[2018-02-22] MEDS: PANTOPRAZOLE SOD 20 MG DELAYED RELEASE TAB PO SCH ×2 (09:40→20:42)
[2018-02-22] MEDS: BUDESONIDE-FORMOTEROL 160/4.5 MCG INHALER INH SCH ×2 (09:41→21:51)
[2018-02-22] MEDS: RIFAXIMIN 550 MG TAB PO SCH ×2 (09:41→20:42)
[2018-02-22] MEDS: NOREPINEPHRINE-DEXTROSE DRIP 250 ML IV PRN (10:27)
[2018-02-22] MEDS: OCTREOTIDE INJ 50 MCG/ML AMP SQ SCH ×2 (10:27→20:43)
--- NOTE | 2018-02-22 16:10 | HHI.NPPN ---
Subjective Renal Failure: Acute Review of Systems General General Remarks unable to obtain Objective Data Data 02/22/18 02/23/18 19:00 07:00 Intake Total 32.8 ml Balance 32.8 ml IV Total 32.8 ml Vital Signs Date Time Temp Pulse Resp B/P (MAP) Pulse Ox O2 Delivery O2 Flow Rate FiO2 02/22/18 12:19 92 40 02/22/18 10:27 67 117/56 02/22/18 07:52 95 40 02/22/18 07:50 40 02/22/18 07:00 97 Mechanical Ventilator 40 02/22/18 06:00 58 02/22/18 04:00 98.2 61 16 103/53 (70) 98 02/22/18 04:00 61 02/22/18 04:00 40 02/22/18 03:33 93 40 02/22/18 02:00 61 02/22/18 00:00 74 02/22/18 00:00 98.2 66 16 108/55 (72) 93 02/22/18 00:00 40 02/21/18 20:01 94 40 02/21/18 20:00 60 02/21/18 20:00 40 02/21/18 20:00 97.8 60 16 106/53 (70) 94 02/21/18 19:00 95 Mechanical Ventilator 40 02/21/18 18:00 61 -: 02/22/18 0521 02/22/18 0521 Tubes & Lines: Alejandre Tubes & Lines Comment chest tube Drip Comment propofol, levophed, IVF Physical Exam General Appearance: Well Developed, No Acute Distress, Comfortable Throat Throat Exam: Oral Mucosa [place] & Moist Pulmonary Resp Exam: Breath Sounds Equal, No Distress, Decreased Bases Cardiology CV Exam: Regular, Normal Sinus Rhythm Gastrointestinal/Abdomen GI Exam: Positive Bowel Movement, Distended Musculoskeletal MS Exam: Joints Intact, Normal Tone Integumentary Skin Exam: Warm, Dry, Intact Extremeties Extremities Exam: No Edema, Pedal Pulses Palpable Neurologic Neuro Exam: Unresponsive, Sedated Assessment/Plan Discussed Condition With: Patient Problem List: (1) MAT (acute kidney injury) ICD Codes: N17.9 - Acute kidney failure, unspecified Plan: Normal renal function at baseline Etiology of renal failure is not completely clear; may have suffered hypoperfusion injury due to hypotension. Currently on pressors. Renal function is stable If no improvement or further decline, she may have hepatorenal syndrome. In which case dialysis will not change the outcome. Borderline hypotension. Lasix given earlier UOP Low CT draining Cr 2.4 d/w Prognosis is guarded to poor. (2) Ascites ICD Codes: R18.8 - Other ascites Status: Acute Plan: Due to ETOH induced liver disease Paracentesis as needed. Had 560 ml 5/3 Chest tube placed on right for recurrent pleural effusions. (3) Alcoholic cirrhosis of liver ICD Codes: K70.30 - Alcoholic cirrhosis of liver without ascites Status: Acute Plan: Continue current management with albumin, lactulose, Xifaxan See above Problem Qualifiers (1) Ascites: Qualified Codes: K70.31 - Alcoholic cirrhosis of liver with ascites (2) Alcoholic cirrhosis of liver: Qualified Codes: K70.31 - Alcoholic cirrhosis of liver with ascites Kaylah Hdz MD February 22, 2018 16:10
[2018-02-22 18:12] LABS: AUTOMATED NEUTROPHIL # 19.7 TH/MM3 (1.8-7.7); HEMATOCRIT 27.1 % (35.0-46.0); HEMOGLOBIN 9.2 GM/DL (11.6-15.3); LYMPH % 2.4 % (9.0-44.0); LYMPHOCYTE # 0.5 TH/MM3 (1.0-4.8); MEAN CELL VOLUME 98.9 FL (80.0-100.0); MEAN CORPUSCULAR HEMOGLOBIN 33.7 PG (27.0-34.0); MEAN CORPUSCULAR HGB CONC 34.1 % (32.0-36.0); MEAN PLATELET VOLUME 8.7 FL (7.0-11.0); MONO % 3.6 % (0.0-8.0); MONOCYTE # 0.8 TH/MM3 (0-0.9); PLATELET COUNT 163 TH/MM3 (150-450); RED BLOOD COUNT 2.74 MIL/MM3 (4.00-5.30); RED CELL DISTRIBUTION WIDTH 17.9 % (11.6-17.2)
[2018-02-22 18:14] LABS: INTERNATIONAL NORMALIZED RATIO 1.7 RATIO; PROTHROMBIN TIME - PATIENT 17.2 SEC (9.8-11.6)
[2018-02-22 18:37] LABS: ALBUMIN 2.9 GM/DL (3.4-5.0); ALKALINE PHOSPHATASE 52 U/L (45-117); ALT (GPT) 13 U/L (10-53); AST (GOT) 38 U/L (15-37); BICARBONATE 19.5 MEQ/L (21.0-32.0); BLOOD UREA NITROGEN 49 MG/DL (7-18); CALCIUM 7.8 MG/DL (8.5-10.1); CHLORIDE 114 MEQ/L (98-107); CREATININE 2.11 MG/DL (0.50-1.00); GLOMERULAR FILTRATION RATE 23 ML/MIN (>89); GLUCOSE,RANDOM 103 MG/DL (74-106); SODIUM (NA) 145 MEQ/L (136-145); TOTAL BILIRUBIN ADULT 3.4 MG/DL (0.2-1.0); TOTAL PROTEIN 4.9 GM/DL (6.4-8.2)
[2018-02-22] MEDS: MORPHINE SULFATE 4 MG/ML INJ IV PUSH PRN (22:01)
[2018-02-23] VITALS (14 sets, daily range): BP systolic 101–118; BP diastolic 49–60; PULSE 56–90; RESP 17–27; TEMP 97.5–98.1; O2SAT 93–98
[2018-02-23] MEDS: CEFEPIME INJ 1,000 MG in SODIUM CHLORIDE 0.9% INJ 100 ML IV SCH ×3 (00:20→17:09)
[2018-02-23] MEDS: RESP: ALBUTEROL 2.5 MG/IPRATROPIUM 0.5 MG NEB (SCH) NEB ×4 (05:23→21:21)
[2018-02-23 05:54] LABS: AUTOMATED NEUTROPHIL # 14.7 TH/MM3 (1.8-7.7); BASOPHIL % 0.1 % (0.0-2.0); HEMATOCRIT 25.8 % (35.0-46.0); HEMOGLOBIN 8.8 GM/DL (11.6-15.3); LYMPH % 2.4 % (9.0-44.0); LYMPHOCYTE # 0.4 TH/MM3 (1.0-4.8); MEAN CELL VOLUME 98.6 FL (80.0-100.0); MEAN CORPUSCULAR HEMOGLOBIN 33.6 PG (27.0-34.0); MEAN CORPUSCULAR HGB CONC 34.1 % (32.0-36.0); MEAN PLATELET VOLUME 8.6 FL (7.0-11.0); MONO % 4.6 % (0.0-8.0); MONOCYTE # 0.7 TH/MM3 (0-0.9); NEUT % 92.9 % (16.0-70.0); PLATELET COUNT 126 TH/MM3 (150-450); RED BLOOD COUNT 2.61 MIL/MM3 (4.00-5.30); RED CELL DISTRIBUTION WIDTH 17.9 % (11.6-17.2); WHITE BLOOD COUNT 15.8 TH/MM3 (4.0-11.0)
[2018-02-23] MEDS: LACTULOSE SYRUP 20 GM/30 ML CUP PO SCH ×4 (05:57→23:19)
[2018-02-23] MEDS: LEVOTHYROXINE SODIUM 50 MCG TAB PO SCH (05:57)
[2018-02-23] MEDS: HEPARIN SODIUM - SQ 10,000 UNITS/ML VIAL SQ SCH ×3 (05:58→23:19)
[2018-02-23 06:30] LABS: ALBUMIN 2.9 GM/DL (3.4-5.0); ALKALINE PHOSPHATASE 53 U/L (45-117); ALT (GPT) 13 U/L (10-53); AST (GOT) 43 U/L (15-37); BICARBONATE 24.2 MEQ/L (21.0-32.0); BLOOD UREA NITROGEN 60 MG/DL (7-18); CALCIUM 8.9 MG/DL (8.5-10.1); CHLORIDE 110 MEQ/L (98-107); CREATININE 2.27 MG/DL (0.50-1.00); GLOMERULAR FILTRATION RATE 21 ML/MIN (>89); GLUCOSE,RANDOM 154 MG/DL (74-106); MAGNESIUM 2.2 MG/DL (1.5-2.5); SODIUM (NA) 144 MEQ/L (136-145); TOTAL BILIRUBIN ADULT 3.8 MG/DL (0.2-1.0); TOTAL PROTEIN 5.2 GM/DL (6.4-8.2)
--- NOTE | 2018-02-23 06:32 | RADRPT ---
EXAM DATE/TIME: 02/23/2018 03:45 [facility] COMPARISON: CHEST SINGLE AP, February 22, 2018, 3:09. INDICATIONS : Shortness of breath. MEDICAL HISTORY : Cardiovascular disease. Chronic obstructive pulmonary disease. Cirrhosis. Hypertension SURGICAL HISTORY : Hysterectomy. Appendectomy. Tonsillectomy. ENCOUNTER: Subsequent ACUITY: 1 week PAIN SCORE: Non-responsive. LOCATION: Bilateral chest FINDINGS: There has been interval extubation. Nasogastric tube, right subclavian central line in right base pig tail thoracostomy tube remain in place. Aeration continues to improve with decrease in confluence of infiltrate at the left base. Diffuse infiltrates elsewhere grossly stable. Cardiac contour stable. CONCLUSION: Interval extubation. Improving aeration. Fidel Kelly MD on February 23, 2018 at 6:28 Board Certified Radiologist. This report was verified electronically.
[2018-02-23] MEDS: OCTREOTIDE INJ 50 MCG/ML AMP SQ SCH ×2 (09:00→23:18)
[2018-02-23] MEDS: SODIUM CHLORIDE 0.9% FLUSH 10 ML FLUSH IV FLUSH SCH ×2 (09:00→23:17)
[2018-02-23] MEDS: metroNIDAZOLE 500 MG INJ 100 ML IV SCH ×3 (10:31→23:19)
[2018-02-23] MEDS: INSULIN ASPART SUPPLEMENTAL SCALE SQ SCH ×4 (10:32→23:18)
[2018-02-23] MEDS: BUDESONIDE-FORMOTEROL 160/4.5 MCG INHALER INH SCH ×2 (10:34→23:17)
[2018-02-23] MEDS: RIFAXIMIN 550 MG TAB PO SCH ×2 (10:43→23:18)
[2018-02-23] MEDS: DOCUSATE SODIUM 50 MG/SENNA 8.6 MG TAB PO SCH ×2 (10:43→23:18)
[2018-02-23] MEDS: methylPREDNISolone SOD SUCC 125 MG/2 ML VIAL IV PUSH SCH (10:43)
[2018-02-23] MEDS: PANTOPRAZOLE SOD 20 MG DELAYED RELEASE TAB PO SCH ×2 (10:44→23:18)
[2018-02-23] MEDS ORDERED: FUROSEMIDE 40 MG/4 ML VIAL IV PUSH ONE (11:30)
--- NOTE | 2018-02-23 11:35 | HHI.CCPN ---
Subjective Remarks/Hospital Course 72-year-old female with a past medical history of liver cirrhosis and anasarca, including ascites and right pleural effusion, COPD, coronary artery disease, and ascites for which she receives paracentesis every 3 weeks. She has history of diabetes, hypertension, acid reflux and hypothyroidism. She has been admitted with increasing shortness of breath, a large pleural effusion. The right thoracentesis was done, with a small residual right apical pneumothorax. Her last paracentesis was 02/07/2018. The patient's shortness of breath was somewhat improving however later tonight it became worse again requiring nonrebreather ventilation mask and transferred to ICU. She denies cough, no expectoration, fever, chills or hemoptysis. 02/20/18: On my evaluation patient is in moderate respiratory distress oxygen saturation 88-90% on 100% nonrebreather. Chest x-ray showed large right pleural effusion and a small apical pneumothorax, most likely secondary to the thoracentesis done on 02/17/2018. I performed bedside paracentesis and removed 550 ml free flowing ascitic fluid. Bedside US showed large right pl effusion. Plan for pigtail chest tube, this may avoid intubation at this time 02/21: Worsening hypoxemic respiratory failure requiring intubation and mechanical ventilation yesterday evening. WBC count is slightly improved 15.5 today. BUN 44 creatinine 2.53. Urine output 750 mL in 24 hours. Right chest tube has put out 3.3 L since placement yesterday. Patient had been started on Levophed currently at 1 mcg/min, also subcu octreotide for possible hepatorenal syndrome. Remains very critical prognosis is guarded. Was not that pupils are unequal. Chest x-ray continues to show bilateral interstitial infiltrates 02/22: Remains intubated sedated critical, on Levophed 2 mcg/min. UO 650 ML, CT 2.l L. CXR/CT chest persistent diffuse bilateral interstitial infiltrate. WBC 22.2 BUN /cr 53/2.4. Will DC IVF, give IV Lasix 40 mg x1 to facilitate vent weaning. Hepatorenal less likely, probable ATN 5/6: Patient self extubated yesterday evening, but was tolerating CPAP prior to that. Required 100% nonrebreather overnight, currently adequate oxygen saturation. Received 40 mg Lasix today, urine output 1.6 L in 24 hour. Chest tube continues to have high output 1 L in 24 hours. Creatinine remains high but stable at 2.27 BUN increased to 60 Objective Vital Signs Date Time Temp Pulse Resp B/P (MAP) Pulse Ox O2 Delivery O2 Flow Rate FiO2 02/23/18 08:46 98 Partial Rebreather 15.00 02/23/18 06:00 84 02/23/18 04:00 98.1 18 105/55 (72) 02/22/18 16:01 40 Intake and Output 02/23/18 02/23/18 02/24/18 08:00 16:00 00:00 Intake Total 695.1 ml Output Total 270 ml Balance 425.1 ml Result Diagram: 02/23/18 0513 02/23/18 0513 Other Results Microbiology Date/Time Source Procedure Growth Status 02/21/18 15:32 Nasal Washing Influenza Types A,B Antigen (ALISSON) - Final NEGATIVE FOR FLU A AND B ANTIGEN.... Complete 02/21/18 11:17 Sputum Endotracheal Gram Stain - Final Complete 02/21/18 11:17 Sputum Endotracheal Sputum Culture - Final MODERATE GROWTH NORMAL RESPIRATORY DANNIELLE Complete 02/21/18 09:49 Urine Clean Catch Urine Culture - Final NO GROWTH IN 48 HOURS. Complete 02/20/18 12:55 Urine Catheterized Urine Urine Culture - Final NO GROWTH IN 48 HOURS. Complete Laboratory Tests Test 02/22/18 13:03 Blood Gas Puncture Site RT RADIAL Blood Gas Patient Temperature 98.6 Blood Gas HCO3 22 mmol/L (22-26) Blood Gas Base Excess -2.4 mmol/L (-2-2) Blood Gas Oxygen Saturation 89 % (90-100) Arterial Blood pH 7.42 (7.380-7.420) Arterial Blood Partial Pressure CO2 34 mmHg (38-42) Arterial Blood Partial Pressure O2 64 mmHg (61-120) Arterial Blood Oxygen Content 11.0 Vol % (12.0-20.0) Arterial Blood Carboxyhemoglobin 1.5 % (0-4) Arterial Blood Methemoglobin 1.0 % (0-2) Blood Gas Hemoglobin 8.7 G/DL (12.0-16.0) Oxygen Delivery Device VENTILATOR Blood Gas Ventilator Setting Blood Gas Inspired Oxygen 40 % Objective Remarks GENERAL: female lying in bed, alert awake oriented. SKIN: No rashes, ecchymoses or lesions. HEAD: Atraumatic. Normocephalic. No temporal or scalp tenderness. EYES: Pupils unequal right pupil is 4 mm left is 3 both are reactive ENT: Oral cavity is dry airway patent NECK: Trachea midline. No JVD or lymphadenopathy. CARDIOVASCULAR: S1-S2 normal no murmurs. I cannot appreciate any murmur RESPIRATORY: Air entry diminished bilaterally with bilateral mild expiratory wheezing, few crackles Right pig tail catheter in place with 1L output in 24 hrs GASTROINTESTINAL: Abdomen soft, non-tender, + distended. No guarding. Mild ascites on US, status post paracentesis MUSCULOSKELETAL: Extremities without clubbing, cyanosis, or edema. NEUROLOGICAL: Awake and alert. Pupils slightly unequal as above. Follows commands. No focal deficits A/P Assessment and Plan Neuro: Hyperammonemia Hepatic encephalopathy Anisocoria-resolved -Continue lactulose and Xifaxan -Repeat ammonia level 20 on 02/20 -Minimize sedation -CT head negative for acute findings Resp: Acute hypoxemic respiratory failure Severe bilateral interstitial infiltrates Large right hydropneumothorax COPD with exacerbation -Intubated and placed on mechanical ventilation 02/20/2018 -Status post thoracentesis 02/17/18 by IR with residual pneumothorax -s/p pigtail catheter 02/[address] Parra with 3.3L first 24 hours, now with 1L in 24 hours. Fluid studies concerning for parapneumonic effusion, but cultures remain negative -Empiric antibiotics with Levaquin, Cefepime, Flagyl -DuoNeb scheduled and as needed -Continue IV Solu-Medrol for COPD exacerbation -Self extubated yesterday 02/22/2018 but tolerated CPAP trial, prior CVS: Bilateral infiltrates (cardiogenic vs noncardiogenic) Hypotension History of hypertension -Levophed to keep map above 65, currently off -DC IVF. Lasix 40 mg IV x1 repeat dose today -Holding atenolol -2d Echo pending GI: Liver cirrhosis with Ascites Hyperammonemia -S/p paracentesis at bedside, fluid studies does not show SBP -Lactulose, Rifaximin -Holding Spironolactone, worsening renal failure. lasix as above -Continue Protonix : Acute kidney failure Possible hepatorenal syndrome -Alejandre catheter for strict intake output -Continue subcu octreotide and IV Levophed, but HRS less likely -Renal ultrasound-essentially unremarkable, nephrology Dr. Cash -Creatinine slightly improved -Lasix 40 mg IV x1 repeat dose today ID/HEME: Severe sepsis/Shock -Continue Levaquin and cefepime, s/p 1 dose of vancomycin -Fluid, blood sputum, urine influenza all neg to date. -Chest Xray bilateral diffuse interstitial infiltrate Endo: Hypothyroidism Type 2 diabetes -Levothyroxine -Sliding scale insulin DVT GI prophylaxis -Sergio's and SCDs -Subcu heparin -Pantoprazole Critical Care: The total critical care time was 35 minutes excluding procedures Patient is critically ill with acute hypoxemic respiratory failure and large right-sided hydropneumothorax. Now with multiorgan failure hepatorenal syndrome and severe sepsis. Prognosis is guarded. I have discussed with family (son and ). patient's last drink was 3 months ago Leno Parra MD February 23, 2018 11:35
--- NOTE | 2018-02-23 14:53 | HHI.NPPN ---
Subjective Renal Failure: Acute Additional Remarks Extubated last evening Review of Systems General General Remarks unable to obtain Objective Data Data Vital Signs Date Time Temp Pulse Resp B/P (MAP) Pulse Ox O2 Delivery O2 Flow Rate FiO2 02/23/18 08:46 98 Partial Rebreather 15.00 02/23/18 07:00 91 Non-Rebreather 15.00 02/23/18 06:00 84 02/23/18 04:00 56 02/23/18 04:00 98.1 56 18 105/55 (72) 98 02/23/18 02:00 57 02/23/18 00:00 97.6 67 23 107/53 (71) 96 02/23/18 00:00 67 02/22/18 22:00 64 02/22/18 21:51 97 Non-Rebreather 15.00 02/22/18 20:00 98.0 62 26 111/54 (73) 97 02/22/18 20:00 70 02/22/18 19:00 98 Non-Rebreather 15.00 02/22/18 18:00 64 02/22/18 16:01 95 40 02/22/18 16:00 98.1 70 24 119/56 (77) 94 02/22/18 16:00 40 02/22/18 16:00 70 -: 02/23/18 0513 02/23/18 0513 Tubes & Lines: Alejandre Tubes & Lines Comment chest tube Drip Comment propofol, levophed, IVF Physical Exam General Appearance: Well Developed, No Acute Distress, Comfortable Throat Throat Exam: Oral Mucosa [place] & Moist Pulmonary Resp Exam: Breath Sounds Equal, No Distress, Decreased Bases Cardiology CV Exam: Regular, Normal Sinus Rhythm Gastrointestinal/Abdomen GI Exam: Positive Bowel Movement, Distended Musculoskeletal MS Exam: Joints Intact, Normal Tone Integumentary Skin Exam: Warm, Dry, Intact Extremeties Extremities Exam: No Edema, Pedal Pulses Palpable Neurologic Neuro Exam: Unresponsive, Sedated Assessment/Plan Discussed Condition With: Patient Problem List: (1) MAT (acute kidney injury) ICD Codes: N17.9 - Acute kidney failure, unspecified Plan: Normal renal function at baseline Etiology of renal failure is not completely clear; may have suffered hypoperfusion injury due to hypotension. Currently on pressors. Renal function is stable If no improvement or further decline, she may have hepatorenal syndrome. In which case dialysis will not change the outcome. Borderline hypotension. Lasix given earlier UOP increase extubated CT draining Cr 2. 27 Lasix given d/w Dr. Cash to follow (2) Ascites ICD Codes: R18.8 - Other ascites Status: Acute Plan: Due to ETOH induced liver disease Paracentesis as needed. Had 560 ml 5/3 Chest tube placed on right for recurrent pleural effusions. (3) Alcoholic cirrhosis of liver ICD Codes: K70.30 - Alcoholic cirrhosis of liver without ascites Status: Acute Plan: Continue current management with albumin, lactulose, Xifaxan See above Problem Qualifiers (1) Ascites: Qualified Codes: K70.31 - Alcoholic cirrhosis of liver with ascites (2) Alcoholic cirrhosis of liver: Qualified Codes: K70.31 - Alcoholic cirrhosis of liver with ascites Kaylah Hdz MD February 23, 2018 14:53
[2018-02-23] MEDS ORDERED: RESP: ALBUTEROL 2.5 MG/IPRATROPIUM 0.5 MG NEB (SCH) NEB (16:00)
[2018-02-23] MEDS: LEVOFLOXACIN 500 MG TAB PO SCH (23:17)
[2018-02-24] VITALS (16 sets, daily range): BP systolic 103–115; BP diastolic 52–58; PULSE 60–74; RESP 15–29; TEMP 97.5–98.7; O2SAT 84–100
[2018-02-24] MEDS: CEFEPIME INJ 1,000 MG in SODIUM CHLORIDE 0.9% INJ 100 ML IV SCH ×3 (01:13→18:39)
[2018-02-24] MEDS: RESP: ALBUTEROL 2.5 MG/IPRATROPIUM 0.5 MG NEB (SCH) NEB ×4 (04:26→20:15)
[2018-02-24] MEDS: LACTULOSE SYRUP 20 GM/30 ML CUP PO SCH ×4 (05:10→22:22)
[2018-02-24] MEDS: LEVOTHYROXINE SODIUM 50 MCG TAB PO SCH (05:10)
[2018-02-24] MEDS: HEPARIN SODIUM - SQ 10,000 UNITS/ML VIAL SQ SCH ×3 (05:11→22:21)
[2018-02-24] MEDS: INSULIN ASPART SUPPLEMENTAL SCALE SQ SCH ×4 (08:00→21:00)
[2018-02-24] MEDS: SODIUM CHLORIDE 0.9% FLUSH 10 ML FLUSH IV FLUSH SCH ×2 (09:00→21:00)
[2018-02-24] MEDS: BUDESONIDE-FORMOTEROL 160/4.5 MCG INHALER INH SCH ×2 (09:38→21:00)
[2018-02-24] MEDS: metroNIDAZOLE 500 MG INJ 100 ML IV SCH ×2 (09:38→16:00)
[2018-02-24] MEDS: methylPREDNISolone SOD SUCC 125 MG/2 ML VIAL IV PUSH SCH (09:41)
[2018-02-24] MEDS: RIFAXIMIN 550 MG TAB PO SCH ×2 (09:42→22:22)
[2018-02-24] MEDS: PANTOPRAZOLE SOD 20 MG DELAYED RELEASE TAB PO SCH ×2 (09:42→22:22)
[2018-02-24] MEDS: DOCUSATE SODIUM 50 MG/SENNA 8.6 MG TAB PO SCH ×2 (09:42→21:00)
[2018-02-24] MEDS: OCTREOTIDE INJ 50 MCG/ML AMP SQ SCH ×2 (09:43→22:22)
--- NOTE | 2018-02-24 11:36 | RADRPT ---
EXAM DATE/TIME: 02/24/2018 09:30 [facility] COMPARISON: CHEST SINGLE AP, February 23, 2018, 3:45. INDICATIONS : Respiratory distress MEDICAL HISTORY : Hypertension. Chronic obstructive pulmonary disease. Cardiovascular disease. Cirrhosis. SURGICAL HISTORY : Hysterectomy. Appendectomy. Tonsillectomy. ENCOUNTER: Subsequent ACUITY: 1 week PAIN SCORE: 2/10 LOCATION: Bilateral chest FINDINGS: Since the previous examination there has been removal of the nasogastric tube. A right subclavian kelley tral line and right thoracostomy tube remain. No pneumothorax observed. The heart is normal in size. Bilateral scattered intraorbital infiltrates are noted. These shown some decrease in density relative to the prior study. A degenerative spine. CONCLUSION: Slight improvement in the bilateral pulmonary infiltrates. Bassem Bañuelos Jr., MD on February 24, 2018 at 11:32 Board Certified Radiologist. This report was verified electronically.
--- NOTE | 2018-02-24 11:46 | HHI.NPPN ---
Subjective Renal Failure: Acute Interval History patient has bee extubated. She is able to carry on some conversation. Family: daughter is at the bedside. She understands seriousness of her mother's medical problems. Non oliguric. Review of Systems General General Remarks unable to obtain Objective Data Data Vital Signs Date Time Temp Pulse Resp B/P (MAP) Pulse Ox O2 Delivery O2 Flow Rate FiO2 02/24/18 10:13 93 High Flow Nasal Cannula 30.00 70 02/24/18 06:00 68 02/24/18 04:26 95 50 02/24/18 04:00 60 15 110/52 (71) 97 02/24/18 04:00 60 02/24/18 02:00 67 02/24/18 00:45 92 60 02/24/18 00:41 Bi-Pap 02/24/18 00:00 74 02/24/18 00:00 74 24 111/52 (71) 94 02/23/18 22:00 90 02/23/18 21:23 93 Partial Rebreather 15.00 02/23/18 20:00 71 02/23/18 20:00 97.5 70 19 118/60 (79) 96 02/23/18 19:00 96 Non-Rebreather 15.00 02/23/18 18:00 73 02/23/18 16:00 64 02/23/18 16:00 97.5 64 27 111/56 (74) 94 02/23/18 14:00 66 02/23/18 12:00 68 02/23/18 12:00 97.6 68 26 114/52 (72) 94 -: 02/23/18 0513 02/23/18 0513 Tubes & Lines: Alejandre Tubes & Lines Comment chest tube Drip Comment propofol, levophed, IVF Physical Exam General Appearance: Well Developed, No Acute Distress, Comfortable, Malnourished Appearance Remarks ill appearing. Throat Throat Exam: Oral Mucosa [place] & Moist Pulmonary Resp Exam: Breath Sounds Equal, No Distress, Decreased Bases Cardiology CV Exam: Regular, Normal Sinus Rhythm Gastrointestinal/Abdomen GI Exam: Positive Bowel Movement, Distended Musculoskeletal MS Exam: Joints Intact, Normal Tone Integumentary Skin Exam: Warm, Dry, Intact Extremeties Extremities Exam: No Edema, Pedal Pulses Palpable Neurologic Neuro Exam: Unresponsive, Sedated Assessment/Plan Discussed Condition With: Patient Problem List: (1) MAT (acute kidney injury) ICD Codes: N17.9 - Acute kidney failure, unspecified Plan: Normal renal function at baseline MAT could have been due to ATN. HRS is less likely. Monitor urine output. May consider stopping octreotide. Avoid nephrotoxic agents. She is now on Lasix twice daily. Today's labs are pending. (2) Ascites ICD Codes: R18.8 - Other ascites Status: Acute Plan: Due to ETOH induced liver disease Underwent paracentesis. Has chest tube due to development of pleural effusion. (3) Alcoholic cirrhosis of liver ICD Codes: K70.30 - Alcoholic cirrhosis of liver without ascites Status: Acute Plan: Continue current management with albumin, lactulose, Xifaxan See above Problem Qualifiers (1) Ascites: Qualified Codes: K70.31 - Alcoholic cirrhosis of liver with ascites (2) Alcoholic cirrhosis of liver: Qualified Codes: K70.31 - Alcoholic cirrhosis of liver with ascites Kip Cash MD February 24, 2018 11:46
[2018-02-24 12:17] LABS: ALBUMIN 2.8 GM/DL (3.4-5.0); ALKALINE PHOSPHATASE 53 U/L (45-117); ALT (GPT) 14 U/L (10-53); AST (GOT) 36 U/L (15-37); BLOOD UREA NITROGEN 61 MG/DL (7-18); CALCIUM 8.8 MG/DL (8.5-10.1); CREATININE 1.91 MG/DL (0.50-1.00); GLOMERULAR FILTRATION RATE 26 ML/MIN (>89); GLUCOSE,RANDOM 151 MG/DL (74-106); TOTAL PROTEIN 4.9 GM/DL (6.4-8.2)
[2018-02-24 12:18] LABS: BICARBONATE 23.9 MEQ/L (21.0-32.0); CHLORIDE 105 MEQ/L (98-107); SODIUM (NA) 139 MEQ/L (136-145); TOTAL BILIRUBIN ADULT 4.1 MG/DL (0.2-1.0)
[2018-02-24] MEDS ORDERED: FUROSEMIDE 40 MG/4 ML VIAL IV PUSH ONE (12:30)
--- NOTE | 2018-02-24 12:44 | HHI.CCPN ---
Subjective Remarks/Hospital Course 72-year-old female with a past medical history of liver cirrhosis and anasarca, including ascites and right pleural effusion, COPD, coronary artery disease, and ascites for which she receives paracentesis every 3 weeks. She has history of diabetes, hypertension, acid reflux and hypothyroidism. She has been admitted with increasing shortness of breath, a large pleural effusion. The right thoracentesis was done, with a small residual right apical pneumothorax. Her last paracentesis was 02/07/2018. The patient's shortness of breath was somewhat improving however later tonight it became worse again requiring nonrebreather ventilation mask and transferred to ICU. She denies cough, no expectoration, fever, chills or hemoptysis. 02/20/18: On my evaluation patient is in moderate respiratory distress oxygen saturation 88-90% on 100% nonrebreather. Chest x-ray showed large right pleural effusion and a small apical pneumothorax, most likely secondary to the thoracentesis done on 02/17/2018. I performed bedside paracentesis and removed 550 ml free flowing ascitic fluid. Bedside US showed large right pl effusion. Plan for pigtail chest tube, this may avoid intubation at this time 02/21: Worsening hypoxemic respiratory failure requiring intubation and mechanical ventilation yesterday evening. WBC count is slightly improved 15.5 today. BUN 44 creatinine 2.53. Urine output 750 mL in 24 hours. Right chest tube has put out 3.3 L since placement yesterday. Patient had been started on Levophed currently at 1 mcg/min, also subcu octreotide for possible hepatorenal syndrome. Remains very critical prognosis is guarded. Was not that pupils are unequal. Chest x-ray continues to show bilateral interstitial infiltrates 02/22: Remains intubated sedated critical, on Levophed 2 mcg/min. UO 650 ML, CT 2.l L. CXR/CT chest persistent diffuse bilateral interstitial infiltrate. WBC 22.2 BUN /cr 53/2.4. Will DC IVF, give IV Lasix 40 mg x1 to facilitate vent weaning. Hepatorenal less likely, probable ATN 5/6: Patient self extubated yesterday evening, but was tolerating CPAP prior to that. Required 100% nonrebreather overnight, currently adequate oxygen saturation. Received 40 mg Lasix today, urine output 1.6 L in 24 hour. Chest tube continues to have high output 1 L in 24 hours. Creatinine remains high but stable at 2.27 BUN increased to 60 02/24: Patient appears breathing comfortably but still requiring high flow oxygen at 70% now. Remains nonoliguric urine output 1.2 L with IV Lasix. Chest tube output 340 mL in 24 hours. Chest x-ray shows improving bilateral infiltrates. I will give additional 40mg IV Lasix today Objective Vital Signs Date Time Temp Pulse Resp B/P (MAP) Pulse Ox O2 Delivery O2 Flow Rate FiO2 02/24/18 10:13 93 High Flow Nasal Cannula 30.00 70 02/24/18 06:00 68 02/24/18 04:00 15 110/52 (71) 02/23/18 20:00 97.5 Intake and Output 02/24/18 02/24/18 02/25/18 08:00 16:00 00:00 Intake Total 1640 ml Output Total 590 ml Balance 1050 ml Result Diagram: 02/23/18 0513 02/24/18 1130 Other Results Microbiology Date/Time Source Procedure Growth Status 02/21/18 15:32 Nasal Washing Influenza Types A,B Antigen (ALISSON) - Final NEGATIVE FOR FLU A AND B ANTIGEN.... Complete Laboratory Tests Test 02/23/18 15:22 Blood Gas Puncture Site LT RADIAL Blood Gas Patient Temperature 98.6 Blood Gas HCO3 22 mmol/L (22-26) Blood Gas Base Excess -2.1 mmol/L (-2-2) Blood Gas Oxygen Saturation 90 % (90-100) Arterial Blood pH 7.40 (7.380-7.420) Arterial Blood Partial Pressure CO2 36 mmHg (38-42) Arterial Blood Partial Pressure O2 68 mmHg (61-120) Arterial Blood Oxygen Content 11.7 Vol % (12.0-20.0) Arterial Blood Carboxyhemoglobin 1.5 % (0-4) Arterial Blood Methemoglobin 1.0 % (0-2) Blood Gas Hemoglobin 9.2 G/DL (12.0-16.0) Oxygen Delivery Device Partial Rebreather Blood Gas Liter Flow 10 L/M Objective Remarks GENERAL: female lying in bed, alert awake oriented. SKIN: No rashes, ecchymoses or lesions. HEAD: Atraumatic. Normocephalic. No temporal or scalp tenderness. EYES: Pupils unequal right pupil is 4 mm left is 3 both are reactive ENT: Oral cavity is dry airway patent NECK: Trachea midline. No JVD or lymphadenopathy. CARDIOVASCULAR: S1-S2 normal no murmurs. No murmur RESPIRATORY: Air entry diminished bilaterally with few crackles Right pig tail catheter in place with 340ML output in 24 hrs GASTROINTESTINAL: Abdomen soft, non-tender, + distended. No guarding. Mild ascites on US, status post paracentesis MUSCULOSKELETAL: Extremities without clubbing, cyanosis, or edema. NEUROLOGICAL: Awake and alert. Pupils slightly unequal as above. Follows commands. No focal deficits A/P Assessment and Plan Neuro: Hyperammonemia Hepatic encephalopathy Anisocoria-resolved -Continue lactulose and Xifaxan -Repeat ammonia level 20 on 02/20 -Minimize sedation -CT head negative for acute findings Resp: Acute hypoxemic respiratory failure Severe bilateral interstitial infiltrates Large right hydropneumothorax COPD with exacerbation -Intubated and placed on mechanical ventilation 02/20/2018 -Self extubated 02/22/2018 but tolerating on pNRB. Now on hi elizabeth [place] -Status post thoracentesis 02/17/18 by IR with residual pneumothorax -s/p pigtail catheter 02/[address] Parra with 3.3L first 24 hours, now with 340L in 24 hours. -Fluid studies concerning for parapneumonic effusion, but cultures remain negative -Empiric antibiotics with Levaquin, Cefepime, Flagyl -DuoNeb scheduled and as needed -Continue IV Solu-Medrol for COPD exacerbation CVS: Bilateral infiltrates (cardiogenic vs noncardiogenic) Hypotension History of hypertension -Levophed to keep map above 65, currently off -Lasix 40 mg IV x1 repeat dose today -Holding atenolol -2d Echo pending GI: Liver cirrhosis with Ascites Hyperammonemia -S/p paracentesis at bedside, fluid studies does not show SBP -Lactulose, Rifaximin -Holding Spironolactone, worsening renal failure. lasix as above -Continue Protonix : Acute kidney failure Possible hepatorenal syndrome -Alejandre catheter for strict intake output -Continue subcu octreotide and off IV Levophed, HRS less likely -Renal ultrasound-essentially unremarkable, nephrology Dr. Cash -Creatinine slightly improved -Lasix 40 mg IV x1 repeat dose today as above ID/HEME: Severe sepsis/Shock -Continue Levaquin and cefepime, s/p 1 dose of vancomycin. Will DC Levaquin today -Fluid, blood sputum, urine influenza all neg to date. -Chest Xray bilateral diffuse interstitial infiltrate-improving Endo: Hypothyroidism Type 2 diabetes -Levothyroxine -Sliding scale insulin DVT GI prophylaxis -Sergio's and SCDs -Subcu heparin -Pantoprazole Critical Care: Level 3 Patient is critically ill with acute hypoxemic respiratory failure and large right-sided hydropneumothorax. Now with multiorgan failure hepatorenal syndrome and severe sepsis. Critically ill but slowly improving Leno Parra MD February 24, 2018 12:44
--- NOTE | 2018-02-24 14:46 | HHI.PR ---
Subjective Remarks ALERT EXTUBATED ON NASAL CANULA RIGHT CHEST TUBE IN LACE Objective Vital Signs Date Time Temp Pulse Resp B/P (MAP) Pulse Ox O2 Delivery O2 Flow Rate FiO2 02/24/18 10:13 93 High Flow Nasal Cannula 30.00 70 02/24/18 06:00 68 02/24/18 04:26 95 50 02/24/18 04:00 60 15 110/52 (71) 97 02/24/18 04:00 60 02/24/18 02:00 67 02/24/18 00:45 92 60 02/24/18 00:41 Bi-Pap 02/24/18 00:00 74 02/24/18 00:00 74 24 111/52 (71) 94 02/23/18 22:00 90 02/23/18 21:23 93 Partial Rebreather 15.00 02/23/18 20:00 71 02/23/18 20:00 97.5 70 19 118/60 (79) 96 02/23/18 19:00 96 Non-Rebreather 15.00 02/23/18 18:00 73 02/23/18 16:00 64 02/23/18 16:00 97.5 64 27 111/56 (74) 94 I/O 02/23/18 02/23/18 02/23/18 02/24/18 02/24/18 02/24/18 06:59 14:59 22:59 06:59 14:59 22:59 Intake Total 695.1 ml 1640 ml Output Total 270 ml 950 ml 590 ml Balance 425.1 ml -950 ml 1050 ml Intake Oral 1440 ml IV Total 695.1 ml 200 ml Output Urine Total 950 ml 250 ml Gastric Drainage Total 0 ml Chest Tube Drainage Total 270 ml 340 ml # Bowel Movements 0 Result Diagram: 02/23/18 0513 02/24/18 1130 Objective Remarks GENERAL: SKIN: Warm and dry. HEAD: Atraumatic. Normocephalic. EYES: Pupils equal and round. No scleral icterus. No injection or drainage. ENT: No nasal bleeding or discharge. Mucous membranes pink and moist. NECK: Trachea midline. No JVD. CARDIOVASCULAR: Regular rate and rhythm. RESPIRATORY: No accessory muscle use. decrease breath sounds on right. GASTROINTESTINAL: Abdomen soft, non-tender, nondistended. Hepatic and splenic margins not palpable. MUSCULOSKELETAL: Extremities without clubbing, cyanosis, or edema. No obvious deformities. NEUROLOGICAL: Awake and alert. No obvious cranial nerve deficits. Motor grossly within normal limits. Five out of 5 muscle strength in the arms and legs. Normal speech. PSYCHIATRIC: Appropriate mood and affect; insight and judgment normal. Assessment and Plan Assessment and Plan RESPIRATORY FAILURE ACUTE RENAL FAILURE R PLEURAL EFFUSION, CHEST TUBE NO DRAINAGE COPD ANASARCA LIVER CIRRHOSIS CHEST XRAY CLEARING PLAN O2 NEEDED BRONCHODILATOR THERAPY NEPHROLOGY FOLLOWING INCREASE ACTIVITY Gerber Mayes MD February 24, 2018 14:46
[2018-02-24] MEDS: MORPHINE SULFATE 4 MG/ML INJ IV PUSH PRN (22:21)
[2018-02-24] MEDS: ONDANSETRON HCL 4 MG/2 ML VIAL IVP PRN (22:21)
[2018-02-25] VITALS (15 sets, daily range): BP systolic 109–123; BP diastolic 51–58; PULSE 61–84; RESP 18–25; TEMP 96.8–98.2; O2SAT 89–100
[2018-02-25] MEDS: metroNIDAZOLE 500 MG INJ 100 ML IV SCH ×3 (00:31→16:40)
[2018-02-25] MEDS: CEFEPIME INJ 1,000 MG in SODIUM CHLORIDE 0.9% INJ 100 ML IV SCH ×3 (01:00→16:40)
[2018-02-25] MEDS: MORPHINE SULFATE 4 MG/ML INJ IV PUSH PRN (03:14)
[2018-02-25] MEDS: ONDANSETRON HCL 4 MG/2 ML VIAL IVP PRN (03:14)
[2018-02-25] MEDS: RESP: ALBUTEROL 2.5 MG/IPRATROPIUM 0.5 MG NEB (SCH) NEB ×4 (03:58→20:40)
[2018-02-25] MEDS: HEPARIN SODIUM - SQ 10,000 UNITS/ML VIAL SQ SCH ×3 (05:07→21:44)
[2018-02-25] MEDS: LEVOTHYROXINE SODIUM 50 MCG TAB PO SCH (05:07)
[2018-02-25] MEDS: LACTULOSE SYRUP 20 GM/30 ML CUP PO SCH ×4 (05:07→21:44)
[2018-02-25 05:33] LABS: AUTOMATED NEUTROPHIL # 18.9 TH/MM3 (1.8-7.7); BASOPHIL % 0.1 % (0.0-2.0); EOSINOPHIL # 0.1 TH/MM3 (0-0.4); EOSINOPHIL % 0.3 % (0.0-4.0); HEMATOCRIT 26.8 % (35.0-46.0); HEMOGLOBIN 9.1 GM/DL (11.6-15.3); LYMPHOCYTE # 0.6 TH/MM3 (1.0-4.8); MEAN CORPUSCULAR HEMOGLOBIN 33.4 PG (27.0-34.0); MEAN CORPUSCULAR HGB CONC 34.1 % (32.0-36.0); MEAN PLATELET VOLUME 8.5 FL (7.0-11.0); MONO % 4.2 % (0.0-8.0); MONOCYTE # 0.9 TH/MM3 (0-0.9); NEUT % 92.4 % (16.0-70.0); PLATELET COUNT 104 TH/MM3 (150-450); RED BLOOD COUNT 2.73 MIL/MM3 (4.00-5.30); RED CELL DISTRIBUTION WIDTH 17.9 % (11.6-17.2); WHITE BLOOD COUNT 20.4 TH/MM3 (4.0-11.0)
--- NOTE | 2018-02-25 05:56 | RADRPT ---
EXAM DATE/TIME: 02/25/2018 05:04 [facility] COMPARISON: CHEST SINGLE AP, February 24, 2018, 9:30. INDICATIONS : Respiratory distress. MEDICAL HISTORY : Hypertension. Chronic obstructive pulmonary disease. Cardiovascular disease. Cirrhosis. SURGICAL HISTORY : Hysterectomy. Appendectomy. Tonsillectomy. ENCOUNTER: Subsequent ACUITY: 1 week PAIN SCORE: Non-responsive. LOCATION: Bilateral chest FINDINGS: A single view of the chest demonstrates again wide spread diffuse interstitial and airspace disease t hroughout the lungs. Overall amount of disease slightly worse. Right-sided pigtail catheter now appea rs to be completely extrapleural. Right-sided subclavian central line in good position. No visible pn eumothorax. The cardiomediastinal contours are unremarkable. Osseous structures are intact. CONCLUSION: Diffuse airspace and interstitial disease throughout the lungs. The pigtail catheter may be within th e subcutaneous fat and appears to be extrapleural.. Dewayne Carey MD on February 25, 2018 at 5:54 Board Certified Radiologist. This report was verified electronically.
[2018-02-25 05:57] LABS: ALBUMIN 2.6 GM/DL (3.4-5.0); BICARBONATE 24.5 MEQ/L (21.0-32.0); CALCIUM 8.3 MG/DL (8.5-10.1); CREATININE 1.95 MG/DL (0.50-1.00); PHOSPHORUS 2.1 MG/DL (2.5-4.9)
[2018-02-25] MEDS: INSULIN ASPART SUPPLEMENTAL SCALE SQ SCH ×4 (08:00→22:38)
[2018-02-25 08:49] LABS: BANDS 4 % (0-6); LYMPHOCYTES 1 % (9-44); METAMYELOCYTES 2 % (0-1); MONOCYTES 1 % (0-8); MYELOCYTES 1 % (0-0); POLYS (SEG NEUTROPHILS) 91 % (16-70)
--- NOTE | 2018-02-25 08:57 | HHI.PR ---
Subjective Remarks ALERT EXTUBATED ON NASAL CANULA cxray chest tube out of chest Objective Vital Signs Date Time Temp Pulse Resp B/P (MAP) Pulse Ox O2 Delivery O2 Flow Rate FiO2 02/25/18 06:00 68 02/25/18 04:06 98 High Flow Nasal Cannula 30.00 50 02/25/18 04:00 97.3 62 18 109/55 (73) 100 02/25/18 04:00 65 02/25/18 02:00 67 02/25/18 00:00 97.8 64 22 123/58 (79) 100 02/25/18 00:00 67 02/24/18 22:00 68 02/24/18 20:17 100 High Flow Nasal Cannula 30.00 60 02/24/18 20:00 98.7 66 25 115/58 (77) 100 02/24/18 20:00 67 02/24/18 19:00 100 Nasal Cannula 55 02/24/18 18:00 62 02/24/18 16:00 98.2 73 29 112/55 (74) 96 02/24/18 16:00 65 02/24/18 14:00 65 02/24/18 12:00 97.6 62 21 103/54 (70) 92 02/24/18 12:00 62 02/24/18 10:13 93 High Flow Nasal Cannula 30.00 70 02/24/18 10:00 66 I/O 02/24/18 02/24/18 02/24/18 02/25/18 02/25/18 02/25/18 07:00 15:00 23:00 07:00 15:00 23:00 Intake Total 1640 ml 960 ml Output Total 590 ml 1676 ml 908 ml Balance 1050 ml -716 ml -908 ml Intake Oral 1440 ml 960 ml IV Total 200 ml Output Urine Total 250 ml 1000 ml 350 ml Stool Total 500 ml Chest Tube Drainage Total 340 ml 676 ml 58 ml Bladder Scan Volume Amount 587 ml # Voids 2 # Bowel Movements 0 0 2 Result Diagram: 02/25/18 0505 02/25/18 0505 Objective Remarks GENERAL: SKIN: Warm and dry. HEAD: Atraumatic. Normocephalic. EYES: Pupils equal and round. No scleral icterus. No injection or drainage. ENT: No nasal bleeding or discharge. Mucous membranes pink and moist. NECK: Trachea midline. No JVD. CARDIOVASCULAR: Regular rate and rhythm. RESPIRATORY: No accessory muscle use. decrease breath sounds on right. GASTROINTESTINAL: Abdomen soft, non-tender, nondistended. Hepatic and splenic margins not palpable. MUSCULOSKELETAL: Extremities without clubbing, cyanosis, or edema. No obvious deformities. NEUROLOGICAL: Awake and alert. No obvious cranial nerve deficits. Motor grossly within normal limits. Five out of 5 muscle strength in the arms and legs. Normal speech. PSYCHIATRIC: Appropriate mood and affect; insight and judgment normal. Assessment and Plan Assessment and Plan RESPIRATORY FAILURE ACUTE RENAL FAILURE R PLEURAL EFFUSION, CHEST TUBE NO DRAINAGE, OUT OF POSITION COPD ANASARCA LIVER CIRRHOSIS CHEST XRAY CLEARING PLAN REMOVE CHEST TUBE O2 NEEDED BRONCHODILATOR THERAPY NEPHROLOGY FOLLOWING INCREASE ACTIVITY Gerber Mayes MD February 25, 2018 08:57
[2018-02-25] MEDS: DOCUSATE SODIUM 50 MG/SENNA 8.6 MG TAB PO SCH ×2 (09:00→19:28)
[2018-02-25] MEDS: methylPREDNISolone SOD SUCC 125 MG/2 ML VIAL IV PUSH SCH (09:50)
[2018-02-25] MEDS: RIFAXIMIN 550 MG TAB PO SCH ×2 (09:50→21:43)
[2018-02-25] MEDS: SODIUM CHLORIDE 0.9% FLUSH 10 ML FLUSH IV FLUSH SCH ×2 (09:50→21:43)
[2018-02-25] MEDS: BUDESONIDE-FORMOTEROL 160/4.5 MCG INHALER INH SCH ×2 (09:50→21:44)
[2018-02-25] MEDS: PANTOPRAZOLE SOD 20 MG DELAYED RELEASE TAB PO SCH ×2 (09:50→21:43)
[2018-02-25] MEDS: OCTREOTIDE INJ 50 MCG/ML AMP SQ SCH ×2 (09:51→22:37)
--- NOTE | 2018-02-25 10:51 | HHI.NPPN ---
Subjective Renal Failure: Acute Interval History She is awake. Renal function is stable. (Oma Bernard) Review of Systems General Constitutional: Fatigue (Oma Bernard) Respiratory Lungs: SOB (Oma Bernard) Objective Data Data 02/25/18 02/26/18 19:00 07:00 Output Total 908 ml Balance -908 ml Output Urine Total 350 ml Stool Total 500 ml Chest Tube Drainage Total 58 ml # Voids 2 # Bowel Movements 2 Vital Signs Date Time Temp Pulse Resp B/P (MAP) Pulse Ox O2 Delivery O2 Flow Rate FiO2 02/25/18 09:01 98 High Flow Nasal Cannula 30.00 50 02/25/18 06:00 68 02/25/18 04:06 98 High Flow Nasal Cannula 30.00 50 02/25/18 04:00 97.3 62 18 109/55 (73) 100 02/25/18 04:00 65 02/25/18 02:00 67 02/25/18 00:00 97.8 64 22 123/58 (79) 100 02/25/18 00:00 67 02/24/18 22:00 68 02/24/18 20:17 100 High Flow Nasal Cannula 30.00 60 02/24/18 20:00 98.7 66 25 115/58 (77) 100 02/24/18 20:00 67 02/24/18 19:00 100 Nasal Cannula 55 02/24/18 18:00 62 02/24/18 16:00 98.2 73 29 112/55 (74) 96 02/24/18 16:00 65 02/24/18 14:00 65 02/24/18 12:00 97.6 62 21 103/54 (70) 92 02/24/18 12:00 62 (Oma Bernard) -: 02/25/18 0505 02/25/18 0505 Imaging Last 72 hours Impressions Chest X-Ray 02/25/18 0600 Signed Impressions: Service Date/Time: Sunday, February 25, 2018 05:04 - CONCLUSION: Diffuse airspace and interstitial disease throughout the lungs. The pigtail catheter may be within the subcutaneous fat and appears to be extrapleural.. Dewayne Carey MD Chest X-Ray 02/24/18 0000 Signed Impressions: Service Date/Time: Saturday, February 24, 2018 09:30 - CONCLUSION: Slight improvement in the bilateral pulmonary infiltrates. Bassem Bañuelos Jr., MD Chest X-Ray 02/23/18 0600 Signed Impressions: Service Date/Time: Friday, February 23, 2018 03:45 - CONCLUSION: Interval extubation. Improving aeration. Fidel Kelly MD Tubes & Lines: [place] Tubes & Lines Comment chest tube (Joana,Oma B. STATISTICS TEACHER) Physical Exam General Appearance: Well Developed, No Acute Distress, Comfortable, Malnourished (Joana,Oma B. STATISTICS TEACHER) Throat Throat Exam: Oral Mucosa [place] & Moist (Joana,Oma B. STATISTICS TEACHER) Pulmonary Resp Exam: Breath Sounds Equal, No Distress, Decreased Bases (Joana,Oma B. STATISTICS TEACHER) Cardiology CV Exam: Regular, Normal Sinus Rhythm (Joana,Oma B. STATISTICS TEACHER) Gastrointestinal/Abdomen GI Exam: Positive Bowel Movement, Distended GI Remarks firm,some ascites (JoanaOma B. STATISTICS TEACHER) Musculoskeletal MS Exam: Joints Intact, Normal Tone (Joana,Oma B. STATISTICS TEACHER) Integumentary Skin Exam: Warm, Dry, Intact (Joana,Oma B. STATISTICS TEACHER) Extremeties Extremities Exam: No Edema, Pedal Pulses Palpable (Joana,Oma B. STATISTICS TEACHER) Neurologic Neuro Exam: Alert, Awake, Oriented, Moving All Extremities (Joana,Oma B. STATISTICS TEACHER) Psychiatric Psych Exam: Appropriate Responses (JoanaOma B. STATISTICS TEACHER) Assessment/Plan Discussed Condition With: Patient Problem List: (1) MAT (acute kidney injury) ICD Codes: N17.9 - Acute kidney failure, unspecified Plan: Normal renal function at baseline. MAT may be due to ATN. Renal function is stable. Monitor urine output. olivas has been removed. Possibly retaining? Repeat bladder scan. Avoid nephrotoxic agents. Diuretics on hold. Given a dose of IV Lasix yesterday. (2) Ascites ICD Codes: R18.8 - Other ascites Status: Acute Plan: Due to ETOH induced liver disease Underwent paracentesis. Has chest tube due to development of pleural effusion. (3) Alcoholic cirrhosis of liver ICD Codes: K70.30 - Alcoholic cirrhosis of liver without ascites Status: Acute Plan: Continue current management with albumin, lactulose, Xifaxan See above (Oma Bernard) Plan patient was seen and examined. Agree with above assessment and plan. Renal function is stable. (Kip Cash MD) Problem Qualifiers (1) Ascites: Qualified Codes: K70.31 - Alcoholic cirrhosis of liver with ascites (2) Alcoholic cirrhosis of liver: Qualified Codes: K70.31 - Alcoholic cirrhosis of liver with ascites Oma Bernard February 25, 2018 10:51 Kip Cash MD February 25, 2018 21:26
--- NOTE | 2018-02-25 13:48 | RADRPT ---
EXAM DATE/TIME: 02/25/2018 00:00 [place] COMPARISON : No previous studies available for comparison. INDICATIONS : Consult to remove chest tube. IMAGING STUDIES: Latest chest radiograph was reviewed. This demonstrated the [place] loop catheter in the right chest is outside of the chest wall in the subcutaneous tissues. However, reviewing the patient's electronic in dical record, this catheter was not placed in the interventional or CT departments. It appears that t he tube was placed by the early head start teacher staff. Patient's nurse was informed of the same. ASSESSMENT: Right sided [place] loop thoracostomy tube appears to be outside of the thoracic cavity. Hugo Street MD on February 25, 2018 at 13:42 Board Certified Radiologist. This report was verified electronically.
--- NOTE | 2018-02-25 15:05 | HHI.PR ---
Subjective Remarks awake and alert, no complains of abdomnal pain or discomfort bringing up thick brownish sputum Objective Vitals Vital Signs Date Time Temp Pulse Resp B/P (MAP) Pulse Ox O2 Delivery O2 Flow Rate FiO2 02/25/18 10:00 62 02/25/18 09:01 98 High Flow Nasal Cannula 30.00 50 02/25/18 09:00 94 Nasal Cannula 20.00 40 02/25/18 08:00 68 02/25/18 08:00 96.8 65 21 122/57 (78) 97 02/25/18 07:00 100 Nasal Cannula 30.00 50 02/25/18 06:00 68 02/25/18 04:06 98 High Flow Nasal Cannula 30.00 50 02/25/18 04:00 97.3 62 18 109/55 (73) 100 02/25/18 04:00 65 02/25/18 02:00 67 02/25/18 00:00 97.8 64 22 123/58 (79) 100 02/25/18 00:00 67 02/24/18 22:00 68 02/24/18 20:17 100 High Flow Nasal Cannula 30.00 60 02/24/18 20:00 98.7 66 25 115/58 (77) 100 02/24/18 20:00 67 02/24/18 19:00 100 Nasal Cannula 55 02/24/18 18:00 62 02/24/18 16:00 98.2 73 29 112/55 (74) 96 02/24/18 16:00 65 I/O 02/24/18 02/24/18 02/24/18 02/25/18 02/25/18 02/25/18 07:00 15:00 23:00 07:00 15:00 23:00 Intake Total 1640 ml 960 ml Output Total 590 ml 1676 ml 908 ml Balance 1050 ml -716 ml -908 ml Intake Oral 1440 ml 960 ml IV Total 200 ml Output Urine Total 250 ml 1000 ml 350 ml Stool Total 500 ml Chest Tube Drainage Total 340 ml 676 ml 58 ml Bladder Scan Volume Amount 587 ml # Voids 2 # Bowel Movements 0 0 2 Result Diagram: 02/25/18 0505 02/25/18 0505 Imaging Last Impressions Chest X-Ray 02/25/18 06 Signed Impressions: Service Date/Time: Sunday, February 25, 2018 05:04 - CONCLUSION: Diffuse airspace and interstitial disease throughout the lungs. The pigtail catheter may be within the subcutaneous fat and appears to be extrapleural.. Dewayne Carey MD Head CT 02/21/18 0000 Signed Impressions: Service Date/Time: Wednesday, February 21, 2018 21:13 - CONCLUSION: Normal examination for a patient of this age. No significant change has occurred. Vikas Davis MD Chest CT 02/21/18 Signed Impressions: Service Date/Time: Wednesday, February 21, 2018 21:16 - CONCLUSION: 1. Diffuse bilateral airspace disease of unknown etiology. Primary differential diagnosis is pneumonia and aspiration. Endotracheal tube and nasogastric tube in good position. 2. Small bilateral pleural effusions. Vikas Davis MD Renal Ultrasound 02/19/18 0000 Signed Impressions: Service Date/Time: Monday, February 19, 2018 10:25 - CONCLUSION: 1. No evidence of hydronephrosis. 2. Limited visualization of the urinary bladder. Lyndon Goodson MD Abdomen Ultrasound 02/18/18 Signed Impressions: Service Date/Time: Sunday, February 18, 2018 11:07 - CONCLUSION: There is only a trace volume of free fluid in the abdomen and pelvis, not enough for safe paracentesis. Fidle Hathaway MD Abdomen/Pelvis CT 02/17/18 1438 Signed Impressions: Service Date/Time: Saturday, February 17, 2018 16:23 - CONCLUSION: 1. Significant increase in the amount of abdominal pelvic ascites when compared to October 2016. 2. Significant increase in size of right pleural effusion when compared to October 2016. The right pleural effusion does cause mediastinal shift towards the left. 3. Stable appearance to cirrhotic liver. No focal lesions. Bassem Hoffman MD Thoracentesis Ultrasound 02/17/18 0000 Signed Impressions: Service Date/Time: Saturday, February 17, 2018 17:56 - CONCLUSION: Uncomplicated ultrasound guided thoracentesis. Leo Piper MD Objective Remarks awake noemi lert, no acute distess icteric lungs- decrease breath sounds, right pigtail catheter in place regular rhyhtm abdomen- flabby, soft, + bowel sounds rectal bag- loose liquid stools extremiteis no edema moves all extremities spontaneously A/P Assessment and Plan 72 years old female Liver cirrhosis Hyperammonemia Hepatic encephalopathy Anisocoria-resolved -Continue lactulose and Xifaxan -Minimize sedation -CT head negative for acute findings Acute hypoxemic respiratory failure Severe bilateral interstitial infiltrates Large right hydropneumothorax COPD with exacerbation -Intubated and placed on mechanical ventilation 02/20/2018 -Self extubated 02/22/2018 but tolerating on pNRB. Now on hi [place] -Status post thoracentesis 02/17/18 by IR with residual pneumothorax -s/p pigtail catheter 02/[address] Parra with 3.3L first 24 hours, now with 340L in 24 hours. - reviewed CXR- pitail displace- ordered for removal -Fluid studies concerning for parapneumonic effusion, but cultures remain negative -Empiric antibiotics with Levaquin, Cefepime, Flagyl -DuoNeb scheduled and as needed -Continue IV Solu-Medrol for COPD exacerbation- gradual taper - Dr. Gerber vital along with us Bilateral infiltrates (cardiogenic vs noncardiogenic) Hypotension History of hypertension -off levophed -Lasix 40 mg IV x1 repeat dose today -Holding atenolol -2d Echo pending Liver cirrhosis with Ascites Hyperammonemia -S/p paracentesis at bedside, fluid studies does not show SBP -Lactulose, Rifaximin -Holding Spironolactone, worsening renal failure. lasix as above -Continue Protonix Acute kidney failure possibly from ATN Possible hepatorenal syndrome -Olivas catheter for strict intake output -Continue subcu octreotide and off IV Levophed, HRS less likely -Renal ultrasound-essentially unremarkable, nephrology Dr. Cash ff -Creatinine slightly improved - olivas out- - [place] in place - check voiding Severe sepsis/Shock -Continue cefepime, s/p 1 dose of vancomycin. Levaquin DC 02/24 -Fluid, blood sputum, urine influenza all neg to date. -Chest Xray bilateral diffuse interstitial infiltrate-improving Hypothyroidism Type 2 diabetes -Levothyroxine -Sliding scale insulin Deconditoning- will need rehab' - out of bed to chair DVT GI prophylaxis -Sergio's and SCDs -Subcu heparin -Pantoprazole Jacque Hastings MD February 25, 2018 15:05
[2018-02-25] MEDS: LEVOFLOXACIN 500 MG TAB PO SCH (21:43)
[2018-02-26] VITALS (12 sets, daily range): BP systolic 92–122; BP diastolic 53–58; PULSE 64–82; RESP 16–24; TEMP 97.9–98.3; O2SAT 89–100
[2018-02-26] MEDS: metroNIDAZOLE 500 MG INJ 100 ML IV SCH ×3 (00:03→16:41)
[2018-02-26] MEDS: CEFEPIME INJ 1,000 MG in SODIUM CHLORIDE 0.9% INJ 100 ML IV SCH ×3 (01:31→17:33)
[2018-02-26] MEDS: RESP: ALBUTEROL 2.5 MG/IPRATROPIUM 0.5 MG NEB (SCH) NEB ×4 (03:44→21:24)
[2018-02-26] MEDS: LACTULOSE SYRUP 20 GM/30 ML CUP PO SCH ×2 (04:33→12:38)
[2018-02-26] MEDS: LEVOTHYROXINE SODIUM 50 MCG TAB PO SCH (06:22)
[2018-02-26] MEDS: HEPARIN SODIUM - SQ 10,000 UNITS/ML VIAL SQ SCH ×3 (06:22→22:05)
[2018-02-26] MEDS: INSULIN ASPART SUPPLEMENTAL SCALE SQ SCH ×4 (08:00→21:00)
[2018-02-26] MEDS: PANTOPRAZOLE SOD 20 MG DELAYED RELEASE TAB PO SCH ×2 (08:09→22:04)
[2018-02-26] MEDS: methylPREDNISolone SOD SUCC 125 MG/2 ML VIAL IV PUSH SCH (08:09)
[2018-02-26] MEDS: RIFAXIMIN 550 MG TAB PO SCH ×2 (08:09→22:04)
[2018-02-26] MEDS: SODIUM CHLORIDE 0.9% FLUSH 10 ML FLUSH IV FLUSH SCH ×2 (08:10→21:00)
[2018-02-26] MEDS: OCTREOTIDE INJ 50 MCG/ML AMP SQ SCH (08:12)
[2018-02-26] MEDS: DOCUSATE SODIUM 50 MG/SENNA 8.6 MG TAB PO SCH (08:12)
[2018-02-26] MEDS: BUDESONIDE-FORMOTEROL 160/4.5 MCG INHALER INH SCH ×2 (09:00→22:04)
[2018-02-26 11:36] LABS: ALBUMIN 2.7 GM/DL (3.4-5.0); BICARBONATE 22.9 MEQ/L (21.0-32.0); CALCIUM 8.5 MG/DL (8.5-10.1); CREATININE 1.66 MG/DL (0.50-1.00)
[2018-02-26 11:37] LABS: PHOSPHORUS 1.9 MG/DL (2.5-4.9)
--- NOTE | 2018-02-26 12:20 | HHI.NPPN ---
Subjective Renal Failure: Acute Interval History Looks better. Renal function improved. Oxygen requirement is less. D/W family. (Oma Benrard) Review of Systems General Constitutional: Fatigue (Oma Bernard) Respiratory Lungs: SOB (Oma Bernard) Objective Data Data Vital Signs Date Time Temp Pulse Resp B/P (MAP) Pulse Ox O2 Delivery O2 Flow Rate FiO2 02/26/18 10:10 95 Nasal Cannula 4.00 02/26/18 09:00 96 Nasal Cannula 4.00 02/26/18 07:15 89 Nasal Cannula 20.00 35 02/26/18 06:00 70 02/26/18 04:00 70 02/26/18 04:00 97.9 70 20 118/55 (76) 100 02/26/18 03:47 95 High Flow Nasal Cannula 20.00 35 02/26/18 02:00 68 02/26/18 00:00 70 02/26/18 00:00 98.3 70 20 112/53 (72) 91 02/25/18 22:00 66 02/25/18 20:40 94 High Flow Nasal Cannula 20.00 35 02/25/18 20:00 72 02/25/18 20:00 97.9 72 25 110/55 (73) 89 02/25/18 19:00 95 Nasal Cannula 20.00 35 02/25/18 18:00 69 02/25/18 16:00 72 02/25/18 16:00 98.2 74 20 109/52 (71) 94 02/25/18 14:00 80 (Oma Bernard) -: 02/25/18 0505 02/26/18 1055 Imaging Last 72 hours Impressions Chest X-Ray 02/25/18 0600 Signed Impressions: Service Date/Time: Sunday, February 25, 2018 05:04 - CONCLUSION: Diffuse airspace and interstitial disease throughout the lungs. The pigtail catheter may be within the subcutaneous fat and appears to be extrapleural.. Dewayne Carey MD Chest X-Ray 02/24/18 0000 Signed Impressions: Service Date/Time: Saturday, February 24, 2018 09:30 - CONCLUSION: Slight improvement in the bilateral pulmonary infiltrates. Bassem Bañuelos Jr., MD Tubes & Lines: [place] Tubes & Lines Comment chest tube (Oma Bernard) Physical Exam General Appearance: Well Developed, No Acute Distress, Comfortable, Malnourished (Oma Bernard TRACK REPAIRER HELPER) Throat Throat Exam: Oral Mucosa [place] & Moist (Oma Bernard TRACK REPAIRER HELPER) Pulmonary Resp Exam: Breath Sounds Equal, No Distress, Decreased Bases (Oma Bernard. TRACK REPAIRER HELPER) Cardiology CV Exam: Regular, Normal Sinus Rhythm (Oma BernardP) Gastrointestinal/Abdomen GI Exam: Soft, Non-Tender, Positive Bowel Movement, Distended GI Remarks firm,some ascites (Oma Bernard TRACK REPAIRER HELPER) Musculoskeletal MS Exam: Joints Intact, Normal Tone (Oma Bernard TRACK REPAIRER HELPER) Integumentary Skin Exam: Warm, Dry, Intact (Oma Bernard TRACK REPAIRER HELPER) Extremeties Extremities Exam: No Edema, Pedal Pulses Palpable (Oma Bernard TRACK REPAIRER HELPER) Neurologic Neuro Exam: Alert, Awake, Oriented, Moving All Extremities (Oma Bernard TRACK REPAIRER HELPER) Psychiatric Psych Exam: Appropriate Responses (Oma Bernard) Assessment/Plan Discussed Condition With: Patient Assessment Summary: MAT/Acute Renal Failure Problem List: (1) MAT (acute kidney injury) ICD Codes: N17.9 - Acute kidney failure, unspecified Plan: Normal renal function at baseline. MAT may be due to ATN. Renal function has improved. Monitor urine output. olivas has been removed. Non oliguric. Avoid nephrotoxic agents. Diuretics as needed. (2) Ascites ICD Codes: R18.8 - Other ascites Status: Acute Plan: Due to ETOH induced liver disease Underwent paracentesis. chest tube removed (3) Alcoholic cirrhosis of liver ICD Codes: K70.30 - Alcoholic cirrhosis of liver without ascites Status: Acute Plan: Continue current management with albumin, lactulose, Xifaxan See above (Oma Bernard) Problem List: (1) MAT (acute kidney injury) ICD Codes: N17.9 - Acute kidney failure, unspecified Plan: Normal renal function at baseline. MAT may be due to ATN. Renal function has improved. Monitor urine output. olivas has been removed. Non oliguric. Avoid nephrotoxic agents. Diuretics as needed. (2) Ascites ICD Codes: R18.8 - Other ascites Status: Acute Plan: Due to ETOH induced liver disease Underwent paracentesis. chest tube removed (3) Alcoholic cirrhosis of liver ICD Codes: K70.30 - Alcoholic cirrhosis of liver without ascites Status: Acute Plan: Continue current management with albumin, lactulose, Xifaxan See above Plan patient was seen and examined. Renal function has improved. Agree with above assessment and plan. (Kip Cash MD) Problem Qualifiers (1) Ascites: Qualified Codes: K70.31 - Alcoholic cirrhosis of liver with ascites (2) Alcoholic cirrhosis of liver: Qualified Codes: K70.31 - Alcoholic cirrhosis of liver with ascites Oma Bernard [facility] February 26, 2018 12:20 Kip Cash MD February 26, 2018 21:04
--- NOTE | 2018-02-26 14:12 | HHI.PR ---
Subjective Remarks awake and alert no complains of abdominal pain good po Objective Vitals Vital Signs Date Time Temp Pulse Resp B/P (MAP) Pulse Ox O2 Delivery O2 Flow Rate FiO2 02/26/18 12:00 98.0 73 24 122/57 (78) 95 02/26/18 12:00 73 02/26/18 10:10 95 Nasal Cannula 4.00 02/26/18 10:00 68 02/26/18 09:00 96 Nasal Cannula 4.00 02/26/18 08:00 64 02/26/18 08:00 98.2 64 19 92/54 (67) 89 02/26/18 07:15 89 Nasal Cannula 20.00 35 02/26/18 06:00 70 02/26/18 04:00 70 02/26/18 04:00 97.9 70 20 118/55 (76) 100 02/26/18 03:47 95 High Flow Nasal Cannula 20.00 35 02/26/18 02:00 68 02/26/18 00:00 70 02/26/18 00:00 98.3 70 20 112/53 (72) 91 02/25/18 22:00 66 02/25/18 20:40 94 High Flow Nasal Cannula 20.00 35 02/25/18 20:00 72 02/25/18 20:00 97.9 72 25 110/55 (73) 89 02/25/18 19:00 95 Nasal Cannula 20.00 35 02/25/18 18:00 69 02/25/18 16:00 72 02/25/18 16:00 98.2 74 20 109/52 (71) 94 I/O 02/25/18 02/25/18 02/25/18 02/26/18 02/26/18 02/26/18 07:00 15:00 23:00 07:00 15:00 23:00 Intake Total 840 ml 240 ml Output Total 908 ml 850 ml 250 ml Balance -908 ml -10 ml -10 ml Intake Oral 840 ml 240 ml Output Urine Total 350 ml 400 ml 150 ml Stool Total 500 ml 450 ml 100 ml Chest Tube Drainage Total 58 ml # Voids 2 4 # Bowel Movements 2 4 Result Diagram: 02/25/18 0505 02/26/18 1055 Imaging Last Impressions Chest X-Ray 02/25/18 06 Signed Impressions: Service Date/Time: Sunday, February 25, 2018 05:04 - CONCLUSION: Diffuse airspace and interstitial disease throughout the lungs. The pigtail catheter may be within the subcutaneous fat and appears to be extrapleural.. Dewayne Carey MD Head CT 02/21/18 0000 Signed Impressions: Service Date/Time: Wednesday, February 21, 2018 21:13 - CONCLUSION: Normal examination for a patient of this age. No significant change has occurred. Vikas Davis MD Chest CT 02/21/18 Signed Impressions: Service Date/Time: Wednesday, February 21, 2018 21:16 - CONCLUSION: 1. Diffuse bilateral airspace disease of unknown etiology. Primary differential diagnosis is pneumonia and aspiration. Endotracheal tube and nasogastric tube in good position. 2. Small bilateral pleural effusions. Vikas Davis MD Renal Ultrasound 02/19/18 0000 Signed Impressions: Service Date/Time: Monday, February 19, 2018 10:25 - CONCLUSION: 1. No evidence of hydronephrosis. 2. Limited visualization of the urinary bladder. Lyndon Goodson MD Abdomen Ultrasound 02/18/18 Signed Impressions: Service Date/Time: Sunday, February 18, 2018 11:07 - CONCLUSION: There is only a trace volume of free fluid in the abdomen and pelvis, not enough for safe paracentesis. Fidel Hathaway MD Abdomen/Pelvis CT 02/17/18 1438 Signed Impressions: Service Date/Time: Saturday, February 17, 2018 16:23 - CONCLUSION: 1. Significant increase in the amount of abdominal pelvic ascites when compared to October 2016. 2. Significant increase in size of right pleural effusion when compared to October 2016. The right pleural effusion does cause mediastinal shift towards the left. 3. Stable appearance to cirrhotic liver. No focal lesions. Bassem Hoffman MD Thoracentesis Ultrasound 02/17/18 0000 Signed Impressions: Service Date/Time: Saturday, February 17, 2018 17:56 - CONCLUSION: Uncomplicated ultrasound guided thoracentesis. Leo Piper MD Objective Remarks awake and alert, no acute distress icteric lungs- decrease breath sounds, right pigtail catheter in place regular rhyhtm abdomen- flabby, soft, + bowel sounds rectal bag- loose liquid stools extremiteis no edema moves all extremities spontaneously A/P Assessment and Plan 72 years old female Liver cirrhosis Hyperammonemia Hepatic encephalopathy Anisocoria-resolved -Continue lactulose and Xifaxan -Minimize sedation -CT head negative for acute findings Acute hypoxemic respiratory failure Severe bilateral interstitial infiltrates Large right hydropneumothorax COPD with exacerbation -Intubated and placed on mechanical ventilation 02/20/2018 -Self extubated 02/22/2018 but tolerating on pNRB. Now on hi [place] -Status post thoracentesis 02/17/18 by IR with residual pneumothorax -s/p pigtail catheter 02/[address] Parra with 3.3L first 24 hours, now with 340L in 24 hours. - reviewed CXR- pitail displace- ordered for removal -Fluid studies concerning for parapneumonic effusion, but cultures remain negative -Empiric antibiotics with Levaquin, Cefepime, Flagyl -DuoNeb scheduled and as needed -Continue IV Solu-Medrol for COPD exacerbation- gradual taper- change to po prednisone starting 02/27 - Dr. Mayes ff along with us Bilateral infiltrates (cardiogenic vs noncardiogenic) Hypotension History of hypertension -off levophed -Lasix 40 mg IV x1 repeat dose today -Holding atenolol -2d Echo pending Liver cirrhosis with Ascites Hyperammonemia -S/p paracentesis at bedside, fluid studies does not show SBP -Lactulose, Rifaximin -rstart Aldactone at 12.5 mg po bdi - restart lasxi 20 mg daily starting 02/27 -Continue Protonix Acute kidney failure possibly from ATN Possible hepatorenal syndrome -Olivas catheter for strict intake output -Continue subcu octreotide and off IV Levophed, HRS less likely -Renal ultrasound-essentially unremarkable, nephrology Dr. Cash ff -Creatinine slightly improved - olivas out- patient voiding - monitor renal functions with initiation of diuretics Severe sepsis/Shock -Continue cefepime, s/p 1 dose of vancomycin. Levaquin DC 02/24 -Fluid, blood sputum, urine influenza all neg to date. -Chest Xray bilateral diffuse interstitial infiltrate-improving Hypothyroidism Type 2 diabetes -Levothyroxine -Sliding scale insulin Deconditoning- will need rehab' - out of bed to chair DVT GI prophylaxis -Sergio's and SCDs -Subcu heparin -Pantoprazole Jacque Hastings MD February 26, 2018 14:12
--- NOTE | 2018-02-26 16:00 | HHI.PR ---
Subjective Remarks ALERT ON NASAL CANULA Objective Vital Signs Date Time Temp Pulse Resp B/P (MAP) Pulse Ox O2 Delivery O2 Flow Rate FiO2 02/26/18 12:00 98.0 73 24 122/57 (78) 95 02/26/18 12:00 73 02/26/18 10:10 95 Nasal Cannula 4.00 02/26/18 10:00 68 02/26/18 09:00 96 Nasal Cannula 4.00 02/26/18 08:00 64 02/26/18 08:00 98.2 64 19 92/54 (67) 89 02/26/18 07:15 89 Nasal Cannula 20.00 35 02/26/18 06:00 70 02/26/18 04:00 70 02/26/18 04:00 97.9 70 20 118/55 (76) 100 02/26/18 03:47 95 High Flow Nasal Cannula 20.00 35 02/26/18 02:00 68 02/26/18 00:00 70 02/26/18 00:00 98.3 70 20 112/53 (72) 91 02/25/18 22:00 66 02/25/18 20:40 94 High Flow Nasal Cannula 20.00 35 02/25/18 20:00 72 02/25/18 20:00 97.9 72 25 110/55 (73) 89 02/25/18 19:00 95 Nasal Cannula 20.00 35 02/25/18 18:00 69 02/25/18 16:00 72 02/25/18 16:00 98.2 74 20 109/52 (71) 94 I/O 02/25/18 02/25/18 02/25/18 02/26/18 02/26/18 02/26/18 07:00 15:00 23:00 07:00 15:00 23:00 Intake Total 840 ml 240 ml Output Total 908 ml 850 ml 250 ml Balance -908 ml -10 ml -10 ml Intake Oral 840 ml 240 ml Output Urine Total 350 ml 400 ml 150 ml Stool Total 500 ml 450 ml 100 ml Chest Tube Drainage Total 58 ml # Voids 2 4 # Bowel Movements 2 4 Result Diagram: 02/25/18 0505 02/26/18 1056 Objective Remarks GENERAL: SKIN: Warm and dry. HEAD: Atraumatic. Normocephalic. EYES: Pupils equal and round. No scleral icterus. No injection or drainage. ENT: No nasal bleeding or discharge. Mucous membranes pink and moist. NECK: Trachea midline. No JVD. CARDIOVASCULAR: Regular rate and rhythm. RESPIRATORY: No accessory muscle use. decrease breath sounds on right. GASTROINTESTINAL: Abdomen soft, non-tender, nondistended. Hepatic and splenic margins not palpable. MUSCULOSKELETAL: Extremities without clubbing, cyanosis, or edema. No obvious deformities. NEUROLOGICAL: Awake and alert. No obvious cranial nerve deficits. Motor grossly within normal limits. Five out of 5 muscle strength in the arms and legs. Normal speech. PSYCHIATRIC: Appropriate mood and affect; insight and judgment normal. Assessment and Plan Assessment and Plan RESPIRATORY FAILURE RENAL FAILURE R PLEURAL EFFUSION, COPD ANASARCA LIVER CIRRHOSIS CHEST XRAY CLEARING PLAN O2 NEEDED BRONCHODILATOR THERAPY NEPHROLOGY FOLLOWING INCREASE ACTIVITY Gerber Mayes MD February 26, 2018 16:00
[2018-02-26] MEDS: SPIRONOLACTONE 25 MG TAB PO SCH (18:22)
--- NOTE | 2018-02-26 19:35 | ECHRPT ---
Indication: HEART FAILURE CONCLUSIONS Normal left ventricular size. Wall thickness is normal. The left ventricular systolic function is hyperdynamic with an estimated ejection fraction in the ra nge of 65- 70%. The left atrial size is moderately dilated. The right atrial size is mildly dilated. Mild mitral valve regurgitation. Aortic valve sclerosis is present. There is mild tricuspid valve regurgitation. The estimated pulmonary arterial pressure is 37 mmHg. BP: 118 / 60 HR: 90 Rhythm: Sinus MEASUREMENTS (Male / Female) Normal Values Technical Quality:Fair 2D ECHO LV Diastolic Diameter PLAX 5.5 cm 4.2 - 5.9 / 3.9 - 5.3 cm LV Systolic Diameter PLAX 3.7 cm IVS Diastolic Thickness 0.9 cm 0.6 - 1.0 / 0.6 - 0.9 cm LVPW Diastolic Thickness 0.9 cm 0.6 - 1.0 / 0.6 - 0.9 cm LV Relative Wall Thickness 0.3 RV Internal Dim ED PLAX 2.9 cm LVOT Diameter 1.6 cm Aortic Root Diameter 2.9 cm LA Systolic Diameter LX 3.9 cm 3.0 - 4.0 / 2.7 - 3.8 cm M-MODE AV Cusp Separation MM 1.8 cm DOPPLER AV Peak Velocity 178.0 cm/s AV Peak Gradient 12.7 mmHg AV Mean Gradient 6.0 mmHg AV Velocity Time Integral 36.5 cm LVOT Peak Velocity 144.0 cm/s LVOT Peak Gradient 8.3 mmHg LVOT Velocity Time Integral 28.0 cm AV Area Cont Eq vti 1.5 cm AV Area Cont Eq pk 1.6 cm Mitral E Point Velocity 77.0 cm/s Mitral A Point Velocity 93.8 cm/s Mitral E to A Ratio 0.8 LV E' Lateral Velocity 9.6 cm/s Mitral E to LV E' Lateral Ratio 8.1 LV E' Septal Velocity 5.9 cm/s Mitral E to LV E' Septal Ratio 12.9 TR Peak Velocity 261.0 cm/s TR Peak Gradient 27.2 mmHg Right Atrial Pressure 10.0 mmHg Pulmonary Artery Systolic Pressu 37.2 mmHg Right Ventricular Systolic Press 37.2 mmHg PV Peak Velocity 115.0 cm/s PV Peak Gradient 5.3 mmHg FINDINGS LEFT VENTRICLE Normal left ventricular size. Wall thickness is normal. The left ventricular systolic function is hyperdynamic with an estimated ejection fraction in the ra nge of 65- 70%. RIGHT VENTRICLE Normal right ventricular size and systolic function. LEFT ATRIUM The left atrial size is moderately dilated. RIGHT ATRIUM The right atrial size is mildly dilated. ATRIAL SEPTUM The interatrial septum not well visualized. AORTA The aortic root and proximal ascending aorta are normal in size on limited imaging. MITRAL VALVE Mild mitral valve regurgitation. AORTIC VALVE Aortic valve sclerosis is present. TRICUSPID VALVE There is mild tricuspid valve regurgitation. The estimated pulmonary arterial pressure is 37 mmHg. PULMONARY VALVE No pulmonary valve regurgitation or stenosis. VESSELS The inferior vena cava was not well visualized. PERICARDIUM No pericardial effusion. A prominent epicardial fat pad is present. Jossy Mcintyre MD, FACC (Electronically Signed) Final Date:26 Feb 2018 19:34
[2018-02-27] VITALS (12 sets, daily range): BP systolic 113–144; BP diastolic 53–70; PULSE 53–93; RESP 16–18; TEMP 97.2–98.1; O2SAT 90–98
[2018-02-27] MEDS: CEFEPIME INJ 1,000 MG in SODIUM CHLORIDE 0.9% INJ 100 ML IV SCH ×3 (00:50→17:00)
[2018-02-27] MEDS: metroNIDAZOLE 500 MG INJ 100 ML IV SCH ×2 (00:50→08:00)
[2018-02-27] MEDS: RESP: ALBUTEROL 2.5 MG/IPRATROPIUM 0.5 MG NEB (SCH) NEB ×2 (04:52→08:14)
[2018-02-27] MEDS: HEPARIN SODIUM - SQ 10,000 UNITS/ML VIAL SQ SCH ×3 (05:40→20:55)
[2018-02-27] MEDS: LEVOTHYROXINE SODIUM 50 MCG TAB PO SCH (05:40)
--- NOTE | 2018-02-27 06:51 | RADRPT ---
EXAM DATE/TIME: 02/27/2018 06:29 [place] COMPARISON: CHEST SINGLE AP, February 25, 2018, 5:04. INDICATIONS : Short of breath, evaluate pleural effusion MEDICAL HISTORY : Hypertension. Chronic obstructive pulmonary disease. Cardiovascular disease. Cirrhosis SURGICAL HISTORY : Hysterectomy. Appendectomy. Tonsillectomy. ENCOUNTER: Subsequent ACUITY: 1 week PAIN SCORE: Non-responsive. LOCATION: Bilateral chest FINDINGS: A single AP portable erect view of the chest was obtained. The patient is mildly rotated to the left. The previously noted right subclavian central venous catheter has been removed. There's been a mild improvement in the diffuse bilateral airspace disease. There is no new focal consolidation or effusio n. The heart size remains within normal limits. The previously noted pigtail catheter along the right side of the chest wall has been removed. CONCLUSION: 1. Interval improvement in bilateral airspace disease. 2. Interval removal of right subclavian central venous catheter. 3. Interval removal of previous noted pigtail catheter along the right lateral chest wall. Bartolo Muse MD on February 27, 2018 at 6:48 Board Certified Radiologist. This report was verified electronically.
[2018-02-27] MEDS: INSULIN ASPART SUPPLEMENTAL SCALE SQ SCH ×4 (08:00→21:08)
[2018-02-27 08:28] LABS: ALBUMIN 2.6 GM/DL (3.4-5.0); BICARBONATE 22.4 MEQ/L (21.0-32.0); CALCIUM 8.3 MG/DL (8.5-10.1); CREATININE 1.59 MG/DL (0.50-1.00); PHOSPHORUS 1.6 MG/DL (2.5-4.9)
[2018-02-27] MEDS: BUDESONIDE-FORMOTEROL 160/4.5 MCG INHALER INH SCH ×2 (09:00→20:55)
[2018-02-27] MEDS: predniSONE 20 MG TAB PO SCH (09:00)
[2018-02-27] MEDS: SODIUM CHLORIDE 0.9% FLUSH 10 ML FLUSH IV FLUSH SCH ×2 (09:08→20:55)
[2018-02-27] MEDS: LACTULOSE SYRUP 20 GM/30 ML CUP PO SCH ×2 (09:09→20:55)
[2018-02-27] MEDS: PANTOPRAZOLE SOD 20 MG DELAYED RELEASE TAB PO SCH ×2 (09:09→20:55)
[2018-02-27] MEDS: SPIRONOLACTONE 25 MG TAB PO SCH ×2 (09:09→17:52)
[2018-02-27] MEDS: FUROSEMIDE 20 MG TAB PO SCH (09:09)
[2018-02-27] MEDS: RIFAXIMIN 550 MG TAB PO SCH ×2 (09:10→20:55)
--- NOTE | 2018-02-27 10:40 | HHI.NPPN ---
Subjective Renal Failure: Acute Interval History Moved out of ICU. Looks better. Renal function is better. (Oma Bernard) Review of Systems General Constitutional: Fatigue (Oma Bernard) Respiratory Lungs: SOB (Oma Bernard) Objective Data Data Vital Signs Date Time Temp Pulse Resp B/P (MAP) Pulse Ox O2 Delivery O2 Flow Rate FiO2 02/27/18 08:16 94 Nasal Cannula 3.00 02/27/18 04:55 93 Nasal Cannula 3.00 02/27/18 04:00 97.3 80 16 121/58 (79) 93 02/27/18 00:00 69 02/27/18 00:00 98.1 77 16 113/53 (73) 92 02/26/18 21:00 3.00 02/26/18 20:00 98.0 82 16 109/57 (74) 94 02/26/18 16:06 90 Nasal Cannula 4.00 02/26/18 16:00 97.9 81 16 118/58 (78) 92 02/26/18 12:00 98.0 73 24 122/57 (78) 95 02/26/18 12:00 73 (Oma Bernard) -: 02/25/18 0505 02/27/18 0713 Imaging Last 72 hours Impressions Chest X-Ray 02/27/18 0000 Signed Impressions: Service Date/Time: February 06:29 - CONCLUSION: 1. Interval improvement in bilateral airspace disease. 2. Interval removal of right subclavian central venous catheter. 3. Interval removal of previous noted pigtail catheter along the right lateral chest wall. Bartolo Muse MD Chest X-Ray 02/25/18 0600 Signed Impressions: Service Date/Time: Sunday, February 25, 2018 05:04 - CONCLUSION: Diffuse airspace and interstitial disease throughout the lungs. The pigtail catheter may be within the subcutaneous fat and appears to be extrapleural.. Dewayne Carey MD Tubes & Lines Comment rectal tube (Oma Bernard) Physical Exam General Appearance: Well Developed, No Acute Distress, Comfortable, Malnourished (Oma Bernard) Throat Throat Exam: Oral Mucosa [place] & Moist (Oma Bernard) Pulmonary Resp Exam: Breath Sounds Equal, No Distress, Decreased Bases (Oma Bernard) Cardiology CV Exam: Regular, Normal Sinus Rhythm (Oma Bernard) Gastrointestinal/Abdomen GI Exam: Soft, Non-Tender, Positive Bowel Movement, Distended GI Remarks firm,some ascites (Oma Bernard) Musculoskeletal MS Exam: Joints Intact, Normal Tone (Oma Bernard) Integumentary Skin Exam: Warm, Dry, Intact (Oma Bernard) Extremeties Extremities Exam: No Edema, Pedal Pulses Palpable (Oma Bernard) Neurologic Neuro Exam: Alert, Awake, Oriented, Moving All Extremities (Oma Bernard) Psychiatric Psych Exam: Appropriate Responses (Oma Bernard) Assessment/Plan Discussed Condition With: Patient Assessment Summary: MAT/Acute Renal Failure Problem List: (1) MAT (acute kidney injury) ICD Codes: N17.9 - Acute kidney failure, unspecified Plan: Normal renal function at baseline. MAT may be due to ATN. Renal function is improving She is non oliguric On Lasix and spironolactone daily Avoid nephrotoxic agents. Avoid IVF (2) Ascites ICD Codes: R18.8 - Other ascites Status: Acute Plan: Due to ETOH induced liver disease Underwent paracentesis. If another is needed please consider giving Albumininfusion chest tube removed (3) Alcoholic cirrhosis of liver ICD Codes: K70.30 - Alcoholic cirrhosis of liver without ascites Status: Acute Plan: Continue current management with albumin, lactulose, Xifaxan See above consider removing rectal tube Cessation advised Plan We will sign off at this time. (Oma Bernard) Plan patient was seen and examined. Agree with above assessment and plan. Would recommend Albumin infusion with paracentesis. (Kip Cash MD) Problem Qualifiers (1) Ascites: Qualified Codes: K70.31 - Alcoholic cirrhosis of liver with ascites (2) Alcoholic cirrhosis of liver: Qualified Codes: K70.31 - Alcoholic cirrhosis of liver with ascites Oma Bernard February 27, 2018 10:40 Kip Cash MD February 27, 2018 14:38
--- NOTE | 2018-02-27 13:32 | HHI.PR ---
Subjective Remarks seen with supportive family at bedside doing well moving bowels, voiding no complains of abdominal pain interactive and appropriate Objective Vitals Vital Signs Date Time Temp Pulse Resp B/P (MAP) Pulse Ox O2 Delivery O2 Flow Rate FiO2 02/27/18 13:06 80 02/27/18 10:00 Nasal Cannula 3.00 02/27/18 10:00 80 02/27/18 08:16 94 Nasal Cannula 3.00 02/27/18 04:55 93 Nasal Cannula 3.00 02/27/18 04:00 97.3 80 16 121/58 (79) 93 02/27/18 00:00 69 02/27/18 00:00 98.1 77 16 113/53 (73) 92 02/26/18 21:00 3.00 02/26/18 20:00 98.0 82 16 109/57 (74) 94 02/26/18 16:06 90 Nasal Cannula 4.00 02/26/18 16:00 97.9 81 16 118/58 (78) 92 I/O 02/26/18 02/26/18 02/26/18 02/27/18 02/27/18 02/27/18 07:00 15:00 23:00 07:00 15:00 23:00 Intake Total 240 ml 1200 ml 0 ml Output Total 250 ml 1050 ml Balance -10 ml 150 ml 0 ml Intake Oral 240 ml 1000 ml IV Total 200 ml 0 ml Output Urine Total 150 ml 1050 ml Stool Total 100 ml # Voids 4 # Bowel Movements 4 0 Result Diagram: 02/25/18 0505 02/27/18 0713 Imaging Last Impressions Chest X-Ray 02/27/18 0000 Signed Impressions: Service Date/Time: February 06:29 - CONCLUSION: 1. Interval improvement in bilateral airspace disease. 2. Interval removal of right subclavian central venous catheter. 3. Interval removal of previous noted pigtail catheter along the right lateral chest wall. Bartolo Muse MD Head CT 02/21/18 0000 Signed Impressions: Service Date/Time: Wednesday, February 21, 2018 21:13 - CONCLUSION: Normal examination for a patient of this age. No significant change has occurred. Vikas Davis MD Chest CT 02/21/18 0000 Signed Impressions: Service Date/Time: Wednesday, February 21, 2018 21:16 - CONCLUSION: 1. Diffuse bilateral airspace disease of unknown etiology. Primary differential diagnosis is pneumonia and aspiration. Endotracheal tube and nasogastric tube in good position. 2. Small bilateral pleural effusions. Vikas Davis MD Renal Ultrasound 02/19/18 0000 Signed Impressions: Service Date/Time: Monday, February 19, 2018 10:25 - CONCLUSION: 1. No evidence of hydronephrosis. 2. Limited visualization of the urinary bladder. Lyndon Goodson MD Abdomen Ultrasound 02/18/18 0000 Signed Impressions: Service Date/Time: Sunday, February 18, 2018 11:07 - CONCLUSION: There is only a trace volume of free fluid in the abdomen and pelvis, not enough for safe paracentesis. Fidel Hathaway MD Abdomen/Pelvis CT 02/17/18 1438 Signed Impressions: Service Date/Time: Saturday, February 17, 2018 16:23 - CONCLUSION: 1. Significant increase in the amount of abdominal pelvic ascites when compared to October 2016. 2. Significant increase in size of right pleural effusion when compared to October 2016. The right pleural effusion does cause mediastinal shift towards the left. 3. Stable appearance to cirrhotic liver. No focal lesions. Bassem Hoffman MD Thoracentesis Ultrasound 02/17/18 0000 Signed Impressions: Service Date/Time: Saturday, February 17, 2018 17:56 - CONCLUSION: Uncomplicated ultrasound guided thoracentesis. Leo Piper MD Objective Remarks awake and alert, no acute distress icteric lungs- decrease breath sounds, right pigtail catheter in place regular rhyhtm abdomen- flabby, soft, + bowel sounds extremiteis no edema moves all extremities spontaneously A/P Assessment and Plan 72 years old female Liver cirrhosis Hyperammonemia Hepatic encephalopathy Anisocoria-resolved -Continue lactulose and Xifaxan -Minimize sedation -CT head negative for acute findings Acute hypoxemic respiratory failure Severe bilateral interstitial infiltrates Large right hydropneumothorax COPD with exacerbation -Intubated and placed on mechanical ventilation 02/20/2018 -Self extubated 02/22/2018 but tolerating on pNRB. Now on hi elizabeth NC -Status post thoracentesis 02/17/18 by IR with residual pneumothorax -s/p pigtail catheter removed 02/26 -Fluid studies concerning for parapneumonic effusion, but cultures remain negative -Empiric antibiotics with Levaquin, Cefepime, Flagyl -DuoNeb scheduled and as needed -change to po prednisone starting 02/27 - Dr. Gerber vital along with us Bilateral infiltrates (cardiogenic vs noncardiogenic) Hypotension History of hypertension -off levophed -Lasix 40 mg IV x1 repeat dose today -Holding atenolol -2d Echo- good Liver cirrhosis with Ascites Hyperammonemia -S/p paracentesis at bedside, fluid studies does not show SBP -Lactulose, Rifaximin -rstart Aldactone at 12.5 mg po bdi - restart lasxi 20 mg daily starting 02/27 -Continue Protonix Acute kidney failure possibly from ATN Possible hepatorenal syndrome -Olivas catheter for strict intake output -Continue subcu octreotide and off IV Levophed, HRS less likely -Renal ultrasound-essentially unremarkable, nephrology Dr. Shreya vital -Creatinine slightly improved - olivas out- patient voiding - monitor renal functions with initiation of diuretics Severe sepsis/Shock -Continue cefepime, s/p 1 dose of vancomycin. Levaquin DC 02/24 -Fluid, blood sputum, urine influenza all neg to date. -Chest Xray bilateral diffuse interstitial infiltrate-improving Hypothyroidism Type 2 diabetes -Levothyroxine -Sliding scale insulin Deconditoning- will need rehab' - out of bed to chair DVT GI prophylaxis -Sergio's and SCDs -Subcu heparin -Pantoprazole Jacque Hastings MD February 27, 2018 13:32
[2018-02-27] MEDS: metroNIDAZOLE 500 MG TAB PO SCH ×2 (14:00→20:55)
--- NOTE | 2018-02-27 15:19 | HHI.PR ---
Subjective Remarks ALERT ON NASAL CANULA Objective Vital Signs Date Time Temp Pulse Resp B/P (MAP) Pulse Ox O2 Delivery O2 Flow Rate FiO2 02/27/18 13:06 80 02/27/18 10:00 Nasal Cannula 3.00 02/27/18 10:00 80 02/27/18 08:16 94 Nasal Cannula 3.00 02/27/18 04:55 93 Nasal Cannula 3.00 02/27/18 04:00 97.3 80 16 121/58 (79) 93 02/27/18 00:00 69 02/27/18 00:00 98.1 77 16 113/53 (73) 92 02/26/18 21:00 3.00 02/26/18 20:00 98.0 82 16 109/57 (74) 94 02/26/18 16:06 90 Nasal Cannula 4.00 02/26/18 16:00 97.9 81 16 118/58 (78) 92 I/O 02/26/18 02/26/18 02/26/18 02/27/18 02/27/18 02/27/18 07:00 15:00 23:00 07:00 15:00 23:00 Intake Total 240 ml 1200 ml 0 ml Output Total 250 ml 1050 ml Balance -10 ml 150 ml 0 ml Intake Oral 240 ml 1000 ml IV Total 200 ml 0 ml Output Urine Total 150 ml 1050 ml Stool Total 100 ml # Voids 4 # Bowel Movements 4 0 Result Diagram: 02/25/18 0505 02/27/18 0713 Objective Remarks GENERAL: SKIN: Warm and dry. HEAD: Atraumatic. Normocephalic. EYES: Pupils equal and round. No scleral icterus. No injection or drainage. ENT: No nasal bleeding or discharge. Mucous membranes pink and moist. NECK: Trachea midline. No JVD. CARDIOVASCULAR: Regular rate and rhythm. RESPIRATORY: No accessory muscle use. decrease breath sounds on right. GASTROINTESTINAL: Abdomen soft, non-tender, nondistended. Hepatic and splenic margins not palpable. MUSCULOSKELETAL: Extremities without clubbing, cyanosis, or edema. No obvious deformities. NEUROLOGICAL: Awake and alert. No obvious cranial nerve deficits. Motor grossly within normal limits. Five out of 5 muscle strength in the arms and legs. Normal speech. PSYCHIATRIC: Appropriate mood and affect; insight and judgment normal. Assessment and Plan Assessment and Plan RESPIRATORY FAILURE RENAL FAILURE R PLEURAL EFFUSION, COPD ANASARCA LIVER CIRRHOSIS CHEST XRAY CLEARING PLAN O2 NEEDED BRONCHODILATOR THERAPY NEPHROLOGY FOLLOWING INCREASE ACTIVITY Gerber Mayes MD February 27, 2018 15:19
[2018-02-28] VITALS: BP 112/53; PULSE 87; RESP 18; TEMP 97.9; O2SAT 93
[2018-02-28] MEDS: CEFEPIME INJ 1,000 MG in SODIUM CHLORIDE 0.9% INJ 100 ML IV SCH ×2 (00:34→09:00)
[2018-02-28 04:00] VITALS: BP 110/56; PULSE 86; RESP 16; TEMP 98.3; O2SAT 91
[2018-02-28] MEDS: metroNIDAZOLE 500 MG TAB PO SCH (05:29)
[2018-02-28] MEDS: LEVOTHYROXINE SODIUM 50 MCG TAB PO SCH (05:29)
[2018-02-28] MEDS: HEPARIN SODIUM - SQ 10,000 UNITS/ML VIAL SQ SCH (05:32)
[2018-02-28 08:00] VITALS: BP 121/60; PULSE 88; RESP 18; TEMP 97.8; O2SAT 92
[2018-02-28] MEDS: INSULIN ASPART SUPPLEMENTAL SCALE SQ SCH ×2 (08:00→12:00)
[2018-02-28] MEDS: PANTOPRAZOLE SOD 20 MG DELAYED RELEASE TAB PO SCH (08:25)
[2018-02-28] MEDS: LACTULOSE SYRUP 20 GM/30 ML CUP PO SCH (08:26)
[2018-02-28] MEDS: SPIRONOLACTONE 25 MG TAB PO SCH (08:26)
[2018-02-28] MEDS: FUROSEMIDE 20 MG TAB PO SCH (08:26)
[2018-02-28] MEDS: predniSONE 20 MG TAB PO SCH (08:26)
[2018-02-28] MEDS: RIFAXIMIN 550 MG TAB PO SCH (08:26)
[2018-02-28] MEDS: SODIUM CHLORIDE 0.9% FLUSH 10 ML FLUSH IV FLUSH SCH (09:00)
[2018-02-28] MEDS ORDERED: LEVOFLOXACIN 250 MG TAB PO SCH (09:00)
[2018-02-28] MEDS: BUDESONIDE-FORMOTEROL 160/4.5 MCG INHALER INH SCH (09:00)
--- NOTE | 2018-02-28 10:47 | HHI.PR ---
Subjective Remarks ALERT ON NASAL CANULA Objective Vital Signs Date Time Temp Pulse Resp B/P (MAP) Pulse Ox O2 Delivery O2 Flow Rate FiO2 02/28/18 09:39 3.00 02/28/18 08:00 97.8 88 18 121/60 (80) 92 02/28/18 04:00 98.3 86 16 110/56 (74) 91 02/28/18 00:00 97.9 87 18 112/53 (72) 93 02/27/18 20:00 97.8 85 16 117/56 (76) 90 02/27/18 18:01 80 02/27/18 16:06 80 02/27/18 16:00 97.2 53 18 119/70 (86) 94 02/27/18 13:06 80 02/27/18 12:00 97.7 93 18 144/65 (91) 98 I/O 02/27/18 02/27/18 02/27/18 02/28/18 02/28/18 02/28/18 07:00 15:00 23:00 07:00 15:00 23:00 Intake Total 0 ml 920 ml Output Total 200 ml Balance 0 ml 720 ml Intake Oral 620 ml IV Total 0 ml 300 ml Output Urine Total 200 ml # Voids 3 # Bowel Movements 0 Result Diagram: 02/25/18 0505 02/27/18 0713 Objective Remarks GENERAL: SKIN: Warm and dry. HEAD: Atraumatic. Normocephalic. EYES: Pupils equal and round. No scleral icterus. No injection or drainage. ENT: No nasal bleeding or discharge. Mucous membranes pink and moist. NECK: Trachea midline. No JVD. CARDIOVASCULAR: Regular rate and rhythm. RESPIRATORY: No accessory muscle use. decrease breath sounds on right. GASTROINTESTINAL: Abdomen soft, non-tender, nondistended. Hepatic and splenic margins not palpable. MUSCULOSKELETAL: Extremities without clubbing, cyanosis, or edema. No obvious deformities. NEUROLOGICAL: Awake and alert. No obvious cranial nerve deficits. Motor grossly within normal limits. Five out of 5 muscle strength in the arms and legs. Normal speech. PSYCHIATRIC: Appropriate mood and affect; insight and judgment normal. Assessment and Plan Assessment and Plan RESPIRATORY FAILURE RENAL FAILURE R PLEURAL EFFUSION, COPD ANASARCA LIVER CIRRHOSIS CHEST XRAY CLEARING PLAN O2 NEEDED BRONCHODILATOR THERAPY INCREASE ACTIVITY Gerber Mayes MD February 28, 2018 10:47
--- NOTE | 2018-02-28 10:47 | HHI.PR ---
Subjective Remarks up i chair seen with very supportive family no complains of pain Objective Vitals Vital Signs Date Time Temp Pulse Resp B/P (MAP) Pulse Ox O2 Delivery O2 Flow Rate FiO2 02/28/18 09:39 3.00 02/28/18 08:00 97.8 88 18 121/60 (80) 92 02/28/18 04:00 98.3 86 16 110/56 (74) 91 02/28/18 00:00 97.9 87 18 112/53 (72) 93 02/27/18 20:00 97.8 85 16 117/56 (76) 90 02/27/18 18:01 80 02/27/18 16:06 80 02/27/18 16:00 97.2 53 18 119/70 (86) 94 02/27/18 13:06 80 02/27/18 12:00 97.7 93 18 144/65 (91) 98 I/O 02/27/18 02/27/18 02/27/18 02/28/18 02/28/18 02/28/18 07:00 15:00 23:00 07:00 15:00 23:00 Intake Total 0 ml 920 ml Output Total 200 ml Balance 0 ml 720 ml Intake Oral 620 ml IV Total 0 ml 300 ml Output Urine Total 200 ml # Voids 3 # Bowel Movements 0 Result Diagram: 02/25/18 0505 02/27/18 0713 Imaging Last Impressions Chest X-Ray 02/27/18 0000 Signed Impressions: Service Date/Time: February 06:29 - CONCLUSION: 1. Interval improvement in bilateral airspace disease. 2. Interval removal of right subclavian central venous catheter. 3. Interval removal of previous noted pigtail catheter along the right lateral chest wall. Bartolo Muse MD Head CT 02/21/18 0000 Signed Impressions: Service Date/Time: Wednesday, February 21, 2018 21:13 - CONCLUSION: Normal examination for a patient of this age. No significant change has occurred. Vikas Davis MD Chest CT 02/21/18 0000 Signed Impressions: Service Date/Time: Wednesday, February 21, 2018 21:16 - CONCLUSION: 1. Diffuse bilateral airspace disease of unknown etiology. Primary differential diagnosis is pneumonia and aspiration. Endotracheal tube and nasogastric tube in good position. 2. Small bilateral pleural effusions. Vikas Davis MD Renal Ultrasound 02/19/18 0000 Signed Impressions: Service Date/Time: Monday, February 19, 2018 10:25 - CONCLUSION: 1. No evidence of hydronephrosis. 2. Limited visualization of the urinary bladder. Lyndon Goodson MD Abdomen Ultrasound 02/18/18 0000 Signed Impressions: Service Date/Time: Sunday, February 18, 2018 11:07 - CONCLUSION: There is only a trace volume of free fluid in the abdomen and pelvis, not enough for safe paracentesis. Fidel Hathaway MD Abdomen/Pelvis CT 02/17/18 1438 Signed Impressions: Service Date/Time: Saturday, February 17, 2018 16:23 - CONCLUSION: 1. Significant increase in the amount of abdominal pelvic ascites when compared to October 2016. 2. Significant increase in size of right pleural effusion when compared to October 2016. The right pleural effusion does cause mediastinal shift towards the left. 3. Stable appearance to cirrhotic liver. No focal lesions. Bassem Hoffman MD Thoracentesis Ultrasound 02/17/18 0000 Signed Impressions: Service Date/Time: Saturday, February 17, 2018 17:56 - CONCLUSION: Uncomplicated ultrasound guided thoracentesis. Leo Piper MD Objective Remarks awake and alert, no acute distress icteric lungs- decrease breath sounds regular rhyhtm abdomen- flabby, soft, + bowel sounds, + mild fluid wave extremities no edema moves all extremities spontaneously A/P Assessment and Plan 72 years old female Liver cirrhosis Hyperammonemia Hepatic encephalopathy - resolved Anisocoria-resolved -Continue lactulose and Xifaxan -CT head negative for acute findings- S/p paracentesis fluid studies does not show SBP -Lactulose, Rifaximin -continue Lasix + Aldactone- monitor- started 02/27- gradually increase . Monitor weights -Continue Protonix - may require periodic paracentesis for therapeutic purposes Acute hypoxemic respiratory failure Severe bilateral interstitial infiltrates Large right hydropneumothorax COPD with exacerbation -Intubated and placed on mechanical ventilation 02/20/2018 -Self extubated 02/22/2018 but tolerating on pNRB. Now on hi elizabeth [place] -Status post thoracentesis 02/17/18 by IR with residual pneumothorax -s/p pigtail catheter removed 02/26 -Fluid studies concerning for parapneumonic effusion, but cultures remain negative -Empiric antibiotics with Levaquin , Flagyl till 03/04 -DuoNeb scheduled and as needed -change to po prednisone decrease to 20 mg daily 01/30- gradual taper - Dr. Gerber vital along with us Bilateral infiltrates (cardiogenic vs noncardiogenic) Hypotension History of hypertension -off levophed -2d Echo- good Acute kidney failure possibly from ATN Possible hepatorenal syndrome -Renal ultrasound-essentially unremarkable, nephrology Dr. Cash ff -Creatinine slightly improved - olivas out- patient voiding - monitor renal functions with initiation of diuretics 02/27 and as dose is increase gradually Severe sepsis/Shock -DC cefepime, Levaquin + Flagyl till 03.04 -Fluid, blood sputum, urine influenza all neg to date. -Chest Xray bilateral diffuse interstitial infiltrate-improving Hypothyroidism Type 2 diabetes -Levothyroxine -Sliding scale insulin Deconditoning- will need rehab' - out of bed to chair DVT GI prophylaxis -Sergio's and SCDs -Subcu heparin -Pantoprazole [facility] today Jacque Hastings MD February 28, 2018 10:47
[2018-02-28] MEDS ORDERED: FURO20TA PO (10:54)
[2018-02-28] MEDS ORDERED: LEVA250T14 PO (10:54)
[2018-02-28] MEDS ORDERED: SPIR25 PO (10:54)
[2018-02-28] MEDS ORDERED: METR-1 PO (10:54)
[2018-02-28] MEDS ORDERED: Lactulose Liq PO (10:54)
[2018-02-28] MEDS ORDERED: PRED20 PO (10:57)
[2018-02-28] MEDS ORDERED: Budeson-Formot 160-4.5 Mcg Inh INH (10:57)
--- NOTE | 2018-02-28 11:00 | HHI.DS ---
Discharge Summary Admission Date February 19, 2018 at 10:15 Discharge Date: February 28, 2018 Admitting Diagnosis Hydrothorax, Ascites (1) Hepatic encephalopathy ICD Code: K72.90 - Hepatic failure, unspecified without coma Diagnosis: Principal Status: Acute (2) Acute hypoxemic respiratory failure ICD Code: J96.01 - Acute respiratory failure with hypoxia Diagnosis: Principal (3) MAT (acute kidney injury) ICD Code: N17.9 - Acute kidney failure, unspecified Diagnosis: Principal Status: Acute (4) Sepsis ICD Code: A41.9 - Sepsis, unspecified organism Diagnosis: Principal (5) Diabetes mellitus ICD Code: E11.9 - Type 2 diabetes mellitus without complications Diagnosis: Secondary Status: Chronic Procedures mechanical ventilation thoracentesis Brief History - From Admission 72-year-old female with a past medical history significant for COPD, CAD, cirrhosis requiring paracentesis every 3 weeks, COPD, diabetes mellitus, hypertension, GERD and hypothyroidism presents to the emergency department for the evaluation of abdominal fullness, generalized pain and shortness of breath. The patient reports that the pain radiates into her back. She denies any fever/chills. She states her shortness of breath has been gradually worsening. Her last paracentesis was 02/07/18. The patient also complains of black diarrhea for the past 3 days. No chest pain. No nausea/vomiting. No lateralizing signs/symptoms. CBC/BMP: 02/25/18 0505 02/27/18 0713 Significant Findings Laboratory Tests Test 02/26/18 10:55 02/27/18 07:13 Blood Urea Nitrogen 47 MG/DL (7-18) 49 MG/DL (7-18) Creatinine 1.66 MG/DL (0.50-1.00) 1.59 MG/DL (0.50-1.00) Random Glucose 142 MG/DL (74-106) 119 MG/DL (74-106) Albumin 2.7 GM/DL (3.4-5.0) 2.6 GM/DL (3.4-5.0) Phosphorus Level 1.9 MG/DL (2.5-4.9) 1.6 MG/DL (2.5-4.9) Estimat Glomerular Filtration Rate 30 ML/MIN (>89) 32 ML/MIN (>89) Calcium Level 8.3 MG/DL (8.5-10.1) PE at Discharge awake and alert, no acute distress icteric lungs- decrease breath sounds regular rhyhtm abdomen- flabby, soft, + bowel sounds, + mild fluid wave extremities no edema moves all extremities spontaneously Pt update on day of discharge awake and alert afebrile oriented x 3 Hospital Course 72 years old female Liver cirrhosis Hyperammonemia Hepatic encephalopathy - resolved Anisocoria-resolved -Continue lactulose and Xifaxan -CT head negative for acute findings- S/p paracentesis fluid studies does not show SBP -Lactulose, Rifaximin -continue Lasix + Aldactone- monitor- started 02/27- gradually increase . Monitor weights -Continue Protonix - may require periodic paracentesis for therapeutic purposes Acute hypoxemic respiratory failure Severe bilateral interstitial infiltrates Large right hydropneumothorax COPD with exacerbation -Intubated and placed on mechanical ventilation 02/20/2018 -Self extubated 02/22/2018 but tolerating on pNRB. Now on hi elizabeth [place] -Status post thoracentesis 02/17/18 by IR with residual pneumothorax -s/p pigtail catheter removed 02/26 -Fluid studies concerning for parapneumonic effusion, but cultures remain negative -Empiric antibiotics with Levaquin , Flagyl till 03/04 -DuoNeb scheduled and as needed -change to po prednisone decrease to 20 mg daily 01/30- gradual taper - Dr. Gerber vital along with us Bilateral infiltrates (cardiogenic vs noncardiogenic) Hypotension History of hypertension -off levophed -2d Echo- good Acute kidney failure possibly from ATN Possible hepatorenal syndrome -Renal ultrasound-essentially unremarkable, nephrology Dr. Cash ff -Creatinine slightly improved - olivas out- patient voiding - monitor renal functions with initiation of diuretics 02/27 and as dose is increase gradually Severe sepsis/Shock -DC cefepime, Levaquin + Flagyl till 03.04 -Fluid, blood sputum, urine influenza all neg to date. -Chest Xray bilateral diffuse interstitial infiltrate-improving Hypothyroidism Type 2 diabetes -Levothyroxine -Sliding scale insulin Deconditoning- will need rehab' - out of bed to chair DVT GI prophylaxis -Sergio's and SCDs -Subcu heparin -Pantoprazole [facility] today Pt Condition on Discharge: Stable Discharge Disposition: Rehab Inpatient Discharge Time: > 30 minutes Discharge Instructions DIET: Follow Instructions for: Heart Healthy Diet, Diabetic Diet, Liver Disease Diet Speech Therapy-Diet Recommends: Regular Activities you can perform: Weight Bearing as Fili New Medications: Levofloxacin (Levaquin) 250 Mg Tablet 250 MG PO DAILY for Infection for 4 Days, #4 TAB 0 Refills Metronidazole (Flagyl) 500 Mg Tab 500 MG PO Q8HR for INFI for 4 Days, TAB Prednisone (Prednisone) 20 Mg Tab 20 MG PO DAILY for resp for 7 Days, #7 TAB to wean gradually Spironolactone (Aldactone) 25 Mg Tab 12.5 MG PO BID@09,18 for acites for 30 Days, TAB [Budeson-Formot 160-4.5 Mcg Inh] () 60 PUFF AERO 2 PUFF INH Q12HR for resp for 30 Days [Lactulose Liq] () 30 ML SYRP 30 ML PO BID for hep enchephalopa for 30 Days Continued Medications: Atenolol (Atenolol) 25 Mg Tab 25 MG PO DAILY for Blood Pressure Management, #30 TAB Citalopram (Citalopram) 20 Mg Tab 0.5 TAB PO DAILY for Control Depression, #30 TAB 0 Refills Levothyroxine (Levothyroxine) 50 Mcg Tab 50 MCG PO DAILY for Thyroid, #30 TAB 0 Refills Multiple Vitamin (Multiple Vitamin) 1 Tab 1 TAB PO DAILY for Nutritional Supplement, TAB 0 Refills Omeprazole (Omeprazole) 20 Mg Tab 20 MG PO BID, #30 TAB 0 Refills Rifaximin (Xifaxan) 550 Mg Tab 550 MG PO BID for Hepatic encephalopathy, #60 TAB 0 Refills Ropinirole (Ropinirole) 0.25 Mg Tab 0.25 MG PO DAILY, #1 TAB 0 Refills Jacque Hastings MD February 28, 2018 10:59
[2018-02-28 11:14] VITALS: PULSE 88
[2018-03-01] MEDS ORDERED: predniSONE 20 MG TAB PO SCH (09:00)
== END 2018-02-28 13:24 | DRG 208 ==
LOC: NEPE 14:06 → INTOOBSV 17:57 → NEDA 17:57 → N07A 19:11 → OBSVTOIN 02-19 10:15 → N03A 02-19 23:01 → N07B 02-26 15:43
PROVIDERS: ADMIT Internal Medicine; ATTEND Internal Medicine
PROC: 0W993ZX Drainage of Right Pleural Cavity, Percutaneous Approach, Diagnostic (ICD-10-PCS; principal; 2018-02-17)
PROC: 5A1945Z Respiratory Ventilation, 24-96 Consecutive Hours (ICD-10-PCS; 2018-02-20)
PROC: 0W9G3ZX Drainage of Peritoneal Cavity, Percutaneous Approach, Diagnostic (ICD-10-PCS; 2018-02-20)
PROC: 0W9B30Z Drainage of Left Pleural Cavity with Drainage Device, Percutaneous Approach (ICD-10-PCS; 2018-02-20)
PROC: 0BH17EZ Insertion of Endotracheal Airway into Trachea, Via Natural or Artificial Opening (ICD-10-PCS; 2018-02-20)
PROC: 5A09357 Assistance with Respiratory Ventilation, Less than 24 Consecutive Hours, Continuous Positive Airway Pressure (ICD-10-PCS; 2018-02-20)
PROC: 02HV33Z Insertion of Infusion Device into Superior Vena Cava, Percutaneous Approach (ICD-10-PCS; 2018-02-20)
PROC: 0T9B70Z Drainage of Bladder with Drainage Device, Via Natural or Artificial Opening (ICD-10-PCS; 2018-02-20)
DX: J90 Pleural effusion, not elsewhere classified (principal); J96.01 Acute respiratory failure with hypoxia; K76.7 Hepatorenal syndrome; N17.0 Acute kidney failure with tubular necrosis; A41.9 Sepsis, unspecified organism; R65.20 Severe sepsis without septic shock; J44.1 Chronic obstructive pulmonary disease with (acute) exacerbation; J94.8 Other specified pleural conditions; J98.11 Atelectasis; E46 Unspecified protein-calorie malnutrition; J95.811 Postprocedural pneumothorax; K70.31 Alcoholic cirrhosis of liver with ascites; K72.90 Hepatic failure, unspecified without coma; E11.9 Type 2 diabetes mellitus without complications; I10 Essential (primary) hypertension; K21.9 Gastro-esophageal reflux disease without esophagitis; I25.10 Atherosclerotic heart disease of native coronary artery without angina pectoris; E03.9 Hypothyroidism, unspecified; F41.9 Anxiety disorder, unspecified; F31.9 Bipolar disorder, unspecified; G47.33 Obstructive sleep apnea (adult) (pediatric); Z90.710 Acquired absence of both cervix and uterus; Z87.891 Personal history of nicotine dependence; Z82.49 Family history of ischemic heart disease and other diseases of the circulatory system; Z80.9 Family history of malignant neoplasm, unspecified; K59.00 Constipation, unspecified; R19.7 Diarrhea, unspecified; H57.02 Anisocoria
CPT/HCPCS: 31500; 32555; 36600; 70450; 71045; 71250; 74177; 76705; 76775; 80048; 80053; 80069; 80307; 81001; 82042; 82140; 82150; 82570; 82805; 82945; 82948; 83615; 83690; 83735; 83880; 83986; 84157; 84300; 85007; 85025; 85027; 85610; 85730; 87015; 87040; 87070; 87086; 87102; 87116; 87205; 87206; 87804; 88112; 89051; 93306; 94002; 94003; 94640; 94664; 96374; 96375; 96376; C1729; G0378; G8987-GP; G8988-GP; J0692; J1644; J1815; J1940; J2250; J2270; J2354; J2405; J2930; J7030; J7512; P9047; Q9967